=== PATIENT | female | born 1990 | race Caucasian/White ===

== ENCOUNTER 2018-11-10 20:57 | Emergency (ER) | payer BC, OTHER ==
[2018-11-10] MEDS ORDERED: ACETAMINOPHEN TAB 500 MG TAB PO STA (21:47)
--- NOTE | 2018-11-10 22:11 | ED ---
General Adult HPI - General Chief complaint: Psychiatric Symptoms Stated complaint: Petition Time Seen by Provider: 11/10/18 21:15 Source: patient, police, RN notes reviewed, old records reviewed Mode of arrival: ambulatory Limitations: no limitations - History of Present Illness Initial comments: 27-year-old female presenting with depression and suicidal ideation. Patient has history of depression, anxiety, and has had previous psychiatric admissions. She states over the past week she's had increasing thoughts of hurting herself. She did cut her bilateral wrists one week ago. This was superficial in nature. Patient denies any ingestion or attempt at overdose today. Denies illicit drugs or alcohol. States she plans to overdose. - Related Data Home Medications Medication Instructions Recorded Confirmed Folic Acid 2 mg PO BID 08/31/14 11/10/18 lamoTRIgine [LaMICtal] 200 mg PO BID 05/10/15 11/10/18 ARIPiprazole IM SYRINGE [Abilify 400 mg IM Q28D 11/10/18 11/10/18 Maintena Syringe] Albuterol Inhaler [Ventolin Hfa 1 - 2 puff INHALATION RT-Q6H PRN 11/10/18 Inhaler] Clonidine Er 0.1mg(Kapvay) 0.3 mg PO HS 11/10/18 11/10/18 Ferrous Sulfate [Feosol] 325 mg PO BID 11/10/18 11/10/18 Glimepiride [Amaryl] 1 mg PO DAILY 11/10/18 11/10/18 LORazepam [Ativan] 1 mg PO BID PRN 11/10/18 11/10/18 Lisinopril [Zestril] 10 mg PO DAILY 11/10/18 11/10/18 [place] Carbonate 1,200 mg PO HS 11/10/18 11/10/18 [place] Carbonate 300 mg PO HS 11/10/18 11/10/18 Propranolol HCl [Propranolol HCl 120 mg PO DAILY 11/10/18 11/10/18 ER] Vitamin D3(Unknown Dose) 1 tab PO DAILY 11/10/18 11/10/18 Vitron-C 1 tab PO BID 11/10/18 11/10/18 lamoTRIgine [LaMICtal] 75 mg PO BID 11/10/18 11/10/18 metFORMIN HCL [Glucophage] 1,000 mg PO BID 11/10/18 11/10/18 Previous Rx's Medication Instructions Recorded Montelukast [Singulair] 10 mg PO DAILY 30 Days tab 09/07/14 Allergies Allergy/AdvReac Type Severity Reaction Status Date / Time haloperidol [From Haldol] Allergy Unknown Verified 11/10/18 21:30 metronidazole [From Flagyl] Allergy Unknown Verified 11/10/18 21:30 Review of Systems ROS Statement: Those systems with pertinent positive or pertinent negative responses have been documented in the HPI. ROS Other: All systems not noted in ROS Statement are negative. Past Medical History Past Medical History: Asthma, Hypertension, Seizure Disorder History of Any Multi-Drug Resistant Organisms: None Reported Past Surgical History: Cholecystectomy Past Anesthesia/Blood Transfusion Reactions: No Reported Reaction Past Psychological History: Anxiety, Bipolar, Depression, Panic Disorder Smoking Status: Current every day smoker Past Alcohol Use History: Occasional Past Drug Use History: None Reported - Past Family History Mother Family Medical History: Asthma, Diabetes Mellitus Additional Family Medical History / Comment(s): Mom is alive at age 56 with history of diabetes Father Family Medical History: Hypertension Additional Family Medical History / Comment(s): Father is alive at age 56 with history of hypertension. Patient does not have any brothers. She does not have a sisters. She does not have any children. General Exam Limitations: no limitations General appearance: alert, in no apparent distress Head exam: Present: atraumatic, normocephalic Eye exam: Present: normal appearance, PERRL ENT exam: Present: normal exam Neck exam: Present: normal inspection. Absent: tenderness, meningismus Respiratory exam: Present: normal lung sounds bilaterally. Absent: respiratory distress, wheezes Cardiovascular Exam: Present: regular rate, normal rhythm GI/Abdominal exam: Present: soft. Absent: distended, tenderness Extremities exam: Present: other (Multiple linear superficial lacerations to bilateral palmar side of the wrist. No repairable laceration. These are very superficial and not bleeding.) Neurological exam: Present: alert, oriented X3, CN II-XII intact. Absent: motor sensory deficit Psychiatric exam: Present: depressed, flat affect, suicidal ideation Skin exam: Present: warm, dry. Absent: cyanosis, diaphoretic Course Vital Signs 11/10/18 11/11/18 21:03 02:18 Temperature 98.5 F Pulse Rate 75 Respiratory 16 17 Rate Blood Pressure 127/85 O2 Sat by Pulse 100 Oximetry - Reevaluation(s) Reevaluation #1: 11/10/18 23:27 Patient evaluated by EPS, no will require psychiatric inpatient evaluation and treatment. Will likely be transferred. I completed a clinical certification for this patient's condition. Medical Decision Making - Medical Decision Making Patient evaluated by EPS, she will be transferred for further psychiatric evaluation and treatment. She will be transferred to [facility] - Lab Data Result diagrams: 11/11/18 00:05 11/11/18 00:05 Lab Results 11/11/18 11/11/18 11/11/18 Range/Units 00:05 00:05 00:05 WBC 12.9 H (3.8-10.6) k/uL RBC 4.51 (3.80-5.40) m/uL Hgb 12.9 (11.4-16.0) gm/dL Hct 40.1 (34.0-46.0) % MCV 88.8 (80.0-100.0) fL MCH 28.7 (25.0-35.0) pg MCHC 32.3 (31.0-37.0) g/dL RDW 14.2 (11.5-15.5) % Plt Count 378 (150-450) k/uL Neutrophils % 71 % Lymphocytes % 20 % Monocytes % 4 % Eosinophils % 3 % Basophils % 0 % Neutrophils # 9.1 H (1.3-7.7) k/uL Lymphocytes # 2.6 (1.0-4.8) k/uL Monocytes # 0.5 (0-1.0) k/uL Eosinophils # 0.3 (0-0.7) k/uL Basophils # 0.0 (0-0.2) k/uL Sodium 140 (137-145) mmol/L Potassium 4.3 (3.5-5.1) mmol/L Chloride 107 (98-107) mmol/L Carbon Dioxide 22 (22-30) mmol/L Anion Gap 11 mmol/L BUN 17 (7-17) mg/dL Creatinine 0.78 (0.52-1.04) mg/dL Est GFR (CKD-EPI)AfAm >90 (>60 ml/min/1.73 sqM) Est GFR (CKD-EPI)NonAf >90 (>60 ml/min/1.73 sqM) Glucose 100 H (74-99) mg/dL Calcium 10.1 (8.4-10.2) mg/dL Total Bilirubin 0.4 (0.2-1.3) mg/dL AST 25 (14-36) U/L ALT 56 H (9-52) U/L Alkaline Phosphatase 110 (38-126) U/L Total Protein 7.4 (6.3-8.2) g/dL Albumin 4.4 (3.5-5.0) g/dL Urine HCG, Qual (Not Detectd) Urine Opiates Screen Not Detected (NotDetected) Ur Oxycodone Screen Not Detected (NotDetected) Urine Methadone Screen Not Detected (NotDetected) Ur Propoxyphene Screen Not Detected (NotDetected) Ur Barbiturates Screen Not Detected (NotDetected) U Tricyclic Antidepress Not Detected (NotDetected) Ur Phencyclidine Scrn Not Detected (NotDetected) Ur Amphetamines Screen Not Detected (NotDetected) U Methamphetamines Scrn Not Detected (NotDetected) U Benzodiazepines Scrn Detected H (NotDetected) Urine Cocaine Screen Not Detected (NotDetected) U Marijuana (THC) Screen Not Detected (NotDetected) 11/11/18 Range/Units 00:05 WBC (3.8-10.6) k/uL RBC (3.80-5.40) m/uL Hgb (11.4-16.0) gm/dL Hct (34.0-46.0) % MCV (80.0-100.0) fL MCH (25.0-35.0) pg MCHC (31.0-37.0) g/dL RDW (11.5-15.5) % Plt Count (150-450) k/uL Neutrophils % % Lymphocytes % % Monocytes % % Eosinophils % % Basophils % % Neutrophils # (1.3-7.7) k/uL Lymphocytes # (1.0-4.8) k/uL Monocytes # (0-1.0) k/uL Eosinophils # (0-0.7) k/uL Basophils # (0-0.2) k/uL Sodium (137-145) mmol/L Potassium (3.5-5.1) mmol/L Chloride (98-107) mmol/L Carbon Dioxide (22-30) mmol/L Anion Gap mmol/L BUN (7-17) mg/dL Creatinine (0.52-1.04) mg/dL Est GFR (CKD-EPI)AfAm (>60 ml/min/1.73 sqM) Est GFR (CKD-EPI)NonAf (>60 ml/min/1.73 sqM) Glucose (74-99) mg/dL Calcium (8.4-10.2) mg/dL Total Bilirubin (0.2-1.3) mg/dL AST (14-36) U/L ALT (9-52) U/L Alkaline Phosphatase (38-126) U/L Total Protein (6.3-8.2) g/dL Albumin (3.5-5.0) g/dL Urine HCG, Qual Not Detected (Not Detectd) Urine Opiates Screen (NotDetected) Ur Oxycodone Screen (NotDetected) Urine Methadone Screen (NotDetected) Ur Propoxyphene Screen (NotDetected) Ur Barbiturates Screen (NotDetected) U Tricyclic Antidepress (NotDetected) Ur Phencyclidine Scrn (NotDetected) Ur Amphetamines Screen (NotDetected) U Methamphetamines Scrn (NotDetected) U Benzodiazepines Scrn (NotDetected) Urine Cocaine Screen (NotDetected) U Marijuana (THC) Screen (NotDetected) Disposition Clinical Impression: Depression, Suicidal ideation Disposition: OTHER INSTITUTION NOT DEFINED Condition: Stable Is patient prescribed a controlled substance at d/c from ED?: No Referrals: None,Stated [Primary Care Provider] - 1-2 days Time of Disposition: 03:26 - Out of Hospital Transfer - Req. Specs Out of Hospital Transfer - Requested Specifics: Psychiatric Non-ICU (Danita
[2018-11-11 00:27] LABS: Basophils % (A) 0 %; Eosinophils # (A) 0.3 k/uL (0-0.7); Eosinophils % (A) 3 %; HCT 40.1 % (34.0-46.0); HGB 12.9 gm/dL (11.4-16.0); Lymphocytes # (A) 2.6 k/uL (1.0-4.8); Lymphocytes % (A) 20 %; MCH 28.7 pg (25.0-35.0); MCHC 32.3 g/dL (31.0-37.0); MCV 88.8 fL (80.0-100.0); Mean Platelet Volume 6.3; Monocytes # (A) 0.5 k/uL (0-1.0); Monocytes % (A) 4 %; Neutrophils # (A) 9.1 k/uL (1.3-7.7); Neutrophils % (A) 71 %; Platelet Count 378 k/uL (150-450); RBC 4.51 m/uL (3.80-5.40); RDW 14.2 % (11.5-15.5); WBC 12.9 k/uL (3.8-10.6)
[2018-11-11 00:39] LABS: ALT 56 U/L (9-52); AST 25 U/L (14-36); Albumin 4.4 g/dL (3.5-5.0); Alkaline Phosphatase 110 U/L (38-126); Anion Gap 11 mmol/L; Blood Urea Nitrogen 17 mg/dL (7-17); Calcium 10.1 mg/dL (8.4-10.2); Carbon Dioxide 22 mmol/L (22-30); Chloride 107 mmol/L (98-107); Glucose 100 mg/dL (74-99); Potassium 4.3 mmol/L (3.5-5.1); Sodium 140 mmol/L (137-145); Total Bilirubin 0.4 mg/dL (0.2-1.3); Total Protein 7.4 g/dL (6.3-8.2)
[2018-11-11 00:53] LABS: Amphetamine Screen,Urine Not Detected (NotDetected); Barbiturate Screen,Urine Not Detected (NotDetected); Benzodiazepines Screen,Urine Detected (NotDetected); Cocaine Screen,Urine Not Detected (NotDetected); Methadone Screen, Urine Not Detected (NotDetected); Opiate Screen,Urine Not Detected (NotDetected); Oxycodone Screen, Urine Not Detected (NotDetected); Phencyclidine Screen,Urine Not Detected (NotDetected); Tricyclic Antidepressant,Urine Not Detected (NotDetected); Urn Cannabinoid Scrn Not Detected (NotDetected)
[2018-11-11 05:32] VITALS: BP 124/78; PULSE 72; RESP 18; TEMP 97.5
== END 2018-11-11 03:20 | disposition other institution (70) ==
LOC: EC 20:57
DX: F32.9 Major depressive disorder, single episode, unspecified (principal); R45.851 Suicidal ideations; S61.512A Laceration without foreign body of left wrist, initial encounter; S61.511A Laceration without foreign body of right wrist, initial encounter; J45.909 Unspecified asthma, uncomplicated; I10 Essential (primary) hypertension; G40.909 Epilepsy, unspecified, not intractable, without status epilepticus; F41.9 Anxiety disorder, unspecified; F17.200 Nicotine dependence, unspecified, uncomplicated; Z79.84 Long term (current) use of oral hypoglycemic drugs; Z79.899 Other long term (current) drug therapy; Z88.8 Allergy status to other drugs, medicaments and biological substances; Z88.1 Allergy status to other antibiotic agents; X83.8XXA Intentional self-harm by other specified means, initial encounter
CPT/HCPCS: 36415; 80053; 80306; 81025; 82075; 85025; 99285

== ENCOUNTER 2019-02-10 16:52 | Emergency (ER) | payer BC ==
--- NOTE | 2019-02-10 18:34 | ED ---
Psych HPI - General Source: patient, EMS Mode of arrival: EMS <Dania Person - Last Filed: 02/11/19 02:06> <Batool Riley - Last Filed: 02/11/19 06:38> - General Chief Complaint: Psychiatric Symptoms Stated Complaint: EPS eval Time Seen by Provider: 02/10/19 17:20 - History of Present Illness Initial Comments: 28-year-old female patient presents to the emergency department today for evaluation after drinking a half a bottle of ZZZquil. Patient states that her counselor from [facility] wanted her to come in for an evaluation. Patient states that she has been increasingly depressed recently however she took the medication and attempt to sleep and not to kill herself. She states that she did get her injection of Abilify yesterday but doesn't feel that his kicked in yet. Patient states that she has attempted suicide once in the past as a teenager. States that she has been admitted for mental health services and was discharged from [facility] in October. Patient states currently she feels tired but denies any other symptoms. She denies any current physical symptoms or concerns. Patient denies any recent rash, fever, chills, shortness breath, chest pain, abdominal pain, nausea, vomiting, diarrhea, constipation, back pain, numbness, tingling, dizziness, weakness, hematuria, dysuria, urinary urgency, urinary frequency, headache, visual changes, or any other complaints. (Dania Person) - Related Data Home Medications Medication Instructions Recorded Confirmed Folic Acid 2 mg PO BID 08/31/14 02/10/19 lamoTRIgine [LaMICtal] 200 mg PO BID 05/10/15 02/10/19 ARIPiprazole IM SYRINGE [Abilify 400 mg IM Q28D 11/10/18 02/10/19 Maintena Syringe] Albuterol Inhaler [Ventolin Hfa 1 - 2 puff INHALATION RT-Q6H PRN 11/10/18 02/10/19 Inhaler] Glimepiride [Amaryl] 1 mg PO DAILY 11/10/18 02/10/19 Lisinopril [Zestril] 10 mg PO DAILY 11/10/18 02/10/19 Propranolol HCl [Propranolol HCl 120 mg PO DAILY 11/10/18 02/10/19 ER] Vitamin D3(Unknown Dose) 1 tab PO DAILY 11/10/18 02/10/19 lamoTRIgine [LaMICtal] 75 mg PO BID 11/10/18 02/10/19 metFORMIN HCL [Glucophage] 1,000 mg PO BID 11/10/18 02/10/19 ARIPiprazole [Abilify] 5 mg PO DAILY@1200 02/10/19 02/10/19 Allopurinol [Zyloprim] 100 mg PO DAILY 02/10/19 02/10/19 Doxepin HCl 75 mg PO HS 02/10/19 02/10/19 Montelukast [Singulair] 10 mg PO HS 02/10/19 02/10/19 Sertraline [Zoloft] 100 mg PO DAILY 02/10/19 02/10/19 Allergies Allergy/AdvReac Type Severity Reaction Status Date / Time haloperidol [From Haldol] Allergy Unknown Verified 02/10/19 18:25 metronidazole [From Flagyl] Allergy Unknown Verified 02/10/19 18:25 Review of Systems ROS Other: All systems not noted in ROS Statement are negative. <Dania Person - Last Filed: 02/11/19 02:06> ROS Other: All systems not noted in ROS Statement are negative. <Batool Riley - Last Filed: 02/11/19 06:38> ROS Statement: Those systems with pertinent positive or pertinent negative responses have been documented in the HPI. Past Medical History Past Medical History: Asthma, Diabetes Mellitus, Hypertension, Seizure Disorder History of Any Multi-Drug Resistant Organisms: None Reported Past Surgical History: Cholecystectomy Past Anesthesia/Blood Transfusion Reactions: No Reported Reaction Past Psychological History: Anxiety, Bipolar, Depression, Panic Disorder Smoking Status: Current every day smoker Past Alcohol Use History: Occasional Past Drug Use History: None Reported - Past Family History Mother Family Medical History: Asthma, Diabetes Mellitus Additional Family Medical History / Comment(s): Mom is alive at age 56 with history of diabetes Father Family Medical History: Hypertension Additional Family Medical History / Comment(s): Father is alive at age 56 with history of hypertension. Patient does not have any brothers. She does not have a sisters. She does not have any children. <Dania Person - Last Filed: 02/11/19 02:06> General Exam Limitations: no limitations General appearance: alert, in no apparent distress, other (Physical well- developed, well-nourished adult female patient in no acute distress. Vital signs upon presentation are temperature 98.5F, pulse 79, respirations 18, blood pressure 122/68, pulse ox 100% on room air.) Eye exam: Present: normal appearance, PERRL, EOMI. Absent: scleral icterus, conjunctival injection, periorbital swelling ENT exam: Present: normal exam, normal oropharynx, mucous membranes moist Respiratory exam: Present: normal lung sounds bilaterally. Absent: respiratory distress, wheezes, rales, rhonchi, stridor Cardiovascular Exam: Present: regular rate, normal rhythm, normal heart sounds. Absent: systolic murmur, diastolic murmur, rubs, gallop, clicks GI/Abdominal exam: Present: soft, normal bowel sounds. Absent: distended, tenderness, guarding, rebound, rigid Neurological exam: Present: alert, oriented X3, CN II-XII intact Psychiatric exam: Present: normal affect, normal mood Skin exam: Present: warm, dry, intact, normal color. Absent: rash <Dania Person - Last Filed: 02/11/19 02:06> Course Vital Signs 02/10/19 02/11/19 17:06 01:56 Temperature 98.5 F 98.2 F Pulse Rate 79 69 Respiratory 18 16 Rate Blood Pressure 122/68 136/66 O2 Sat by Pulse 100 95 Oximetry Medical Decision Making <Dania Person - Last Filed: 02/11/19 02:06> <Batool Riley P - Last Filed: 02/11/19 06:38> - Medical Decision Making 28-year-old female patient presented to the emergency department today for psychiatric evaluation since by her counselor after she drank half a bottle of ZZZquil. Patient did report she did not do this in attempt to kill herself. She denies any suicidal or homicidal ideation. She was seen and evaluated by emergency psychiatric services. She will be discharged home with a safety plan. She is instructed to call [facility] crisis [facility] tomorrow by 1 PM, she has been provided with this phone number. Return parameters were discussed in detail. She verbalizes understanding and agrees with this plan. (Dania Person) I was available for consultation in the emergency department. The history and physical exam were done by the Midlevel Provider. Medical decision making was done by the Midlevel Provider. The Midlevel Provider did not contact me for this patient's care. I was not directly involved in this patient's care. (Batool Riley) - Lab Data Lab Results 02/10/19 02/10/19 Range/Units 17:11 17:11 Urine HCG, Qual Not Detected (Not Detectd) Urine Opiates Screen Not Detected (NotDetected) Ur Oxycodone Screen Not Detected (NotDetected) Urine Methadone Screen Not Detected (NotDetected) Ur Propoxyphene Screen Not Detected (NotDetected) Ur Barbiturates Screen Not Detected (NotDetected) U Tricyclic Antidepress Detected H (NotDetected) Ur Phencyclidine Scrn Not Detected (NotDetected) Ur Amphetamines Screen Not Detected (NotDetected) U Methamphetamines Scrn Not Detected (NotDetected) U Benzodiazepines Scrn Not Detected (NotDetected) Urine Cocaine Screen Not Detected (NotDetected) U Marijuana (THC) Screen Not Detected (NotDetected) Disposition Is patient prescribed a controlled substance at d/c from ED?: No Time of Disposition: 01:39 <Dania Person - Last Filed: 02/11/19 02:06> <Batool Riley - Last Filed: 02/11/19 06:38> Clinical Impression: Overdose Disposition: HOME SELF-CARE Condition: Good Instructions (If sedation given, give patient instructions): Adult Overdose (ED) Additional Instructions: Follow-up with your counselor outpatient for further evaluation. Medications only as directed. Return to the emergency department immediately for any new, worsening, or concerning symptoms. Referrals: Pauly Stinson MD [Primary Care Provider] - 1-2 days
[2019-02-10 18:49] LABS: Amphetamine Screen,Urine Not Detected (NotDetected); Barbiturate Screen,Urine Not Detected (NotDetected); Benzodiazepines Screen,Urine Not Detected (NotDetected); Cocaine Screen,Urine Not Detected (NotDetected); Methadone Screen, Urine Not Detected (NotDetected); Opiate Screen,Urine Not Detected (NotDetected); Oxycodone Screen, Urine Not Detected (NotDetected); Phencyclidine Screen,Urine Not Detected (NotDetected); Tricyclic Antidepressant,Urine Detected (NotDetected); Urn Cannabinoid Scrn Not Detected (NotDetected)
[2019-02-10] MEDS ORDERED: ACETAMINOPHEN TAB 500 MG TAB PO STA (20:38)
[2019-02-11 02:06] VITALS: BP 136/66; PULSE 69; RESP 16; TEMP 98.2
== END 2019-02-11 02:05 | disposition home or self-care (01) ==
LOC: EC 16:52
DX: T45.0X1A Poisoning by antiallergic and antiemetic drugs, accidental (unintentional), initial encounter (principal); F31.9 Bipolar disorder, unspecified; J45.909 Unspecified asthma, uncomplicated; I10 Essential (primary) hypertension; E11.9 Type 2 diabetes mellitus without complications; G40.909 Epilepsy, unspecified, not intractable, without status epilepticus; F41.0 Panic disorder [episodic paroxysmal anxiety]; F17.200 Nicotine dependence, unspecified, uncomplicated; Z88.1 Allergy status to other antibiotic agents; Z88.8 Allergy status to other drugs, medicaments and biological substances; Z79.84 Long term (current) use of oral hypoglycemic drugs; Z79.899 Other long term (current) drug therapy; Z91.5 Personal history of self-harm
CPT/HCPCS: 80306; 81025; 99284

== ENCOUNTER 2019-05-21 12:55 | Observation (INO) | payer BC ==
[2019-05-21] MEDS ORDERED: SODIUM CHLORIDE 0.9% 1,000 ML IV STA (13:33)
[2019-05-21] MEDS ORDERED: ASPIRIN 81 MG PO STA (13:33)
--- NOTE | 2019-05-21 14:01 | ED ---
General Adult HPI <Cezar Baldwin - Last Filed: 05/21/19 16:39> - General Source: patient, RN notes reviewed, old records reviewed Mode of arrival: ambulatory Limitations: no limitations <Marla Walkerily - Last Filed: 05/21/19 16:55> - General Chief complaint: Chest Pain Stated complaint: abn EKG, SOB Time Seen by Provider: 05/21/19 13:13 - History of Present Illness Initial comments: Patient is a 20-year-old female with a history of diabetes, hypertension family history of heart disease. She presents emergency department today complaining of intermittent chest pain for the past week. Patient states that she went to an urgent care today and and was told she had an abnormal EKG and was sent here for further evaluation. Patient states that she's had some associated shortness of breath with this. She reports that she is a smoker. Denies any significant coughing (Olive Walker) - Related Data Home Medications Medication Instructions Recorded Confirmed Folic Acid 2 mg PO BID 08/31/14 05/21/19 lamoTRIgine [LaMICtal] 200 mg PO BID 05/10/15 05/21/19 ARIPiprazole IM SYRINGE [Abilify 400 mg IM Q28D 11/10/18 05/21/19 Maintena Syringe] Propranolol HCl [Propranolol HCl 120 mg PO DAILY 11/10/18 05/21/19 ER] lamoTRIgine [LaMICtal] 75 mg PO BID 11/10/18 05/21/19 metFORMIN HCL [Glucophage] 500 mg PO BID 11/10/18 05/21/19 Allopurinol [Zyloprim] 100 mg PO DAILY 02/10/19 05/21/19 Doxepin HCl 75 mg PO HS 02/10/19 05/21/19 Montelukast [Singulair] 10 mg PO HS 02/10/19 05/21/19 Furosemide [Lasix] 40 mg PO DAILY 05/21/19 05/21/19 Glimepiride [Amaryl] 2 mg PO DAILY 05/21/19 05/21/19 [place] Carbonate 600 mg PO BID 05/21/19 05/21/19 Potassium Chloride ER [K-Dur 10] 10 meq PO Q48H 05/21/19 05/21/19 levETIRAcetam [Keppra] 500 mg PO Q12HR 05/21/19 05/21/19 Allergies Allergy/AdvReac Type Severity Reaction Status Date / Time haloperidol [From Haldol] Allergy Unknown Verified 05/21/19 13:17 metronidazole [From Flagyl] Allergy Unknown Verified 05/21/19 13:17 Review of Systems ROS Other: All systems not noted in ROS Statement are negative. <Cezar Baldwin - Last Filed: 05/21/19 16:39> ROS Other: All systems not noted in ROS Statement are negative. <Olive Walker - Last Filed: 05/21/19 16:55> ROS Statement: Those systems with pertinent positive or pertinent negative responses have been documented in the HPI. Past Medical History Past Medical History: Asthma, Diabetes Mellitus, Hypertension, Seizure Disorder History of Any Multi-Drug Resistant Organisms: None Reported Past Surgical History: Cholecystectomy Past Anesthesia/Blood Transfusion Reactions: No Reported Reaction Past Psychological History: Anxiety, Bipolar, Depression, Panic Disorder Smoking Status: Current every day smoker Past Alcohol Use History: Occasional Past Drug Use History: None Reported - Past Family History Mother Family Medical History: Asthma, Diabetes Mellitus Additional Family Medical History / Comment(s): Mom is alive at age 56 with history of diabetes Father Family Medical History: Hypertension Additional Family Medical History / Comment(s): Father is alive at age 56 with history of hypertension. Patient does not have any brothers. She does not have a sisters. She does not have any children. <Olvie Walker - Last Filed: 05/21/19 16:55> General Exam Limitations: no limitations General appearance: alert, in no apparent distress Head exam: Present: atraumatic, normocephalic, normal inspection Eye exam: Present: normal appearance, PERRL, EOMI. Absent: scleral icterus, conjunctival injection, periorbital swelling ENT exam: Present: normal exam, mucous membranes moist Neck exam: Present: normal inspection. Absent: tenderness, meningismus, lymphadenopathy Respiratory exam: Present: normal lung sounds bilaterally. Absent: respiratory distress, wheezes, rales, rhonchi, stridor Cardiovascular Exam: Present: regular rate, normal rhythm, normal heart sounds. Absent: systolic murmur, diastolic murmur, rubs, gallop, clicks GI/Abdominal exam: Present: soft, normal bowel sounds. Absent: distended, tenderness, guarding, rebound, rigid Extremities exam: Present: normal inspection, full ROM, normal capillary refill. Absent: tenderness, pedal edema, joint swelling, calf tenderness Back exam: Present: normal inspection Neurological exam: Present: alert, oriented X3, CN II-XII intact Psychiatric exam: Present: normal affect, normal mood Skin exam: Present: warm, dry, intact, normal color. Absent: rash <Olive Walker - Last Filed: 05/21/19 16:55> - General Exam Comments Initial Comments: Obese 28-year-old female. No distress. 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 Ventricular rate of 81 bpm.. It was 174 ms. Frustration 96 most seconds. QT QTc is 3/447 seconds. <Olive Walker - Last Filed: 05/21/19 16:55> Medical Decision Making - Lab Data Result diagrams: 05/21/19 14:05 05/21/19 14:05 <Cezar Baldwin - Last Filed: 05/21/19 16:39> - Lab Data Result diagrams: 05/21/19 14:05 05/21/19 14:05 - Radiology Data Radiology results: report reviewed <Olive Walker - Last Filed: 05/21/19 16:55> - Medical Decision Making Case was discussed with practitioner Olive. Chart reviewed. Case was also discussed with Dr. Ghosh, who will admit for hospital call. (Cezar Baldwin) Patient is a 20-year-old female with multiple risk factors for heart disease including diabetes hypertension, a smoker. She has a positive family history of heart disease. She presents with unstable anginal-like chest pain, worse with shortening of breath with walking. She states that she was sent here from an medics wrist for an abnormal EKG. This time patient's EKG shows no ST elevation. There is questionable inferior infarct. No previous EKGs to compare from. Patient's troponin is negative. Patient's case discussed with Dr. Baldwin. Given multiple risk factors, obesity we will that the Patient for cardiac rule out. (Olive Walker) - Lab Data Lab Results 05/21/19 05/21/19 05/21/19 Range/Units 14:05 14:05 14:05 WBC 8.7 (3.8-10.6) k/uL RBC 4.82 (3.80-5.40) m/uL Hgb 13.3 (11.4-16.0) gm/dL Hct 40.5 (34.0-46.0) % MCV 84.2 (80.0-100.0) fL MCH 27.5 (25.0-35.0) pg MCHC 32.7 (31.0-37.0) g/dL RDW 15.4 (11.5-15.5) % Plt Count 399 (150-450) k/uL Neutrophils % 71 % Lymphocytes % 22 % Monocytes % 3 % Eosinophils % 1 % Basophils % 1 % Neutrophils # 6.2 (1.3-7.7) k/uL Lymphocytes # 1.9 (1.0-4.8) k/uL Monocytes # 0.3 (0-1.0) k/uL Eosinophils # 0.1 (0-0.7) k/uL Basophils # 0.1 (0-0.2) k/uL PT (9.0-12.0) sec INR (<1.2) APTT (22.0-30.0) sec Sodium 142 (137-145) mmol/L Potassium 3.9 (3.5-5.1) mmol/L Chloride 104 (98-107) mmol/L Carbon Dioxide 27 (22-30) mmol/L Anion Gap 11 mmol/L BUN 13 (7-17) mg/dL Creatinine 0.96 (0.52-1.04) mg/dL Est GFR (CKD-EPI)AfAm >90 (>60 ml/min/1.73 sqM) Est GFR (CKD-EPI)NonAf 81 (>60 ml/min/1.73 sqM) Glucose 106 H (74-99) mg/dL Calcium 10.1 (8.4-10.2) mg/dL Magnesium 1.9 (1.6-2.3) mg/dL Total Bilirubin 0.4 (0.2-1.3) mg/dL AST 34 (14-36) U/L ALT 46 (9-52) U/L Alkaline Phosphatase 110 (38-126) U/L Troponin I (0.000-0.034) ng/mL NT-Pro-B Natriuret Pep 24 pg/mL Total Protein 7.8 (6.3-8.2) g/dL Albumin 4.7 (3.5-5.0) g/dL Amylase 65 (30-110) U/L Lipase 103 (23-300) U/L 05/21/19 05/21/19 Range/Units 14:05 14:05 WBC (3.8-10.6) k/uL RBC (3.80-5.40) m/uL Hgb (11.4-16.0) gm/dL Hct (34.0-46.0) % MCV (80.0-100.0) fL MCH (25.0-35.0) pg MCHC (31.0-37.0) g/dL RDW (11.5-15.5) % Plt Count (150-450) k/uL Neutrophils % % Lymphocytes % % Monocytes % % Eosinophils % % Basophils % % Neutrophils # (1.3-7.7) k/uL Lymphocytes # (1.0-4.8) k/uL Monocytes # (0-1.0) k/uL Eosinophils # (0-0.7) k/uL Basophils # (0-0.2) k/uL PT 10.0 (9.0-12.0) sec INR 0.9 (<1.2) APTT 24.2 (22.0-30.0) sec Sodium (137-145) mmol/L Potassium (3.5-5.1) mmol/L Chloride (98-107) mmol/L Carbon Dioxide (22-30) mmol/L Anion Gap mmol/L BUN (7-17) mg/dL Creatinine (0.52-1.04) mg/dL Est GFR (CKD-EPI)AfAm (>60 ml/min/1.73 sqM) Est GFR (CKD-EPI)NonAf (>60 ml/min/1.73 sqM) Glucose (74-99) mg/dL Calcium (8.4-10.2) mg/dL Magnesium (1.6-2.3) mg/dL Total Bilirubin (0.2-1.3) mg/dL AST (14-36) U/L ALT (9-52) U/L Alkaline Phosphatase (38-126) U/L Troponin I <0.012 (0.000-0.034) ng/mL NT-Pro-B Natriuret Pep pg/mL Total Protein (6.3-8.2) g/dL Albumin (3.5-5.0) g/dL Amylase (30-110) U/L Lipase (23-300) U/L - Radiology Data Normal chest x-ray. (Olive Walker) Disposition <Cezar Baldwin - Last Filed: 05/21/19 16:39> Is patient prescribed a controlled substance at d/c from ED?: No Time of Disposition: 16:03 <Olive Walker - Last Filed: 05/21/19 16:55> Clinical Impression: Chest pain Disposition: HOME SELF-CARE Condition: Good Referrals: Pauly Stinson MD [Primary Care Provider] - 1-2 days
--- NOTE | 2019-05-21 14:04 | XR ---
EXAMINATION TYPE: XR chest 2V DATE OF EXAM: 05/21/2019 COMPARISON: 12/17/2006 HISTORY: Chest pain TECHNIQUE: Frontal and lateral views of the chest are obtained. FINDINGS: There is no focal air space opacity, pleural effusion, or pneumothorax seen. Slight right hemidiaphragm eventration is present. The cardiac silhouette size is upper limits of normal. The o sseous structures are intact. IMPRESSION: No acute cardiopulmonary process.
[2019-05-21 14:25] LABS: Basophils # (A) 0.1 k/uL (0-0.2); Basophils % (A) 1 %; Eosinophils # (A) 0.1 k/uL (0-0.7); Eosinophils % (A) 1 %; HCT 40.5 % (34.0-46.0); HGB 13.3 gm/dL (11.4-16.0); Lymphocytes # (A) 1.9 k/uL (1.0-4.8); Lymphocytes % (A) 22 %; MCH 27.5 pg (25.0-35.0); MCHC 32.7 g/dL (31.0-37.0); MCV 84.2 fL (80.0-100.0); Mean Platelet Volume 6.7; Monocytes # (A) 0.3 k/uL (0-1.0); Monocytes % (A) 3 %; Neutrophils # (A) 6.2 k/uL (1.3-7.7); Neutrophils % (A) 71 %; Platelet Count 399 k/uL (150-450); RBC 4.82 m/uL (3.80-5.40); RDW 15.4 % (11.5-15.5); WBC 8.7 k/uL (3.8-10.6)
[2019-05-21 14:34] LABS: ALT 46 U/L (9-52); AST 34 U/L (14-36); African American GFR (CKD) >90 (>60 ml/min/1.73 sqM); Albumin 4.7 g/dL (3.5-5.0); Alkaline Phosphatase 110 U/L (38-126); Amylase 65 U/L (30-110); Anion Gap 11 mmol/L; Blood Urea Nitrogen 13 mg/dL (7-17); Calcium 10.1 mg/dL (8.4-10.2); Carbon Dioxide 27 mmol/L (22-30); Chloride 104 mmol/L (98-107); Glucose 106 mg/dL (74-99); Lipase 103 U/L (23-300); Magnesium 1.9 mg/dL (1.6-2.3); Potassium 3.9 mmol/L (3.5-5.1); Sodium 142 mmol/L (137-145); Total Bilirubin 0.4 mg/dL (0.2-1.3); Total Protein 7.8 g/dL (6.3-8.2)
[2019-05-21 15:04] LABS: INR 0.9 (<1.2); Partial Thromboplastin Time 24.2 sec (22.0-30.0)
[2019-05-21] MEDS ORDERED: NITROGLYCERIN SL TABS 0.4 MG TAB SUBLINGUAL PRN (16:55)
[2019-05-21] MEDS ORDERED: NALOXONE 0.4 MG/ML 1 ML VIAL IV PRN (18:10)
[2019-05-21 18:14] VITALS: BMI 52.0
--- NOTE | 2019-05-21 18:17 | P.HPIM ---
History of Present Illness H&P Date: 05/21/19 Chief Complaint: chest pain Patient is a 28-year-old female past medical history of hypertension, diabetes, seizure disorder, asthma, and bipolar disorder who presented to the ER with 4 day complaints of chest pain. She called her PCPs office on the day of admission who directed her to urgent care. Urgent care felt there was an abnormality in her EKG and subsequently sent her to the ER. In the ER she underwent an extensive evaluation. On arrival her blood pressure was 151/84. Chest x-ray showed no acute process. EKG is reviewed by myself revealed normal sinus rhythm at 81, normal intervals, normal axis, and no significant ST-T wave changes. Initial laboratory analysis was unremarkable. Her initial troponin was negative. She received an aspirin and IV fluids. She was admitted as observation for further monitoring. Patient seen and examined the ER with present. Patient reports that she's been having chest pain for 3-4 days. It is intermittent and she describes it as a left-sided heaviness without radiation. It is associated with shortness of breath, lightheadedness, and nausea. She also reports that her chest feels as though her heart is pounding or racing. She denies any numbness or tingling down her arm or up into her jaw, she denies any associated diaphoresis. She states that for the last several days she has been waking up shaking from the middle the night. She reports that her blood sugars have been normal during his episodes. She reports that she's been having intermittent headaches for the last 3 days. She also reports an increase in her acid reflux. She has felt more exhausted and fatigued than normal. She has been working out in the yard more than normal. She denies any other increases in activities. She has not missed any doses of her medications. She does note that on waking this morning her blood pressure was exceedingly elevated at 171/104. She also reports that 3 weeks ago they increased her glyburide as her A1c had increased from 5.7-6.2. At that point in time her sugars have been in the 300s, they are now between 120 and 170. She smokes approximately a third a pack per day, her maternal grandfather has a history of myocardial infarction. Review of Systems Pertinent positives and negatives as discussed in HPI, a complete review of systems was performed and all other systems are negative. Past Medical History Past Medical History: Asthma, Diabetes Mellitus, Hypertension, Seizure Disorder History of Any Multi-Drug Resistant Organisms: None Reported Past Surgical History: Cholecystectomy Past Anesthesia/Blood Transfusion Reactions: No Reported Reaction Past Psychological History: Anxiety, Bipolar, Depression, Panic Disorder Smoking Status: Current every day smoker Past Alcohol Use History: Occasional Past Drug Use History: None Reported Additional History: Lives with her , works at [employer], no assistive devices - Past Family History Mother Family Medical History: Asthma, Diabetes Mellitus Additional Family Medical History / Comment(s): Mom is alive at age 56 with history of diabetes Father Family Medical History: Hypertension Additional Family Medical History / Comment(s): Father is alive at age 56 with history of hypertension. Patient does not have any brothers. She does not have a sisters. She does not have any children. Medications and Allergies Home Medications Medication Instructions Recorded Confirmed Type Folic Acid 2 mg PO BID 08/31/14 05/21/19 History lamoTRIgine [LaMICtal] 200 mg PO BID 05/10/15 05/21/19 History ARIPiprazole IM SYRINGE [Abilify 400 mg IM Q28D 11/10/18 05/21/19 History Maintena Syringe] Propranolol HCl [Propranolol HCl 120 mg PO DAILY 11/10/18 05/21/19 History ER] lamoTRIgine [LaMICtal] 75 mg PO BID 11/10/18 05/21/19 History metFORMIN HCL [Glucophage] 500 mg PO BID 11/10/18 05/21/19 History Allopurinol [Zyloprim] 100 mg PO DAILY 02/10/19 05/21/19 History Doxepin HCl 75 mg PO HS 02/10/19 05/21/19 History Montelukast [Singulair] 10 mg PO HS 02/10/19 05/21/19 History Furosemide [Lasix] 40 mg PO DAILY 05/21/19 05/21/19 History Glimepiride [Amaryl] 2 mg PO DAILY 05/21/19 05/21/19 History [place] Carbonate 600 mg PO BID 05/21/19 05/21/19 History Potassium Chloride ER [K-Dur 10] 10 meq PO Q48H 05/21/19 05/21/19 History levETIRAcetam [Keppra] 500 mg PO Q12HR 05/21/19 05/21/19 History Allergies Allergy/AdvReac Type Severity Reaction Status Date / Time haloperidol [From Haldol] Allergy Unknown Verified 05/21/19 13:17 metronidazole [From Flagyl] Allergy Unknown Verified 05/21/19 13:17 Physical Exam Osteopathic Statement: *. No significant issues noted on an osteopathic structural exam other than those noted in the History and Physical/Consult. Vitals: Vital Signs Temp Pulse Pulse Pulse Resp BP BP 05/21/19 17:33 97.5 F L 73 18 126/75 05/21/19 17:00 83 18 135/85 05/21/19 16:43 82 16 130/45 05/21/19 14:00 74 20 137/84 05/21/19 13:20 81 20 164/95 05/21/19 13:17 81 20 05/21/19 12:57 98.4 F 87 22 151/84 Pulse Ox 05/21/19 17:33 97 05/21/19 17:00 99 05/21/19 16:43 98 05/21/19 14:00 98 05/21/19 13:20 97 05/21/19 13:17 05/21/19 12:57 100 Intake and Output 05/21/19 05/21/19 05/21/19 06:59 14:59 22:59 Other: Weight 146.057 kg General: non toxic, no distress, appears at stated age, obese Derm: no unusual rashes/lesions no unusual ecchymoses, warm, dry Head: atraumatic, normocephalic, symmetric Eyes: EOMI, no lid lag, anicteric sclera, pupils equal round reactive to light ENT: Nose and ears atraumatic, no thrush, no pharyngeal erythema Neck: No thyromegaly, no cervical lymphadenopathy, trachea midline, supple Mouth: no lip lesion, mucus membranes moist Cardiovascular: S1S2 reg, no murmur, positive posterior tibial pulse bilateral, no edema, capillary refill less than 2 seconds Lungs: CTA bilateral, no rhonchi, no rales , no accessory muscle use Abdominal: soft, nontender to palpation, no guarding, no appreciable organo megaly, normal bowel sounds Ext: no gross muscle atrophy, muscle strength 5 out of 5 in all 4 extremities grossly, no contractures, Neuro: CN II-XI grossly intact, light touch intact all 4 extremities, finger to nose within normal limits, Psych: Alert, oriented, appropriate affect Results CBC & Chem 7: 05/21/19 14:05 05/21/19 14:05 Labs: Abnormal Lab Results - Last 24 Hours (Table) 05/21/19 Range/Units 14:05 Glucose 106 H (74-99) mg/dL Chest x-ray: report reviewed Thrombosis Risk Factor Assmnt - DVT/VTE Prophylaxis DVT/VTE Prophylaxis: Low risk, early ambulation encouraged Assessment and Plan Assessment: Chest pains, some typical symptoms of angina some atypical -Trend troponins -Aspirin -Telemetry -Cardiac consultation -Recently had cholesterol profile done at her PCP and patient reports this was normal other than triglycerides being slightly elevated. -Nitro as needed Diabetes mellitus type 2. -Hold metformin and glimepiride -Sliding scale -Check sugar at 2 AM Hypertension, accelerated on arrival -Resume home propranolol, Lasix, and monitor blood pressures closely Seizure disorder -Continue with Keppra and Lamictal Bipolar disorder -Continue with Abilify, receives IM once every 28 days Morbid obesity with BMI 52 -Structured outpatient regimen Rigors -May be related to low blood sugars -Also check urinalysis as may have eighth typical symptoms secondary to her diabetes -Check thyroid - sleep study as outpatient The patient is placed in observation with an anticipated less than 2 per night stay for evaluation of chest pain. Surrogate decision-maker: - [place] CODE STATUS:Full DVT prophylaxis: SCDs Discussed with: Patient, nursing, ed physician, Anticipated discharge date: in AM Anticipated discharge place: home A total of 65 minutes was spent on the care of this complex patient more than 50% of the time was spent in counseling and care coordination.
[2019-05-21 19:59] LABS: Appearance,Urine Clear (Clear); Bilirubin,Urine Negative (Negative); Blood,Urine Negative (Negative); Color,Urine Yellow; Glucose,Urine (UA) Negative (Negative); Ketones,Urine Negative (Negative); Leukocyte Esterase,Urine Negative (Negative); Nitrite,Urine Negative (Negative); Protein,Urine Negative (Negative); Specific Gravity,Urine 1.015 (1.001-1.035); Urobilinogen,Urine <2.0 mg/dL (<2.0)
[2019-05-21 20:01] LABS: Lithium 0.5 mmol/L
[2019-05-21 20:16] LABS: Glucose,Whole Blood 137 mg/dL (75-99)
[2019-05-21] MEDS ORDERED: ONDANSETRON 4 MG/2 ML VIAL IVP PRN (20:26)
[2019-05-21] MEDS: lamoTRIgine 25 MG TAB PO SCH (20:37)
[2019-05-21] MEDS: levETIRAcetam 500 MG TAB PO SCH (20:37)
[2019-05-21] MEDS: LITHIUM CARBONATE 300 MG CAP PO SCH (20:37)
[2019-05-21] MEDS: FOLIC ACID 1 MG TAB PO SCH (20:37)
[2019-05-21] MEDS: ACETAMINOPHEN TAB 325 MG TAB PO PRN (20:38)
[2019-05-21] MEDS: lamoTRIgine 100 MG TAB PO SCH (20:38)
[2019-05-21] MEDS ORDERED: MONTELUKAST 10 MG TAB PO SCH (21:00)
[2019-05-21] MEDS ORDERED: DOXEPIN 25 MG CAP PO SCH (21:00)
[2019-05-22 02:23] LABS: Cholesterol 134 mg/dL (<200); HDL Cholesterol 24 mg/dL (40-60); LDL Cholesterol,Calculated 38 mg/dL (0-99); Triglycerides 361 mg/dL (<150)
[2019-05-22 06:40] LABS: Glucose,Whole Blood 156 mg/dL (75-99)
[2019-05-22 07:21] VITALS: BP 123/83; PULSE 71; RESP 18; TEMP 98.1
[2019-05-22] MEDS ORDERED: INSULIN ASPART (NovoLOG) 100 UNIT/ML VIAL SQ SCH (07:30)
[2019-05-22] MEDS: LITHIUM CARBONATE 300 MG CAP PO SCH (08:21)
[2019-05-22] MEDS: lamoTRIgine 25 MG TAB PO SCH (08:22)
[2019-05-22] MEDS: lamoTRIgine 100 MG TAB PO SCH (08:23)
[2019-05-22] MEDS: levETIRAcetam 500 MG TAB PO SCH (08:23)
[2019-05-22] MEDS: FOLIC ACID 1 MG TAB PO SCH (08:23)
[2019-05-22] MEDS: ACETAMINOPHEN TAB 325 MG TAB PO PRN (08:37)
[2019-05-22] MEDS ORDERED: ASPIRIN 325 MG TAB PO SCH (09:00)
[2019-05-22] MEDS ORDERED: POTASSIUM CHLORIDE ER 10 MEQ TAB.ER.PRT PO SCH (09:00)
[2019-05-22] MEDS ORDERED: PROPRANOLOL LA 60 MG CAP.SA.24H PO SCH (09:00)
[2019-05-22] MEDS ORDERED: FUROSEMIDE 40 MG TAB PO SCH (09:00)
--- NOTE | 2019-05-22 09:21 | CONS ---
CONSULTATION Magda Wiseman is a 28-year-old lady with a history of type 2 diabetes, seizure disorder, bipolar disorder, mental health issues who went to an Urgent Care complaining of pain in the chest on and off. The quality of the pain is very atypical. EKG revealed very nonspecific changes. The patient is asymptomatic this morning, is doing well. She does have a lot of other of comorbid conditions in the form of diabetes, hypertension, seizure disorder, bipolar disorder, and she also smokes every day. Her troponins are normal. EKG is unremarkable. PAST MEDICAL HISTORY: Bronchial asthma, type 2 diabetes, hypertension, obesity, hyperlipidemia, seizure disorder. She is status post cholecystectomy. She smokes at least 1 pack or more daily. She has underlying bipolar disorder and depression. MEDICATIONS: At home include folic acid, Lamictal, she takes propranolol 120 mg daily, probably for some migraine headaches, metformin 5 mg b.i.d., Singulair 10 mg daily, lithium the Lasix, doxepin, and Keppra. ALLERGIES: SHE IS ALLERGIC TO HALDOL AND FLAGYL. PHYSICAL EXAMINATION: Blood pressure is 120/70, pulse rate 70 per minute, regular. HEENT unremarkable. Fundus was not examined by me. Neck is supple. No JVD. I do not hear a carotid bruit. There is no thyromegaly. Heart exam reveals S1, S2 heard normally. No rub, murmur or gallop. Lungs are clear. Abdomen is soft, nontender. Lower extremities reveal normal pulses. No edema. Central nervous system is normal. EKG revealed sinus mechanism, nondiagnostic inferior Q-waves and nonspecific ST abnormality in leads V1 to V3. LABORATORY DATA: Revealed unremarkable troponins. IMPRESSION: 1. Atypical chest pain. 2. Type 2 diabetes mellitus. 3. History of seizure disorder. 4. Obesity. 5. History of bipolar disorder. RECOMMENDATIONS: I am recommending that she can be discharged today. She should have an outpatient stress echo when she is feeling better and has less stress in her life. No other intervention necessary from a cardiac standpoint at this time. Thank you very much for the consult. MMODL / IJN: [id number] /
--- NOTE | 2019-05-22 10:44 | P.DS ---
Providers Date of admission: 05/21/19 16:39 Expected date of discharge: 05/22/19 Attending physician: Linda Le DO Consults: 05/21/19 16:55 Consult Physician Urgent Consulting Provider: Hasmukh Sood Consult Reason/Comments: Chest pain Do you want consulting provider notified?: Yes Primary care physician: [facility] Course: Discharge Diagnosis: Atypical chest pain Suspect costochondritis Diabetes mellitus Morbid obesity with BMI 52 Hypertension Seizure disorder Bipolar disorder Hospital Course: Patient is a 28-year-old female past medical history of hypertension, diabetes, seizure disorder, asthma, and bipolar disorder who presented to the ER with 4 day complaints of chest pain. She called her PCPs office on the day of admission who directed her to urgent care. Urgent care felt there was an abnormality in her EKG and subsequently sent her to the ER. In the ER she underwent an extensive evaluation. On arrival her blood pressure was 151/84. Chest x-ray showed no acute process. EKG is reviewed by myself revealed normal sinus rhythm at 81, normal intervals, normal axis, and no significant ST-T wave changes. Initial laboratory analysis was unremarkable. Her initial troponin was negative. She received an aspirin and IV fluids. She was admitted as observation for further monitoring. Troponin remained negative. Cholesterol profile showed slightly elevated triglycerides at 361. Blood sugars were stable. TSH was normal. [place] level normal. She was seen by cardiology on the morning of 05/22. They recommended outpatient stress test. She was determined stable for discharge. She continued to have some shaking during the middle the night when sleeping. Have referred her to her PCP for further monitoring. Also recommended possibility of outpatient sleep study secondary to her obesity and large neck circumference. Patient seen and examined at bedside. Chest pain is improving, no nausea, no vomiting, no shortness of breath. Vital signs reviewed and stable. General: non toxic, no distress, appears at stated age, obese Derm: warm, dry Head: atraumatic, normocephalic, symmetric Eyes: EOMI, no lid lag, anicteric sclera Mouth: no lip lesion, mucus membranes moist Cardiovascular: S1S2 reg, no murmur, positive posterior tibial pulse bilateral, Lungs: CTA bilateral, no rhonchi, no rales , no accessory muscle use Abdominal: soft, nontender to palpation, no guarding, no appreciable organomegaly Ext: no gross muscle atrophy, no edema, no contractures Neuro: CN II-XI grossly intact, no focal neuro deficits Psych: Alert, oriented, appropriate affect A total of 24 minutes of time were spent preparing this complex discharge s aminta . Pertinent Studies: Chest x-ray-no acute process Patient Condition at Discharge: Good Plan - Discharge Summary New Discharge Prescriptions: Continue Folic Acid 2 mg PO BID lamoTRIgine [LaMICtal] 200 mg PO BID metFORMIN HCL [Glucophage] 500 mg PO BID lamoTRIgine [LaMICtal] 75 mg PO BID ARIPiprazole IM SYRINGE [Abilify Maintena Syringe] 400 mg IM Q28D Propranolol HCl [Propranolol HCl ER] 120 mg PO DAILY Allopurinol [Zyloprim] 100 mg PO DAILY Montelukast [Singulair] 10 mg PO HS Doxepin HCl 75 mg PO HS Glimepiride [Amaryl] 2 mg PO DAILY levETIRAcetam [Keppra] 500 mg PO Q12HR Potassium Chloride ER [K-Dur 10] 10 meq PO Q48H Furosemide [Lasix] 40 mg PO DAILY [place] Carbonate 600 mg PO BID Discharge Medication List Folic Acid 2 mg PO BID 08/31/14 [History] lamoTRIgine [LaMICtal] 200 mg PO BID 05/10/15 [History] ARIPiprazole IM SYRINGE [Abilify Maintena Syringe] 400 mg IM Q28D 11/10/18 [History] Propranolol HCl [Propranolol HCl ER] 120 mg PO DAILY 11/10/18 [History] lamoTRIgine [LaMICtal] 75 mg PO BID 11/10/18 [History] metFORMIN HCL [Glucophage] 500 mg PO BID 11/10/18 [History] Allopurinol [Zyloprim] 100 mg PO DAILY 02/10/19 [History] Doxepin HCl 75 mg PO HS 02/10/19 [History] Montelukast [Singulair] 10 mg PO HS 02/10/19 [History] Furosemide [Lasix] 40 mg PO DAILY 05/21/19 [History] Glimepiride [Amaryl] 2 mg PO DAILY 05/21/19 [History] [place] Carbonate 600 mg PO BID 05/21/19 [History] Potassium Chloride ER [K-Dur 10] 10 meq PO Q48H 05/21/19 [History] levETIRAcetam [Keppra] 500 mg PO Q12HR 05/21/19 [History] Follow up Appointment(s)/Referral(s): Pauly Stinson MD [Primary Care Provider] - 1-2 days Melissa Hodges MD [STAFF PHYSICIAN] - As Needed Activity/Diet/Wound Care/Special Instructions: Diet: carb consistent Activity: as tolerated Discharge Disposition: HOME SELF-CARE
== END 2019-05-22 11:10 | disposition home or self-care (01) ==
LOC: EC 12:55 → 1SOBS 16:39
PROVIDERS: ADMIT Internal Medicine; ATTEND Internal Medicine
DX: R07.89 Other chest pain (principal); R94.31 Abnormal electrocardiogram [ECG] [EKG]; J45.909 Unspecified asthma, uncomplicated; E11.9 Type 2 diabetes mellitus without complications; I10 Essential (primary) hypertension; E78.1 Pure hyperglyceridemia; G40.909 Epilepsy, unspecified, not intractable, without status epilepticus; F31.9 Bipolar disorder, unspecified; F41.0 Panic disorder [episodic paroxysmal anxiety]; E66.01 Morbid (severe) obesity due to excess calories; Z68.43 Body mass index [BMI] 50.0-59.9, adult; F41.9 Anxiety disorder, unspecified; K21.9 Gastro-esophageal reflux disease without esophagitis; R51 Headache; R53.83 Other fatigue; R42 Dizziness and giddiness; R11.0 Nausea; R68.89 Other general symptoms and signs; F17.210 Nicotine dependence, cigarettes, uncomplicated; Z79.84 Long term (current) use of oral hypoglycemic drugs; Z79.899 Other long term (current) drug therapy; Z88.3 Allergy status to other anti-infective agents; Z88.8 Allergy status to other drugs, medicaments and biological substances; Z90.49 Acquired absence of other specified parts of digestive tract; Z82.49 Family history of ischemic heart disease and other diseases of the circulatory system; Z83.3 Family history of diabetes mellitus; Z82.5 Family history of asthma and other chronic lower respiratory diseases
CPT/HCPCS: 96374; 96361; 99285; 36415; 93005; 83880; 80061; 80053; 84443; 82150; 83690; 80178; 83735; 84484 ×2; 85025; 85610; 85730; 81003; 71046; G0378 ×2; J2405

== ENCOUNTER 2019-06-09 13:50 | Emergency (ER) | payer BC ==
[2019-06-09 14:00] VITALS: BP 124/83; PULSE 88; RESP 16; TEMP 98.5
[2019-06-09 15:19] LABS: Glucose,Whole Blood 229 mg/dL (75-99)
--- NOTE | 2019-06-09 16:23 | ED ---
Recheck HPI - General Chief Complaint: Recheck/Abnormal Lab/Rx Stated Complaint: Hyperglycemia Time Seen by Provider: 06/09/19 14:21 Source: patient, RN notes reviewed Mode of arrival: ambulatory Limitations: no limitations - History of Present Illness Initial Comments: This a 28-year-old female presents emergency Department chief complaint of medication reaction. Patient states she was started on latuda and states that she's had hyperglycemia associated with this. Patient states she was seen in emergency department last night and did follow-up with PCP today and was told this was the causing symptoms. Patient was advised follow-up with [facility] regarding her medication changes and states that they have not received a phone call back and they finally did in which they told him it was not what to do. Patient states she's had no other changes and only has since the hypoglycemic episodes started was starting latuda. Patient did have a complete workup in emergency department. - Related Data Home Medications Medication Instructions Recorded Confirmed Folic Acid 2 mg PO BID 08/31/14 06/09/19 lamoTRIgine [LaMICtal] 200 mg PO BID 05/10/15 06/09/19 Propranolol HCl [Propranolol HCl 120 mg PO DAILY 11/10/18 06/09/19 ER] metFORMIN HCL [Glucophage] 500 mg PO BID 11/10/18 06/09/19 Allopurinol [Zyloprim] 100 mg PO DAILY 02/10/19 06/09/19 Montelukast [Singulair] 10 mg PO HS 02/10/19 06/09/19 Furosemide [Lasix] 40 mg PO DAILY 05/21/19 06/09/19 Glimepiride [Amaryl] 2 mg PO DAILY 05/21/19 06/09/19 [place] Carbonate 600 mg PO BID 05/21/19 06/09/19 Potassium Chloride ER [K-Dur 10] 10 meq PO Q48H 05/21/19 06/09/19 levETIRAcetam [Keppra] 500 mg PO BID 05/21/19 06/09/19 Dhea(Unknown Dose) 1 tab PO DAILY 06/09/19 06/09/19 Lurasidone [Latuda] 40 mg PO HS 06/09/19 06/09/19 Allergies Allergy/AdvReac Type Severity Reaction Status Date / Time haloperidol [From Haldol] Allergy Unknown Verified 06/09/19 15:12 metronidazole [From Flagyl] Allergy Unknown Verified 06/09/19 15:12 Review of Systems ROS Statement: Those systems with pertinent positive or pertinent negative responses have been documented in the HPI. ROS Other: All systems not noted in ROS Statement are negative. Past Medical History Past Medical History: Asthma, Diabetes Mellitus, Hypertension, Seizure Disorder Additional Past Medical History / Comment(s): last seizure in 2016 History of Any Multi-Drug Resistant Organisms: None Reported Past Surgical History: Cholecystectomy Past Anesthesia/Blood Transfusion Reactions: No Reported Reaction Past Psychological History: Anxiety, Bipolar, Depression, Panic Disorder Smoking Status: Current every day smoker Past Alcohol Use History: Occasional Past Drug Use History: None Reported - Past Family History Mother Family Medical History: Asthma, Diabetes Mellitus Additional Family Medical History / Comment(s): Mom is alive at age 56 with history of diabetes Father Family Medical History: Hypertension Additional Family Medical History / Comment(s): Father is alive at age 56 with history of hypertension. Patient does not have any brothers. She does not have a sisters. She does not have any children. General Exam Limitations: no limitations General appearance: alert, in no apparent distress Head exam: Present: atraumatic, normocephalic, normal inspection Eye exam: Present: normal appearance, PERRL, EOMI. Absent: scleral icterus, conjunctival injection, periorbital swelling ENT exam: Present: normal exam, normal oropharynx, mucous membranes moist Neck exam: Present: normal inspection, full ROM. Absent: tenderness, meningismus, lymphadenopathy Respiratory exam: Present: normal lung sounds bilaterally. Absent: respiratory distress, wheezes, rales, rhonchi, stridor Cardiovascular Exam: Present: regular rate, normal rhythm, normal heart sounds. Absent: systolic murmur, diastolic murmur, rubs, gallop, clicks GI/Abdominal exam: Present: soft, normal bowel sounds. Absent: distended, tenderness, guarding, rebound, rigid Neurological exam: Present: alert, oriented X3, CN II-XII intact Psychiatric exam: Present: normal affect, normal mood Skin exam: Present: warm, dry, intact, normal color. Absent: rash Course Vital Signs 06/09/19 13:56 Temperature 98.5 F Pulse Rate 88 Respiratory 16 Rate Blood Pressure 124/83 O2 Sat by Pulse 100 Oximetry Medical Decision Making - Medical Decision Making Patient was offered did talk to EPS to talk to [facility] patient does not want to wait she would rather leave AGAINST MEDICAL ADVICE. - Lab Data Lab Results 06/09/19 Range/Units 15:17 POC Glucose (mg/dL) 229 H (75-99) mg/dL POC Glu [employer] ID [place] Disposition Clinical Impression: Bipolar disorder, Medication reaction, Hyperglycemia Disposition: Left Against Medical Advice Referrals: Pauly Stinson MD [Primary Care Provider] - 1-2 days
== END 2019-06-09 17:05 | disposition left against medical advice (07) ==
LOC: EC 13:50
DX: E11.65 Type 2 diabetes mellitus with hyperglycemia (principal); T43.595A Adverse effect of other antipsychotics and neuroleptics, initial encounter; F31.9 Bipolar disorder, unspecified; I10 Essential (primary) hypertension; J45.909 Unspecified asthma, uncomplicated; G40.909 Epilepsy, unspecified, not intractable, without status epilepticus; F41.9 Anxiety disorder, unspecified; F17.200 Nicotine dependence, unspecified, uncomplicated; Z90.49 Acquired absence of other specified parts of digestive tract; Z79.84 Long term (current) use of oral hypoglycemic drugs; Z79.899 Other long term (current) drug therapy; Z88.1 Allergy status to other antibiotic agents; Z88.8 Allergy status to other drugs, medicaments and biological substances
CPT/HCPCS: 36415; 99283

== ENCOUNTER 2019-07-09 22:10 | Emergency (ER) | payer BC ==
[2019-07-09 22:23] VITALS: BP 154/101; PULSE 86; RESP 20; TEMP 99.4
--- NOTE | 2019-07-09 23:00 | ED ---
General Adult HPI - General Chief complaint: Psychiatric Symptoms Stated complaint: Mental health Time Seen by Provider: 07/09/19 22:25 Source: patient, family, RN notes reviewed, old records reviewed Mode of arrival: ambulatory Limitations: no limitations - History of Present Illness Initial comments: 28-year-old female patient with past medical history of bipolar disorder, borderline personality disorder presents ED chief complaint of racing thoughts for approximately 2 weeks. Patient also reports some mild waxing and waning thoughts of wishing she is not alive. Denies any suicidal plan or homicidal plan. Patient denies any actions to hurt herself or hurt any other people. Patient reports she did take off her medications as ordered. Denies any other complaints. Systemic: Pt denies fatigue, fever/chills, rash. Pt denies weakness, night sweats, weight loss. Neuro: Pt denies headache, visual disturbances, syncope or pre-syncope. HEENT: Pt denies ocular discharge or irritation, otalgia, rhinorrhea, pharyngitis or notable lymphadenopathy. Cardiopulmonary: Pt denies chest pain, SOB, heart palpitations, dyspnea on exertion. Abdominal/GI: Pt denies abdominal pain, n/v/d. : Pt denies dysuria, burning w/ urination, frequency/urgency. Denies new onset urinary or bowel incontinence. MSK: Pt denies myalgia, loss of strength or function in extremities. Neuro: Pt denies new onset weakness, paresthesias. - Related Data Home Medications Medication Instructions Recorded Confirmed Folic Acid 2 mg PO BID 08/31/14 07/09/19 lamoTRIgine [LaMICtal] 200 mg PO BID 05/10/15 07/09/19 Propranolol HCl [Propranolol HCl 120 mg PO DAILY 11/10/18 07/09/19 ER] Allopurinol [Zyloprim] 100 mg PO DAILY 02/10/19 07/09/19 Montelukast [Singulair] 10 mg PO HS 02/10/19 07/09/19 Furosemide [Lasix] 40 mg PO DAILY 05/21/19 07/09/19 Glimepiride [Amaryl] 2 mg PO DAILY 05/21/19 07/09/19 Potassium Chloride ER [K-Dur 10] 10 meq PO Q48H 05/21/19 07/09/19 levETIRAcetam [Keppra] 500 mg PO BID 05/21/19 07/09/19 Dhea(Unknown Dose) 1 tab PO DAILY 06/09/19 07/09/19 ARIPiprazole [Abilify] 30 mg PO DAILY 07/09/19 07/09/19 Cariprazine HCl [Vraylar] 1.5 mg PO DAILY 07/09/19 07/09/19 Cholecalciferol [Vitamin D3 (25 1,000 unit PO DAILY 07/09/19 07/09/19 Mcg = 1000 Iu)] Insulin Glargine,Hum.rec.anlog 10 unit SQ QAM 07/09/19 07/09/19 [Lantus Solostar] [place] Carbonate 1,200 mg PO HS 07/09/19 07/09/19 diphenhydrAMINE [Benadryl] 50 mg PO HS 07/09/19 07/09/19 metFORMIN HCL 850 mg PO BID 07/09/19 07/09/19 Allergies Allergy/AdvReac Type Severity Reaction Status Date / Time haloperidol [From Haldol] Allergy Unknown Verified 07/09/19 22:34 metronidazole [From Flagyl] Allergy Unknown Verified 07/09/19 22:34 lurasidone [From Latuda] AdvReac high blood Verified 07/09/19 22:34 sugar Review of Systems ROS Statement: Those systems with pertinent positive or pertinent negative responses have been documented in the HPI. ROS Other: All systems not noted in ROS Statement are negative. Past Medical History Past Medical History: Asthma, Diabetes Mellitus, Hypertension, Seizure Disorder Additional Past Medical History / Comment(s): last seizure last week. History of Any Multi-Drug Resistant Organisms: None Reported Past Surgical History: Cholecystectomy Past Anesthesia/Blood Transfusion Reactions: No Reported Reaction Past Psychological History: Anxiety, Bipolar, Depression, Panic Disorder Smoking Status: Current every day smoker Past Alcohol Use History: Occasional Past Drug Use History: None Reported - Past Family History Mother Family Medical History: Asthma, Diabetes Mellitus Additional Family Medical History / Comment(s): Mom is alive at age 56 with history of diabetes Father Family Medical History: Hypertension Additional Family Medical History / Comment(s): Father is alive at age 56 with history of hypertension. Patient does not have any brothers. She does not have a sisters. She does not have any children. General Exam - General Exam Comments Initial Comments: Constitutional: NAD, AOX3, Pt has pleasant affect. HEENT: NC/AT, trachea midline, neck supple, no lymphadenopathy. Posterior pharynx non erythematous, without exudates. External ears appear normal, without discharge. Mucous membranes moist. Eyes PERRLA, EOM intact. There is no scleral icterus. No pallor noted. Cardiopulmonary: RRR, no murmurs, rubs or gallops, no JVD noted. Lungs CTAB in anterior and posterior hartman. No peripheral edema. Abdominal exam: Abdomen soft and non-distended. Abdomen non-tender to palpation in all 4 quadrants. Bowel sounds active in LLQ. No hepatosplenomegaly. No ecchymosis Neuro: CN II-XII grossly intact. No nuchal rigidity. No raccon eyes, no nielsen sign, no hemotympanum. No cervical spinal tenderness. MSK: No posterior calf tenderness bilaterally, homans sign negative bilaterally. Posterior tibialis and radial pulse +2 bilaterally. Sensation intact in upper and lower extremities. Full active ROM in upper and lower extremities, 5/5 Limitations: no limitations Course Vital Signs 07/09/19 22:18 Temperature 99.4 F Pulse Rate 86 Respiratory 20 Rate Blood Pressure 154/101 O2 Sat by Pulse 98 Oximetry Medical Decision Making - Medical Decision Making 20-year-old female patient presents ED chief complaint racing thoughts. Patient has history of bipolar disorder. Patient vital signs stable, afebrile. Physica l exam test for acute pathology. Patient signed herself out AMA prior to psychiatric evaluation. Patient denies any suicidal or homicidal ideations. Case discussed with Dr. Riley. - Lab Data Lab Results 07/09/19 Range/Units 22:52 Urine Opiates Screen Not Detected (NotDetected) Ur Oxycodone Screen Not Detected (NotDetected) Urine Methadone Screen Not Detected (NotDetected) Ur Propoxyphene Screen Not Detected (NotDetected) Ur Barbiturates Screen Not Detected (NotDetected) U Tricyclic Antidepress Not Detected (NotDetected) Ur Phencyclidine Scrn Not Detected (NotDetected) Ur Amphetamines Screen Not Detected (NotDetected) U Methamphetamines Scrn Not Detected (NotDetected) U Benzodiazepines Scrn Not Detected (NotDetected) Urine Cocaine Screen Not Detected (NotDetected) U Marijuana (THC) Screen Not Detected (NotDetected) Disposition Clinical Impression: Psychiatric disturbance Disposition: Left Against Medical Advice Condition: Undetermined Is patient prescribed a controlled substance at d/c from ED?: No Referrals: Pauly Stinson MD [Primary Care Provider] - 1-2 days
[2019-07-09 23:19] LABS: Amphetamine Screen,Urine Not Detected (NotDetected); Barbiturate Screen,Urine Not Detected (NotDetected); Benzodiazepines Screen,Urine Not Detected (NotDetected); Cocaine Screen,Urine Not Detected (NotDetected); Methadone Screen, Urine Not Detected (NotDetected); Opiate Screen,Urine Not Detected (NotDetected); Oxycodone Screen, Urine Not Detected (NotDetected); Phencyclidine Screen,Urine Not Detected (NotDetected); Tricyclic Antidepressant,Urine Not Detected (NotDetected); Urn Cannabinoid Scrn Not Detected (NotDetected)
== END 2019-07-10 01:04 | disposition left against medical advice (07) ==
LOC: EC 22:10
DX: F31.9 Bipolar disorder, unspecified (principal); J45.909 Unspecified asthma, uncomplicated; E11.9 Type 2 diabetes mellitus without complications; I10 Essential (primary) hypertension; F41.0 Panic disorder [episodic paroxysmal anxiety]; G40.909 Epilepsy, unspecified, not intractable, without status epilepticus; F17.200 Nicotine dependence, unspecified, uncomplicated; Z88.1 Allergy status to other antibiotic agents; Z88.8 Allergy status to other drugs, medicaments and biological substances; Z79.4 Long term (current) use of insulin; Z79.899 Other long term (current) drug therapy
CPT/HCPCS: 80306; 82075; 99284

== ENCOUNTER 2019-08-23 20:22 | Emergency (ER) | payer BC ==
--- NOTE | 2019-08-23 22:21 | ED ---
Psych HPI - General Source: patient, RN notes reviewed Mode of arrival: ambulatory Limitations: no limitations <Malik Garcia - Last Filed: 08/23/19 23:12> <Batool Riley - Last Filed: 08/26/19 02:46> - General Chief Complaint: Psychiatric Symptoms Stated Complaint: Mental Health Time Seen by Provider: 08/23/19 20:43 - History of Present Illness Initial Comments: This a 28-year-old female presents emergency Department with chief complaint of depression, anger issues, suicide ideation. Patient states that yesterday she became very angry and violent for no reason states that she destroyed her room. Patient states that she's having thoughts of cutting her wrists or overdose on pills. Patient did not attempt to harm herself she is taking her current medications for psychiatric disorders. Patient denies any alcohol or drug abuse no physical complaints at this time. (Malik Garcia) - Related Data Home Medications Medication Instructions Recorded Confirmed Folic Acid 2 mg PO BID 08/31/14 08/23/19 lamoTRIgine [LaMICtal] 200 mg PO BID 05/10/15 08/23/19 Propranolol HCl [Propranolol HCl 120 mg PO DAILY 11/10/18 08/23/19 ER] Allopurinol [Zyloprim] 100 mg PO DAILY 02/10/19 08/23/19 Montelukast [Singulair] 10 mg PO HS 02/10/19 08/23/19 Furosemide [Lasix] 40 mg PO DAILY 05/21/19 08/23/19 Potassium Chloride ER [K-Dur 10] 10 meq PO Q48H 05/21/19 08/23/19 levETIRAcetam [Keppra] 500 mg PO BID 05/21/19 08/23/19 Cholecalciferol [Vitamin D3 (25 1,000 unit PO DAILY 07/09/19 08/23/19 Mcg = 1000 Iu)] Insulin Glargine,Hum.rec.anlog 20 unit SQ QAM 07/09/19 08/23/19 [Lantus Solostar] [place] Carbonate 1,200 mg PO HS 07/09/19 08/23/19 ARIPiprazole [Abilify] 20 mg PO DAILY 08/23/19 08/23/19 Cariprazine HCl [Vraylar] 4.5 mg PO DAILY 08/23/19 08/23/19 Doxycycline Hyclate [Vibramycin] 100 mg PO BID 08/23/19 08/23/19 Glimepiride [Amaryl] 1 mg PO DAILY 08/23/19 08/23/19 Lisinopril [Prinivil] 5 mg PO DAILY 08/23/19 08/23/19 cloNIDine HCL [Catapres] 0.1 mg PO HS 08/23/19 08/23/19 metFORMIN HCL 500 mg PO BID 08/23/19 08/23/19 Allergies Allergy/AdvReac Type Severity Reaction Status Date / Time haloperidol [From Haldol] Allergy Unknown Verified 08/23/19 21:25 metronidazole [From Flagyl] Allergy Unknown Verified 08/23/19 21:25 lurasidone [From Latuda] AdvReac high blood Verified 08/23/19 21:25 sugar Review of Systems ROS Other: All systems not noted in ROS Statement are negative. <Malik Garcia - Last Filed: 08/23/19 23:12> ROS Other: All systems not noted in ROS Statement are negative. <Batool Riley - Last Filed: 08/26/19 02:46> ROS Statement: Those systems with pertinent positive or pertinent negative responses have been documented in the HPI. Past Medical History Past Medical History: Asthma, Diabetes Mellitus, Hypertension, Seizure Disorder Additional Past Medical History / Comment(s): last seizure last week. History of Any Multi-Drug Resistant Organisms: None Reported Past Surgical History: Cholecystectomy Past Anesthesia/Blood Transfusion Reactions: No Reported Reaction Past Psychological History: Anxiety, Bipolar, Depression Smoking Status: Current every day smoker Past Alcohol Use History: Occasional Past Drug Use History: Marijuana - Past Family History Mother Family Medical History: Asthma, Diabetes Mellitus Additional Family Medical History / Comment(s): Mom is alive at age 56 with history of diabetes Father Family Medical History: Hypertension Additional Family Medical History / Comment(s): Father is alive at age 56 with history of hypertension. Patient does not have any brothers. She does not have a sisters. She does not have any children. <Malik Garcia - Last Filed: 08/23/19 23:12> General Exam Limitations: no limitations General appearance: alert, in no apparent distress Head exam: Present: atraumatic, normocephalic, normal inspection Neck exam: Present: normal inspection, full ROM. Absent: tenderness, meningismus, lymphadenopathy Respiratory exam: Present: normal lung sounds bilaterally. Absent: respiratory distress, wheezes, rales, rhonchi, stridor Cardiovascular Exam: Present: regular rate, normal rhythm, normal heart sounds. Absent: systolic murmur, diastolic murmur, rubs, gallop, clicks Neurological exam: Present: alert, oriented X3, CN II-XII intact Psychiatric exam: Present: depressed Skin exam: Present: warm, dry, intact, normal color. Absent: rash <Malik Garcia - Last Filed: 08/23/19 23:12> Course Vital Signs 08/23/19 08/24/19 08/24/19 20:39 01:31 02:12 Temperature 98.4 F Pulse Rate 94 82 72 Respiratory 18 18 Rate Blood Pressure 131/77 117/56 O2 Sat by Pulse 98 96 Oximetry 08/24/19 08/24/19 08/24/19 02:22 04:47 06:33 Temperature 98.3 F Pulse Rate 76 83 79 Respiratory 19 17 Rate Blood Pressure 135/94 145/94 O2 Sat by Pulse 96 97 Oximetry 08/24/19 08/24/19 08/24/19 07:00 07:10 10:14 Temperature Pulse Rate 72 72 70 Respiratory 16 Rate Blood Pressure 132/74 O2 Sat by Pulse Oximetry Medical Decision Making <Malik Garcia - Last Filed: 08/23/19 23:12> - Lab Data Result diagrams: 08/24/19 00:13 08/24/19 00:13 <Batool Riley - Last Filed: 08/26/19 02:46> - Medical Decision Making 20-year-old female presents for psychiatric evaluation. Patient was evaluated by EPS case discussed with psychiatrist recommends patient be admitted. Patient be transferred as there is no available beds. (Malik Garcia) I precise on and evaluated this patient. Discussed with the patient the need for inpatient psychiatric care. Patient is agreeable. I completed the [facility] certification for this patient (Batool Riley) - Lab Data Lab Results 08/23/19 08/23/19 08/23/19 Range/Units 22:35 22:35 22:35 WBC (3.8-10.6) k/uL RBC (3.80-5.40) m/uL Hgb (11.4-16.0) gm/dL Hct (34.0-46.0) % MCV (80.0-100.0) fL MCH (25.0-35.0) pg MCHC (31.0-37.0) g/dL RDW (11.5-15.5) % Plt Count (150-450) k/uL Neutrophils % % Lymphocytes % % Monocytes % % Eosinophils % % Basophils % % Neutrophils # (1.3-7.7) k/uL Lymphocytes # (1.0-4.8) k/uL Monocytes # (0-1.0) k/uL Eosinophils # (0-0.7) k/uL Basophils # (0-0.2) k/uL Anisocytosis Sodium (137-145) mmol/L Potassium (3.5-5.1) mmol/L Chloride (98-107) mmol/L Carbon Dioxide (22-30) mmol/L Anion Gap mmol/L BUN (7-17) mg/dL Creatinine (0.52-1.04) mg/dL Est GFR (CKD-EPI)AfAm (>60 ml/min/1.73 sqM) Est GFR (CKD-EPI)NonAf (>60 ml/min/1.73 sqM) Glucose (74-99) mg/dL POC Glucose (mg/dL) (75-99) mg/dL POC Glu Refrigerator Crater ID Calcium (8.4-10.2) mg/dL Total Bilirubin (0.2-1.3) mg/dL AST (14-36) U/L ALT (9-52) U/L Alkaline Phosphatase (38-126) U/L Total Protein (6.3-8.2) g/dL Albumin (3.5-5.0) g/dL Urine Color Yellow Urine Appearance Clear (Clear) Urine pH 6.0 (5.0-8.0) Ur Specific [place] 1.021 (1.001-1.035) Urine Protein Negative (Negative) Urine Glucose (UA) Negative (Negative) Urine Ketones Negative (Negative) Urine Blood Negative (Negative) Urine Nitrite Negative (Negative) Urine Bilirubin Negative (Negative) Urine Urobilinogen <2.0 (<2.0) mg/dL Ur Leukocyte Esterase Negative (Negative) Urine HCG, Qual Not Detected (Not Detectd) Urine Opiates Screen Not Detected (NotDetected) Ur Oxycodone Screen Not Detected (NotDetected) Urine Methadone Screen Not Detected (NotDetected) Ur Propoxyphene Screen Not Detected (NotDetected) Ur Barbiturates Screen Not Detected (NotDetected) U Tricyclic Antidepress Not Detected (NotDetected) Ur Phencyclidine Scrn Not Detected (NotDetected) Ur Amphetamines Screen Not Detected (NotDetected) U Methamphetamines Scrn Not Detected (NotDetected) U Benzodiazepines Scrn Not Detected (NotDetected) [place] mmol/L Urine Cocaine Screen Not Detected (NotDetected) U Marijuana (THC) Screen Not Detected (NotDetected) 08/23/19 08/24/19 08/24/19 Range/Units 23:56 00:13 00:13 WBC 13.0 H (3.8-10.6) k/uL RBC 4.63 (3.80-5.40) m/uL Hgb 13.6 (11.4-16.0) gm/dL Hct 39.7 (34.0-46.0) % MCV 85.8 (80.0-100.0) fL MCH 29.3 (25.0-35.0) pg MCHC 34.2 (31.0-37.0) g/dL RDW 17.5 H (11.5-15.5) % Plt Count 421 (150-450) k/uL Neutrophils % 64 % Lymphocytes % 25 % Monocytes % 4 % Eosinophils % 4 % Basophils % 1 % Neutrophils # 8.3 H (1.3-7.7) k/uL Lymphocytes # 3.3 (1.0-4.8) k/uL Monocytes # 0.5 (0-1.0) k/uL Eosinophils # 0.6 (0-0.7) k/uL Basophils # 0.1 (0-0.2) k/uL Anisocytosis Slight Sodium 139 (137-145) mmol/L Potassium 4.6 (3.5-5.1) mmol/L Chloride 103 (98-107) mmol/L Carbon Dioxide 25 (22-30) mmol/L Anion Gap 11 mmol/L BUN 16 (7-17) mg/dL Creatinine 0.85 (0.52-1.04) mg/dL Est GFR (CKD-EPI)AfAm >90 (>60 ml/min/1.73 sqM) Est GFR (CKD-EPI)NonAf >90 (>60 ml/min/1.73 sqM) Glucose 141 H (74-99) mg/dL POC Glucose (mg/dL) 129 H (75-99) mg/dL POC Glu Refrigerator Crater ID Batool Hyde Calcium 10.4 H (8.4-10.2) mg/dL Total Bilirubin 0.3 (0.2-1.3) mg/dL AST 35 (14-36) U/L ALT 60 H (9-52) U/L Alkaline Phosphatase 146 H (38-126) U/L Total Protein 7.9 (6.3-8.2) g/dL Albumin 4.6 (3.5-5.0) g/dL Urine Color Urine Appearance (Clear) Urine pH (5.0-8.0) Ur Specific [place] (1.001-1.035) Urine Protein (Negative) Urine Glucose (UA) (Negative) Urine Ketones (Negative) Urine Blood (Negative) Urine Nitrite (Negative) Urine Bilirubin (Negative) Urine Urobilinogen (<2.0) mg/dL Ur Leukocyte Esterase (Negative) Urine HCG, Qual (Not Detectd) Urine Opiates Screen (NotDetected) Ur Oxycodone Screen (NotDetected) Urine Methadone Screen (NotDetected) Ur Propoxyphene Screen (NotDetected) Ur Barbiturates Screen (NotDetected) U Tricyclic Antidepress (NotDetected) Ur Phencyclidine Scrn (NotDetected) Ur Amphetamines Screen (NotDetected) U Methamphetamines Scrn (NotDetected) U Benzodiazepines Scrn (NotDetected) [place] 0.5 mmol/L Urine Cocaine Screen (NotDetected) U Marijuana (THC) Screen (NotDetected) 08/24/19 Range/Units 08:11 WBC (3.8-10.6) k/uL RBC (3.80-5.40) m/uL Hgb (11.4-16.0) gm/dL Hct (34.0-46.0) % MCV (80.0-100.0) fL MCH (25.0-35.0) pg MCHC (31.0-37.0) g/dL RDW (11.5-15.5) % Plt Count (150-450) k/uL Neutrophils % % Lymphocytes % % Monocytes % % Eosinophils % % Basophils % % Neutrophils # (1.3-7.7) k/uL Lymphocytes # (1.0-4.8) k/uL Monocytes # (0-1.0) k/uL Eosinophils # (0-0.7) k/uL Basophils # (0-0.2) k/uL Anisocytosis Sodium (137-145) mmol/L Potassium (3.5-5.1) mmol/L Chloride (98-107) mmol/L Carbon Dioxide (22-30) mmol/L Anion Gap mmol/L BUN (7-17) mg/dL Creatinine (0.52-1.04) mg/dL Est GFR (CKD-EPI)AfAm (>60 ml/min/1.73 sqM) Est GFR (CKD-EPI)NonAf (>60 ml/min/1.73 sqM) Glucose (74-99) mg/dL POC Glucose (mg/dL) 181 H (75-99) mg/dL POC Glu Refrigerator Crater ID Arabella Hester A Calcium (8.4-10.2) mg/dL Total Bilirubin (0.2-1.3) mg/dL AST (14-36) U/L ALT (9-52) U/L Alkaline Phosphatase (38-126) U/L Total Protein (6.3-8.2) g/dL Albumin (3.5-5.0) g/dL Urine Color Urine Appearance (Clear) Urine pH (5.0-8.0) Ur Specific [place] (1.001-1.035) Urine Protein (Negative) Urine Glucose (UA) (Negative) Urine Ketones (Negative) Urine Blood (Negative) Urine Nitrite (Negative) Urine Bilirubin (Negative) Urine Urobilinogen (<2.0) mg/dL Ur Leukocyte Esterase (Negative) Urine HCG, Qual (Not Detectd) Urine Opiates Screen (NotDetected) Ur Oxycodone Screen (NotDetected) Urine Methadone Screen (NotDetected) Ur Propoxyphene Screen (NotDetected) Ur Barbiturates Screen (NotDetected) U Tricyclic Antidepress (NotDetected) Ur Phencyclidine Scrn (NotDetected) Ur Amphetamines Screen (NotDetected) U Methamphetamines Scrn (NotDetected) U Benzodiazepines Scrn (NotDetected) [place] mmol/L Urine Cocaine Screen (NotDetected) U Marijuana (THC) Screen (NotDetected) Disposition <Malik Garcia M - Last Filed: 08/23/19 23:12> <Batool Riley P - Last Filed: 08/26/19 02:46> Clinical Impression: Depression, Bipolar disorder, Suicidal ideation Disposition: TRANSFER TO PSYCH HOSP/UNIT Condition: Stable Referrals: Pauly Stinson MD [Primary Care Provider] - 1-2 days
[2019-08-23 22:57] LABS: Amphetamine Screen,Urine Not Detected (NotDetected); Barbiturate Screen,Urine Not Detected (NotDetected); Benzodiazepines Screen,Urine Not Detected (NotDetected); Cocaine Screen,Urine Not Detected (NotDetected); Methadone Screen, Urine Not Detected (NotDetected); Opiate Screen,Urine Not Detected (NotDetected); Oxycodone Screen, Urine Not Detected (NotDetected); Phencyclidine Screen,Urine Not Detected (NotDetected); Tricyclic Antidepressant,Urine Not Detected (NotDetected); Urn Cannabinoid Scrn Not Detected (NotDetected)
[2019-08-23 23:57] LABS: Glucose,Whole Blood 129 mg/dL (75-99)
[2019-08-24 00:27] LABS: Appearance,Urine Clear (Clear); Bilirubin,Urine Negative (Negative); Blood,Urine Negative (Negative); Color,Urine Yellow; Glucose,Urine (UA) Negative (Negative); Ketones,Urine Negative (Negative); Leukocyte Esterase,Urine Negative (Negative); Nitrite,Urine Negative (Negative); Protein,Urine Negative (Negative); Specific Gravity,Urine 1.021 (1.001-1.035); Urobilinogen,Urine <2.0 mg/dL (<2.0)
[2019-08-24 00:29] LABS: Anisocytosis Slight; Basophils # (A) 0.1 k/uL (0-0.2); Basophils % (A) 1 %; Eosinophils # (A) 0.6 k/uL (0-0.7); Eosinophils % (A) 4 %; HCT 39.7 % (34.0-46.0); HGB 13.6 gm/dL (11.4-16.0); Lymphocytes # (A) 3.3 k/uL (1.0-4.8); Lymphocytes % (A) 25 %; MCH 29.3 pg (25.0-35.0); MCHC 34.2 g/dL (31.0-37.0); MCV 85.8 fL (80.0-100.0); Mean Platelet Volume 6.6; Monocytes # (A) 0.5 k/uL (0-1.0); Monocytes % (A) 4 %; Neutrophils # (A) 8.3 k/uL (1.3-7.7); Neutrophils % (A) 64 %; Platelet Count 421 k/uL (150-450); RBC 4.63 m/uL (3.80-5.40); RDW 17.5 % (11.5-15.5)
[2019-08-24 00:37] LABS: ALT 60 U/L (9-52); AST 35 U/L (14-36); African American GFR (CKD) >90 (>60 ml/min/1.73 sqM); Albumin 4.6 g/dL (3.5-5.0); Alkaline Phosphatase 146 U/L (38-126); Anion Gap 11 mmol/L; Blood Urea Nitrogen 16 mg/dL (7-17); Calcium 10.4 mg/dL (8.4-10.2); Carbon Dioxide 25 mmol/L (22-30); Chloride 103 mmol/L (98-107); Glucose 141 mg/dL (74-99); Lithium 0.5 mmol/L; Potassium 4.6 mmol/L (3.5-5.1); Sodium 139 mmol/L (137-145); Total Bilirubin 0.3 mg/dL (0.2-1.3); Total Protein 7.9 g/dL (6.3-8.2)
[2019-08-24] MEDS: metFORMIN 500 MG TAB PO SCH ×2 (01:29→10:24)
[2019-08-24] MEDS: levETIRAcetam 500 MG TAB PO SCH ×2 (01:30→10:25)
[2019-08-24] MEDS: lamoTRIgine 100 MG TAB PO SCH ×2 (01:31→10:25)
[2019-08-24] MEDS ORDERED: IPRATROPIUM-ALBUTEROL 3 ML NEB INHALATION STA ×2 (01:57→06:23)
[2019-08-24] MEDS ORDERED: ACETAMINOPHEN TAB 325 MG TAB PO STA (04:25)
[2019-08-24 06:35] VITALS: TEMP 98.3
[2019-08-24] MEDS ORDERED: INSULIN ASPART (NovoLOG) 100 UNIT/ML VIAL SQ SCH (07:30)
[2019-08-24 08:13] LABS: Glucose,Whole Blood 181 mg/dL (75-99)
[2019-08-24] MEDS ORDERED: LISINOPRIL 5 MG TAB PO SCH (09:00)
[2019-08-24] MEDS ORDERED: CARIPRAZINE HCL 4.5 MG PO SCH (09:00)
[2019-08-24] MEDS ORDERED: ALLOPURINOL 100 MG TAB PO SCH (09:00)
[2019-08-24] MEDS ORDERED: FUROSEMIDE 40 MG TAB PO SCH (09:00)
[2019-08-24] MEDS ORDERED: GLIMEPIRIDE 1 MG TAB PO SCH (09:00)
[2019-08-24] MEDS ORDERED: PROPRANOLOL LA 60 MG CAP.SA.24H PO SCH (09:00)
[2019-08-24 10:14] VITALS: BP 132/74; PULSE 70; RESP 16
[2019-08-24] MEDS ORDERED: cloNIDine HCL 0.1 MG TAB PO SCH (21:00)
== END 2019-08-24 11:16 ==
LOC: EC 20:22
DX: F31.9 Bipolar disorder, unspecified (principal); R45.851 Suicidal ideations; J45.909 Unspecified asthma, uncomplicated; G40.909 Epilepsy, unspecified, not intractable, without status epilepticus; I10 Essential (primary) hypertension; E11.9 Type 2 diabetes mellitus without complications; F41.9 Anxiety disorder, unspecified; F17.200 Nicotine dependence, unspecified, uncomplicated; Z79.4 Long term (current) use of insulin; Z79.899 Other long term (current) drug therapy; Z88.1 Allergy status to other antibiotic agents; Z88.8 Allergy status to other drugs, medicaments and biological substances
CPT/HCPCS: 36415; 80053; 80178; 80306; 81003; 81025; 82075; 85025; 94640; 99285

== ENCOUNTER 2020-04-21 17:10 | Emergency (ER) | payer BC, OTHER ==
[2020-04-21 17:46] LABS: Appearance,Urine Clear (Clear); Bacteria,Urine Rare /hpf; Bilirubin,Urine Negative (Negative); Blood,Urine Moderate (Negative); Color,Urine Yellow; Glucose,Urine (UA) Negative (Negative); Ketones,Urine Negative (Negative); Leukocyte Esterase,Urine Negative (Negative); Mucus,Urine Rare /hpf; Nitrite,Urine Negative (Negative); Protein,Urine Negative (Negative); RBC,Urine 15 /hpf (0-5); Specific Gravity,Urine 1.013 (1.001-1.035); Squamous Epithelial Cell,Urine 2 /hpf (0-4); Urobilinogen,Urine <2.0 mg/dL (<2.0); WBC,Urine 1 /hpf (0-5)
[2020-04-21 18:07] LABS: Amphetamine Screen,Urine Not Detected (NotDetected); Barbiturate Screen,Urine Not Detected (NotDetected); Benzodiazepines Screen,Urine Not Detected (NotDetected); Cocaine Screen,Urine Not Detected (NotDetected); Methadone Screen, Urine Not Detected (NotDetected); Opiate Screen,Urine Not Detected (NotDetected); Oxycodone Screen, Urine Not Detected (NotDetected); Phencyclidine Screen,Urine Not Detected (NotDetected); Tricyclic Antidepressant,Urine Not Detected (NotDetected); Urn Cannabinoid Scrn Not Detected (NotDetected)
--- NOTE | 2020-04-21 18:12 | ED ---
Psych HPI - General Source: patient, police Mode of arrival: ambulatory <Montse Montero L - Last Filed: 04/21/20 18:12> <Jose Maldonado - Last Filed: 04/21/20 22:58> - General Chief Complaint: Psychiatric Symptoms Stated Complaint: Mental health Time Seen by Provider: 04/21/20 17:19 - Related Data Home Medications Medication Instructions Recorded Confirmed Folic Acid 2 mg PO BID 08/31/14 04/21/20 lamoTRIgine [LaMICtal] 200 mg PO BID 05/10/15 04/21/20 Montelukast [Singulair] 10 mg PO HS 02/10/19 04/21/20 levETIRAcetam [Keppra] 500 mg PO BID 05/21/19 04/21/20 Cholecalciferol [Vitamin D3 (25 1,000 unit PO DAILY 07/09/19 04/21/20 Mcg = 1000 Iu)] ARIPiprazole [Abilify Maintena] 400 mg IM Q28D 04/21/20 04/21/20 Cariprazine HCl [Vraylar] 3 mg PO DAILY 04/21/20 04/21/20 Escitalopram [Lexapro] 10 mg PO DAILY 04/21/20 04/21/20 Insulin NPH Human Isophane 18 units SQ HS 04/21/20 04/21/20 [NovoLIN N] NIFEdipine [Procardia XL] 30 mg PO DAILY 04/21/20 04/21/20 hydrOXYzine HCL [Atarax] 10 mg PO TID PRN 04/21/20 04/21/20 metFORMIN HCL [Glucophage] 500 mg PO BID 04/21/20 04/21/20 Allergies Allergy/AdvReac Type Severity Reaction Status Date / Time haloperidol [From Haldol] Allergy Unknown Verified 04/21/20 21:26 metronidazole [From Flagyl] Allergy Unknown Verified 04/21/20 21:26 lurasidone [From Latuda] AdvReac high blood Verified 04/21/20 21:26 sugar Review of Systems ROS Other: All systems not noted in ROS Statement are negative. <Montse Montero - Last Filed: 04/21/20 18:12> ROS Other: All systems not noted in ROS Statement are negative. <Jose Maldonado - Last Filed: 04/21/20 22:58> ROS Statement: Those systems with pertinent positive or pertinent negative responses have been documented in the HPI. Past Medical History Past Medical History: Asthma, Diabetes Mellitus, Hypertension, Seizure Disorder Additional Past Medical History / Comment(s): last seizure last week. History of Any Multi-Drug Resistant Organisms: None Reported Past Surgical History: Cholecystectomy Past Anesthesia/Blood Transfusion Reactions: No Reported Reaction Past Psychological History: Anxiety, Bipolar, Depression Smoking Status: Current every day smoker Past Alcohol Use History: Occasional Past Drug Use History: Marijuana - Past Family History Mother Family Medical History: Asthma, Diabetes Mellitus Additional Family Medical History / Comment(s): Mom is alive at age 56 with history of diabetes Father Family Medical History: Hypertension Additional Family Medical History / Comment(s): Father is alive at age 56 with history of hypertension. Patient does not have any brothers. She does not have a sisters. She does not have any children. <Montse Montero - Last Filed: 04/21/20 18:12> General Exam Limitations: no limitations <Montse Montero - Last Filed: 04/21/20 18:12> Course Vital Signs 04/21/20 04/21/20 17:16 17:18 Temperature 99.3 F Pulse Rate 97 Respiratory 20 20 Rate Blood Pressure 141/92 O2 Sat by Pulse 98 Oximetry Medical Decision Making <Jose Maldonado - Last Filed: 04/21/20 22:58> - Medical Decision Making Patient is sent out to me by previous shift physician night assistant Ethel Jean. Briefly, patient is a 29-year-old female with personality disorder. Plan at sign out was to follow-up with EPS evaluation. EPS evaluation patient recommended discharge with outpatient plan. Patient will be discharged. (Jose Maldonado) - Lab Data Lab Results 04/21/20 04/21/20 Range/Units 17:33 17:33 Urine Color Yellow Urine Appearance Clear (Clear) Urine pH 5.0 (5.0-8.0) Ur Specific [place] 1.013 (1.001-1.035) Urine Protein Negative (Negative) Urine Glucose (UA) Negative (Negative) Urine Ketones Negative (Negative) Urine Blood Moderate H (Negative) Urine Nitrite Negative (Negative) Urine Bilirubin Negative (Negative) Urine Urobilinogen <2.0 (<2.0) mg/dL Ur Leukocyte Esterase Negative (Negative) Urine RBC 15 H (0-5) /hpf Urine WBC 1 (0-5) /hpf Ur Squamous Epith Cells 2 (0-4) /hpf Urine Bacteria Rare H (None) /hpf Urine Mucus Rare H (None) /hpf Urine HCG, Qual Not Detected (Not Detectd) Urine Opiates Screen Not Detected (NotDetected) Ur Oxycodone Screen Not Detected (NotDetected) Urine Methadone Screen Not Detected (NotDetected) Ur Propoxyphene Screen Not Detected (NotDetected) Ur Barbiturates Screen Not Detected (NotDetected) U Tricyclic Antidepress Not Detected (NotDetected) Ur Phencyclidine Scrn Not Detected (NotDetected) Ur Amphetamines Screen Not Detected (NotDetected) U Methamphetamines Scrn Not Detected (NotDetected) U Benzodiazepines Scrn Not Detected (NotDetected) Urine Cocaine Screen Not Detected (NotDetected) U Marijuana (THC) Screen Not Detected (NotDetected) Disposition <Montse Montero L - Last Filed: 04/21/20 18:12> Is patient prescribed a controlled substance at d/c from ED?: No Time of Disposition: 22:58 <Jose Maldonado - Last Filed: 04/21/20 22:58> Clinical Impression: Suicidal ideation Disposition: HOME SELF-CARE Condition: Good Instructions (If sedation given, give patient instructions): Help Prevent Suicide (ED) Referrals: Pauly Stinson MD [Primary Care Provider] - 1-2 days
[2020-04-21] MEDS ORDERED: ZIPRASIDONE 20 MG CAP PO STA (20:47)
[2020-04-21 23:34] VITALS: BP 140/83; PULSE 83; RESP 18; TEMP 98.9
== END 2020-04-21 23:34 | disposition home or self-care (01) ==
LOC: EC 17:10
DX: R45.851 Suicidal ideations (principal); F31.9 Bipolar disorder, unspecified; F41.9 Anxiety disorder, unspecified; E11.9 Type 2 diabetes mellitus without complications; I10 Essential (primary) hypertension; G40.909 Epilepsy, unspecified, not intractable, without status epilepticus; J45.909 Unspecified asthma, uncomplicated; F17.200 Nicotine dependence, unspecified, uncomplicated; Z79.51 Long term (current) use of inhaled steroids; Z79.899 Other long term (current) drug therapy; Z79.4 Long term (current) use of insulin; Z88.8 Allergy status to other drugs, medicaments and biological substances; Z88.1 Allergy status to other antibiotic agents
CPT/HCPCS: 80306; 81001; 81025; 82075; 99285

== ENCOUNTER 2020-05-31 13:56 | Emergency (ER) | payer BC, OTHER ==
[2020-05-31 15:04] LABS: Amphetamine Screen,Urine Not Detected (NotDetected); Benzodiazepines Screen,Urine Not Detected (NotDetected); Cocaine Screen,Urine Not Detected (NotDetected); Methadone Screen, Urine Not Detected (NotDetected); Opiate Screen,Urine Not Detected (NotDetected); Phencyclidine Screen,Urine Not Detected (NotDetected); Tricyclic Antidepressant,Urine Not Detected (NotDetected); Urn Cannabinoid Scrn Not Detected (NotDetected)
[2020-05-31 15:05] LABS: Barbiturate Screen,Urine Not Detected (NotDetected); Oxycodone Screen, Urine Not Detected (NotDetected)
--- NOTE | 2020-05-31 16:48 | ED ---
General Adult HPI - General Chief complaint: Psychiatric Symptoms Stated complaint: Suicidal Time Seen by Provider: 05/31/20 14:00 Source: patient, RN notes reviewed, old records reviewed Mode of arrival: ambulatory Limitations: no limitations - History of Present Illness Initial comments: This is a 29-year-old female who presents to the emergency department stating that her depression is getting worse. Patient went to see her counselor today and indicated that she's having more suicidal thoughts and in fact developed a plan to take a bunch of Tylenol. Patient states she did not take anything, and she wanted to come in and get help so she wouldn't do that. Counselor was concerned enough that she personally brought the patient and per patient denies any physical complaints today. Patient denies any chest pain difficulty breathing shortest breath. Patient denies headache patient denies numbness weakness - Related Data Home Medications Medication Instructions Recorded Confirmed Folic Acid 2 mg PO BID 08/31/14 05/31/20 lamoTRIgine [LaMICtal] 200 mg PO BID 05/10/15 05/31/20 Montelukast [Singulair] 10 mg PO HS 02/10/19 05/31/20 levETIRAcetam [Keppra] 500 mg PO BID 05/21/19 05/31/20 Cholecalciferol [Vitamin D3 (25 1,000 unit PO DAILY 07/09/19 05/31/20 Mcg = 1000 Iu)] ARIPiprazole [Abilify Maintena] 400 mg IM Q28D 04/21/20 05/31/20 Escitalopram [Lexapro] 10 mg PO DAILY 04/21/20 05/31/20 hydrOXYzine HCL [Atarax] 10 mg PO TID PRN 04/21/20 05/31/20 metFORMIN HCL [Glucophage] 500 mg PO BID 04/21/20 05/31/20 Cariprazine HCl [Vraylar] 4.5 mg PO DAILY 05/31/20 05/31/20 Insulin Aspart Protam & Aspart 14 unit SQ BID 05/31/20 05/31/20 [NovoLOG MIX 70-30 Flexpen] Propranolol HCl [Inderal Xl] 80 mg PO HS 05/31/20 05/31/20 Allergies Allergy/AdvReac Type Severity Reaction Status Date / Time haloperidol [From Haldol] Allergy Unknown Verified 05/31/20 15:19 metronidazole [From Flagyl] Allergy Unknown Verified 05/31/20 15:19 lurasidone [From Latuda] AdvReac high blood Verified 05/31/20 15:19 sugar Review of Systems ROS Statement: Those systems with pertinent positive or pertinent negative responses have been documented in the HPI. ROS Other: All systems not noted in ROS Statement are negative. Past Medical History Past Medical History: Asthma, Diabetes Mellitus, Hypertension, Seizure Disorder Additional Past Medical History / Comment(s): last seizure last week. History of Any Multi-Drug Resistant Organisms: None Reported Past Surgical History: Cholecystectomy Past Anesthesia/Blood Transfusion Reactions: No Reported Reaction Past Psychological History: Anxiety, Bipolar, Depression Smoking Status: Current every day smoker Past Alcohol Use History: Occasional Past Drug Use History: Marijuana - Past Family History Mother Family Medical History: Asthma, Diabetes Mellitus Additional Family Medical History / Comment(s): Mom is alive at age 56 with history of diabetes Father Family Medical History: Hypertension Additional Family Medical History / Comment(s): Father is alive at age 56 with history of hypertension. Patient does not have any brothers. She does not have a sisters. She does not have any children. General Exam - General Exam Comments Initial Comments: GENERAL: Patient is well-developed and well-nourished. Patient is nontoxic and well- hydrated and is in no acute distress. ENT: Neck is soft and supple. No significant lymphadenopathy is noted. Oropharynx is clear. Moist mucous membranes. Neck has full range of motion without eliciting any pain. EYES: The sclera were anicteric and conjunctiva were pink and moist. Extraocular movements were intact and pupils were equal round and reactive to light. Eyelids were unremarkable. PULMONARY: Unlabored respirations. Good breath sounds bilaterally. No audible rales rhonchi or wheezing was noted. CARDIOVASCULAR: There is a regular rate and rhythm without any murmurs gallops or rubs. ABDOMEN: Soft and nontender with normal bowel sounds. SKIN: Skin is clear with no lesions or rashes and otherwise unremarkable. NEUROLOGIC: Patient is alert and oriented x3. Cranial nerves II through XII are grossly intact. Motor and sensory are also intact. Normal speech, volume and content. Symmetrical smile. MUSCULOSKELETAL: Normal extremities with adequate strength and full range of motion. LYMPHATICS: No significant lymphadenopathy is noted PSYCHIATRIC: Patient is suicidal with plan. Patient states she's very depressed. Limitations: no limitations Course Vital Signs 05/31/20 05/31/20 14:01 19:53 Temperature 99.2 F 98.7 F Pulse Rate 80 74 Respiratory 18 15 Rate Blood Pressure 136/92 146/92 O2 Sat by Pulse 98 96 Oximetry Medical Decision Making - Medical Decision Making EPS evaluated the patient and determined that the patient could be discharged home with a safety plan follow up with a therapist. - Lab Data Lab Results 05/31/20 05/31/20 Range/Units 14:47 14:47 Urine HCG, Qual Not Detected (Not Detectd) Urine Opiates Screen Not Detected (NotDetected) Ur Oxycodone Screen Not Detected (NotDetected) Urine Methadone Screen Not Detected (NotDetected) Ur Propoxyphene Screen Not Detected (NotDetected) Ur Barbiturates Screen Not Detected (NotDetected) U Tricyclic Antidepress Not Detected (NotDetected) Ur Phencyclidine Scrn Not Detected (NotDetected) Ur Amphetamines Screen Not Detected (NotDetected) U Methamphetamines Scrn Not Detected (NotDetected) U Benzodiazepines Scrn Not Detected (NotDetected) Urine Cocaine Screen Not Detected (NotDetected) U Marijuana (THC) Screen Not Detected (NotDetected) Disposition Clinical Impression: Depression Disposition: HOME SELF-CARE Is patient prescribed a controlled substance at d/c from ED?: No Referrals: Pauly Stinson MD [Primary Care Provider] - 1-2 days Time of Disposition: 19:33
[2020-05-31 19:54] VITALS: BP 146/92; PULSE 74; RESP 15; TEMP 98.7
== END 2020-05-31 19:53 | disposition home or self-care (01) ==
LOC: EC 13:56
DX: F32.9 Major depressive disorder, single episode, unspecified (principal); J45.909 Unspecified asthma, uncomplicated; E11.9 Type 2 diabetes mellitus without complications; I10 Essential (primary) hypertension; G40.909 Epilepsy, unspecified, not intractable, without status epilepticus; F41.9 Anxiety disorder, unspecified; F17.200 Nicotine dependence, unspecified, uncomplicated; Z79.4 Long term (current) use of insulin; Z79.899 Other long term (current) drug therapy; Z88.1 Allergy status to other antibiotic agents; Z88.8 Allergy status to other drugs, medicaments and biological substances
CPT/HCPCS: 80306; 81025; 82075; 99285

== ENCOUNTER 2020-06-10 17:06 | Emergency (ER) | payer BC, OTHER ==
[2020-06-10 17:13] VITALS: RESP 18
--- NOTE | 2020-06-10 17:27 | ED ---
Recheck HPI - General Chief Complaint: Chest Pain Stated Complaint: high blood pressure/chest pain Time Seen by Provider: 06/10/20 17:15 Source: patient, RN notes reviewed, old records reviewed Mode of arrival: ambulatory Limitations: no limitations - History of Present Illness Initial Comments: This is a 29-year-old female DF for evaluation patient Dese for evaluation blood pressure home. She also admits to Anxiety. Patient states her blood pressure medications are not working as her blood pressure continues to remain elevated patient has no significant medical history was seen by her primary care doctor earlier in the week of pressure remained about the same as it is now was not changed not having medication changes. Patient is still having pain not feeling well generalized body aches and pains MD Complaint: other (Abnormal blood pressure with chest pain) -: days(s) (4) Returns Today for: persistent/worsening pain related to initial visit Symptoms Since Prior Visit: no new symptoms Associated Symptoms: none - Related Data Home Medications Medication Instructions Recorded Confirmed Folic Acid 2 mg PO BID 08/31/14 05/31/20 lamoTRIgine [LaMICtal] 200 mg PO BID 05/10/15 05/31/20 Montelukast [Singulair] 10 mg PO HS 02/10/19 05/31/20 levETIRAcetam [Keppra] 500 mg PO BID 05/21/19 05/31/20 Cholecalciferol [Vitamin D3 (25 1,000 unit PO DAILY 07/09/19 05/31/20 Mcg = 1000 Iu)] ARIPiprazole [Abilify Maintena] 400 mg IM Q28D 04/21/20 05/31/20 Escitalopram [Lexapro] 10 mg PO DAILY 04/21/20 05/31/20 hydrOXYzine HCL [Atarax] 10 mg PO TID PRN 04/21/20 05/31/20 metFORMIN HCL [Glucophage] 500 mg PO BID 04/21/20 05/31/20 Cariprazine HCl [Vraylar] 4.5 mg PO DAILY 05/31/20 05/31/20 Insulin Aspart Protam & Aspart 14 unit SQ BID 05/31/20 05/31/20 [NovoLOG MIX 70-30 Flexpen] Propranolol HCl [Inderal Xl] 80 mg PO HS 05/31/20 05/31/20 Allergies Allergy/AdvReac Type Severity Reaction Status Date / Time haloperidol [From Haldol] Allergy Unknown Verified 06/10/20 17:13 metronidazole [From Flagyl] Allergy Unknown Verified 06/10/20 17:13 lurasidone [From Latuda] AdvReac high blood Verified 06/10/20 17:13 sugar Review of Systems ROS Statement: Those systems with pertinent positive or pertinent negative responses have been documented in the HPI. ROS Other: All systems not noted in ROS Statement are negative. Past Medical History Past Medical History: Asthma, Diabetes Mellitus, Hypertension, Seizure Disorder Additional Past Medical History / Comment(s): last seizure last week. History of Any Multi-Drug Resistant Organisms: None Reported Past Surgical History: Cholecystectomy Past Anesthesia/Blood Transfusion Reactions: No Reported Reaction Past Psychological History: Anxiety, Bipolar, Depression Smoking Status: Current every day smoker Past Alcohol Use History: Occasional Past Drug Use History: Marijuana - Past Family History Mother Family Medical History: Asthma, Diabetes Mellitus Additional Family Medical History / Comment(s): Mom is alive at age 56 with history of diabetes Father Family Medical History: Hypertension Additional Family Medical History / Comment(s): Father is alive at age 56 with history of hypertension. Patient does not have any brothers. She does not have a sisters. She does not have any children. General Exam Limitations: no limitations General appearance: alert, in no apparent distress Head exam: Present: atraumatic, normocephalic, normal inspection Eye exam: Present: normal appearance, PERRL, EOMI. Absent: scleral icterus, conjunctival injection, periorbital swelling ENT exam: Present: normal exam, mucous membranes moist Neck exam: Present: normal inspection. Absent: tenderness, meningismus, lymphadenopathy Respiratory exam: Present: normal lung sounds bilaterally. Absent: respiratory distress, wheezes, rales, rhonchi, stridor Cardiovascular Exam: Present: regular rate, normal rhythm, normal heart sounds. Absent: systolic murmur, diastolic murmur, rubs, gallop, clicks GI/Abdominal exam: Present: soft, normal bowel sounds. Absent: distended, tenderness, guarding, rebound, rigid Extremities exam: Present: normal inspection, full ROM, normal capillary refill. Absent: tenderness, pedal edema, joint swelling, calf tenderness Back exam: Present: normal inspection Neurological exam: Present: alert, oriented X3, CN II-XII intact Psychiatric exam: Present: normal affect, normal mood Skin exam: Present: warm, dry, intact, normal color. Absent: rash Course Vital Signs 06/10/20 06/10/20 06/10/20 17:10 17:30 18:30 Temperature 98.5 F Pulse Rate 80 79 69 Respiratory 18 19 18 Rate Blood Pressure 139/93 143/95 133/74 O2 Sat by Pulse 97 98 98 Oximetry 06/10/20 19:00 Temperature Pulse Rate 69 Respiratory 18 Rate Blood Pressure 114/74 O2 Sat by Pulse 98 Oximetry - Reevaluation(s) Reevaluation #1: 06/10/20 17:38 Medical records reviewed Medical Decision Making - Medical Decision Making 89 female DF for eval should've chest pain diffuse body aches generalized pain, patient is sent [facility] testing, chest x-rays negative troponin negative EKG is negative we'll continue follow-up with primary care regarding blood pressure control - Lab Data Result diagrams: 06/10/20 19:06 06/10/20 19:06 Lab Results 06/10/20 06/10/20 06/10/20 Range/Units 19:06 19:06 19:06 WBC 8.5 (3.8-10.6) k/uL RBC 5.02 (3.80-5.40) m/uL Hgb 14.5 (11.4-16.0) gm/dL Hct 43.4 (34.0-46.0) % MCV 86.5 (80.0-100.0) fL MCH 28.9 (25.0-35.0) pg MCHC 33.4 (31.0-37.0) g/dL RDW 13.7 (11.5-15.5) % Plt Count 314 (150-450) k/uL Neutrophils % 64 % Lymphocytes % 24 % Monocytes % 5 % Eosinophils % 5 % Basophils % 1 % Neutrophils # 5.4 (1.3-7.7) k/uL Lymphocytes # 2.1 (1.0-4.8) k/uL Monocytes # 0.4 (0-1.0) k/uL Eosinophils # 0.4 (0-0.7) k/uL Basophils # 0.1 (0-0.2) k/uL Sodium 138 (137-145) mmol/L Potassium 4.4 (3.5-5.1) mmol/L Chloride 102 (98-107) mmol/L Carbon Dioxide 27 (22-30) mmol/L Anion Gap 9 mmol/L BUN 10 (7-17) mg/dL Creatinine 0.79 (0.52-1.04) mg/dL Est GFR (CKD-EPI)AfAm >90 (>60 ml/min/1.73 sqM) Est GFR (CKD-EPI)NonAf >90 (>60 ml/min/1.73 sqM) Glucose 109 H (74-99) mg/dL Plasma Lactic Acid Jordan 1.3 (0.7-2.0) mmol/L Calcium 10.1 (8.4-10.2) mg/dL Magnesium 2.0 (1.6-2.3) mg/dL Total Bilirubin 0.4 (0.2-1.3) mg/dL AST 25 (14-36) U/L ALT 37 H (4-34) U/L Alkaline Phosphatase 116 (38-126) U/L Lactate Dehydrogenase 390 (313-618) U/L C-Reactive Protein 14.2 H (<10.0) mg/L Total Protein 7.3 (6.3-8.2) g/dL Albumin 4.4 (3.5-5.0) g/dL - EKG Data -: EKG Interpreted by Me (EKG is sinus rhythm 79, SD 164 QRS 92 QTC 442) - Radiology Data Radiology results: report reviewed (chest x-rays negative for acute disease), image reviewed Disposition Clinical Impression: Acute anxiety, Chest pain, Hypertension Disposition: HOME SELF-CARE Condition: Good Instructions (If sedation given, give patient instructions): Chest Pain (ED) Is patient prescribed a controlled substance at d/c from ED?: No Referrals: Pauly Stinson MD [Primary Care Provider] - 1-2 days
--- NOTE | 2020-06-10 18:07 | XR ---
EXAMINATION TYPE: XR chest 2V DATE OF EXAM: 06/10/2020 COMPARISON: 05/21/2019 HISTORY: Chest pain TECHNIQUE: 2 views FINDINGS: Heart and mediastinum are normal. Lungs are clear. Diaphragm is normal. Bony thorax appears normal. There are chest leads. IMPRESSION: Normal chest. No change.
[2020-06-10] MEDS ORDERED: hydrALAZINE HCL 20 MG/ML 1 ML VIAL IVP STA (18:37)
[2020-06-10 19:15] LABS: Basophils # (A) 0.1 k/uL (0-0.2); Basophils % (A) 1 %; Eosinophils # (A) 0.4 k/uL (0-0.7); Eosinophils % (A) 5 %; HCT 43.4 % (34.0-46.0); HGB 14.5 gm/dL (11.4-16.0); Lymphocytes # (A) 2.1 k/uL (1.0-4.8); Lymphocytes % (A) 24 %; MCH 28.9 pg (25.0-35.0); MCHC 33.4 g/dL (31.0-37.0); MCV 86.5 fL (80.0-100.0); Mean Platelet Volume 6.8; Monocytes # (A) 0.4 k/uL (0-1.0); Monocytes % (A) 5 %; Neutrophils # (A) 5.4 k/uL (1.3-7.7); Neutrophils % (A) 64 %; Platelet Count 314 k/uL (150-450); RBC 5.02 m/uL (3.80-5.40); RDW 13.7 % (11.5-15.5); WBC 8.5 k/uL (3.8-10.6)
[2020-06-10 19:28] LABS: ALT 37 U/L (4-34); AST 25 U/L (14-36); African American GFR (CKD) >90 (>60 ml/min/1.73 sqM); Albumin 4.4 g/dL (3.5-5.0); Alkaline Phosphatase 116 U/L (38-126); Anion Gap 9 mmol/L; Blood Urea Nitrogen 10 mg/dL (7-17); C Reactive Protein 14.2 mg/L (<10.0); Calcium 10.1 mg/dL (8.4-10.2); Carbon Dioxide 27 mmol/L (22-30); Chloride 102 mmol/L (98-107); Glucose 109 mg/dL (74-99); LDH 390 U/L (313-618); Non-African American GFR(CKD) >90 (>60 ml/min/1.73 sqM); Potassium 4.4 mmol/L (3.5-5.1); Sodium 138 mmol/L (137-145); Total Bilirubin 0.4 mg/dL (0.2-1.3); Total Protein 7.3 g/dL (6.3-8.2)
[2020-06-10 19:31] LABS: INR 0.9 (<1.2); Partial Thromboplastin Time 23.2 sec (22.0-30.0); Prothrombin Time 9.6 sec (9.0-12.0)
[2020-06-10 20:40] VITALS: BP 129/85; PULSE 70; TEMP 98.2
[2020-06-10 22:58] LABS: Ferritin 34.8 ng/mL (10.0-291.0)
== END 2020-06-10 20:48 | disposition home or self-care (01) ==
LOC: EC 17:06
DX: F41.9 Anxiety disorder, unspecified (principal); I10 Essential (primary) hypertension; F31.9 Bipolar disorder, unspecified; R52 Pain, unspecified; E11.9 Type 2 diabetes mellitus without complications; G40.909 Epilepsy, unspecified, not intractable, without status epilepticus; J45.909 Unspecified asthma, uncomplicated; F17.200 Nicotine dependence, unspecified, uncomplicated; Z79.4 Long term (current) use of insulin; Z79.899 Other long term (current) drug therapy; Z88.1 Allergy status to other antibiotic agents; Z88.8 Allergy status to other drugs, medicaments and biological substances; Z20.828 Contact with and (suspected) exposure to other viral communicable diseases
CPT/HCPCS: 99285; 36415; 93005; 80053; 82728; 83605; 83615; 83735; 84484; 85025; 85610; 85730; 86140; 87040; 84145; 71046; U0003

== ENCOUNTER 2021-02-25 12:11 | Emergency (ER) | payer BC, OTHER ==
[2021-02-25 12:19] VITALS: PULSE 80
[2021-02-25 12:19] LABS: Glucose,Whole Blood 382 mg/dL (75-99)
[2021-02-25] MEDS ORDERED: SODIUM CHLORIDE 0.9% 2,000 ML IV ONE (12:48)
--- NOTE | 2021-02-25 13:09 | XR ---
EXAMINATION TYPE: XR chest 2V DATE OF EXAM: 02/25/2021 COMPARISON: 06/10/2020 HISTORY: Chest pain TECHNIQUE: Frontal and lateral views of the chest are obtained. FINDINGS: The lungs are clear of consolidative, interstitial masslike [place]. There is no pleural effusion, pleural thickening or pneumothorax. The heart, pulmonary vasculature, mediastinum and hilum appear normal. The osseous structures are int act. IMPRESSION: No significant abnormality seen.
[2021-02-25 13:38] LABS: Appearance,Urine Clear (Clear); Bacteria,Urine Rare /hpf; Bilirubin,Urine Negative (Negative); Blood,Urine Moderate (Negative); Color,Urine Yellow; Glucose,Urine (UA) 4+ (Negative); Ketones,Urine Negative (Negative); Leukocyte Esterase,Urine Negative (Negative); Nitrite,Urine Negative (Negative); Protein,Urine Negative (Negative); RBC,Urine 122 /hpf (0-5); Specific Gravity,Urine 1.013 (1.001-1.035); Squamous Epithelial Cell,Urine 3 /hpf (0-4); Urobilinogen,Urine <2.0 mg/dL (<2.0); WBC,Urine 31 /hpf (0-5)
--- NOTE | 2021-02-25 13:53 | ED ---
General Adult HPI - General Chief complaint: Chest Pain Stated complaint: Chest pain, sugar 460 Source: patient Mode of arrival: ambulatory Limitations: no limitations - History of Present Illness Initial comments: 30-year-old female with past history of type 2 diabetes, seizure disorder who presents emergency department with reported elevated glucose. Patient states she was hospitalized at [facility] last week for similar complaint. Reports that she has been taking her insulin as directed and has been even giving herself excess insulin as her sugars have been running high. She denies history of DKA. Reports no changes in her diet. Denies any infectious symptoms to include fevers, chills or cough. Reports that she has had some chest pain which is her normal warning symptom that her sugars are getting high. She denies any abdominal pain. Admits nausea without vomiting. No concern for . Denies any changes in her bowel or bladder habits. No other alleviating, precipitating or modifying factors - Related Data Home Medications Medication Instructions Recorded Confirmed Folic Acid 1 mg PO BID 08/31/14 02/25/21 lamoTRIgine [LaMICtal] 200 mg PO BID 05/10/15 02/25/21 Montelukast [Singulair] 10 mg PO HS 02/10/19 02/25/21 levETIRAcetam [Keppra] 500 mg PO BID 05/21/19 02/25/21 Escitalopram [Lexapro] 10 mg PO HS 04/21/20 02/25/21 metFORMIN HCL [Glucophage] 500 mg PO BID 04/21/20 02/25/21 Benztropine Mesylate [Cogentin] 0.5 mg PO HS 02/25/21 02/25/21 Insulin Glargine,Hum.rec.anlog 24 unit SQ 02/25/21 02/25/21 [Lantus Solostar] [place] Carbonate 300 mg PO BID 02/25/21 02/25/21 [place] Carbonate 600 mg PO BID 02/25/21 02/25/21 Propranolol HCl [Inderal Xl] 120 mg PO DAILY 02/25/21 02/25/21 Previous Rx's Medication Instructions Recorded Cephalexin [Keflex] 500 mg PO Q12HR 1 Days #14 cap 02/25/21 Allergies Allergy/AdvReac Type Severity Reaction Status Date / Time haloperidol [From Haldol] Allergy Unknown Verified 02/25/21 14:33 metronidazole [From Flagyl] Allergy Unknown Verified 02/25/21 14:33 lurasidone [From Latuda] AdvReac high blood Verified 02/25/21 14:33 sugar Review of Systems ROS Statement: Those systems with pertinent positive or pertinent negative responses have been documented in the HPI. ROS Other: All systems not noted in ROS Statement are negative. Past Medical History Past Medical History: Asthma, Diabetes Mellitus, Hypertension, Seizure Disorder Additional Past Medical History / Comment(s): last seizure last week. History of Any Multi-Drug Resistant Organisms: None Reported Past Surgical History: Cholecystectomy Past Anesthesia/Blood Transfusion Reactions: No Reported Reaction Past Psychological History: Anxiety, Bipolar, Depression Past Alcohol Use History: Occasional Past Drug Use History: Marijuana - Past Family History Mother Family Medical History: Asthma, Diabetes Mellitus Additional Family Medical History / Comment(s): Mom is alive at age 56 with history of diabetes Father Family Medical History: Hypertension Additional Family Medical History / Comment(s): Father is alive at age 56 with history of hypertension. Patient does not have any brothers. She does not have a sisters. She does not have any children. General Exam Limitations: no limitations General appearance: alert, in no apparent distress, obese Head exam: Present: atraumatic, normocephalic, normal inspection Eye exam: Present: normal appearance, PERRL, EOMI. Absent: scleral icterus, conjunctival injection, periorbital swelling ENT exam: Present: normal exam, mucous membranes moist Neck exam: Present: normal inspection. Absent: tenderness, meningismus, lymphadenopathy Respiratory exam: Present: normal lung sounds bilaterally. Absent: respiratory distress, wheezes, rales, rhonchi, stridor Cardiovascular Exam: Present: regular rate, normal rhythm, normal heart sounds. Absent: systolic murmur, diastolic murmur, rubs, gallop, clicks GI/Abdominal exam: Present: soft, normal bowel sounds. Absent: distended, tenderness, guarding, rebound, rigid Extremities exam: Present: normal inspection, full ROM, normal capillary refill. Absent: tenderness, pedal edema, joint swelling, calf tenderness Back exam: Present: normal inspection Neurological exam: Present: alert, oriented X3, CN II-XII intact Psychiatric exam: Present: normal affect, normal mood Skin exam: Present: warm, intact, normal color, diaphoretic. Absent: rash Course Vital Signs 02/25/21 02/25/21 12:14 17:12 Temperature 98.3 F 98.0 F Pulse Rate 80 80 Respiratory 18 17 Rate Blood Pressure 161/95 142/82 O2 Sat by Pulse 99 98 Oximetry - Reevaluation(s) Reevaluation #1: 02/25/21 14:46 labs lost - need to be redrawn EKG Findings - EKG Comments: EKG Findings:: EKG demonstrates normal sinus rhythm a ventricular rate of 81. IA interval 162. QRS 94. QTC of 422. Inverted T-wave and ST depression in V1 through V4. Morphology of the EKG appears similar to old Medical Decision Making - Medical Decision Making On arrival patient is placed in room 17. Thorough history and physical exam is performed. IV is established and the patient is given a 2 L bolus of normal saline. Labs were conducted. No signs of DKA. Anion gap is 6 with a CO2 of 24. Lactic acid is 3.7. Glucose is originally found to be 382 in triage. Urinalysis is positive for 31 white blood cells and rare bacteria. Acetone negative. Chest x-ray demonstrates no significant abnormality. Results are discussed with the patient. Blood sugar has improved to 265 and lactic acid is 1.8. Results are discussed with the patient. At this time she will be discharged home with antibiotics for her abnormal UA. We did instruct her that she needs to follow-up with his primary care physician in regards to her uncontr olled sugars. Recommended that she may need to see an collar padder blindstitch if her sugars continue remaining uncontrolled. Return to the emergency room for any new or worsening symptoms. Patient agreed to this and she was discharged home in stable condition - Lab Data Result diagrams: 02/25/21 12:37 02/25/21 12:37 Lab Results 02/25/21 02/25/21 02/25/21 Range/Units 12:17 12:37 12:37 WBC 9.6 (3.8-10.6) k/uL RBC 4.43 (3.80-5.40) m/uL Hgb 13.7 (11.4-16.0) gm/dL Hct 39.1 (34.0-46.0) % MCV 88.4 (80.0-100.0) fL MCH 31.0 (25.0-35.0) pg MCHC 35.0 (31.0-37.0) g/dL RDW 13.3 (11.5-15.5) % Plt Count 312 (150-450) k/uL MPV 6.7 Neutrophils % 72 % Lymphocytes % 20 % Monocytes % 3 % Eosinophils % 3 % Basophils % 0 % Neutrophils # 6.9 (1.3-7.7) k/uL Lymphocytes # 2.0 (1.0-4.8) k/uL Monocytes # 0.3 (0-1.0) k/uL Eosinophils # 0.3 (0-0.7) k/uL Basophils # 0.0 (0-0.2) k/uL PT 9.7 (9.0-12.0) sec INR 0.9 (<1.2) APTT 21.2 L (22.0-30.0) sec Sodium (137-145) mmol/L Potassium (3.5-5.1) mmol/L Chloride (98-107) mmol/L Carbon Dioxide (22-30) mmol/L Anion Gap mmol/L BUN (7-17) mg/dL Creatinine (0.52-1.04) mg/dL Est GFR (CKD-EPI)AfAm (>60 ml/min/1.73 sqM) Est GFR (CKD-EPI)NonAf (>60 ml/min/1.73 sqM) Glucose (74-99) mg/dL POC Glucose (mg/dL) 382 H (75-99) mg/dL POC Glu Test And Turn Up Technician ID Carolina, Nelly Lactic Ac Sepsis Rflx Plasma Lactic Acid Jordan (0.7-2.0) mmol/L Calcium (8.4-10.2) mg/dL Magnesium (1.6-2.3) mg/dL Total Bilirubin (0.2-1.3) mg/dL AST (14-36) U/L ALT (4-34) U/L Alkaline Phosphatase (38-126) U/L Troponin I (0.000-0.034) ng/mL Total Protein (6.3-8.2) g/dL Albumin (3.5-5.0) g/dL Lipase (23-300) U/L Urine Color Urine Appearance (Clear) Urine pH (5.0-8.0) Ur Specific Rougon (1.001-1.035) Urine Protein (Negative) Urine Glucose (UA) (Negative) Urine Ketones (Negative) Urine Blood (Negative) Urine Nitrite (Negative) Urine Bilirubin (Negative) Urine Urobilinogen (<2.0) mg/dL Ur Leukocyte Esterase (Negative) Urine RBC (0-5) /hpf Urine WBC (0-5) /hpf Ur Squamous Epith Cells (0-4) /hpf Urine Bacteria (None) /hpf Urine HCG, Qual (Not Detectd) Acetone, Qual (Negative) 02/25/21 02/25/21 02/25/21 Range/Units 12:37 12:37 12:55 WBC (3.8-10.6) k/uL RBC (3.80-5.40) m/uL Hgb (11.4-16.0) gm/dL Hct (34.0-46.0) % MCV (80.0-100.0) fL MCH (25.0-35.0) pg MCHC (31.0-37.0) g/dL RDW (11.5-15.5) % Plt Count (150-450) k/uL MPV Neutrophils % % Lymphocytes % % Monocytes % % Eosinophils % % Basophils % % Neutrophils # (1.3-7.7) k/uL Lymphocytes # (1.0-4.8) k/uL Monocytes # (0-1.0) k/uL Eosinophils # (0-0.7) k/uL Basophils # (0-0.2) k/uL PT (9.0-12.0) sec INR (<1.2) APTT (22.0-30.0) sec Sodium 134 L (137-145) mmol/L Potassium 3.9 (3.5-5.1) mmol/L Chloride 104 (98-107) mmol/L Carbon Dioxide 24 (22-30) mmol/L Anion Gap 6 mmol/L BUN 9 (7-17) mg/dL Creatinine 0.55 (0.52-1.04) mg/dL Est GFR (CKD-EPI)AfAm >90 (>60 ml/min/1.73 sqM) Est GFR (CKD-EPI)NonAf >90 (>60 ml/min/1.73 sqM) Glucose 253 H (74-99) mg/dL POC Glucose (mg/dL) (75-99) mg/dL POC Glu Test And Turn Up Technician ID Lactic Ac Sepsis Rflx Plasma Lactic Acid Jordan 3.7 H* (0.7-2.0) mmol/L Calcium 9.0 (8.4-10.2) mg/dL Magnesium 1.7 (1.6-2.3) mg/dL Total Bilirubin 0.3 (0.2-1.3) mg/dL AST 55 H (14-36) U/L ALT 85 H (4-34) U/L Alkaline Phosphatase 152 H (38-126) U/L Troponin I <0.012 (0.000-0.034) ng/mL Total Protein 6.3 (6.3-8.2) g/dL Albumin 3.6 (3.5-5.0) g/dL Lipase (23-300) U/L Urine Color Urine Appearance (Clear) Urine pH (5.0-8.0) Ur Specific Roug[place] (1.001-1.035) Urine Protein (Negative) Urine Glucose (UA) (Negative) Urine Ketones (Negative) Urine Blood (Negative) Urine Nitrite (Negative) Urine Bilirubin (Negative) Urine Urobilinogen (<2.0) mg/dL Ur Leukocyte Esterase (Negative) Urine RBC (0-5) /hpf Urine WBC (0-5) /hpf Ur Squamous Epith Cells (0-4) /hpf Urine Bacteria (None) /hpf Urine HCG, Qual (Not Detectd) Acetone, Qual (Negative) 02/25/21 02/25/21 02/25/21 Range/Units 12:55 12:55 12:55 WBC (3.8-10.6) k/uL RBC (3.80-5.40) m/uL Hgb (11.4-16.0) gm/dL Hct (34.0-46.0) % MCV (80.0-100.0) fL MCH (25.0-35.0) pg MCHC (31.0-37.0) g/dL RDW (11.5-15.5) % Plt Count (150-450) k/uL MPV Neutrophils % % Lymphocytes % % Monocytes % % Eosinophils % % Basophils % % Neutrophils # (1.3-7.7) k/uL Lymphocytes # (1.0-4.8) k/uL Monocytes # (0-1.0) k/uL Eosinophils # (0-0.7) k/uL Basophils # (0-0.2) k/uL PT (9.0-12.0) sec INR (<1.2) APTT (22.0-30.0) sec Sodium (137-145) mmol/L Potassium (3.5-5.1) mmol/L Chloride (98-107) mmol/L Carbon Dioxide (22-30) mmol/L Anion Gap mmol/L BUN (7-17) mg/dL Creatinine (0.52-1.04) mg/dL Est GFR (CKD-EPI)AfAm (>60 ml/min/1.73 sqM) Est GFR (CKD-EPI)NonAf (>60 ml/min/1.73 sqM) Glucose (74-99) mg/dL POC Glucose (mg/dL) (75-99) mg/dL POC Glu Test And Turn Up Technician ID Lactic Ac Sepsis Rflx Plasma Lactic Acid Jordan (0.7-2.0) mmol/L Calcium (8.4-10.2) mg/dL Magnesium 1.7 (1.6-2.3) mg/dL Total Bilirubin (0.2-1.3) mg/dL AST (14-36) U/L ALT (4-34) U/L Alkaline Phosphatase (38-126) U/L Troponin I (0.000-0.034) ng/mL Total Protein (6.3-8.2) g/dL Albumin (3.5-5.0) g/dL Lipase 132 (23-300) U/L Urine Color Yellow Urine Appearance Clear (Clear) Urine pH 7.0 (5.0-8.0) Ur Specific Rougon 1.013 (1.001-1.035) Urine Protein Negative (Negative) Urine Glucose (UA) 4+ H (Negative) Urine Ketones Negative (Negative) Urine Blood Moderate H (Negative) Urine Nitrite Negative (Negative) Urine Bilirubin Negative (Negative) Urine Urobilinogen <2.0 (<2.0) mg/dL Ur Leukocyte Esterase Negative (Negative) Urine RBC 122 H (0-5) /hpf Urine WBC 31 H (0-5) /hpf Ur Squamous Epith Cells 3 (0-4) /hpf Urine Bacteria Rare H (None) /hpf Urine HCG, Qual Not Detected (Not Detectd) Acetone, Qual Negative (Negative) 02/25/21 02/25/21 02/25/21 Range/Units 13:20 14:39 15:10 WBC (3.8-10.6) k/uL RBC (3.80-5.40) m/uL Hgb (11.4-16.0) gm/dL Hct (34.0-46.0) % MCV (80.0-100.0) fL MCH (25.0-35.0) pg MCHC (31.0-37.0) g/dL RDW (11.5-15.5) % Plt Count (150-450) k/uL MPV Neutrophils % % Lymphocytes % % Monocytes % % Eosinophils % % Basophils % % Neutrophils # (1.3-7.7) k/uL Lymphocytes # (1.0-4.8) k/uL Monocytes # (0-1.0) k/uL Eosinophils # (0-0.7) k/uL Basophils # (0-0.2) k/uL PT (9.0-12.0) sec INR (<1.2) APTT (22.0-30.0) sec Sodium (137-145) mmol/L Potassium (3.5-5.1) mmol/L Chloride (98-107) mmol/L Carbon Dioxide (22-30) mmol/L Anion Gap mmol/L BUN (7-17) mg/dL Creatinine (0.52-1.04) mg/dL Est GFR (CKD-EPI)AfAm (>60 ml/min/1.73 sqM) Est GFR (CKD-EPI)NonAf (>60 ml/min/1.73 sqM) Glucose (74-99) mg/dL POC Glucose (mg/dL) 265 H (75-99) mg/dL POC Glu Test And Turn Up Technician ID Raza Perrin Lactic Ac Sepsis Rflx Y Plasma Lactic Acid Jordan 1.8 (0.7-2.0) mmol/L Calcium (8.4-10.2) mg/dL Magnesium (1.6-2.3) mg/dL Total Bilirubin (0.2-1.3) mg/dL AST (14-36) U/L ALT (4-34) U/L Alkaline Phosphatase (38-126) U/L Troponin I (0.000-0.034) ng/mL Total Protein (6.3-8.2) g/dL Albumin (3.5-5.0) g/dL Lipase (23-300) U/L Urine Color Urine Appearance (Clear) Urine pH (5.0-8.0) Ur Specific R[place] (1.001-1.035) Urine Protein (Negative) Urine Glucose (UA) (Negative) Urine Ketones (Negative) Urine Blood (Negative) Urine Nitrite (Negative) Urine Bilirubin (Negative) Urine Urobilinogen (<2.0) mg/dL Ur Leukocyte Esterase (Negative) Urine RBC (0-5) /hpf Urine WBC (0-5) /hpf Ur Squamous Epith Cells (0-4) /hpf Urine Bacteria (None) /hpf Urine HCG, Qual (Not Detectd) Acetone, Qual (Negative) Disposition Clinical Impression: Hyperglycemia, UTI (urinary tract infection), Lactic acidosis, Chest pain Disposition: HOME SELF-CARE Condition: Stable Instructions (If sedation given, give patient instructions): Diabetic Hypergly cemia (ED) Additional Instructions: Please take the antibiotic as directed. Follow-up with the primary care doctor in 2 to 4 days. Return to the emergency room for any new or worsening symptoms. You may benefit from seeing an collar padder blindstitch. Prescriptions: Cephalexin [Keflex] 500 mg PO Q12HR 1 Days #14 cap Is patient prescribed a controlled substance at d/c from ED?: No Referrals: Pauly Stinson MD [Primary Care Provider] - 1-2 days Homa Hurst MD [STAFF PHYSICIAN] - 1-2 days Time of Disposition: 16:45
[2021-02-25 14:41] LABS: Glucose,Whole Blood 265 mg/dL (75-99)
[2021-02-25 14:57] LABS: Basophils % (A) 0 %; Eosinophils # (A) 0.3 k/uL (0-0.7); Eosinophils % (A) 3 %; HCT 39.1 % (34.0-46.0); HGB 13.7 gm/dL (11.4-16.0); Lymphocytes % (A) 20 %; MCV 88.4 fL (80.0-100.0); Mean Platelet Volume 6.7; Monocytes # (A) 0.3 k/uL (0-1.0); Monocytes % (A) 3 %; Neutrophils # (A) 6.9 k/uL (1.3-7.7); Neutrophils % (A) 72 %; Platelet Count 312 k/uL (150-450); RBC 4.43 m/uL (3.80-5.40); RDW 13.3 % (11.5-15.5); WBC 9.6 k/uL (3.8-10.6)
[2021-02-25 15:04] LABS: Lipase 132 U/L (23-300); Magnesium 1.7 mg/dL (1.6-2.3)
[2021-02-25 15:05] LABS: ALT 85 U/L (4-34); AST 55 U/L (14-36); African American GFR (CKD) >90 (>60 ml/min/1.73 sqM); Albumin 3.6 g/dL (3.5-5.0); Alkaline Phosphatase 152 U/L (38-126); Anion Gap 6 mmol/L; Blood Urea Nitrogen 9 mg/dL (7-17); Carbon Dioxide 24 mmol/L (22-30); Chloride 104 mmol/L (98-107); Glucose 253 mg/dL (74-99); Magnesium 1.7 mg/dL (1.6-2.3); Non-African American GFR(CKD) >90 (>60 ml/min/1.73 sqM); Potassium 3.9 mmol/L (3.5-5.1); Sodium 134 mmol/L (137-145); Total Bilirubin 0.3 mg/dL (0.2-1.3); Total Protein 6.3 g/dL (6.3-8.2)
[2021-02-25 15:07] LABS: INR 0.9 (<1.2); Prothrombin Time 9.7 sec (9.0-12.0)
[2021-02-25 15:18] LABS: Partial Thromboplastin Time 21.2 sec (22.0-30.0)
[2021-02-25] MEDS ORDERED: cefTRIAXone IN SWFI 1,000 MG/10 ML SYRINGE IVP STA (16:42)
[2021-02-25 17:14] VITALS: BP 142/82; RESP 17; TEMP 98
== END 2021-02-25 17:13 | disposition home or self-care (01) ==
LOC: EC 12:11
DX: N39.0 Urinary tract infection, site not specified (principal); E11.65 Type 2 diabetes mellitus with hyperglycemia; E87.2 Acidosis; R07.9 Chest pain, unspecified; J45.909 Unspecified asthma, uncomplicated; G40.909 Epilepsy, unspecified, not intractable, without status epilepticus; F41.9 Anxiety disorder, unspecified; F32.9 Major depressive disorder, single episode, unspecified; I10 Essential (primary) hypertension; Z79.4 Long term (current) use of insulin; Z79.899 Other long term (current) drug therapy; Z88.8 Allergy status to other drugs, medicaments and biological substances; Z88.1 Allergy status to other antibiotic agents; Z90.49 Acquired absence of other specified parts of digestive tract
CPT/HCPCS: 36415; 93005; 80053; 82009; 83605; 83690; 83735; 84484; 85025; 85610; 85730; 81001; 81025; 71046; 99285; 96374; 96361 ×2; J0696

== ENCOUNTER 2021-05-23 05:17 | Emergency (ER) | payer BC ==
[2021-05-23 05:23] VITALS: RESP 18; TEMP 98.7
--- NOTE | 2021-05-23 05:27 | ED ---
Chest Pain HPI - General Chief Complaint: Chest Pain Stated Complaint: Chest pain Time Seen by Provider: 05/23/21 05:20 Source: patient, RN notes reviewed, old records reviewed, Caregiver Mode of arrival: wheelchair Limitations: no limitations - History of Present Illness Initial Comments: This is a 30-year-old female DF for evaluation. Patient admits increased stress and anxiety related. Per family she did have seizure activity tonight. Patient has history of seizures been taking medication as appropriate denies drug or alcohol history. Does admit some chest pain that started prior to the seizure. No fever cough or congestion. No other significant complaints currently. She does admit to again increased stress at home MD Complaint: chest pain, other (Anxiety) -: hour(s) Onset: during rest Pain Location: substernal Pain Radiation: none Severity: mild Severity scale (1-10): 3 Quality: tightness Consistency: constant Improves With: nothing Worsens With: nothing Context: other (Patient did experience seizure tonight with history of epilepsy) Other Symptoms: palpitations Treatments Prior to Arrival: none - Related Data Home Medications Medication Instructions Recorded Confirmed Folic Acid 1 mg PO BID 08/31/14 02/25/21 lamoTRIgine [LaMICtal] 200 mg PO BID 05/10/15 02/25/21 Montelukast [Singulair] 10 mg PO HS 02/10/19 02/25/21 levETIRAcetam [Keppra] 500 mg PO BID 05/21/19 02/25/21 Escitalopram [Lexapro] 10 mg PO HS 04/21/20 02/25/21 metFORMIN HCL [Glucophage] 500 mg PO BID 04/21/20 02/25/21 Benztropine Mesylate [Cogentin] 0.5 mg PO HS 02/25/21 02/25/21 Insulin Glargine,Hum.rec.anlog 24 unit SQ 02/25/21 02/25/21 [Lantus Solostar] [place] Carbonate 300 mg PO BID 02/25/21 02/25/21 [place] Carbonate 600 mg PO BID 02/25/21 02/25/21 Propranolol HCl [Inderal Xl] 120 mg PO DAILY 02/25/21 02/25/21 Previous Rx's Medication Instructions Recorded Cephalexin [Keflex] 500 mg PO Q12HR 1 Days #14 cap 02/25/21 Allergies Allergy/AdvReac Type Severity Reaction Status Date / Time haloperidol [From Haldol] Allergy Unknown Verified 05/23/21 05:23 metronidazole [From Flagyl] Allergy Unknown Verified 05/23/21 05:23 lurasidone [From Latuda] AdvReac high blood Verified 05/23/21 05:23 sugar Review of Systems ROS Statement: Those systems with pertinent positive or pertinent negative responses have been documented in the HPI. ROS Other: All systems not noted in ROS Statement are negative. EKG Findings - EKG Comments: EKG Findings:: EKG shows sinus rhythm 80. 160 QRS 100 QTc 463 Past Medical History Past Medical History: Asthma, Diabetes Mellitus, Hypertension, Seizure Disorder Additional Past Medical History / Comment(s): seizure History of Any Multi-Drug Resistant Organisms: None Reported Past Surgical History: Cholecystectomy Past Anesthesia/Blood Transfusion Reactions: No Reported Reaction Past Psychological History: Anxiety, Bipolar, Depression Smoking Status: Current every day smoker Past Alcohol Use History: Occasional Past Drug Use History: Marijuana - Past Family History Mother Family Medical History: Asthma, Diabetes Mellitus Additional Family Medical History / Comment(s): Mom is alive at age 56 with history of diabetes Father Family Medical History: Hypertension Additional Family Medical History / Comment(s): Father is alive at age 56 with history of hypertension. Patient does not have any brothers. She does not have a sisters. She does not have any children. General Exam General appearance: alert, in no apparent distress, anxious Head exam: Present: atraumatic, normocephalic, normal inspection Eye exam: Present: normal appearance, PERRL, EOMI. Absent: scleral icterus, conjunctival injection, periorbital swelling ENT exam: Present: normal exam, mucous membranes moist Neck exam: Present: normal inspection. Absent: tenderness, meningismus, lymphadenopathy Respiratory exam: Present: normal lung sounds bilaterally. Absent: respiratory distress, wheezes, rales, rhonchi, stridor Cardiovascular Exam: Present: regular rate, normal rhythm, normal heart sounds. Absent: systolic murmur, diastolic murmur, rubs, gallop, clicks GI/Abdominal exam: Present: soft, normal bowel sounds. Absent: distended, tenderness, guarding, rebound, rigid Extremities exam: Present: normal inspection, full ROM, normal capillary refill. Absent: tenderness, pedal edema, joint swelling, calf tenderness Back exam: Present: normal inspection Neurological exam: Present: alert, oriented X3, CN II-XII intact Psychiatric exam: Present: normal affect, normal mood Skin exam: Present: warm, dry, intact, normal color. 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 Patient does admit to significant anxiety. Disposition Clinical Impression: Atypical chest pain, Chest pain, Acute anxiety Disposition: HOME SELF-CARE Condition: Good Instructions (If sedation given, give patient instructions): Chest Pain (ED), Costochondritis (ED) Is patient prescribed a controlled substance at d/c from ED?: No Referrals: Pauly Stinson MD [Primary Care Provider] - 1-2 days
[2021-05-23] MEDS ORDERED: IPRATROPIUM-ALBUTEROL 3 ML NEB INHALATION STA (05:59)
[2021-05-23] MEDS ORDERED: DEXAMETHASONE SOD PHOSPHATE 10 MG/ML 1 ML VIAL IV STA (05:59)
[2021-05-23] MEDS ORDERED: KETOROLAC 15 MG/ML 1 ML VIAL IVP STA (05:59)
--- NOTE | 2021-05-23 05:59 | XR ---
EXAMINATION TYPE: XR chest 2V DATE OF EXAM: 05/23/2021 COMPARISON: 02/25/2021 HISTORY: Chest pain TECHNIQUE: 2 views FINDINGS: Heart and mediastinum are normal. Lungs are clear. Diaphragm is normal. Bony thorax is inta ct. There are chest leads. IMPRESSION: Normal chest. No change.
[2021-05-23 06:15] LABS: Basophils # (A) 0.1 k/uL (0-0.2); Basophils % (A) 1 %; Eosinophils # (A) 0.3 k/uL (0-0.7); Eosinophils % (A) 3 %; HCT 44.4 % (34.0-46.0); HGB 14.6 gm/dL (11.4-16.0); Lymphocytes # (A) 2.4 k/uL (1.0-4.8); Lymphocytes % (A) 23 %; MCH 28.4 pg (25.0-35.0); MCHC 32.8 g/dL (31.0-37.0); MCV 86.7 fL (80.0-100.0); Mean Platelet Volume 7.1; Monocytes # (A) 0.3 k/uL (0-1.0); Monocytes % (A) 3 %; Neutrophils # (A) 7.2 k/uL (1.3-7.7); Neutrophils % (A) 70 %; Platelet Count 354 k/uL (150-450); RBC 5.12 m/uL (3.80-5.40); RDW 13.9 % (11.5-15.5); WBC 10.4 k/uL (3.8-10.6)
[2021-05-23 06:28] LABS: ALT 25 U/L (4-34); AST 23 U/L (14-36); African American GFR (CKD) >90 (>60 ml/min/1.73 sqM); Albumin 4.3 g/dL (3.5-5.0); Alkaline Phosphatase 143 U/L (38-126); Anion Gap 10 mmol/L; Blood Urea Nitrogen 10 mg/dL (7-17); Calcium 10.3 mg/dL (8.4-10.2); Carbon Dioxide 22 mmol/L (22-30); Chloride 106 mmol/L (98-107); Creatine Kinase 42 U/L (30-135); Glucose 269 mg/dL (74-99); Lipase 130 U/L (23-300); Magnesium 1.7 mg/dL (1.6-2.3); Non-African American GFR(CKD) >90 (>60 ml/min/1.73 sqM); Potassium 3.7 mmol/L (3.5-5.1); Sodium 138 mmol/L (137-145); Total Bilirubin 0.4 mg/dL (0.2-1.3); Total Protein 7.2 g/dL (6.3-8.2)
[2021-05-23 06:43] LABS: D-Dimer 0.36 mg/L FEU (<0.60); INR 0.9 (<1.2); Partial Thromboplastin Time 22.1 sec (22.0-30.0); Prothrombin Time 10.1 sec (9.0-12.0)
[2021-05-23 06:48] LABS: Creatine Kinase MB <0.2 ng/mL (0.0-2.4); Troponin I <0.012 ng/mL (0.000-0.034)
[2021-05-23 07:57] VITALS: BP 128/69; PULSE 72
== END 2021-05-23 07:45 | disposition home or self-care (01) ==
LOC: EC 05:17
DX: R07.89 Other chest pain (principal); F41.9 Anxiety disorder, unspecified; E11.9 Type 2 diabetes mellitus without complications; F17.200 Nicotine dependence, unspecified, uncomplicated; G40.909 Epilepsy, unspecified, not intractable, without status epilepticus; I10 Essential (primary) hypertension; J45.909 Unspecified asthma, uncomplicated; Z79.4 Long term (current) use of insulin; Z88.1 Allergy status to other antibiotic agents; Z88.8 Allergy status to other drugs, medicaments and biological substances; Z79.899 Other long term (current) drug therapy
CPT/HCPCS: 36415; 94640; 93005; 85379; 83880; 80053; 82550; 82553; 83690; 83735; 84484; 85025; 85610; 85730; 71046; 99285; 96374; 96375; J1100; J1885; 96361

== ENCOUNTER 2021-08-21 03:41 | Emergency (ER) | payer BC ==
[2021-08-21 03:49] VITALS: TEMP 100
[2021-08-21 04:46] LABS: Basophils # (A) 0.1 k/uL (0-0.2); Basophils % (A) 0 %; Eosinophils # (A) 0.4 k/uL (0-0.7); Eosinophils % (A) 3 %; HCT 40.5 % (34.0-46.0); HGB 13.6 gm/dL (11.4-16.0); Lymphocytes # (A) 2.5 k/uL (1.0-4.8); Lymphocytes % (A) 20 %; MCH 29.3 pg (25.0-35.0); MCHC 33.5 g/dL (31.0-37.0); MCV 87.3 fL (80.0-100.0); Mean Platelet Volume 7.3; Monocytes # (A) 0.5 k/uL (0-1.0); Monocytes % (A) 4 %; Neutrophils # (A) 9.2 k/uL (1.3-7.7); Neutrophils % (A) 71 %; Platelet Count 354 k/uL (150-450); RBC 4.63 m/uL (3.80-5.40); RDW 13.4 % (11.5-15.5); WBC 12.8 k/uL (3.8-10.6)
[2021-08-21 04:55] LABS: INR 0.9 (<1.2); Partial Thromboplastin Time 22.1 sec (22.0-30.0); Prothrombin Time 9.6 sec (9.0-12.0)
--- NOTE | 2021-08-21 04:55 | XR ---
EXAMINATION TYPE: XR chest 2V DATE OF EXAM: 08/21/2021 COMPARISON: 05/23/2021 HISTORY: Chest pain TECHNIQUE: FINDINGS: Heart and mediastinum appear normal. Lungs are clear. Diaphragm is normal. Bony thorax is i ntact. There are chest leads. IMPRESSION: Normal chest. No change.
[2021-08-21 05:00] LABS: ALT 22 U/L (4-34); AST 24 U/L (14-36); African American GFR (CKD) >90 (>60 ml/min/1.73 sqM); Alkaline Phosphatase 185 U/L (38-126); Anion Gap 10 mmol/L; Blood Urea Nitrogen 8 mg/dL (7-17); Calcium 9.7 mg/dL (8.4-10.2); Carbon Dioxide 21 mmol/L (22-30); Chloride 104 mmol/L (98-107); Glucose 201 mg/dL (74-99); Non-African American GFR(CKD) >90 (>60 ml/min/1.73 sqM); Potassium 3.8 mmol/L (3.5-5.1); Sodium 135 mmol/L (137-145); Total Bilirubin 0.3 mg/dL (0.2-1.3); Total Protein 6.9 g/dL (6.3-8.2)
--- NOTE | 2021-08-21 05:00 | ED ---
Chest Pain HPI - General Chief Complaint: Chest Pain Stated Complaint: Chest Pain Time Seen by Provider: 08/21/21 03:51 Source: patient Mode of arrival: ambulatory Limitations: no limitations - History of Present Illness Initial Comments: This patient is a 30-year-old woman who presents to be evaluated for chest pains is been going on for the past few hours. She describes them as being like jolts of lightning. The pains are intermittent coming and going for quickly. She has not noted anything that will bring the pains on. No relieving factors. No associated symptoms. MD Complaint: chest pain -: hour(s) Onset: during rest Pain Location: substernal Pain Radiation: none Severity: moderate Quality: other Consistency: constant Improves With: nothing Worsens With: nothing Treatments Prior to Arrival: none - Related Data Home Medications Medication Instructions Recorded Confirmed Folic Acid 1 mg PO BID 08/31/14 02/25/21 lamoTRIgine [LaMICtal] 200 mg PO BID 05/10/15 02/25/21 Montelukast [Singulair] 10 mg PO HS 02/10/19 02/25/21 levETIRAcetam [Keppra] 500 mg PO BID 05/21/19 02/25/21 Escitalopram [Lexapro] 10 mg PO HS 04/21/20 02/25/21 metFORMIN HCL [Glucophage] 500 mg PO BID 04/21/20 02/25/21 Benztropine Mesylate [Cogentin] 0.5 mg PO HS 02/25/21 02/25/21 Insulin Glargine,Hum.rec.anlog 24 unit SQ 02/25/21 02/25/21 [Lantus Solostar] [place] Carbonate 300 mg PO BID 02/25/21 02/25/21 [place] Carbonate 600 mg PO BID 02/25/21 02/25/21 Propranolol HCl [Inderal Xl] 120 mg PO DAILY 02/25/21 02/25/21 Previous Rx's Medication Instructions Recorded Cephalexin [Keflex] 500 mg PO Q12HR 1 Days #14 cap 02/25/21 Allergies Allergy/AdvReac Type Severity Reaction Status Date / Time haloperidol [From Haldol] Allergy Unknown Verified 08/21/21 03:49 metronidazole [From Flagyl] Allergy Unknown Verified 08/21/21 03:49 lurasidone [From Latuda] AdvReac high blood Verified 08/21/21 03:49 sugar Review of Systems ROS Statement: Those systems with pertinent positive or pertinent negative responses have been documented in the HPI. ROS Other: All systems not noted in ROS Statement are negative. Constitutional: Denies: fever, chills Respiratory: Denies: cough, dyspnea Cardiovascular: Reports: as per HPI, chest pain. Denies: palpitations, dyspnea on exertion, edema, syncope Gastrointestinal: Denies: abdominal pain, nausea, vomiting, diarrhea Genitourinary: Denies: dysuria, hematuria Musculoskeletal: Denies: back pain Skin: Denies: rash Neurological: Denies: headache, weakness EKG Findings - EKG Results: EKG: interpreted by CAMILLE, sinus rhythm (Rate 78 bpm), normal axis - Blocks, [place], Hypertrophy, ST Abn: Chamber hypertrophy or enlargement: only voltage criteria for left ventricular hypertrophy Repolarization changes or abnormalities: nonspecific abnormality, ST segment, and/or T wave Past Medical History Past Medical History: Asthma, Diabetes Mellitus, Hypertension, Seizure Disorder, Sleep Apnea/CPAP/BIPAP Additional Past Medical History / Comment(s): seizure History of Any Multi-Drug Resistant Organisms: None Reported Past Surgical History: Cholecystectomy Past Anesthesia/Blood Transfusion Reactions: No Reported Reaction Past Psychological History: Anxiety, Bipolar, Depression Smoking Status: Current every day smoker Past Alcohol Use History: Occasional Past Drug Use History: Marijuana - Past Family History Mother Family Medical History: Asthma, Diabetes Mellitus Additional Family Medical History / Comment(s): Mom is alive at age 56 with history of diabetes Father Family Medical History: Hypertension Additional Family Medical History / Comment(s): Father is alive at age 56 with history of hypertension. Patient does not have any brothers. She does not have a sisters. She does not have any children. General Exam Limitations: no limitations General appearance: alert, in no apparent distress Head exam: Present: atraumatic, normocephalic Eye exam: Present: normal appearance. Absent: scleral icterus, conjunctival injection Neck exam: Present: normal inspection Respiratory exam: Present: normal lung sounds bilaterally. Absent: respiratory distress, wheezes, rales, rhonchi, stridor, chest wall tenderness Cardiovascular Exam: Present: regular rate, normal rhythm, normal heart sounds. Absent: systolic murmur, diastolic murmur, rubs, gallop GI/Abdominal exam: Present: soft. Absent: distended, tenderness, guarding, rebound, rigid, mass Extremities exam: Present: normal inspection, normal capillary refill. Absent: pedal edema, calf tenderness Back exam: Present: normal inspection. Absent: CVA tenderness (R), CVA tenderness (L) Neurological exam: Present: alert Skin exam: Present: warm, dry, intact, normal color. Absent: rash Course Vital Signs 08/21/21 08/21/21 03:47 04:49 Temperature 100 F H Pulse Rate 79 79 Respiratory 18 20 Rate Blood Pressure 138/96 O2 Sat by Pulse 97 96 Oximetry Disposition Clinical Impression: Atypical chest pain Disposition: HOME SELF-CARE Condition: Good Instructions (If sedation given, give patient instructions): Chest Pain (ED) Is patient prescribed a controlled substance at d/c from ED?: No Referrals: Pauly Stinson MD [Primary Care Provider] - 1-2 days
[2021-08-21 05:27] VITALS: RESP 20
[2021-08-21 06:39] VITALS: BP 122/84; PULSE 78
== END 2021-08-21 06:28 | disposition home or self-care (01) ==
LOC: EC 03:41
DX: R07.89 Other chest pain (principal); F17.200 Nicotine dependence, unspecified, uncomplicated; J45.909 Unspecified asthma, uncomplicated; I10 Essential (primary) hypertension; G40.909 Epilepsy, unspecified, not intractable, without status epilepticus; E11.9 Type 2 diabetes mellitus without complications; Z88.8 Allergy status to other drugs, medicaments and biological substances; Z79.4 Long term (current) use of insulin; Z88.1 Allergy status to other antibiotic agents; Z79.899 Other long term (current) drug therapy
CPT/HCPCS: 36415; 71046; 80053; 83735; 84484; 85025; 85610; 85730; 93005; 99285

== ENCOUNTER 2021-09-02 01:19 | Emergency (ER) | payer BC ==
[2021-09-02 01:30] VITALS: TEMP 98.9
--- NOTE | 2021-09-02 01:51 | ED ---
Chest Pain HPI - General Chief Complaint: Chest Pain Stated Complaint: Chest Pain, Shortness of Breath Time Seen by Provider: 09/02/21 01:34 Source: patient Mode of arrival: wheelchair - History of Present Illness MD Complaint: chest pain Onset/Timin -: days(s) Onset: during rest Pain Location: left chest Pain Radiation: back Severity: moderate Quality: sharp Consistency: constant Improves With: nothing Worsens With: nothing Treatments Prior to Arrival: none - Related Data Home Medications Medication Instructions Recorded Confirmed Folic Acid 1 mg PO BID 08/31/14 02/25/21 lamoTRIgine [LaMICtal] 200 mg PO BID 05/10/15 02/25/21 Montelukast [Singulair] 10 mg PO HS 02/10/19 02/25/21 levETIRAcetam [Keppra] 500 mg PO BID 05/21/19 02/25/21 Escitalopram [Lexapro] 10 mg PO HS 04/21/20 02/25/21 metFORMIN HCL [Glucophage] 500 mg PO BID 04/21/20 02/25/21 Benztropine Mesylate [Cogentin] 0.5 mg PO HS 02/25/21 02/25/21 Insulin Glargine,Hum.rec.anlog 24 unit SQ 02/25/21 02/25/21 [Lantus Solostar] [place] Carbonate 300 mg PO BID 02/25/21 02/25/21 [place] Carbonate 600 mg PO BID 02/25/21 02/25/21 Propranolol HCl [Inderal Xl] 120 mg PO DAILY 02/25/21 02/25/21 Previous Rx's Medication Instructions Recorded Cephalexin [Keflex] 500 mg PO Q12HR 1 Days #14 cap 02/25/21 Allergies Allergy/AdvReac Type Severity Reaction Status Date / Time haloperidol [From Haldol] Allergy Unknown Verified 09/16/21 15:11 metronidazole [From Flagyl] Allergy Unknown Verified 09/16/21 15:11 lurasidone [From Latuda] AdvReac high blood Verified 09/16/21 15:11 sugar Review of Systems ROS Statement: Those systems with pertinent positive or pertinent negative responses have been documented in the HPI. ROS Other: All systems not noted in ROS Statement are negative. Constitutional: Denies: fever, chills Respiratory: Denies: cough, dyspnea Cardiovascular: Reports: chest pain. Denies: palpitations, edema Gastrointestinal: Denies: abdominal pain, nausea, vomiting, diarrhea Genitourinary: Denies: dysuria, frequency, hematuria Musculoskeletal: Denies: back pain Skin: Denies: rash Neurological: Denies: headache, weakness, numbness EKG Findings - EKG Results: EKG: interpreted by ERMD, sinus rhythm, normal axis, normal QRS, normal ST/T - Blocks, [place], Hypertrophy, ST Abn: Repolarization changes or abnormalities: Q-T interval prolongation Past Medical History Past Medical History: Asthma, Diabetes Mellitus, Hypertension, Seizure Disorder, Sleep Apnea/CPAP/BIPAP Additional Past Medical History / Comment(s): seizure History of Any Multi-Drug Resistant Organisms: None Reported Past Surgical History: Cholecystectomy Past Anesthesia/Blood Transfusion Reactions: No Reported Reaction Past Psychological History: Anxiety, Bipolar, Depression Smoking Status: Current every day smoker Past Alcohol Use History: Occasional Past Drug Use History: Marijuana - Past Family History Mother Family Medical History: Asthma, Diabetes Mellitus Additional Family Medical History / Comment(s): Mom is alive at age 56 with history of diabetes Father Family Medical History: Hypertension Additional Family Medical History / Comment(s): Father is alive at age 56 with history of hypertension. Patient does not have any brothers. She does not have a sisters. She does not have any children. General Exam General appearance: alert, in no apparent distress Head exam: Present: atraumatic, normocephalic Eye exam: Present: normal appearance. Absent: scleral icterus, conjunctival injection Neck exam: Present: normal inspection, full ROM Respiratory exam: Present: normal lung sounds bilaterally. Absent: respiratory distress, wheezes, rales, rhonchi, stridor Cardiovascular Exam: Present: regular rate, normal rhythm, normal heart sounds. Absent: systolic murmur, diastolic murmur, rubs, gallop GI/Abdominal exam: Present: soft. Absent: distended, tenderness, guarding, rebound, rigid, mass Extremities exam: Present: normal inspection, normal capillary refill. Absent: pedal edema, calf tenderness Back exam: Present: normal inspection. Absent: CVA tenderness (R), CVA tenderness (L) Neurological exam: Present: alert Skin exam: Present: warm, dry, intact, normal color. Absent: rash Course Vital Signs 10/03/21 10/03/21 01:27 06:25 Temperature 98.9 F Pulse Rate 89 72 Respiratory 20 16 Rate Blood Pressure 123/84 115/72 O2 Sat by Pulse 98 99 Oximetry Disposition Clinical Impression: Chest pain Disposition: HOME SELF-CARE Condition: Good Instructions (If sedation given, give patient instructions): Chest Pain (ED) Is patient prescribed a controlled substance at d/c from ED?: No Referrals: Pauly Stinson MD [Primary Care Provider] - 1-2 days
--- NOTE | 2021-09-02 02:37 | XR ---
EXAMINATION TYPE: XR chest 2V DATE OF EXAM: 09/02/2021 COMPARISON: 08/21/2021 HISTORY: Chest pain TECHNIQUE: FINDINGS: Heart and mediastinum are normal. Lungs are clear. Diaphragm is normal. Bony thorax is inta ct. There are chest leads. IMPRESSION: Normal chest. No change.
[2021-09-02 03:05] LABS: Basophils # (A) 0.1 k/uL (0-0.2); Basophils % (A) 0 %; Eosinophils # (A) 0.4 k/uL (0-0.7); Eosinophils % (A) 4 %; HCT 41.5 % (34.0-46.0); HGB 14.4 gm/dL (11.4-16.0); Lymphocytes % (A) 18 %; MCH 29.9 pg (25.0-35.0); MCHC 34.6 g/dL (31.0-37.0); MCV 86.4 fL (80.0-100.0); Mean Platelet Volume 8.1; Monocytes # (A) 0.5 k/uL (0-1.0); Monocytes % (A) 5 %; Neutrophils # (A) 8.2 k/uL (1.3-7.7); Neutrophils % (A) 72 %; Platelet Count 372 k/uL (150-450); RDW 13.8 % (11.5-15.5); WBC 11.4 k/uL (3.8-10.6)
[2021-09-02 03:12] LABS: ALT 33 U/L (4-34); AST 31 U/L (14-36); African American GFR (CKD) >90 (>60 ml/min/1.73 sqM); Albumin 4.4 g/dL (3.5-5.0); Alkaline Phosphatase 202 U/L (38-126); Amylase 53 U/L (30-110); Anion Gap 13 mmol/L; Blood Urea Nitrogen 10 mg/dL (7-17); Calcium 9.7 mg/dL (8.4-10.2); Carbon Dioxide 18 mmol/L (22-30); Chloride 101 mmol/L (98-107); Glucose 389 mg/dL (74-99); Lipase 124 U/L (23-300); Lithium 0.5 mmol/L; Magnesium 1.9 mg/dL (1.6-2.3); Non-African American GFR(CKD) >90 (>60 ml/min/1.73 sqM); Potassium 4.3 mmol/L (3.5-5.1); Sodium 132 mmol/L (137-145); Total Bilirubin 0.6 mg/dL (0.2-1.3); Total Protein 7.6 g/dL (6.3-8.2)
[2021-09-02] MEDS ORDERED: MORPHINE SULFATE 4 MG/ML SYRINGE IV STA (04:05)
[2021-09-02 04:34] LABS: INR 0.9 (<1.2); Partial Thromboplastin Time 22.9 sec (22.0-30.0); Prothrombin Time 10.1 sec (9.0-12.0)
[2021-09-02] MEDS ORDERED: INSULIN REGULAR 100 UNIT/ML VIAL (IV) SQ STA (04:48)
[2021-09-02] MEDS ORDERED: SODIUM CHLORIDE 0.9% 1,000 ML IV ONE (04:48)
[2021-09-02 06:26] VITALS: BP 115/72; PULSE 72; RESP 16
== END 2021-09-02 06:26 | disposition home or self-care (01) ==
LOC: EC 01:19
DX: R07.89 Other chest pain (principal); J45.909 Unspecified asthma, uncomplicated; E11.9 Type 2 diabetes mellitus without complications; I10 Essential (primary) hypertension; F17.200 Nicotine dependence, unspecified, uncomplicated; Z88.8 Allergy status to other drugs, medicaments and biological substances; Z79.51 Long term (current) use of inhaled steroids; Z79.4 Long term (current) use of insulin; G40.909 Epilepsy, unspecified, not intractable, without status epilepticus; Z79.899 Other long term (current) drug therapy
CPT/HCPCS: 36415; 93005; 85379; 83880; 80053; 82150; 83690; 80178; 83735; 84484; 85025; 85610; 85730; 71046; 99285; 96372; 96374; 96361; J2270

== ENCOUNTER 2021-09-16 14:54 | Emergency (ER) | payer BC ==
[2021-09-16] MEDS ORDERED: SODIUM CHLORIDE 0.9% 1,000 ML IV STA (16:11)
--- NOTE | 2021-09-16 16:14 | ED ---
General Adult HPI - General Chief complaint: Abdominal Pain Stated complaint: Abd Pain Time Seen by Provider: 09/16/21 16:04 Source: patient, RN notes reviewed Mode of arrival: ambulatory Limitations: no limitations - History of Present Illness Initial comments: Patient is a 30-year-old female currently out maybe approximately 3 weeks with an LMP of August 24 presents to the emergency room for a chief complaint of abdominal pain. Patient states since yesterday she has had slight lower abdominal pain on the right side. States she has also felt very nauseous on and off. Patient took a test and it was positive. Patient denies any vaginal bleeding.Patient has no other complaints at this time including shortness of breath, chest pain, headache, or visual changes. - Related Data Home Medications Medication Instructions Recorded Confirmed Folic Acid 1 mg PO BID 08/31/14 02/25/21 lamoTRIgine [LaMICtal] 200 mg PO BID 05/10/15 02/25/21 Montelukast [Singulair] 10 mg PO HS 02/10/19 02/25/21 levETIRAcetam [Keppra] 500 mg PO BID 05/21/19 02/25/21 Escitalopram [Lexapro] 10 mg PO HS 04/21/20 02/25/21 metFORMIN HCL [Glucophage] 500 mg PO BID 04/21/20 02/25/21 Benztropine Mesylate [Cogentin] 0.5 mg PO HS 02/25/21 02/25/21 Insulin Glargine,Hum.rec.anlog 24 unit SQ HS 02/25/21 02/25/21 [Lantus Solostar] [place] Carbonate 300 mg PO BID 02/25/21 02/25/21 [place] Carbonate 600 mg PO BID 02/25/21 02/25/21 Propranolol HCl [Inderal Xl] 120 mg PO DAILY 02/25/21 02/25/21 Previous Rx's Medication Instructions Recorded Cephalexin [Keflex] 500 mg PO Q12HR 1 Days #14 cap 02/25/21 Allergies Allergy/AdvReac Type Severity Reaction Status Date / Time haloperidol [From Haldol] Allergy Unknown Verified 09/16/21 15:11 metronidazole [From Flagyl] Allergy Unknown Verified 09/16/21 15:11 lurasidone [From Latuda] AdvReac high blood Verified 09/16/21 15:11 sugar Review of Systems ROS Statement: Those systems with pertinent positive or pertinent negative responses have been documented in the HPI. ROS Other: All systems not noted in ROS Statement are negative. Past Medical History Past Medical History: Asthma, Diabetes Mellitus, Hypertension, Seizure Disorder, Sleep Apnea/CPAP/BIPAP Additional Past Medical History / Comment(s): seizure History of Any Multi-Drug Resistant Organisms: None Reported Past Surgical History: Cholecystectomy Past Anesthesia/Blood Transfusion Reactions: No Reported Reaction Past Psychological History: Anxiety, Bipolar, Depression Smoking Status: Current every day smoker Past Alcohol Use History: Occasional Past Drug Use History: Marijuana - Past Family History Mother Family Medical History: Asthma, Diabetes Mellitus Additional Family Medical History / Comment(s): Mom is alive at age 56 with history of diabetes Father Family Medical History: Hypertension Additional Family Medical History / Comment(s): Father is alive at age 56 with history of hypertension. Patient does not have any brothers. She does not have a sisters. She does not have any children. General Exam Limitations: no limitations General appearance: alert, in no apparent distress Head exam: Present: atraumatic Eye exam: Present: normal appearance, PERRL, EOMI. Absent: scleral icterus, conjunctival injection ENT exam: Present: normal exam, mucous membranes moist Neck exam: Present: normal inspection, full ROM. Absent: tenderness Respiratory exam: Present: normal lung sounds bilaterally. Absent: respiratory distress, wheezes Cardiovascular Exam: Present: regular rate, normal rhythm, normal heart sounds GI/Abdominal exam: Present: soft, normal bowel sounds. Absent: distended, tenderness Neurological exam: Present: alert Course Vital Signs 09/16/21 15:11 Temperature 98.1 F Pulse Rate 78 Respiratory 18 Rate Blood Pressure 149/104 O2 Sat by Pulse 95 Oximetry Medical Decision Making - Medical Decision Making Vitals are stable. Patient is well-appearing. No tenderness noted to the abdomen. CBC is unremarkable. White blood cell count is normal at 10. CMP does show mild hyperglycemia of 259, treated with IV fluids. Patient does have a history of NIDDM. HCG is negative. Urinalysis does not show any evidence of infection. Ultrasound shows no adnexal mass or free fluid. At this time given normal white blood cell count, afebrile, in no tenderness in the right lower quadrant CT without obtained. She may have pelvic cramping as she is supposed to start her period in the next couple days. However she will monitor for worsening pain and fever and return if these occur. She will otherwise follow up with primary care. - Lab Data Result diagrams: 09/16/21 17:07 09/16/21 17:07 Lab Results 09/16/21 09/16/21 09/16/21 Range/Units 17:07 17:07 17:07 WBC 10.0 (3.8-10.6) k/uL RBC 5.00 (3.80-5.40) m/uL Hgb 14.7 (11.4-16.0) gm/dL Hct 43.5 (34.0-46.0) % MCV 86.9 (80.0-100.0) fL MCH 29.3 (25.0-35.0) pg MCHC 33.8 (31.0-37.0) g/dL RDW 14.0 (11.5-15.5) % Plt Count 396 (150-450) k/uL MPV 7.1 Neutrophils % 74 % Lymphocytes % 18 % Monocytes % 3 % Eosinophils % 3 % Basophils % 1 % Neutrophils # 7.4 (1.3-7.7) k/uL Lymphocytes # 1.8 (1.0-4.8) k/uL Monocytes # 0.3 (0-1.0) k/uL Eosinophils # 0.3 (0-0.7) k/uL Basophils # 0.1 (0-0.2) k/uL Sodium 136 L (137-145) mmol/L Potassium 4.2 (3.5-5.1) mmol/L Chloride 103 (98-107) mmol/L Carbon Dioxide 23 (22-30) mmol/L Anion Gap 10 mmol/L BUN 7 (7-17) mg/dL Creatinine 0.72 (0.52-1.04) mg/dL Est GFR (CKD-EPI)AfAm >90 (>60 ml/min/1.73 sqM) Est GFR (CKD-EPI)NonAf >90 (>60 ml/min/1.73 sqM) Glucose 259 H (74-99) mg/dL Calcium 10.1 (8.4-10.2) mg/dL Total Bilirubin 0.5 (0.2-1.3) mg/dL AST 31 (14-36) U/L ALT 31 (4-34) U/L Alkaline Phosphatase 144 H (38-126) U/L Total Protein 7.5 (6.3-8.2) g/dL Albumin 4.3 (3.5-5.0) g/dL Amylase 55 (30-110) U/L Lipase 73 (23-300) U/L HCG, Quant <2.4 mIU/mL Urine Color Yellow Urine Appearance Cloudy H (Clear) Urine pH 7.5 (5.0-8.0) Ur Specific [place] 1.013 (1.001-1.035) Urine Protein Trace H (Negative) Urine Glucose (UA) Trace H (Negative) Urine Ketones Negative (Negative) Urine Blood Negative (Negative) Urine Nitrite Negative (Negative) Urine Bilirubin Negative (Negative) Urine Urobilinogen <2.0 (<2.0) mg/dL Ur Leukocyte Esterase Negative (Negative) Urine RBC <1 (0-5) /hpf Urine WBC 2 (0-5) /hpf Ur Squamous Epith Cells 1 (0-4) /hpf Urine Bacteria Occasional H (None) /hpf Urine Mucus Rare H (None) /hpf Urine Yeast (Budding) Occasional H (None) /hpf Disposition Clinical Impression: Abdominal cramping, Negative test Disposition: HOME SELF-CARE Condition: Good Instructions (If sedation given, give patient instructions): Acute Abdominal Pain (ED) Additional Instructions: Please take Motrin for pain. Follow-up with your doctor in one to 2 days. Return to the emergency room for any worsening symptoms. Is patient prescribed a controlled substance at d/c from ED?: No Referrals: Pauly Stinosn MD [Primary Care Provider] - 1-2 days Time of Disposition: 19:01
[2021-09-16 17:20] LABS: Basophils # (A) 0.1 k/uL (0-0.2); Basophils % (A) 1 %; Eosinophils # (A) 0.3 k/uL (0-0.7); Eosinophils % (A) 3 %; HCT 43.5 % (34.0-46.0); HGB 14.7 gm/dL (11.4-16.0); Lymphocytes # (A) 1.8 k/uL (1.0-4.8); Lymphocytes % (A) 18 %; MCH 29.3 pg (25.0-35.0); MCHC 33.8 g/dL (31.0-37.0); MCV 86.9 fL (80.0-100.0); Mean Platelet Volume 7.1; Monocytes # (A) 0.3 k/uL (0-1.0); Monocytes % (A) 3 %; Neutrophils # (A) 7.4 k/uL (1.3-7.7); Neutrophils % (A) 74 %; Platelet Count 396 k/uL (150-450)
[2021-09-16 17:27] LABS: Appearance,Urine Cloudy (Clear); Bacteria,Urine Occasional /hpf; Bilirubin,Urine Negative (Negative); Blood,Urine Negative (Negative); Budding Yeast,Urine Occasional /hpf; Color,Urine Yellow; Glucose,Urine (UA) Trace (Negative); Ketones,Urine Negative (Negative); Leukocyte Esterase,Urine Negative (Negative); Mucus,Urine Rare /hpf; Nitrite,Urine Negative (Negative); PH, Urine 7.5 (5.0-8.0); Protein,Urine Trace (Negative); RBC,Urine <1 /hpf (0-5); Specific Gravity,Urine 1.013 (1.001-1.035); Squamous Epithelial Cell,Urine 1 /hpf (0-4); Urobilinogen,Urine <2.0 mg/dL (<2.0); WBC,Urine 2 /hpf (0-5)
[2021-09-16 17:29] LABS: ALT 31 U/L (4-34); AST 31 U/L (14-36); African American GFR (CKD) >90 (>60 ml/min/1.73 sqM); Albumin 4.3 g/dL (3.5-5.0); Alkaline Phosphatase 144 U/L (38-126); Amylase 55 U/L (30-110); Anion Gap 10 mmol/L; Blood Urea Nitrogen 7 mg/dL (7-17); Calcium 10.1 mg/dL (8.4-10.2); Carbon Dioxide 23 mmol/L (22-30); Chloride 103 mmol/L (98-107); Glucose 259 mg/dL (74-99); Lipase 73 U/L (23-300); Non-African American GFR(CKD) >90 (>60 ml/min/1.73 sqM); Potassium 4.2 mmol/L (3.5-5.1); Sodium 136 mmol/L (137-145); Total Bilirubin 0.5 mg/dL (0.2-1.3); Total Protein 7.5 g/dL (6.3-8.2)
[2021-09-16 17:46] LABS: HCG,Quantitative Serum <2.4 mIU/mL
--- NOTE | 2021-09-16 18:17 | US ---
EXAMINATION TYPE: Transabdominal DATE OF EXAM: 09/16/2021 5:48 PM COMPARISON: NONE CLINICAL HISTORY: RLQ pain. EXAM PERFORMED: EXAM MEASUREMENTS: GESTATIONAL AGE / DATING Physician Established: Not yet established Dates by LMP: (3 weeks/2 days) EDC: 05-31-22 Dates by First Scan: No previous this is first scan Dates by Current Scan for: Unable to date by today's study MATERNAL ANATOMY Uterus: 8.3 x 40 x 5.1cm Right Ovary: 2.9 x 2.8 x 2.7cm Left Ovary: 3.4 x 2.0 x 2.1cm Endometrium: 0.8 Post CDS / Adnexa: wnl Presence of free fluid: no GESTATION / SURVEY IUP: No IUP seen at this time Date of LMP: 08-24-21 Beta HcG (if available): Not available at this time No IUP seen at this time. This would be normal for a 3 weeks . IMPRESSION: Uterus is empty. No adnexal mass or free fluid.
[2021-09-16 19:15] VITALS: BP 146/90; PULSE 78; RESP 20; TEMP 98.2
== END 2021-09-16 19:14 | disposition home or self-care (01) ==
LOC: EC 14:54
DX: R10.31 Right lower quadrant pain (principal); J45.909 Unspecified asthma, uncomplicated; I10 Essential (primary) hypertension; E11.9 Type 2 diabetes mellitus without complications; G40.909 Epilepsy, unspecified, not intractable, without status epilepticus; F17.200 Nicotine dependence, unspecified, uncomplicated; Z88.1 Allergy status to other antibiotic agents; Z88.8 Allergy status to other drugs, medicaments and biological substances; Z90.49 Acquired absence of other specified parts of digestive tract; Z79.84 Long term (current) use of oral hypoglycemic drugs; Z79.51 Long term (current) use of inhaled steroids; Z79.899 Other long term (current) drug therapy
CPT/HCPCS: 36415; 76801; 76817; 80053; 81001; 82150; 83690; 84702; 85025; 96360; 99284

== ENCOUNTER 2021-09-28 23:47 | Emergency (ER) | payer BC ==
[2021-09-29 00:12] VITALS: TEMP 98.1
[2021-09-29] MEDS ORDERED: LIDOCAINE 5% PATCH TOPICAL STA (00:35)
[2021-09-29] MEDS ORDERED: ACET/COD 300 MG/30 MG STARTER PACK 6 TAB BTL PO STA (00:35)
[2021-09-29] MEDS ORDERED: CYCLOBENZAPRINE 10MG STARTER 3 TAB BTL PO STA (00:36)
[2021-09-29] MEDS ORDERED: KETOROLAC 15 MG/ML 1 ML VIAL IM STA (00:36)
--- NOTE | 2021-09-29 00:37 | ED ---
Upper Extremity HPI - General Chief Complaint: Extremity Injury, Upper Stated Complaint: Shoulder Pain Time Seen by Provider: 09/29/21 00:18 Source: patient Mode of arrival: ambulatory Limitations: no limitations - History of Present Illness Initial Comments: 30-year-old female patient presents to the emergency department today for evaluation of right shoulder pain. States 2 days ago she was reaching to grab something when she fell a tightening in the right shoulder with some mild pain. States she went to sleep and she woke up in the morning the pain was significantly worse. States the pain is now to present for the last 2 days and it worsens especially when she moves the arm around. She reports tenderness over the top of the shoulder and over the back of the shoulder around her shoulder blade. States she has been taking Tylenol without relief. Alternating hot and cold. Denies history of similar symptoms. Denies shortness of breath. Denies numbness or tingling or pain radiating down the arm. She denies chance of . - Related Data Home Medications Medication Instructions Recorded Confirmed Folic Acid 1 mg PO BID 08/31/14 02/25/21 lamoTRIgine [LaMICtal] 200 mg PO BID 05/10/15 02/25/21 Montelukast [Singulair] 10 mg PO HS 02/10/19 02/25/21 levETIRAcetam [Keppra] 500 mg PO BID 05/21/19 02/25/21 Escitalopram [Lexapro] 10 mg PO HS 04/21/20 02/25/21 metFORMIN HCL [Glucophage] 500 mg PO BID 04/21/20 02/25/21 Benztropine Mesylate [Cogentin] 0.5 mg PO HS 02/25/21 02/25/21 Insulin Glargine,Hum.rec.anlog 24 unit SQ 02/25/21 02/25/21 [Lantus Solostar] [place] Carbonate 300 mg PO BID 02/25/21 02/25/21 [place] Carbonate 600 mg PO BID 02/25/21 02/25/21 Propranolol HCl [Inderal Xl] 120 mg PO DAILY 02/25/21 02/25/21 Previous Rx's Medication Instructions Recorded Cephalexin [Keflex] 500 mg PO Q12HR 1 Days #14 cap 02/25/21 Cyclobenzaprine [Flexeril] 10 mg PO TID #15 tab 09/29/21 Lidocaine 5% Patch [Lidoderm] 1 patch TOPICAL DAILY #30 patch 09/29/21 Allergies Allergy/AdvReac Type Severity Reaction Status Date / Time haloperidol [From Haldol] Allergy Unknown Verified 09/29/21 00:12 metronidazole [From Flagyl] Allergy Unknown Verified 09/29/21 00:12 lurasidone [From Latuda] AdvReac high blood Verified 09/29/21 00:12 sugar Review of Systems ROS Statement: Those systems with pertinent positive or pertinent negative responses have been documented in the HPI. ROS Other: All systems not noted in ROS Statement are negative. Past Medical History Past Medical History: Asthma, Diabetes Mellitus, Hypertension, Seizure Disorder, Sleep Apnea/CPAP/BIPAP Additional Past Medical History / Comment(s): seizure History of Any Multi-Drug Resistant Organisms: None Reported Past Surgical History: Cholecystectomy Past Anesthesia/Blood Transfusion Reactions: No Reported Reaction Past Psychological History: Anxiety, Bipolar, Depression Smoking Status: Current every day smoker Past Alcohol Use History: Occasional Past Drug Use History: Marijuana - Past Family History Mother Family Medical History: Asthma, Diabetes Mellitus Additional Family Medical History / Comment(s): Mom is alive at age 56 with history of diabetes Father Family Medical History: Hypertension Additional Family Medical History / Comment(s): Father is alive at age 56 with history of hypertension. Patient does not have any brothers. She does not have a sisters. She does not have any children. General Exam Limitations: no limitations General appearance: alert, in no apparent distress, other (This is a well- developed, well-nourished adult female patient in no acute distress. Vital signs upon presentation are temperature 98.1F, pulse 73, respirations 20, blood pressure 148/98, pulse ox 98% on room air.) ENT exam: Present: normal exam, normal oropharynx, mucous membranes moist Respiratory exam: Present: normal lung sounds bilaterally. Absent: respiratory distress, wheezes, rales, rhonchi, stridor Cardiovascular Exam: Present: regular rate, normal rhythm, normal heart sounds. Absent: systolic murmur, diastolic murmur, rubs, gallop, clicks Extremities exam: Present: normal inspection, full ROM, tenderness (Right posterior shoulder right subscapular), normal capillary refill, other (Skin to the right arm is pink, warm, dry. Cap refill less than 3 seconds. Radial pulses 2+.). Absent: pedal edema, joint swelling, calf tenderness Neurological exam: Present: alert, oriented X3, CN II-XII intact Psychiatric exam: Present: normal affect, normal mood Skin exam: Present: warm, dry, intact, normal color. Absent: rash Course Vital Signs 09/29/21 09/29/21 00:08 01:00 Temperature 98.1 F Pulse Rate 73 71 Respiratory 20 18 Rate Blood Pressure 148/98 132/99 O2 Sat by Pulse 98 98 Oximetry Medical Decision Making - Medical Decision Making 30-year-old female patient presenting to the emergency department today for evaluation of right shoulder pain especially with movement. Tenderness over the right posterior shoulder and subscapular region. Symptoms are consistent with muscle spasm. She'll be discharged with pain medication, muscle relaxer. Instructed to follow-up with her primary care physician for recheck in 1-2 days. Return parameters were discussed in detail. She verbalizes understanding and agrees with this plan. My attending is Dr. Jameson. Disposition Clinical Impression: Muscle spasm of right shoulder Disposition: HOME SELF-CARE Condition: Good Instructions (If sedation given, give patient instructions): Muscle Spasm (ED) Additional Instructions: Take medications as directed. Take the patch off after 12 hours. Continue Tylenol Motrin at home. Follow-up with her primary care physician for recheck in 1-2 days. Return for any new, worsening, or concerning symptoms. Prescriptions: Cyclobenzaprine [Flexeril] 10 mg PO TID #15 tab Lidocaine 5% Patch [Lidoderm] 1 patch TOPICAL DAILY #30 patch Is patient prescribed a controlled substance at d/c from ED?: No Referrals: Pauly Stinson MD [Primary Care Provider] - 1-2 days Time of Disposition: 00:37
[2021-09-29 01:32] VITALS: BP 132/99; PULSE 71; RESP 18
== END 2021-09-29 01:00 | disposition home or self-care (01) ==
LOC: EC 23:47
DX: M62.838 Other muscle spasm (principal); M25.511 Pain in right shoulder; E11.9 Type 2 diabetes mellitus without complications; F17.200 Nicotine dependence, unspecified, uncomplicated; G40.909 Epilepsy, unspecified, not intractable, without status epilepticus; I10 Essential (primary) hypertension; J45.909 Unspecified asthma, uncomplicated; Z79.4 Long term (current) use of insulin; Z88.1 Allergy status to other antibiotic agents; Z88.8 Allergy status to other drugs, medicaments and biological substances; Z79.899 Other long term (current) drug therapy
CPT/HCPCS: 99283; 96372; J1885

== ENCOUNTER 2021-11-06 03:17 | Emergency (ER) | payer BC ==
[2021-11-06 03:29] VITALS: TEMP 98
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
--- NOTE | 2021-11-06 04:00 | XR ---
EXAMINATION TYPE: XR hand complete RT DATE OF EXAM: 11/06/2021 COMPARISON: NONE HISTORY: Trauma. Pain TECHNIQUE: 3 views FINDINGS: I see no fracture nor dislocation. Joint spaces are normal. There are no pathologic calcifi cations. There is no sign of a foreign body. IMPRESSION: No fracture. No foreign body seen.
[2021-11-06 04:35] VITALS: BP 143/77; PULSE 78; RESP 18
== END 2021-11-06 04:35 | disposition home or self-care (01) ==
LOC: EC 03:17
DX: S60.221A Contusion of right hand, initial encounter (principal); F17.200 Nicotine dependence, unspecified, uncomplicated; J45.909 Unspecified asthma, uncomplicated; E11.9 Type 2 diabetes mellitus without complications; I10 Essential (primary) hypertension; G40.909 Epilepsy, unspecified, not intractable, without status epilepticus; Z79.899 Other long term (current) drug therapy; Z79.4 Long term (current) use of insulin; Z79.84 Long term (current) use of oral hypoglycemic drugs; Z88.8 Allergy status to other drugs, medicaments and biological substances
CPT/HCPCS: 99283

== ENCOUNTER 2021-11-10 18:43 | Emergency (ER) | payer BC ==
[2021-11-10 18:47] VITALS: RESP 20
--- NOTE | 2021-11-10 20:24 | ED ---
General Adult HPI - General Chief complaint: Abdominal Pain Stated complaint: abd pain Time Seen by Provider: 11/10/21 19:46 Source: patient, RN notes reviewed Mode of arrival: ambulatory Limitations: no limitations - History of Present Illness Initial comments: 30-year-old female presents to the emergency Department with complaints of mild lower abdominal discomfort she describes as pressure, and breast tenderness, onset 3-4 days prior to arrival. States this feels similar to when she found out she was the last time. Reports positive test at home. LMP October 24. Reports normal regular menstrual cycle. Patient denies fever, chills, chest pain, cough, shortness of breath, constipation, diarrhea, dysuria, or hematuria. - Related Data Home Medications Medication Instructions Recorded Confirmed Folic Acid 1 mg PO BID 08/31/14 02/25/21 lamoTRIgine [LaMICtal] 200 mg PO BID 05/10/15 02/25/21 Montelukast [Singulair] 10 mg PO HS 02/10/19 02/25/21 levETIRAcetam [Keppra] 500 mg PO BID 05/21/19 02/25/21 Escitalopram [Lexapro] 10 mg PO HS 04/21/20 02/25/21 metFORMIN HCL [Glucophage] 500 mg PO BID 04/21/20 02/25/21 Benztropine Mesylate [Cogentin] 0.5 mg PO HS 02/25/21 02/25/21 Insulin Glargine,Hum.rec.anlog 24 unit SQ HS 02/25/21 02/25/21 [Lantus Solostar] [place] Carbonate 300 mg PO BID 02/25/21 02/25/21 [place] Carbonate 600 mg PO BID 02/25/21 02/25/21 Propranolol HCl [Inderal Xl] 120 mg PO DAILY 02/25/21 02/25/21 Previous Rx's Medication Instructions Recorded Cephalexin [Keflex] 500 mg PO Q12HR 1 Days #14 cap 02/25/21 Cyclobenzaprine [Flexeril] 10 mg PO TID #15 tab 09/29/21 Lidocaine 5% Patch [Lidoderm] 1 patch TOPICAL DAILY #30 patch 09/29/21 Allergies Allergy/AdvReac Type Severity Reaction Status Date / Time haloperidol [From Haldol] Allergy Unknown Verified 11/10/21 18:47 metronidazole [From Flagyl] Allergy Unknown Verified 11/10/21 18:47 lurasidone [From Latuda] AdvReac high blood Verified 11/10/21 18:47 sugar Review of Systems ROS Statement: Those systems with pertinent positive or pertinent negative responses have been documented in the HPI. ROS Other: All systems not noted in ROS Statement are negative. Past Medical History Past Medical History: Asthma, Diabetes Mellitus, Hypertension, Seizure Disorder, Sleep Apnea/CPAP/BIPAP Additional Past Medical History / Comment(s): seizure History of Any Multi-Drug Resistant Organisms: None Reported Past Surgical History: Cholecystectomy Past Anesthesia/Blood Transfusion Reactions: No Reported Reaction Past Psychological History: Anxiety, Bipolar, Depression Smoking Status: Current every day smoker Past Alcohol Use History: Occasional Past Drug Use History: Marijuana - Past Family History Mother Family Medical History: Asthma, Diabetes Mellitus Additional Family Medical History / Comment(s): Mom is alive at age 56 with history of diabetes Father Family Medical History: Hypertension Additional Family Medical History / Comment(s): Father is alive at age 56 with history of hypertension. Patient does not have any brothers. She does not have a sisters. She does not have any children. General Exam Limitations: no limitations General appearance: alert, in no apparent distress ENT exam: Present: normal exam, normal oropharynx, mucous membranes moist Respiratory exam: Present: normal lung sounds bilaterally. Absent: respiratory distress, wheezes, rales, rhonchi, stridor Cardiovascular Exam: Present: regular rate, normal rhythm, normal heart sounds. Absent: systolic murmur, diastolic murmur, rubs, gallop, clicks GI/Abdominal exam: Present: soft, normal bowel sounds, other (Continuous insulin pump/pod noted to the right lower part of the abdomen). Absent: distended, tenderness, guarding, rebound, rigid Back exam: Present: normal inspection. Absent: CVA tenderness (R), CVA tenderness (L), muscle spasm, paraspinal tenderness, vertebral tenderness Neurological exam: Present: alert, oriented X3, CN II-XII intact Psychiatric exam: Present: normal affect, normal mood Skin exam: Present: warm, dry, intact, normal color. Absent: rash Course Vital Signs 11/10/21 11/10/21 18:45 22:11 Temperature 98.7 F 98.2 F Pulse Rate 78 66 Respiratory 20 20 Rate Blood Pressure 153/94 129/79 O2 Sat by Pulse 99 97 Oximetry Medical Decision Making - Medical Decision Making This is a 30-year-old female with a history of insulin-dependent type 2 diabetes who presents to the emergency department for lower abdominal discomfort she describes as pressure, accompanied by bilateral breast tenderness. Patient states these symptoms are very similar to these preceding her period during her normal regular menstrual cycle. However, patient reports she is not due for her period for another 10 days therefore took a test at home and it was positive. LMP 10/24/2021. . Upon exam, patient is well appearing, moving freely, tolerating oral intake without difficulty, and has a soft, nontender abdomen; no vaginal bleeding. Laboratory studies were obtained; glucose is elevated at 186. patient states she did not bolus with her evening meal. Urine and serum hCGs show no detectable level. Findings were discussed with patient. She will be discharged home to her primary care provider and encouraged to establish with an AEROSOL SUPERVISOR. Return parameters were discussed in detail. Patient verbalizes understanding and agrees with this plan. This patient's care was discussed with my attending Dr. Riley. - Lab Data Result diagrams: 11/10/21 20:42 11/10/21 20:42 Lab Results 11/10/21 11/10/21 11/10/21 Range/Units 20:42 20:42 20:42 WBC 11.3 H (3.8-10.6) k/uL RBC 4.96 (3.80-5.40) m/uL Hgb 14.8 (11.4-16.0) gm/dL Hct 44.4 (34.0-46.0) % MCV 89.4 (80.0-100.0) fL MCH 29.8 (25.0-35.0) pg MCHC 33.3 (31.0-37.0) g/dL RDW 13.7 (11.5-15.5) % Plt Count 401 (150-450) k/uL MPV 7.3 Neutrophils % 72 % Lymphocytes % 20 % Monocytes % 3 % Eosinophils % 3 % Basophils % 0 % Neutrophils # 8.1 H (1.3-7.7) k/uL Lymphocytes # 2.2 (1.0-4.8) k/uL Monocytes # 0.4 (0-1.0) k/uL Eosinophils # 0.3 (0-0.7) k/uL Basophils # 0.1 (0-0.2) k/uL Sodium 138 (137-145) mmol/L Potassium 4.2 (3.5-5.1) mmol/L Chloride 102 (98-107) mmol/L Carbon Dioxide 27 (22-30) mmol/L Anion Gap 9 mmol/L BUN 13 (7-17) mg/dL Creatinine 0.83 (0.52-1.04) mg/dL Est GFR (CKD-EPI)AfAm >90 (>60 ml/min/1.73 sqM) Est GFR (CKD-EPI)NonAf >90 (>60 ml/min/1.73 sqM) Glucose 186 H (74-99) mg/dL Calcium 10.0 (8.4-10.2) mg/dL Total Bilirubin 0.3 (0.2-1.3) mg/dL AST 32 (14-36) U/L ALT 33 (4-34) U/L Alkaline Phosphatase 141 H (38-126) U/L Total Protein 7.5 (6.3-8.2) g/dL Albumin 4.3 (3.5-5.0) g/dL HCG, Quant <2.4 mIU/mL Urine Color Yellow Urine Appearance Clear (Clear) Urine pH 6.5 (5.0-8.0) Ur Specific University 1.016 (1.001-1.035) Urine Protein Trace H (Negative) Urine Glucose (UA) Negative (Negative) Urine Ketones Negative (Negative) Urine Blood Negative (Negative) Urine Nitrite Negative (Negative) Urine Bilirubin Negative (Negative) Urine Urobilinogen <2.0 (<2.0) mg/dL Ur Leukocyte Esterase Trace H (Negative) Urine RBC 1 (0-5) /hpf Urine WBC 2 (0-5) /hpf Ur Squamous Epith Cells 3 (0-4) /hpf Urine Bacteria Rare H (None) /hpf Urine HCG, Qual (Not Detectd) 11/10/21 Range/Units 20:42 WBC (3.8-10.6) k/uL RBC (3.80-5.40) m/uL Hgb (11.4-16.0) gm/dL Hct (34.0-46.0) % MCV (80.0-100.0) fL MCH (25.0-35.0) pg MCHC (31.0-37.0) g/dL RDW (11.5-15.5) % Plt Count (150-450) k/uL MPV Neutrophils % % Lymphocytes % % Monocytes % % Eosinophils % % Basophils % % Neutrophils # (1.3-7.7) k/uL Lymphocytes # (1.0-4.8) k/uL Monocytes # (0-1.0) k/uL Eosinophils # (0-0.7) k/uL Basophils # (0-0.2) k/uL Sodium (137-145) mmol/L Potassium (3.5-5.1) mmol/L Chloride (98-107) mmol/L Carbon Dioxide (22-30) mmol/L Anion Gap mmol/L BUN (7-17) mg/dL Creatinine (0.52-1.04) mg/dL Est GFR (CKD-EPI)AfAm (>60 ml/min/1.73 sqM) Est GFR (CKD-EPI)NonAf (>60 ml/min/1.73 sqM) Glucose (74-99) mg/dL Calcium (8.4-10.2) mg/dL Total Bilirubin (0.2-1.3) mg/dL AST (14-36) U/L ALT (4-34) U/L Alkaline Phosphatase (38-126) U/L Total Protein (6.3-8.2) g/dL Albumin (3.5-5.0) g/dL HCG, Quant mIU/mL Urine Color Urine Appearance (Clear) Urine pH (5.0-8.0) Ur Specific University (1.001-1.035) Urine Protein (Negative) Urine Glucose (UA) (Negative) Urine Ketones (Negative) Urine Blood (Negative) Urine Nitrite (Negative) Urine Bilirubin (Negative) Urine Urobilinogen (<2.0) mg/dL Ur Leukocyte Esterase (Negative) Urine RBC (0-5) /hpf Urine WBC (0-5) /hpf Ur Squamous Epith Cells (0-4) /hpf Urine Bacteria (None) /hpf Urine HCG, Qual Not Detected (Not Detectd) Disposition Clinical Impression: Abdominal pain Disposition: HOME SELF-CARE Condition: Stable Instructions (If sedation given, give patient instructions): Abdominal Pain (ED) Additional Instructions: May take Motrin or Tylenol for abdominal discomfort or breast tenderness. Continued to keep careful track of your menstrual cycle. Follow-up with her primary care provider for a recheck. Establish care with an AEROSOL SUPERVISOR for further evaluation and treatment. Return to the emergency department with any new, worsening, or concerning symptoms. Is patient prescribed a controlled substance at d/c from ED?: No Referrals: Nonstaff,Physician [Primary Care Provider] - 1-2 days Time of Disposition: 22:25
[2021-11-10 21:07] LABS: Basophils # (A) 0.1 k/uL (0-0.2); Basophils % (A) 0 %; Eosinophils # (A) 0.3 k/uL (0-0.7); Eosinophils % (A) 3 %; HCT 44.4 % (34.0-46.0); HGB 14.8 gm/dL (11.4-16.0); Lymphocytes # (A) 2.2 k/uL (1.0-4.8); Lymphocytes % (A) 20 %; MCH 29.8 pg (25.0-35.0); MCHC 33.3 g/dL (31.0-37.0); MCV 89.4 fL (80.0-100.0); Mean Platelet Volume 7.3; Monocytes # (A) 0.4 k/uL (0-1.0); Monocytes % (A) 3 %; Neutrophils # (A) 8.1 k/uL (1.3-7.7); Neutrophils % (A) 72 %; Platelet Count 401 k/uL (150-450); RBC 4.96 m/uL (3.80-5.40); RDW 13.7 % (11.5-15.5); WBC 11.3 k/uL (3.8-10.6)
[2021-11-10 21:16] LABS: ALT 33 U/L (4-34); AST 32 U/L (14-36); African American GFR (CKD) >90 (>60 ml/min/1.73 sqM); Albumin 4.3 g/dL (3.5-5.0); Alkaline Phosphatase 141 U/L (38-126); Anion Gap 9 mmol/L; Appearance,Urine Clear (Clear); Bacteria,Urine Rare /hpf; Bilirubin,Urine Negative (Negative); Blood Urea Nitrogen 13 mg/dL (7-17); Blood,Urine Negative (Negative); Carbon Dioxide 27 mmol/L (22-30); Chloride 102 mmol/L (98-107); Color,Urine Yellow; Glucose 186 mg/dL (74-99); Glucose,Urine (UA) Negative (Negative); Ketones,Urine Negative (Negative); Leukocyte Esterase,Urine Trace (Negative); Nitrite,Urine Negative (Negative); Non-African American GFR(CKD) >90 (>60 ml/min/1.73 sqM); PH, Urine 6.5 (5.0-8.0); Potassium 4.2 mmol/L (3.5-5.1); Protein,Urine Trace (Negative); RBC,Urine 1 /hpf (0-5); Sodium 138 mmol/L (137-145); Specific Gravity,Urine 1.016 (1.001-1.035); Squamous Epithelial Cell,Urine 3 /hpf (0-4); Total Bilirubin 0.3 mg/dL (0.2-1.3); Total Protein 7.5 g/dL (6.3-8.2); Urobilinogen,Urine <2.0 mg/dL (<2.0); WBC,Urine 2 /hpf (0-5)
[2021-11-10 21:32] LABS: HCG,Quantitative Serum <2.4 mIU/mL
[2021-11-10 22:14] VITALS: BP 129/79; PULSE 66; TEMP 98.2
== END 2021-11-10 22:32 | disposition home or self-care (01) ==
LOC: EC 18:43
DX: O26.899 Other specified pregnancy related conditions, unspecified trimester (principal); R10.31 Right lower quadrant pain; O99.519 Diseases of the respiratory system complicating pregnancy, unspecified trimester; J45.909 Unspecified asthma, uncomplicated; O13.9 Gestational [pregnancy-induced] hypertension without significant proteinuria, unspecified trimester; O24.919 Unspecified diabetes mellitus in pregnancy, unspecified trimester; E11.9 Type 2 diabetes mellitus without complications; O99.330 Smoking (tobacco) complicating pregnancy, unspecified trimester; F17.200 Nicotine dependence, unspecified, uncomplicated; Z88.8 Allergy status to other drugs, medicaments and biological substances; Z79.899 Other long term (current) drug therapy; Z79.51 Long term (current) use of inhaled steroids; Z79.4 Long term (current) use of insulin; Z79.84 Long term (current) use of oral hypoglycemic drugs; Z3A.00 Weeks of gestation of pregnancy not specified
CPT/HCPCS: 36415; 80053; 81001; 81025; 84702; 85025; 99284

== ENCOUNTER 2022-06-26 01:19 | Emergency (ER) | payer BC ==
[2022-06-26 01:40] VITALS: BP 160/87; PULSE 79; RESP 18; TEMP 99.2
[2022-06-26 03:41] LABS: Basophils % (A) 1 %; Eosinophils # (A) 0.1 k/uL (0-0.7); Eosinophils % (A) 2 %; HCT 39.9 % (34.0-46.0); HGB 13.4 gm/dL (11.4-16.0); Lymphocytes # (A) 2.4 k/uL (1.0-4.8); Lymphocytes % (A) 26 %; MCH 29.6 pg (25.0-35.0); MCHC 33.5 g/dL (31.0-37.0); MCV 88.2 fL (80.0-100.0); Mean Platelet Volume 7.3; Monocytes # (A) 0.4 k/uL (0-1.0); Monocytes % (A) 5 %; Neutrophils # (A) 6.3 k/uL (1.3-7.7); Neutrophils % (A) 66 %; Platelet Count 386 k/uL (150-450); RBC 4.53 m/uL (3.80-5.40); RDW 13.6 % (11.5-15.5); WBC 9.5 k/uL (3.8-10.6)
[2022-06-26] MEDS ORDERED: Rhogam IMMUNE GLOBULIN 1,500 UNIT/1 ML IM ONE (04:52)
[2022-06-26] MEDS ORDERED: ACETAMINOPHEN TAB 325 MG TAB PO STA (05:02)
--- NOTE | 2022-06-26 05:04 | ED ---
Female Urogenital HPI - General Chief complaint: Vaginal Bleeding Stated complaint: 8.5 Weeks Preg, Vaginal Bleeding, Cramping Time Seen by Provider: 06/26/22 01:53 Source: patient Mode of arrival: ambulatory Limitations: no limitations - History of Present Illness Initial comments: This patient is 31-year-old woman with history of previous miscarriage who presents with complaint that she is having some spotting type bleeding and some intermittent bilateral pelvic cramping. Patient states the bleeding is definitely less than a period. She is not currently having pain. No fever or chills. MD Complaint: vaginal bleeding, pelvic pain -: hour(s) Location: LLQ, RLQ Radiation: non-radiating Severity: mild Quality: cramping Consistency: intermittent Worsens with: none Patient : Yes Associated Symptoms: vaginal bleeding - Related Data Home Medications Medication Instructions Recorded Confirmed Folic Acid 1 mg PO BID 08/31/14 02/25/21 lamoTRIgine [LaMICtal] 200 mg PO BID 05/10/15 02/25/21 Montelukast [Singulair] 10 mg PO HS 02/10/19 02/25/21 levETIRAcetam [Keppra] 500 mg PO BID 05/21/19 02/25/21 Escitalopram [Lexapro] 10 mg PO HS 04/21/20 02/25/21 metFORMIN HCL [Glucophage] 500 mg PO BID 04/21/20 02/25/21 Benztropine Mesylate [Cogentin] 0.5 mg PO HS 02/25/21 02/25/21 Insulin Glargine,Hum.rec.anlog 24 unit SQ HS 02/25/21 02/25/21 [Lantus Solostar] [place] Carbonate 300 mg PO BID 02/25/21 02/25/21 [place] Carbonate 600 mg PO BID 02/25/21 02/25/21 Propranolol HCl [Inderal Xl] 120 mg PO DAILY 02/25/21 02/25/21 Previous Rx's Medication Instructions Recorded Cephalexin [Keflex] 500 mg PO Q12HR 1 Days #14 cap 02/25/21 Cyclobenzaprine [Flexeril] 10 mg PO TID #15 tab 09/29/21 Lidocaine 5% Patch [Lidoderm] 1 patch TOPICAL DAILY #30 patch 09/29/21 Allergies Allergy/AdvReac Type Severity Reaction Status Date / Time haloperidol [From Haldol] Allergy Unknown Verified 06/26/22 01:40 metronidazole [From Flagyl] Allergy Unknown Verified 06/26/22 01:40 lurasidone [From Latuda] AdvReac high blood Verified 06/26/22 01:40 sugar Review of Systems ROS Statement: Those systems with pertinent positive or pertinent negative responses have been documented in the HPI. ROS Other: All systems not noted in ROS Statement are negative. Constitutional: Denies: fever, chills Respiratory: Denies: cough, dyspnea Cardiovascular: Denies: chest pain, palpitations Gastrointestinal: Reports: abdominal pain. Denies: nausea, vomiting, diarrhea Genitourinary: Reports: abnormal menses. Denies: urgency, dysuria, frequency, hematuria Musculoskeletal: Denies: back pain Skin: Denies: rash Neurological: Denies: headache, weakness Hematological/Lymphatic: Denies: easy bleeding Past Medical History Past Medical History: Asthma, Diabetes Mellitus, Hypertension, Seizure Disorder, Sleep Apnea/CPAP/BIPAP Additional Past Medical History / Comment(s): seizure History of Any Multi-Drug Resistant Organisms: None Reported Past Surgical History: Cholecystectomy Past Anesthesia/Blood Transfusion Reactions: No Reported Reaction Past Psychological History: Anxiety, Bipolar, Depression Smoking Status: Former smoker Past Alcohol Use History: Occasional Past Drug Use History: Marijuana - Past Family History Mother Family Medical History: Asthma, Diabetes Mellitus Additional Family Medical History / Comment(s): Mom is alive at age 56 with history of diabetes Father Family Medical History: Hypertension Additional Family Medical History / Comment(s): Father is alive at age 56 with history of hypertension. Patient does not have any brothers. She does not have a sisters. She does not have any children. General Exam Limitations: no limitations General appearance: alert, in no apparent distress Head exam: Present: atraumatic, normocephalic Eye exam: Present: normal appearance. Absent: scleral icterus, conjunctival injection Neck exam: Present: normal inspection Respiratory exam: Present: normal lung sounds bilaterally. Absent: respiratory distress, wheezes, rales, rhonchi, stridor Cardiovascular Exam: Present: regular rate, normal rhythm, normal heart sounds. Absent: systolic murmur, diastolic murmur, rubs, gallop GI/Abdominal exam: Present: soft. Absent: distended, tenderness, guarding, rebound, rigid, mass, pulsatile mass External exam: Present: other (Declines gynecologic exam) Extremities exam: Present: normal inspection, normal capillary refill. Absent: pedal edema, calf tenderness Back exam: Present: normal inspection. Absent: CVA tenderness (R), CVA tenderness (L) Neurological exam: Present: alert Skin exam: Present: warm, dry, intact, normal color. Absent: rash Course Vital Signs 06/26/22 01:37 Temperature 99.2 F Pulse Rate 79 Respiratory 18 Rate Blood Pressure 160/87 O2 Sat by Pulse 99 Oximetry Medical Decision Making - Medical Decision Making This patient is a 31-year-old woman presenting with vaginal spotting. Labs are sent and then I went to reevaluate the patient. She at that point had had some heavier bleeding. She states this is identical to her previous miscarriage. I discussed that ultrasound was not in currently and the patient did not want to wait until ultrasound arrived. She states is identical to previous miscarriage and she is fairly certain that this was going on and since there would be no treatment she would rather go home and follow with her hatchery helper. I did discuss the return parameters and appropriate further care and follow-up. - Lab Data Result diagrams: 06/26/22 03:04 Lab Results 06/26/22 06/26/22 06/26/22 Range/Units 03:04 03:04 03:04 WBC 9.5 (3.8-10.6) k/uL RBC 4.53 (3.80-5.40) m/uL Hgb 13.4 (11.4-16.0) gm/dL Hct 39.9 (34.0-46.0) % MCV 88.2 (80.0-100.0) fL MCH 29.6 (25.0-35.0) pg MCHC 33.5 (31.0-37.0) g/dL RDW 13.6 (11.5-15.5) % Plt Count 386 (150-450) k/uL MPV 7.3 Neutrophils % 66 % Lymphocytes % 26 % Monocytes % 5 % Eosinophils % 2 % Basophils % 1 % Neutrophils # 6.3 (1.3-7.7) k/uL Lymphocytes # 2.4 (1.0-4.8) k/uL Monocytes # 0.4 (0-1.0) k/uL Eosinophils # 0.1 (0-0.7) k/uL Basophils # 0.0 (0-0.2) k/uL HCG, Quant 01818.8 mIU/mL Blood Type B Negative Blood Type Recheck No Previous Record Bld Type Recheck Status [facility] ONLY Antibody Screen Spec Expiration Date 06/26/22 Range/Units 03:05 WBC (3.8-10.6) k/uL RBC (3.80-5.40) m/uL Hgb (11.4-16.0) gm/dL Hct (34.0-46.0) % MCV (80.0-100.0) fL MCH (25.0-35.0) pg MCHC (31.0-37.0) g/dL RDW (11.5-15.5) % Plt Count (150-450) k/uL MPV Neutrophils % % Lymphocytes % % Monocytes % % Eosinophils % % Basophils % % Neutrophils # (1.3-7.7) k/uL Lymphocytes # (1.0-4.8) k/uL Monocytes # (0-1.0) k/uL Eosinophils # (0-0.7) k/uL Basophils # (0-0.2) k/uL HCG, Quant mIU/mL Blood Type B Negative Blood Type Recheck B Neg Bld Type Recheck Status No Antibody Screen NEGATIVE Spec Expiration Date 06/29/2022 - 2304 Disposition Clinical Impression: Threatened Disposition: HOME SELF-CARE Condition: Fair Instructions (If sedation given, give patient instructions): Threatened Miscarriage (ED) Is patient prescribed a controlled substance at d/c from ED?: No Referrals: Willie Cummins MD [Primary Care Provider] - 1-2 days Rubi Ramos MD [STAFF PHYSICIAN] - 1-2 days
== END 2022-06-26 07:00 | disposition home or self-care (01) ==
LOC: EC 01:19
DX: O20.0 Threatened abortion (principal); J45.909 Unspecified asthma, uncomplicated; E11.9 Type 2 diabetes mellitus without complications; I10 Essential (primary) hypertension; Z87.891 Personal history of nicotine dependence; Z88.8 Allergy status to other drugs, medicaments and biological substances; Z88.1 Allergy status to other antibiotic agents; Z88.4 Allergy status to anesthetic agent; Z3A.08 8 weeks gestation of pregnancy
CPT/HCPCS: 36415; 86900; 86901; 85025; 86850; 84702; 99284; 96372; J2790

== ENCOUNTER 2022-07-07 13:53 | Emergency (ER) | payer BC ==
[2022-07-07] MEDS ORDERED: ASPIRIN 81 MG PO STA (14:18)
--- NOTE | 2022-07-07 14:24 | ED ---
General Adult HPI - General Chief complaint: Chest Pain Stated complaint: chest pain Time Seen by Provider: 07/07/22 14:10 Source: patient, RN notes reviewed, old records reviewed Mode of arrival: wheelchair Limitations: no limitations - History of Present Illness Initial comments: This is a well-appearing 31-year-old female that presents to the emergency room with complaints of intermittent chest pain. Patient states that the chest pain started last night when she was doing the dishes. Not exertional. She states that the pain lasted couple minutes and she became diaphoretic and short of breath. She states that she's been having pain every hour only lasting a couple of minutes at a time. She describes the pain as pressure radiating into her back at times. She does have a history of chest pain and had an echo a few years ago but has not followed up with a quality control engineer. She has a history of asthma, diabetes, hypertension, and seizure. Surgical history of cholecystectomy. -: days(s) Location: chest Radiation: back Severity scale (1-10): 7 Quality: other (pressure) Consistency: intermittent Improves with: none Worsens with: none Associated Symptoms: shortness of breath Treatments Prior to Arrival: none - Related Data Home Medications Medication Instructions Recorded Confirmed Folic Acid 1 mg PO BID 08/31/14 02/25/21 lamoTRIgine [LaMICtal] 200 mg PO BID 05/10/15 02/25/21 Montelukast [Singulair] 10 mg PO HS 02/10/19 02/25/21 levETIRAcetam [Keppra] 500 mg PO BID 05/21/19 02/25/21 Escitalopram [Lexapro] 10 mg PO HS 04/21/20 02/25/21 metFORMIN HCL [Glucophage] 500 mg PO BID 04/21/20 02/25/21 Benztropine Mesylate [Cogentin] 0.5 mg PO HS 02/25/21 02/25/21 Insulin Glargine,Hum.rec.anlog 24 unit SQ 02/25/21 02/25/21 [Lantus Solostar] [place] Carbonate 300 mg PO BID 02/25/21 02/25/21 [place] Carbonate 600 mg PO BID 02/25/21 02/25/21 Propranolol HCl [Inderal Xl] 120 mg PO DAILY 02/25/21 02/25/21 Previous Rx's Medication Instructions Recorded Cephalexin [Keflex] 500 mg PO Q12HR 1 Days #14 cap 02/25/21 Cyclobenzaprine [Flexeril] 10 mg PO TID #15 tab 09/29/21 Lidocaine 5% Patch [Lidoderm] 1 patch TOPICAL DAILY #30 patch 09/29/21 Allergies Allergy/AdvReac Type Severity Reaction Status Date / Time haloperidol [From Haldol] Allergy Unknown Verified 07/07/22 14:01 metronidazole [From Flagyl] Allergy Unknown Verified 07/07/22 14:01 lurasidone [From Latuda] AdvReac high blood Verified 07/07/22 14:01 sugar Review of Systems ROS Statement: Those systems with pertinent positive or pertinent negative responses have been documented in the HPI. ROS Other: All systems not noted in ROS Statement are negative. Past Medical History Past Medical History: Asthma, Diabetes Mellitus, Hypertension, Seizure Disorder, Sleep Apnea/CPAP/BIPAP Additional Past Medical History / Comment(s): seizure History of Any Multi-Drug Resistant Organisms: None Reported Past Surgical History: Cholecystectomy Past Anesthesia/Blood Transfusion Reactions: No Reported Reaction Past Psychological History: Anxiety, Bipolar, Depression Smoking Status: Current every day smoker Past Alcohol Use History: Occasional Past Drug Use History: Marijuana - Past Family History Mother Family Medical History: Asthma, Diabetes Mellitus Additional Family Medical History / Comment(s): Mom is alive at age 56 with history of diabetes Father Family Medical History: Hypertension Additional Family Medical History / Comment(s): Father is alive at age 56 with history of hypertension. Patient does not have any brothers. She does not have a sisters. She does not have any children. General Exam Limitations: no limitations General appearance: alert, in no apparent distress Head exam: Present: atraumatic Eye exam: Absent: scleral icterus, conjunctival injection ENT exam: Present: normal oropharynx, mucous membranes moist Expanded Mouth exam: Present: tongue normal, tongue elevation. Absent: drooling, trismus, muffled voice Throat exam: negative: tonsillar erythema, tonsillomegaly, tonsillar exudate, R peritonsillar mass, L peritonsillar mass Neck exam: Present: normal inspection Respiratory exam: Present: normal lung sounds bilaterally. Absent: respiratory distress, accessory muscle use Cardiovascular Exam: Present: regular rate, normal rhythm GI/Abdominal exam: Present: soft. Absent: distended, tenderness, guarding, rebound, rigid Extremities exam: Present: normal capillary refill. Absent: tenderness, pedal edema Back exam: Absent: tenderness, CVA tenderness (R), CVA tenderness (L) Neurological exam: Present: alert, oriented X3 Psychiatric exam: Present: normal affect, normal mood Skin exam: Present: warm, dry, normal color. Absent: cyanosis, diaphoretic, pallor Course Vital Signs 07/07/22 07/07/22 07/07/22 13:59 14:40 15:00 Temperature 98.6 F 97.8 F Pulse Rate 75 75 Pulse Rate [ 80 [employer] ] Respiratory 16 20 20 Rate Blood Pressure 117/71 143/83 O2 Sat by Pulse 100 97 Oximetry 07/07/22 16:33 Temperature 98.7 F Pulse Rate 68 Pulse Rate [ [employer] ] Respiratory 18 Rate Blood Pressure 126/79 O2 Sat by Pulse 98 Oximetry EKG Findings - EKG Results: EKG: sinus rhythm (Ventricular rate of 75, PA interval 0.161, QRS 0.102, QTC 0.416) Medical Decision Making - Medical Decision Making Chest x-ray shows normal chest with no change compared to August 2021. EKG shows sinus rhythm with no ST elevation. No significant changes compared to old 09/02/21. Troponin is negative at 0.012. CBC and electrolytes are unremarkable. Patient's blood glucose level is 255. She was given IV fluids. Patient states that she did have an echocardiogram a couple of years ago and has not seen a radiologist since. HEART score low. Patient has been seen in the emergency room for chest pain several times in the past year with no specific diagnosis. She was directed to follow up with her primary care doctor to discuss her symptoms. Return to the emergency room with a new or concerning symptoms. - Lab Data Result diagrams: 07/07/22 14:45 07/07/22 14:45 Lab Results 07/07/22 07/07/22 07/07/22 Range/Units 14:45 14:45 14:45 WBC 7.0 (3.8-10.6) k/uL RBC 4.00 (3.80-5.40) m/uL Hgb 11.5 (11.4-16.0) gm/dL Hct 34.9 (34.0-46.0) % MCV 87.3 (80.0-100.0) fL MCH 28.7 (25.0-35.0) pg MCHC 32.9 (31.0-37.0) g/dL RDW 13.4 (11.5-15.5) % Plt Count 319 (150-450) k/uL MPV 6.8 Neutrophils % 66 % Lymphocytes % 26 % Monocytes % 5 % Eosinophils % 2 % Basophils % 0 % Neutrophils # 4.6 (1.3-7.7) k/uL Lymphocytes # 1.8 (1.0-4.8) k/uL Monocytes # 0.3 (0-1.0) k/uL Eosinophils # 0.2 (0-0.7) k/uL Basophils # 0.0 (0-0.2) k/uL Sodium 137 (137-145) mmol/L Potassium 4.5 (3.5-5.1) mmol/L Chloride 103 (98-107) mmol/L Carbon Dioxide 27 (22-30) mmol/L Anion Gap 7 mmol/L BUN 17 (7-17) mg/dL Creatinine 0.71 (0.52-1.04) mg/dL Est GFR (CKD-EPI)AfAm >90 (>60 ml/min/1.73 sqM) Est GFR (CKD-EPI)NonAf >90 (>60 ml/min/1.73 sqM) Glucose 255 H (74-99) mg/dL Calcium 8.9 (8.4-10.2) mg/dL Magnesium 1.9 (1.6-2.3) mg/dL Total Bilirubin 0.2 (0.2-1.3) mg/dL AST 33 (14-36) U/L ALT 31 (4-34) U/L Alkaline Phosphatase 147 H (38-126) U/L Troponin I <0.012 (0.000-0.034) ng/mL Total Protein 6.9 (6.3-8.2) g/dL Albumin 4.1 (3.5-5.0) g/dL Disposition Clinical Impression: Chest pain Disposition: HOME SELF-CARE Condition: Good Instructions (If sedation given, give patient instructions): Chest Pain (ED) Additional Instructions: Your EKG, x-ray and lab work today did not show any areas of concern. However your blood glucose level was elevated so please work with your doctor in controlling your blood glucose levels. Discuss with your doctor your frequent chest pain complaints. Stop smoking as this increases your risk for cardiovascular disease. Return to the emergency room with a new or concerning symptoms. Is patient prescribed a controlled substance at d/c from ED?: No Referrals: Willie Cummins MD [Primary Care Provider] - 1-2 days Time of Disposition: 16:08
[2022-07-07 15:04] LABS: ALT 31 U/L (4-34); AST 33 U/L (14-36); African American GFR (CKD) >90 (>60 ml/min/1.73 sqM); Albumin 4.1 g/dL (3.5-5.0); Alkaline Phosphatase 147 U/L (38-126); Anion Gap 7 mmol/L; Blood Urea Nitrogen 17 mg/dL (7-17); Calcium 8.9 mg/dL (8.4-10.2); Carbon Dioxide 27 mmol/L (22-30); Chloride 103 mmol/L (98-107); Glucose 255 mg/dL (74-99); Magnesium 1.9 mg/dL (1.6-2.3); Non-African American GFR(CKD) >90 (>60 ml/min/1.73 sqM); Potassium 4.5 mmol/L (3.5-5.1); Sodium 137 mmol/L (137-145); Total Bilirubin 0.2 mg/dL (0.2-1.3); Total Protein 6.9 g/dL (6.3-8.2)
[2022-07-07 15:21] LABS: Basophils % (A) 0 %; Eosinophils # (A) 0.2 k/uL (0-0.7); Eosinophils % (A) 2 %; HCT 34.9 % (34.0-46.0); HGB 11.5 gm/dL (11.4-16.0); Lymphocytes # (A) 1.8 k/uL (1.0-4.8); Lymphocytes % (A) 26 %; MCH 28.7 pg (25.0-35.0); MCHC 32.9 g/dL (31.0-37.0); MCV 87.3 fL (80.0-100.0); Mean Platelet Volume 6.8; Monocytes # (A) 0.3 k/uL (0-1.0); Monocytes % (A) 5 %; Neutrophils # (A) 4.6 k/uL (1.3-7.7); Neutrophils % (A) 66 %; Platelet Count 319 k/uL (150-450); RDW 13.4 % (11.5-15.5)
--- NOTE | 2022-07-07 15:27 | XR ---
EXAMINATION TYPE: XR chest 2V DATE OF EXAM: 07/07/2022 COMPARISON: 09/02/2021 HISTORY: Chest pressure TECHNIQUE: 2 views FINDINGS: Heart and mediastinum are normal. Lungs are clear. Diaphragm is normal. Bony thorax is inta ct. IMPRESSION: Normal chest. No change.
[2022-07-07 16:34] VITALS: BP 126/79; PULSE 68; RESP 18; TEMP 98.7
== END 2022-07-07 16:36 | disposition home or self-care (01) ==
LOC: EC 13:53
DX: R07.9 Chest pain, unspecified (principal); J45.909 Unspecified asthma, uncomplicated; I10 Essential (primary) hypertension; E11.9 Type 2 diabetes mellitus without complications; Z79.84 Long term (current) use of oral hypoglycemic drugs; Z79.4 Long term (current) use of insulin; G40.909 Epilepsy, unspecified, not intractable, without status epilepticus; F41.9 Anxiety disorder, unspecified; F31.9 Bipolar disorder, unspecified; Z88.8 Allergy status to other drugs, medicaments and biological substances; Z88.1 Allergy status to other antibiotic agents; F17.200 Nicotine dependence, unspecified, uncomplicated; Z72.89 Other problems related to lifestyle; F12.90 Cannabis use, unspecified, uncomplicated
CPT/HCPCS: 36415; 71046; 80053; 83735; 84484; 85025; 93005; 99285

== ENCOUNTER 2022-08-04 14:10 | Emergency (ER) | payer BC ==
[2022-08-04 14:14] VITALS: BP 134/78; PULSE 76; RESP 16; TEMP 98.6
[2022-08-04 14:52] LABS: Basophils % (A) 1 %; Eosinophils # (A) 0.3 k/uL (0-0.7); Eosinophils % (A) 4 %; HCT 39.1 % (34.0-46.0); HGB 12.6 gm/dL (11.4-16.0); Hypochromasia Slight; Lymphocytes # (A) 1.8 k/uL (1.0-4.8); Lymphocytes % (A) 21 %; MCH 27.1 pg (25.0-35.0); MCHC 32.1 g/dL (31.0-37.0); MCV 84.5 fL (80.0-100.0); Mean Platelet Volume 7.1; Monocytes # (A) 0.4 k/uL (0-1.0); Monocytes % (A) 4 %; Neutrophils # (A) 5.7 k/uL (1.3-7.7); Neutrophils % (A) 69 %; Platelet Count 353 k/uL (150-450); RBC 4.63 m/uL (3.80-5.40); WBC 8.3 k/uL (3.8-10.6)
[2022-08-04 15:02] LABS: INR 0.9 (<1.2); Partial Thromboplastin Time 23.1 sec (22.0-30.0)
[2022-08-04 15:03] LABS: ALT 25 U/L (4-34); AST 19 U/L (14-36); African American GFR (CKD) >90 (>60 ml/min/1.73 sqM); Albumin 4.3 g/dL (3.5-5.0); Alkaline Phosphatase 151 U/L (38-126); Anion Gap 14 mmol/L; Blood Urea Nitrogen 13 mg/dL (7-17); Calcium 9.7 mg/dL (8.4-10.2); Carbon Dioxide 26 mmol/L (22-30); Chloride 98 mmol/L (98-107); Glucose 306 mg/dL (74-99); Magnesium 1.7 mg/dL (1.6-2.3); Non-African American GFR(CKD) >90 (>60 ml/min/1.73 sqM); Potassium 4.5 mmol/L (3.5-5.1); Sodium 138 mmol/L (137-145); Total Bilirubin 0.2 mg/dL (0.2-1.3); Total Protein 7.2 g/dL (6.3-8.2)
--- NOTE | 2022-08-04 16:49 | XR ---
EXAMINATION TYPE: XR chest 2V DATE OF EXAM: 08/04/2022 COMPARISON: 07/07/2022 HISTORY: Chest pain TECHNIQUE: 2 views FINDINGS: Heart and mediastinum are normal. Lungs are clear of infiltrate. No heart failure. Bony tho rax is intact IMPRESSION: Normal chest. No change.
== END 2022-08-04 19:48 | disposition left against medical advice (07) ==
LOC: EC 14:10
DX: Z53.21 Procedure and treatment not carried out due to patient leaving prior to being seen by health care provider (principal); I20.9 Angina pectoris, unspecified
CPT/HCPCS: 71046; 80053; 83735; 84484; 85025; 85610; 85730; 93005; 99499

== ENCOUNTER 2022-11-29 02:24 | Observation (INO) | payer BC ==
[2022-11-29 02:48] VITALS: RESP 16
[2022-11-29] MEDS ORDERED: NITROGLYCERIN SL TABS 0.4 MG TAB SUBLINGUAL PRN (02:53)
[2022-11-29] MEDS ORDERED: ASPIRIN 81 MG PO STA (02:53)
[2022-11-29 02:55] LABS: Basophils # (A) 0.1 k/uL (0-0.2); Basophils % (A) 1 %; Eosinophils # (A) 0.2 k/uL (0-0.7); Eosinophils % (A) 2 %; HCT 40.2 % (34.0-46.0); HGB 13.4 gm/dL (11.4-16.0); Lymphocytes # (A) 2.8 k/uL (1.0-4.8); Lymphocytes % (A) 28 %; MCH 27.9 pg (25.0-35.0); MCHC 33.4 g/dL (31.0-37.0); MCV 83.6 fL (80.0-100.0); Mean Platelet Volume 7.5; Monocytes # (A) 0.4 k/uL (0-1.0); Monocytes % (A) 4 %; Neutrophils # (A) 6.3 k/uL (1.3-7.7); Neutrophils % (A) 63 %; Platelet Count 341 k/uL (150-450); RBC 4.81 m/uL (3.80-5.40); RDW 14.8 % (11.5-15.5); WBC 9.9 k/uL (3.8-10.6)
--- NOTE | 2022-11-29 03:03 | ED ---
Chest Pain HPI - General Chief Complaint: Chest Pain Stated Complaint: chest pain,left arm pain Time Seen by Provider: 11/29/22 02:35 Source: patient, RN notes reviewed - History of Present Illness Initial Comments: This is a pleasant 31-year-old female who has a history of diabetes mellitus type 2, diagnosed in 2019, hypertension, seizure disorder, and sleep apnea. Patient also has a history of asthma. Patient is a cigarette smoker. Patient presents with left sided chest pain, she is describing a sharp sensation in her left chest with a dull feeling in her left upper arm. Pain also radiates to the left upper back. This started about 1.5 hours ago. Patient also states that she had similar episode yesterday at about 6 PM. That resolved on its own after 30 minutes. In both cases patient was not exerting. Patient was doing nothing out of the ordinary. Patient has no personal history of cardiac disease but has a positive family history and a first-degree relative less than 50 years old. Patient states her father had heart conditions. Patient also has multiple other family members with cardiac disease. No headache, no fever or chills, no changes in vision or hearing, no sore throat or difficulty with speech, no neck pain, SENSATION of shortness of breath, patient states she did have some diaphoresis and mild nausea., no abdominal pain, no vomiting, no changes in urination or bowel movements, no numbness or tingling, no extremity pain, no skin rashes or lesions. Past medical, surgical, social, and family history reviewed. - Related Data Home Medications Medication Instructions Recorded Confirmed Folic Acid 1 mg PO BID 08/31/14 02/25/21 lamoTRIgine [LaMICtal] 200 mg PO BID 05/10/15 02/25/21 Montelukast [Singulair] 10 mg PO HS 02/10/19 02/25/21 levETIRAcetam [Keppra] 500 mg PO BID 05/21/19 02/25/21 Escitalopram [Lexapro] 10 mg PO HS 04/21/20 02/25/21 metFORMIN HCL [Glucophage] 500 mg PO BID 04/21/20 02/25/21 Benztropine Mesylate [Cogentin] 0.5 mg PO HS 02/25/21 02/25/21 Insulin Glargine,Hum.rec.anlog 24 unit SQ 02/25/21 02/25/21 [Lantus Solostar] [place] Carbonate 300 mg PO BID 02/25/21 02/25/21 [place] Carbonate 600 mg PO BID 02/25/21 02/25/21 Propranolol HCl [Inderal Xl] 120 mg PO DAILY 02/25/21 02/25/21 Previous Rx's Medication Instructions Recorded Cephalexin [Keflex] 500 mg PO Q12HR 1 Days #14 cap 02/25/21 Cyclobenzaprine [Flexeril] 10 mg PO TID #15 tab 09/29/21 Lidocaine 5% Patch [Lidoderm] 1 patch TOPICAL DAILY #30 patch 09/29/21 Allergies Allergy/AdvReac Type Severity Reaction Status Date / Time haloperidol [From Haldol] Allergy Unknown Verified 11/29/22 02:33 metronidazole [From Flagyl] Allergy Unknown Verified 11/29/22 02:33 lurasidone [From Latuda] AdvReac high blood Verified 11/29/22 02:33 sugar Review of Systems ROS Statement: Those systems with pertinent positive or pertinent negative responses have been documented in the HPI. ROS Other: All systems not noted in ROS Statement are negative. EKG Findings - EKG Comments: EKG Findings:: EKG completed at 2:44 AM and independently interpreted by me reveals normal sinus rhythm with rate of 79, normal intervals, normal axis, no evidence of significant ST elevation or depression. No significant change from the previous study from 07/07/2022 Past Medical History Past Medical History: Asthma, Diabetes Mellitus, Hypertension, Seizure Disorder, Sleep Apnea/CPAP/BIPAP Additional Past Medical History / Comment(s): seizure History of Any Multi-Drug Resistant Organisms: None Reported Past Surgical History: Cholecystectomy Past Anesthesia/Blood Transfusion Reactions: No Reported Reaction Past Psychological History: Anxiety, Bipolar, Depression Smoking Status: Current every day smoker Past Alcohol Use History: Occasional Past Drug Use History: Marijuana - Past Family History Mother Family Medical History: Asthma, Diabetes Mellitus Additional Family Medical History / Comment(s): Mom is alive at age 56 with history of diabetes Father Family Medical History: Hypertension Additional Family Medical History / Comment(s): Father is alive at age 56 with history of hypertension. Patient does not have any brothers. She does not have a sisters. She does not have any children. General Exam General appearance: alert, in distress (Mild), obese Head exam: Present: atraumatic, normocephalic, normal inspection Eye exam: Present: normal appearance, PERRL, EOMI. Absent: scleral icterus, conjunctival injection, periorbital swelling ENT exam: Present: normal exam, mucous membranes moist Neck exam: Present: normal inspection. Absent: tenderness, meningismus, lymphadenopathy Respiratory exam: Present: normal lung sounds bilaterally. Absent: respiratory distress, wheezes, rales, rhonchi, stridor Cardiovascular Exam: Present: regular rate, normal rhythm, normal heart sounds. Absent: systolic murmur, diastolic murmur, rubs, gallop, clicks GI/Abdominal exam: Present: soft, normal bowel sounds. Absent: distended, tenderness, guarding, rebound, rigid Extremities exam: Present: normal inspection, full ROM, normal capillary refill. Absent: tenderness, pedal edema, joint swelling, calf tenderness Back exam: Present: normal inspection Neurological exam: Present: alert, oriented X3, CN II-XII intact Psychiatric exam: Present: normal affect, normal mood Skin exam: Present: warm, dry, intact, normal color. Absent: rash Course Vital Signs 11/29/22 11/29/22 11/29/22 02:31 02:46 03:05 Temperature 99.1 F 98.8 F Pulse Rate 75 82 Respiratory 18 16 Rate Blood Pressure 179/104 146/87 136/79 O2 Sat by Pulse 98 98 Oximetry 11/29/22 03:17 Temperature Pulse Rate 70 Respiratory 16 Rate Blood Pressure 118/76 O2 Sat by Pulse 99 Oximetry - Reevaluation(s) Reevaluation #1: 11/29/22 03:36 Patient reevaluated and has had complete relief with nitroglycerin. Aspirin has been given. Chest x-ray shows no evidence of widened mediastinum or other acute abnormality. - Consultations Consultation #1: Call placed for the admitting physician from [facility], Dr. Negrete Chest Pain MDM - MDM Was pt. sent in by a medical professional or institution? @ -no Did you speak to anyone other than the patient for history? @ -no Did you review nursing and triage notes? @ -agree Were old charts reviewed? @ -Old records reviewed, old EKG reviewed Differential Diagnosis? @ -Differential Chest Pain: Stable Angina, Unstable Angina, STEMI, NSTEMI Aortic Dissection, Pneumothorax, Musculoskeletal, Esophageal Spasm GERD, Cholecystitis, Pancreatitis, Zoster, this is not meant to be an all-inclusive list. EKG interpreted by me (3pts min.)? @ -[yes] X-rays interpreted by me (1pt min.)? @ -[Yes, one view chest x-ray independently interpreted by me shows no evidence of widened mediastinum. No pneumothorax. No effusion. No cardiomegaly. No osseous lesion. Awaiting radiology interpretation] CT interpreted by me (1pt min.)? @ -[none] U/S interpreted by me (1pt. min.)? @ -[none] What testing was considered but not performed? (CT, X-rays, U/S, labs)? Why? @ [I did consider computed tomography scan of the chest. However the patient had complete relief with nitroglycerin appear to be in no distress. Chest x-ray showed no evidence of widened mediastinum. After consideration this test was deferred.] What meds were considered but not given? Why? @ -[Heparin was considered, however, the patient has current vaginal bleeding and was actually placed on medroxyprogesterone yesterday morning for that. We'll withhold any further antiplatelet therapy or anti-coagulants.] Did you discuss the management of the patient with other professionals? @ -The attending physician, hospitalist from [facility] Did you reconcile home meds? @ -Medication lists reviewed but had not been confirmed yet. Was smoking cessation discussed for >3mins.? @ -[I discussed smoking cessation for greater than 3 minutes. The risk of smoking were discussed with the patient including but not limited to risks of cancer, stroke, coronary artery disease and COPD. Also discussed with patient were multiple methods of quitting smoking. Lastly we discussed the financial cost of smoking.] Was critical care preformed (if so, how long)? @ -[none] Were there social determinants of health that impacted care today? How? (Homelessness, low income, unemployed, alcoholism, drug addiction, transportation, low edu. Level, literacy, decrease access to med. care, long term, rehab)? @ -Patient has obesity with cigarette smoking. This certainly could confound the patient's outcome. Was there de-escalation of care discussed even if they declined? (Discuss DNR or withdrawal of care, Hospice)? @ -[Discuss DNR or withdrawal of care, Hospice?] What co-morbidities impacted this encounter? (DM, HTN, Smoking, COPD, CAD, Cancer, CVA, Hep., AIDS, mental health diagnosis, sleep apnea, morbid obesity)? @ -[DM, HTN, Smoking, sleep apnea, morbid obesity?] Was patient admitted / discharged? @ -Patient was seen for chest pain and had complete relief with nitroglycerin. Aspirin 324 mg was given. Given the patient's heart score 3, multiple risk factors and lack of any documented workup. We are going to admit the patient for observation, serial troponins, and cardiology consultation. Discussed this plan in detail with the patient. Patient agrees with this treatment plan. Undiagnosed new problem with uncertain prognosis? @ -[none] Drug Therapy requiring intensive monitoring for toxicity (Heparin, Nitro, Insulin, Cardizem)? @ -[none] Were any procedures done? @ -[none] Diagnosis/symptom? @ -Chest pain, uncontrolled hypertension, hyperglycemia, current vaginal bleeding/menometrorrhagia Acute, or Chronic, or Acute on Chronic? @ -Acute Uncomplicated (without systemic symptoms) or Complicated (systemic symptoms)? @ -Complicated Side effects of treatment? @ -[none] Exacerbation, Progression, or Severe Exacerbation] @ -[no] Poses a threat to life or bodily function? @ -Yes The case was discussed in detail with ED attending physician. Presentation, findings, treatment plan discussed in detail. Supervising physician Dr. Pal Disposition Clinical Impression: Chest pain, Uncontrolled hypertension, Hyperglycemia due to type 2 diabetes mellitus Narrative: Current menometrorrhagiastarted on medroxyprogesterone yesterday Disposition: ADMITTED IP TO THIS [facility] Condition: Stable Is patient prescribed a controlled substance at d/c from ED?: No Referrals: Willie Cummins MD [Primary Care Provider] - 1-2 days Time of Disposition: 03:53 Decision to Admit Reason: Admit from EC Decision Time: 03:53
[2022-11-29 03:06] LABS: INR 0.9 (<1.2); Partial Thromboplastin Time 23.1 sec (22.0-30.0); Prothrombin Time 9.8 sec (9.0-12.0)
[2022-11-29 03:11] LABS: HCG,Qualitative Serum Not Detected
[2022-11-29 03:12] LABS: ALT 59 U/L (4-34); AST 30 U/L (14-36); African American GFR (CKD) >90 (>60 ml/min/1.73 sqM); Albumin 4.3 g/dL (3.5-5.0); Alkaline Phosphatase 185 U/L (38-126); Anion Gap 9 mmol/L; Blood Urea Nitrogen 17 mg/dL (7-17); Calcium 9.3 mg/dL (8.4-10.2); Carbon Dioxide 27 mmol/L (22-30); Chloride 101 mmol/L (98-107); Glucose 329 mg/dL (74-99); Magnesium 1.8 mg/dL (1.6-2.3); Non-African American GFR(CKD) >90 (>60 ml/min/1.73 sqM); Potassium 4.2 mmol/L (3.5-5.1); Sodium 137 mmol/L (137-145); Total Bilirubin 0.3 mg/dL (0.2-1.3); Total Protein 7.2 g/dL (6.3-8.2)
--- NOTE | 2022-11-29 03:34 | XR ---
EXAMINATION TYPE: XR chest 1V portable DATE OF EXAM: 11/29/2022 COMPARISON: 08/04/2022 HISTORY: Chest pain TECHNIQUE: FINDINGS: Heart is normal. Lungs are clear. Diaphragm is normal. There are chest leads. Thorax is int act IMPRESSION: Multiple chest. No change
[2022-11-29] MEDS ORDERED: ACETAMINOPHEN TAB 325 MG TAB PO PRN (03:39)
[2022-11-29] MEDS ORDERED: NALOXONE 0.4 MG/ML 1 ML VIAL IV PRN (03:39)
[2022-11-29] MEDS ORDERED: ONDANSETRON 4 MG/2 ML VIAL IVP PRN (03:39)
[2022-11-29] MEDS ORDERED: DEXTROSE 50% SYRINGE 50 ML IVP PRN ×2 (03:44)
[2022-11-29] MEDS ORDERED: NITROGLYCERIN OINT 1 INCH/GM PACKET TOPICAL STA (03:45)
[2022-11-29 04:02] LABS: Glucose,Whole Blood 315 mg/dL (70-110)
[2022-11-29] MEDS ORDERED: INSULIN REGULAR 100 UNIT/ML VIAL (IV) SQ STA (04:14)
--- NOTE | 2022-11-29 05:40 | P.HPIM ---
History of Present Illness H&P Date: 11/29/22 Chief Complaint: chest pain 31 year old female with hypertension , DM , seizure patient coming in for evaluation regarding chest pain , left sided , severe sharp pain 7-8/10 in severity , radiates to the back and neck , associated with heavy breathing, she denies doing anything excessive , today was her second episode. yesterday also had another episode while doing nothing out of the ordinary. each episode lasts 20-30 minutes. this time , pain resolved after aspirin and nitro in the ED. she admits to history of DM and hypertension , and smoking. she has family histo ry of premature CAD in her father . she denies any recent travel or history of blood clots. she has never had a cardiac workup in the ED EKG no acute ST changes blood wrok over all unremarkable trops negative patient recently had 20 days of vaginal bleeding , her EVENT MARKETING COORDINATOR prescribed progestrone pills that she only took one this far. Review of Systems Pertinent positives as noted in HPI. All other systems were reviewed and are negative Past Medical History Past Medical History: Asthma, Diabetes Mellitus, Hypertension, Seizure Disorder, Sleep Apnea/CPAP/BIPAP Additional Past Medical History / Comment(s): seizure History of Any Multi-Drug Resistant Organisms: None Reported Past Surgical History: Cholecystectomy Past Anesthesia/Blood Transfusion Reactions: No Reported Reaction Past Psychological History: Anxiety, Bipolar, Depression Smoking Status: Current every day smoker Past Alcohol Use History: Occasional Past Drug Use History: Marijuana - Past Family History Mother Family Medical History: Asthma, Diabetes Mellitus Additional Family Medical History / Comment(s): Mom is alive at age 56 with history of diabetes Father Family Medical History: Hypertension Additional Family Medical History / Comment(s): Father is alive at age 56 with history of hypertension. Patient does not have any brothers. She does not have a sisters. She does not have any children. Medications and Allergies Home Medications Medication Instructions Recorded Confirmed Type Folic Acid 1 mg PO BID 08/31/14 02/25/21 History lamoTRIgine [LaMICtal] 200 mg PO BID 05/10/15 02/25/21 History Montelukast [Singulair] 10 mg PO HS 02/10/19 02/25/21 History levETIRAcetam [Keppra] 500 mg PO BID 05/21/19 02/25/21 History Escitalopram [Lexapro] 10 mg PO HS 04/21/20 02/25/21 History metFORMIN HCL [Glucophage] 500 mg PO BID 04/21/20 02/25/21 History Benztropine Mesylate [Cogentin] 0.5 mg PO HS 02/25/21 02/25/21 History Cephalexin [Keflex] 500 mg PO Q12HR 1 Days #14 cap 02/25/21 Rx Insulin Glargine,Hum.rec.anlog 24 unit SQ 02/25/21 02/25/21 History [Lantus Solostar] [place] Carbonate 300 mg PO BID 02/25/21 02/25/21 History [place] Carbonate 600 mg PO BID 02/25/21 02/25/21 History Propranolol HCl [Inderal Xl] 120 mg PO DAILY 02/25/21 02/25/21 History Cyclobenzaprine [Flexeril] 10 mg PO TID #15 tab 09/29/21 Rx Lidocaine 5% Patch [Lidoderm] 1 patch TOPICAL DAILY #30 patch 09/29/21 Rx Allergies Allergy/AdvReac Type Severity Reaction Status Date / Time haloperidol [From Haldol] Allergy Unknown Verified 11/29/22 02:33 metronidazole [From Flagyl] Allergy Unknown Verified 11/29/22 02:33 lurasidone [From Latuda] AdvReac high blood Verified 11/29/22 02:33 sugar Physical Exam Vitals: Vital Signs Temp Pulse Resp BP Pulse Ox 11/29/22 04:22 73 16 118/74 98 11/29/22 03:17 70 16 118/76 99 11/29/22 03:05 136/79 11/29/22 02:46 98.8 F 82 16 146/87 98 11/29/22 02:31 99.1 F 75 18 179/104 98 Intake and Output 11/28/22 11/28/22 11/29/22 14:59 22:59 06:59 Other: Weight 147.418 kg Constitutional: No acute distress, conversant, pleasant Eyes: Anicteric sclerae, moist conjunctiva, Pupils equal round reactive to light ENMT: NC/AT Oropharynx clear, no erythema, or exudates Neck: Supple, no masses, or JVD No carotid bruits No thyromegaly Lungs: Clear to auscultation Clear to percussion Normal respiratory effort, no accessory muscle use Cardiovascular: Heart regular in rate and rhythm, No murmurs, gallops, or rubs No peripheral edema Abdominal: Soft Nontender, no guarding, rebound or rigidity Abdomen moving with respiration Normoactive bowel sounds No hepatomegaly, No splenomegaly No palpable mass No abdominal wall hernia noted Skin: Normal temperature, tone, texture, turgor No induration No subcutaneous nodules No rash, lesions No ulcers Extremities: No digital cyanosis No clubbing Pedal pulses intact and symmetrical Radial pulses intact and symmetrical No calf tenderness Psychiatric: Alert and oriented to person, place and time Appropriate affect fair judgment Neuro Muscles Strength 5/5 in all 4 extremities Sensation to light touch grossly present throughout Cranial nerves II-XII grossly intact No focal sensory deficits Lymphatics: no palpable cervical or supraclavicular , lymph nodes Results CBC & Chem 7: 11/29/22 02:45 11/29/22 02:45 Labs: Abnormal Lab Results - Last 24 Hours (Table) 11/29/22 11/29/22 Range/Units 02:45 04:01 Glucose 329 H (74-99) mg/dL POC Glucose (mg/dL) 315 H (70-110) mg/dL ALT 59 H (4-34) U/L Alkaline Phosphatase 185 H (38-126) U/L Assessment and Plan Assessment: atypical chest pain rule out ACS EKG no acute changes CXR no acute pathology trops negative X2 monitoring tech monitor vital signs ASA, statin cardiology consult A1c, lipid panel , TSH pain control chronic conditions hypertension resume home meds once verified DM insulin sliding scale seizure disorder, resume home meds once verified verify home medications full code DVT PPX heparin sc tid
[2022-11-29 06:52] LABS: Glucose,Whole Blood 297 mg/dL (70-110)
[2022-11-29] MEDS: HEPARIN SODIUM,PORCINE/PF 5,000 UNIT/0.5 ML SYRINGE SQ SCH ×2 (07:02→15:23)
[2022-11-29] MEDS: INSULIN ASPART (NovoLOG) 100 UNIT/ML VIAL SQ SCH ×2 (07:02→12:31)
[2022-11-29] MEDS ORDERED: DOBUTamine DRIP for NUC MED 500 MG in DEXTROSE/WATER 1 250ML.BAG IV PRN (08:35)
--- NOTE | 2022-11-29 09:45 | P.CRDCN ---
History of Present Illness Consult date: 11/29/22 Requesting physician: Richard Negrete Reason for Consult (text): Chest pain Chief complaint: Chest pain History of present illness: This is a pleasant 31-year-old female patient who follows with a vehicle delivery worker at [facility], patient is unsure of the physician's name. She has a past history of hypertension, obesity, seizure disorder, diabetes mellitus type 2, insulin-dependent, family history of CAD, current every day smoker, and asthma. Also appears to have evidence of possible PCOS and was recently started on a progesterone only control pills for menometror rhagia. Apparently had prior workup with her vehicle delivery worker that was unremarkable. Presented to the emergency department with complaints of left sided chest discomfort that radiated down her left arm. First episode started about 6 PM yesterday but was not persistent and again last night at around 11:00 that was persistent and lasted until about 1:30 in the morning when she got nitroglycerin in the emergency department. EKG and admission showed sinus mechanism with no evidence of ischemia. Troponins have been negative 2. Chest x-ray showed no change compared to 08/04/2022. Vital signs of been stable. Upon examination she is resting comfortably on a stretcher in the emergency department. She denies any current complaints of chest discomfort. She does get some mild dyspnea on exertion and admits that she is not very active. Denies any recent weight gain, edema, orthopnea or PND. She's had no palpitations, dizziness or lightheadedness. She's had no syncope or near syncope. His had no nausea, vomiting, heartburn or bleeding. Past Medical History Past Medical History: Asthma, Diabetes Mellitus, Hypertension, Seizure Disorder, Sleep Apnea/CPAP/BIPAP Additional Past Medical History / Comment(s): seizure History of Any Multi-Drug Resistant Organisms: None Reported Past Surgical History: Cholecystectomy Past Anesthesia/Blood Transfusion Reactions: No Reported Reaction Past Psychological History: Anxiety, Bipolar, Depression Smoking Status: Current every day smoker Past Alcohol Use History: Occasional Past Drug Use History: Marijuana - Past Family History Mother Family Medical History: Asthma, Diabetes Mellitus Additional Family Medical History / Comment(s): Mom is alive at age 56 with history of diabetes Father Family Medical History: Hypertension Additional Family Medical History / Comment(s): Father is alive at age 56 with history of hypertension. Patient does not have any brothers. She does not have a sisters. She does not have any children. Medications and Allergies Home Medications Medication Instructions Recorded Confirmed Type Folic Acid 2 mg PO BID 08/31/14 11/29/22 History lamoTRIgine [LaMICtal] 200 mg PO BID 05/10/15 11/29/22 History Montelukast [Singulair] 10 mg PO HS 02/10/19 11/29/22 History Escitalopram [Lexapro] 15 mg PO HS 04/21/20 11/29/22 History Propranolol HCl [Inderal Xl] 120 mg PO DAILY 02/25/21 11/29/22 History ARIPiprazole [Abilify] 10 mg PO HS 11/29/22 11/29/22 History Butalb/APAP/Caff 50-325-40Mg 1 tab PO Q4H PRN 11/29/22 11/29/22 History [Fioricet 50-325-40] INSULIN ASPART (NovoLOG) [NovoLOG See Protocol SQ AC-TID 11/29/22 11/29/22 History (formulary)] Insulin Degludec [Tresiba 20 units SQ QAM 11/29/22 11/29/22 History Flextouch U-200 Pen] Insulin Degludec [Tresiba 90 units SQ HS 11/29/22 11/29/22 History Flextouch U-200 Pen] Megestrol [Megace] 40 mg PO HS 11/29/22 11/29/22 History levETIRAcetam 750 mg PO BID 11/29/22 11/29/22 History Allergies Allergy/AdvReac Type Severity Reaction Status Date / Time haloperidol [From Haldol] Allergy Unknown Verified 11/29/22 06:56 metronidazole [From Flagyl] Allergy Unknown Verified 11/29/22 06:56 lurasidone [From Latuda] AdvReac high blood Verified 11/29/22 06:56 sugar Physical Exam Vitals: Vital Signs Temp Pulse Resp BP Pulse Ox 11/29/22 06:00 73 16 119/81 98 11/29/22 04:22 73 16 118/74 98 11/29/22 03:17 70 16 118/76 99 11/29/22 03:05 136/79 11/29/22 02:46 98.8 F 82 16 146/87 98 11/29/22 02:31 99.1 F 75 18 179/104 98 Intake and Output 11/28/22 11/29/22 11/29/22 22:59 06:59 14:59 Other: Weight 147.418 kg PHYSICAL EXAMINATION: This is a 31-year-old female in no apparent distress at the time of my examination. HEENT: Head is atraumatic, normocephalic. Pupils are equal, round. Sclerae anicteric. Conjunctivae are clear. Mucous membranes of the mouth are moist. Neck is supple. There is no elevated jugular venous pressure. No carotid bruit is heard. Hirsutism. CHEST EXAMINATION: Lungs reveal diminished air entry bilaterally. No wheezes rales or rhonchi. Respirations even and nonlabored. HEART EXAMINATION: Heart regular, positive S1 and S2. No S3. No S4. Soft systolic murmur. ABDOMEN: Soft, obese, nontender. Bowel sounds are heard. No organomegaly noted. EXTREMITIES: 2+ peripheral pulses with no evidence of peripheral edema and no calf tenderness noted. NEUROLOGIC EXAMINATION: Patient is awake, alert and oriented x3. Results 11/29/22 02:45 11/29/22 02:45 Cardiac Enzymes 11/29/22 11/29/22 11/29/22 Range/Units 02:45 02:45 05:40 AST 30 (14-36) U/L Troponin I <0.012 <0.012 (0.000-0.034) ng/mL Coagulation 11/29/22 Range/Units 02:45 PT 9.8 (9.0-12.0) sec APTT 23.1 (22.0-30.0) sec CBC 11/29/22 Range/Units 02:45 WBC 9.9 (3.8-10.6) k/uL RBC 4.81 (3.80-5.40) m/uL Hgb 13.4 (11.4-16.0) gm/dL Hct 40.2 (34.0-46.0) % Plt Count 341 (150-450) k/uL Comprehensive Metabolic Panel 11/29/22 Range/Units 02:45 Sodium 137 (137-145) mmol/L Potassium 4.2 (3.5-5.1) mmol/L Chloride 101 (98-107) mmol/L Carbon Dioxide 27 (22-30) mmol/L BUN 17 (7-17) mg/dL Creatinine 0.81 (0.52-1.04) mg/dL Glucose 329 H (74-99) mg/dL Calcium 9.3 (8.4-10.2) mg/dL AST 30 (14-36) U/L ALT 59 H (4-34) U/L Alkaline Phosphatase 185 H (38-126) U/L Total Protein 7.2 (6.3-8.2) g/dL Albumin 4.3 (3.5-5.0) g/dL Current Medications Generic Name Dose Route Start Last Admin Trade Name Freq PRN Reason Stop Dose Admin Acetaminophen 650 mg 11/29/22 03:39 Acetaminophen Tab 325 Mg Tab PO Q6HR PRN Mild Pain or Fever > 100.5 Dextrose/Water 25 ml 11/29/22 03:44 Dextrose 50% Syringe 50 Ml IVP PER PROTOCOL PRN Hypoglycemia Protocol Dextrose/Water 50 ml 11/29/22 03:44 Dextrose 50% Syringe 50 Ml IVP PER PROTOCOL PRN Hypoglycemia Protocol Heparin Sodium (Porcine) 5,000 unit 11/29/22 08:00 11/29/22 07:02 Heparin Sodium,Porcine/Pf 5,000 Unit/0.5 Ml Syringe SQ 5,000 unit Q8HR ALEXEY Administration Dobutamine HCl/Dextrose 500 mg 250 mls @ 44.225 mls/hr 11/29/22 08:35 / IV Solution IV 11/29/22 12:35 .Q5H40M PRN Per Protocol Protocol 10 MCG/KG/MIN Insulin Aspart 0 unit 11/29/22 07:30 11/29/22 07:02 Insulin Aspart (Novolog) 100 Unit/Ml Vial SQ 6 unit ACHS ALEXEY Administration Protocol Naloxone HCl 0.2 mg 11/29/22 03:39 Naloxone 0.4 Mg/Ml 1 Ml Vial IV Q2M PRN Opioid Reversal Nitroglycerin 0.4 mg 11/29/22 02:53 11/29/22 03:07 Nitroglycerin Sl Tabs 0.4 Mg Tab SUBLINGUAL 0.4 mg Q5M PRN Administration Chest Pain Ondansetron HCl 4 mg 11/29/22 03:39 Ondansetron 4 Mg/2 Ml Vial IVP Q8HR PRN Nausea And Vomiting Intake and Output 11/28/22 11/29/22 11/29/22 22:59 06:59 14:59 Other: Weight 147.418 kg 11/29/22 02:45 11/29/22 02:45 Assessment and Plan Assessment: #1 symptoms of chest pain with radiation to the left arm, acute coronary syndrome has been ruled out, patient with multiple risk factors for CAD #2 hypertension #3 type 2 diabetes, insulin-dependent #4 obesity #5 nicotine dependence #7 possible PCOS #8 seizure disorder Plan: From cardiology's perspective we'll obtain a dobutamine stress echocardiogram as well as a 2-D echo with Doppler study to assess cardiac structure and function. We will attempt to obtain records from her vehicle delivery worker. We will obtain a fasting lipid and likely add a statin due to patient's risk factors and diabetes. Further recommendations to follow. TERRAZZO MECHANIC HELPER note has been reviewed, I agree with a documented findings and plan of care. Patient was seen and examined.
[2022-11-29] MEDS ORDERED: DOBUTamine DRIP 500 MG/250 ML BAG IV ONE (11:15)
--- NOTE | 2022-11-29 12:12 | CA ---
Transthoracic Echo Report Name: Magda Wiseman Age: 31 Gender: F : 1990 Exam Date: 11/29/2022 10:21 Exam Location: [facility] Ht (in): 65 Wt (lb): 325 Ordering Physician: Edd Prater DO Attending/Referring Phys: [id number], Edgar Thermocouple Tester Yamileth Carey RDCS Procedure CPT: Indications: Chest Pain Cardiac Hx: Technical Quality: Contrast 1: Total Dose (mL): Contrast 2: Total Dose (mL): MEASUREMENTS (Male / Female) Normal Values 2D ECHO LV Diastolic Diameter PLAX 5.6 cm 4.2 - 5.9 / 3.9 - 5.3 cm LV Systolic Diameter PLAX 3.9 cm IVS Diastolic Thickness 1.1 cm 0.6 - 1.0 / 0.6 - 0.9 cm LVPW Diastolic Thickness 0.9 cm 0.6 - 1.0 / 0.6 - 0.9 cm LV Relative Wall Thickness 0.4 RV Internal Dim ED PLAX 3.1 cm LA Systolic Diameter LX 3.5 cm 3.0 - 4.0 / 2.7 - 3.8 cm LA Volume 60.5 cm??? 18 - 58 / 22 - 52 cm??? M-MODE Aortic Root Diameter MM 2.7 cm LA Systolic Diameter MM 4.3 cm LA Ao Ratio MM 1.6 MV E Point Septal Separation 0.8 cm AV Cusp Separation MM 1.9 cm DOPPLER AV Peak Velocity 171.6 cm/s AV Peak Gradient 11.8 mmHg MV Area PHT 2.9 cm??? Mitral E Point Velocity 84.3 cm/s Mitral A Point Velocity 76.0 cm/s Mitral E to A Ratio 1.1 MV Deceleration Time 260.9 ms MV E' Velocity 7.6 cm/s Mitral E to MV E' Ratio 11.0 TR Peak Velocity 206.6 cm/s TR Peak Gradient 17.1 mmHg Right Ventricular Systolic Press 20.7 mmHg FINDINGS Left Ventricle Mildly increased septal wall thickness. Mildly increased left ventricular diastolic diameter. Left ventricular cavity size normal. Left ventricular ejection fraction is estimated at 55 -60 %. Right Ventricle Normal right ventricular size and function. Right ventricular systolic pressure within normal limits. Right Atrium Normal right atrial size. Left Atrium Mildly increased left atrial volume. Mitral Valve Structurally normal mitral valve. Mild mitral regurgitation. Aortic Valve Trileaflet aortic valve. Tricuspid Valve Structurally normal tricuspid valve. Mild tricuspid regurgitation. Pulmonic Valve Pulmonic valve not well visualized. Pericardium Normal pericardium. Aorta Normal size aortic root and proximal ascending aorta. CONCLUSIONS 1. Normal size and systolic function 2. Mild mitral and tricuspid regurgitation Previewed by: Dr. Damien Alvarado MD (Electronically Signed) Final Date: 29 November 2022 12:11
[2022-11-29 12:26] LABS: Glucose,Whole Blood 320 mg/dL (70-110)
--- NOTE | 2022-11-29 12:29 | CA ---
Stress Echo Report Magda Wiseman Age: 31 Gender: F : 1990 Exam Date: 11/29/2022 10:28 Exam Location: [facility] Ht (in): 65 Wt (lb): 325 Ordering Physician: Viola Hernández Referring Physician: [id number] Kramer Deputy Grand Jury: Yamileth Carey RDCS Technologist Procedure CPT: Indication: Chest Pain ICD-9 Codes: Rhythm: Patient History: Dyspnea/SOB, Hyperlipidemia, Hypertension, [id number] Cardiac Medications: Medications in past 24 hours: Contrast: Stress Results Protocol: [employer] Total dose(mL): Exercise Duration (min:sec): Max ST Depression (mm): Angina Score: Baum Score: METS: 1.0 Resting HR: 67 Resting BP: 120 / 71 Peak HR: 94 Peak BP: 239 / 111 Max Predicted HR: 189 50 % Max Predicted HR Target HR: 161 Double Product: [id number] Stress Summary: BP Response: Reason for Termination: Reached target heart rate Cardiac Symptoms: ECG Analysis Resting ECG: Normal sinus rhythm Stress ECG: No abnormal ST/T wave changes with exercise Arrhythmia: None Echo Analysis Resting Echo: Normal resting echocardiogram. Peak Echo Analysis: Normal treadmill stress echocardiogram. MEASUREMENTS (Male/Female) Normal Values CONCLUSIONS 1. Average exercise tolerance 2. Normal electrocardiographic response to exercise 3. Normal stress echocardiogram with no evidence of stress induced ischemia Dr. Damien Alvarado MD (Electronically Signed) Final Date: 29 November 2022 12:28
[2022-11-29] MEDS ORDERED: KETOROLAC 15 MG/ML 1 ML VIAL IVP STA (14:42)
--- NOTE | 2022-11-29 15:11 | P.DS ---
Providers Date of admission: 11/29/22 04:47 Expected date of discharge: 11/29/22 Attending physician: Richard Negrete MD Consults: 11/29/22 03:39 Consult Physician Urgent Consulting Provider: Damien Alvarado Consult Reason/Comments: chest pain, HTN Do you want consulting provider notified?: Yes, Notify in am Primary care physician: Willie Cummins MD Hospital Course: Discharge Diagnosis: Chest pain, acute coronary event ruled out. Insulin-dependent diabetes mellitus type 2, poorly controlled. Hemoglobin A1c 9%. Patient to resume home sliding scale and Tresiba. Patient educated on the importance of obtaining tighter glycemic control of your blood glucose levels. Highly recommended increased low-impact physical activity, recommend daily walking along with a structured outpatient weight management program with close following of a heart healthy and carb consistent diet. Hypertension Obstructive sleep apnea Seizure disorder Anxiety and depression Bipolar disorder Cannabinoid use disorder Hospital Course: Patient is a very pleasant 31-year-old female with a past medical history of hypertension, diabetes, asthma, seizure disorder, obstructive sleep apnea, anxiety, depression, bipolar disorder, nicotine dependence, and cannabinoid use disorder. She presented to the emergency department with a chief complaint of chest pain. Patient reported this pain was to left anterior chest described as a severe sharp sensation that radiated into her back and neck. Patient underwent full evaluation in the emergency department. EKG was completed showing normal sinus rhythm at 79 bpm showing no changes when compared to EKG completed 07/07/22. CBC, coags, and CMP were unremarkable with the exception of hyperglycemia with glucose of 329. Troponin was negative at less than 0.012. Blood hCG was negative. Chest x-ray negative for acute cardiopulmonary process. Patient was provided with aspirin and nitroglycerin in the emergency department in which she reported resulted in full resolution of chest pain. Troponins trended and all negative at less than 0.012 3 draws. Echocardiogram completed revealing normal EF of 55-60% with mild mitral and tricuspid regurgitation. Stress echo completed revealing average exercise tolerance with normal ECG response to exercise and normal stress echocardiogram with no evidence of stress-induced ischemia. Patient cleared from cardiac perspective. Patient is medically stable at this time in stable for discharge home. Patient seen and examined at bedside. Vital signs reviewed and stable. General: Nontoxic, no distress and appears stated age. Derm: Skin warm and dry, normal coloration for ethnicity. Head: Atraumatic, normocephalic and symmetric. Eyes: EOMs intact, no lid lag, and anicteric sclera Mouth: no lip lesions, mucus membranes moist Cardiovascular: regular rate and rhythm with normal S1S2, no murmur, positive posterior tibial pulses bilaterally, and cap refill < 2 seconds. Lungs: Respirations even, regular, and unlabored on room air. Lungs CTA bilaterally, no rhonchi, no rales, no wheezing, and no accessory muscle usage. Abdominal: soft, nontender to palpation, no guarding, no appreciable organomegaly Ext: ROM intact. No gross muscle atrophy, no edema, no contractures Neuro: Speech clear, face symmetrical and CN II-XII grossly intact with no noted focal neuro deficits Psych: Alert and oriented to person, place, time, and situation. Appropriate and pleasant affect. A total of 33 minutes of time were spent preparing this complex discharge summary. Pt was discharged on 11/29/22 at 3:08 PM. Patient Condition at Discharge: Stable Plan - Discharge Summary New Discharge Prescriptions: Continue Folic Acid 2 mg PO BID lamoTRIgine [LaMICtal] 200 mg PO BID Montelukast [Singulair] 10 mg PO HS Escitalopram [Lexapro] 15 mg PO HS Propranolol HCl [Inderal Xl] 120 mg PO DAILY levETIRAcetam 750 mg PO BID Butalb/APAP/Caff 50-325-40Mg [Fioricet 50-325-40] 1 tab PO Q4H PRN PRN Reason: Migraine Headache ARIPiprazole [Abilify] 10 mg PO HS INSULIN ASPART (NovoLOG) [NovoLOG (formulary)] See Protocol SQ AC-TID Megestrol [Megace] 40 mg PO HS Insulin Degludec [Tresiba Flextouch U-200 Pen] 90 units SQ HS Insulin Degludec [Tresiba Flextouch U-200 Pen] 20 units SQ QAM Discharge Medication List Folic Acid 2 mg PO BID 08/31/14 [History] lamoTRIgine [LaMICtal] 200 mg PO BID 05/10/15 [History] Montelukast [Singulair] 10 mg PO HS 02/10/19 [History] Escitalopram [Lexapro] 15 mg PO HS 04/21/20 [History] Propranolol HCl [Inderal Xl] 120 mg PO DAILY 02/25/21 [History] ARIPiprazole [Abilify] 10 mg PO HS 11/29/22 [History] Butalb/APAP/Caff 50-325-40Mg [Fioricet 50-325-40] 1 tab PO Q4H PRN 11/29/22 [History] INSULIN ASPART (NovoLOG) [NovoLOG (formulary)] See Protocol SQ AC-TID 11/29/22 [History] Insulin Degludec [Tresiba Flextouch U-200 Pen] 20 units SQ QAM 11/29/22 [History] Insulin Degludec [Tresiba Flextouch U-200 Pen] 90 units SQ HS 11/29/22 [History] Megestrol [Megace] 40 mg PO HS 11/29/22 [History] levETIRAcetam 750 mg PO BID 11/29/22 [History] Follow up Appointment(s)/Referral(s): Damien Alvarado MD [STAFF PHYSICIAN] - 1 Week Willie Cummins MD [Primary Care Provider] - 1-2 days Patient Instructions/Handouts: Chest Pain (DC), How to Stop Smoking (DC), Basic Carbohydrate Counting (DC), Meal Planning with Diabetes Exchanges (DC), Diabetic Hyperglycemia (DC), Mediterranean Diet (DC), Diabetes and Exercise (ED) Activity/Diet/Wound Care/Special Instructions: Activity: As tolerated. Take breaks as needed. Diet: Heart healthy and carb consistent diet. Avoid salts, or foods with hidden salts such as canned or boxed foods and frozen dinners. Extra salt makes your heart work harder and traps the fluid in your body for longer. Special Instructions: Take all of your medications as directed and remember to keep all of your doctor's appointments and follow-up as needed. Your hemoglobin A1c is very elevated at 9%. It is of utmost importance to obtain tighter glycemic control of your blood glucose levels. Highly recommend increased low-impact physical activity, recommend daily walking along with a structured outpatient weight management program with close following of a heart healthy and carb consistent diet. Wishing you a very happy and healthy new year! Thank you for allowing us to participate in your care, it was truly a pleasure having you for our patient!!! Discharge Disposition: HOME SELF-CARE
[2022-11-29 15:47] VITALS: BP 107/72; PULSE 73; TEMP 98.4
[2022-11-29 18:14] LABS: Chol/HDL Ratio 5.56 Ratio; LDL Cholesterol,Calculated 87.7 mg/dL (0.0-131.0)
== END 2022-11-29 17:10 | disposition home or self-care (01) ==
LOC: EC 02:24 → 6NMEDSUR 04:47
PROVIDERS: ADMIT Internal Medicine; ATTEND Internal Medicine
DX: R07.89 Other chest pain (principal); E11.65 Type 2 diabetes mellitus with hyperglycemia; N92.1 Excessive and frequent menstruation with irregular cycle; I10 Essential (primary) hypertension; G40.909 Epilepsy, unspecified, not intractable, without status epilepticus; G47.33 Obstructive sleep apnea (adult) (pediatric); F17.210 Nicotine dependence, cigarettes, uncomplicated; J45.909 Unspecified asthma, uncomplicated; F31.9 Bipolar disorder, unspecified; F41.9 Anxiety disorder, unspecified; F32.A Depression, unspecified; F12.90 Cannabis use, unspecified, uncomplicated; E66.9 Obesity, unspecified; I08.1 Rheumatic disorders of both mitral and tricuspid valves; Z82.49 Family history of ischemic heart disease and other diseases of the circulatory system; Z79.899 Other long term (current) drug therapy; Z79.84 Long term (current) use of oral hypoglycemic drugs; Z79.4 Long term (current) use of insulin; Z88.8 Allergy status to other drugs, medicaments and biological substances; Z90.49 Acquired absence of other specified parts of digestive tract; Z83.3 Family history of diabetes mellitus; Z82.5 Family history of asthma and other chronic lower respiratory diseases; Z32.02 Encounter for pregnancy test, result negative; Z68.43 Body mass index [BMI] 50.0-59.9, adult
CPT/HCPCS: 96375; 96372; 96374; 99285; 36415; 93005; 93306; 93351; 80053; 80061; 83735; 84484; 85025; 85610; 85730; 84703; 83036; 71045; G0378; J1250; J2405; J1885; J1644

== ENCOUNTER 2023-02-19 04:11 | Emergency (ER) | payer BC ==
[2023-02-19 04:29] VITALS: RESP 16; TEMP 97.8
[2023-02-19] MEDS ORDERED: KETOROLAC 15 MG/ML 1 ML VIAL IVP STA (04:37)
[2023-02-19] MEDS ORDERED: ONDANSETRON 4 MG/2 ML VIAL IVP STA (04:37)
[2023-02-19] MEDS ORDERED: SODIUM CHLORIDE 0.9% 1,000 ML IV ONE (04:37)
--- NOTE | 2023-02-19 04:43 | ED ---
General Adult HPI - General Chief complaint: Abdominal Pain Stated complaint: abd pain R side Time Seen by Provider: 02/19/23 04:18 Source: patient Mode of arrival: ambulatory Limitations: no limitations - History of Present Illness Initial comments: This is a 32-year-old female with a past medical history including hypertension, diabetes and asthma presents emergency department for right lower quadrant abdominal pain. The patient did state that it does radiate to her back and stated that it woke her up out of sleep at midnight tonight. The patient does have a history of ovarian cysts but she feels as if this is much different than her previous ovarian cyst pain. The patient stated that she has never had radiation to the back. The patient denied any dysuria or increased urinary frequency. The patient also reported that she had 2 episodes of nausea throughout the day as well as 2 episodes of vomiting. The patient stated that she never has these episodes of nausea and vomiting and did cause her some concern. The patient reported that the pain is sharp in nature and intermittent in the right lower quadrant. - Related Data Home Medications Medication Instructions Recorded Confirmed Folic Acid 2 mg PO BID 08/31/14 01/28/23 lamoTRIgine [LaMICtal] 200 mg PO BID 05/10/15 01/28/23 Montelukast [Singulair] 10 mg PO HS 02/10/19 01/28/23 Escitalopram [Lexapro] 15 mg PO HS 04/21/20 01/28/23 Propranolol HCl [Inderal Xl] 120 mg PO DAILY 02/25/21 01/28/23 ARIPiprazole [Abilify] 10 mg PO HS 11/29/22 01/28/23 Butalb/APAP/Caff 50-325-40Mg 1 tab PO Q4H PRN 11/29/22 01/28/23 [Fioricet 50-325-40] levETIRAcetam 750 mg PO BID 11/29/22 01/28/23 Empagliflozin [Jardiance] 10 mg PO DIRECTED 01/28/23 01/28/23 Insulin Glargine/Lixisenatide 60 units SQ DIRECTED 01/28/23 01/28/23 [Soliqua 100 Unit-33 Mcg/ml Pen] methocarbamoL [Methocarbamol] 750 mg PO TID PRN 01/28/23 01/28/23 Allergies Allergy/AdvReac Type Severity Reaction Status Date / Time haloperidol [From Haldol] Allergy Unknown Verified 01/28/23 20:27 metronidazole [From Flagyl] Allergy Unknown Verified 01/28/23 20:27 lurasidone [From Latuda] AdvReac high blood Verified 01/28/23 20:27 sugar Review of Systems ROS Statement: Those systems with pertinent positive or pertinent negative responses have been documented in the HPI. ROS Other: All systems not noted in ROS Statement are negative. Past Medical History Past Medical History: Asthma, Diabetes Mellitus, Hypertension, Seizure Disorder, Sleep Apnea/CPAP/BIPAP Additional Past Medical History / Comment(s): seizure, ovarin cyst right side History of Any Multi-Drug Resistant Organisms: None Reported Past Surgical History: Cholecystectomy Past Anesthesia/Blood Transfusion Reactions: No Reported Reaction Past Psychological History: Anxiety, Bipolar, Depression Smoking Status: Current every day smoker Past Alcohol Use History: Occasional Past Drug Use History: Marijuana - Past Family History Mother Family Medical History: Asthma, Diabetes Mellitus Additional Family Medical History / Comment(s): Mom is alive at age 56 with history of diabetes Father Family Medical History: Hypertension Additional Family Medical History / Comment(s): Father is alive at age 56 with history of hypertension. Patient does not have any brothers. She does not have a sisters. She does not have any children. General Exam Limitations: no limitations General appearance: alert, in no apparent distress, obese Head exam: Present: atraumatic, normocephalic, normal inspection Eye exam: Present: normal appearance, PERRL Pupils: Present: normal accommodation ENT exam: Present: normal exam, normal oropharynx, mucous membranes moist Neck exam: Present: normal inspection, full ROM Respiratory exam: Present: normal lung sounds bilaterally Cardiovascular Exam: Present: regular rate, normal rhythm, normal heart sounds GI/Abdominal exam: Present: soft, tenderness (Mild tenderness noted to the right lower quadrant), normal bowel sounds Extremities exam: Present: normal inspection, full ROM Back exam: Present: normal inspection, full ROM Neurological exam: Present: alert, oriented X3, CN II-XII intact Psychiatric exam: Present: normal affect, normal mood Skin exam: Present: warm, dry Course Vital Signs 02/19/23 04:23 Temperature 97.8 F Pulse Rate 70 Respiratory 16 Rate Blood Pressure 147/93 O2 Sat by Pulse 99 Oximetry Medical Decision Making - Medical Decision Making Was pt. sent in by a medical professional or institution ([facility], MANAGEMENT EXPERT, urgent care, hospital, or senior living...) When possible be specific @ -No Did you speak to anyone other than the patient for history (EMS, parent, family, police, friend...)? What history was obtained from this source @ -No Did you review nursing and triage notes (agree or disagree)? Why? @ -I reviewed and agree with nursing and triage notes Were old charts reviewed (outside hosp., previous admission, EMS record, old EKG, old radiological studies, urgent care reports/EKG's, senior living records)? Report findings @ -No old charts were reviewed Differential Diagnosis (chest pain, altered mental status, abdominal pain women, abdominal pain men, vaginal bleeding, weakness, fever, dyspnea, syncope, headache, dizziness, GI bleed, back pain, seizure, CVA, palpatations, mental health)? @ -Appendicitis, UTI, pyelonephritis EKG interpreted by me (3pts min.). @ -None X-rays interpreted by me (1pt min.). @ -None done CT interpreted by me (1pt min.). @ -CT abdomen and pelvis with contrast was obtained and interpreted by myself showing normal appendix. No renal stone or obstruction. There is decreased contrast and the kidneys on delayed images was could relate to some renal failure. U/S interpreted by me (1pt. min.). @ -None done What testing was considered but not performed or refused? (CT, X-rays, U/S, labs)? Why? @ -None What meds were considered but not given or refused? Why? @ -None Did you discuss the management of the patient with other professionals (professionals i.e. [facility], MANAGEMENT EXPERT, lab, RT, psych nurse, psychosocial rehabilitation counselor, molded grid and parts inspector, teacher, chief legal officer, caser)? Give summary @ -No Was smoking cessation discussed for >3mins.? @ -No Was critical care preformed (if so, how long)? @ -No Were there social determinants of health that impacted care today? How? (Homelessness, low income, unemployed, alcoholism, drug addiction, transportation, low edu. Level, literacy, decrease access to med. care, [facility], rehab)? @ -No Was there de-escalation of care discussed even if they declined (Discuss DNR or withdrawal of care, Hospice)? DNR status @ -No What co-morbidities impacted this encounter? (DM, HTN, Smoking, COPD, CAD, Cancer, CVA, ARF, Chemo, Hep., AIDS, mental health diagnosis, sleep apnea, morbid obesity)? @ -Hypertension, diabetes and asthma Was patient admitted / discharged? Hospital course, mention meds given and route, prescriptions, significant lab abnormalities, going to OR and other pertinent info. @ -The patient was seen and evaluated emergency department. Physical exam, the patient was resting in bed without any acute distress. Vital signs admission were stable. Due to the nature the patient's complaints, laboratory workup as well as CT abdomen and pelvis with contrast was obtained. All laboratory workup was within normal limits. CT abdomen and pelvis with contrast was obtained and was negative for any acute findings. The patient was deemed safe for discharge. The patient was advised to follow-up with her primary care physician for further workup and evaluation and to report back to the emergency department if she had worsening pain or distress. The patient was agreeable to this and all her questions were answered. The patient was discharged home in stable condition. Undiagnosed new problem with uncertain prognosis? @ -No Drug Therapy requiring intensive monitoring for toxicity (Heparin, Nitro, Insulin, Cardizem)? @ -No Were any procedures done? @ -No Diagnosis/symptom? @ -Abdominal pain, NOS Acute, or Chronic, or Acute on Chronic? @ -Acute on chronic Uncomplicated (without systemic symptoms) or Complicated (systemic symptoms)? @ -Uncomplicated Side effects of treatment? @ -No Exacerbation, Progression, or Severe Exacerbation? @ -No Poses a threat to life or bodily function? How? (Chest pain, [place], [place], pneumonia, PE, COPD, DKA, ARF, appy, cholecystitis, CVA, Diverticulitis, Homicidal, Suicidal, threat to staff... and all critical care pts) @ -No - Lab Data Result diagrams: 02/19/23 04:55 02/19/23 04:55 Lab Results 02/19/23 02/19/23 02/19/23 Range/Units 04:55 04:55 05:00 WBC 9.5 (3.8-10.6) k/uL RBC 5.39 (3.80-5.40) m/uL Hgb 14.3 (11.4-16.0) gm/dL Hct 44.2 (34.0-46.0) % MCV 82.1 (80.0-100.0) fL MCH 26.5 (25.0-35.0) pg MCHC 32.2 (31.0-37.0) g/dL RDW 14.6 (11.5-15.5) % Plt Count 341 (150-450) k/uL MPV 7.0 Neutrophils % 66 % Lymphocytes % 25 % Monocytes % 4 % Eosinophils % 3 % Basophils % 0 % Neutrophils # 6.3 (1.3-7.7) k/uL Lymphocytes # 2.4 (1.0-4.8) k/uL Monocytes # 0.4 (0-1.0) k/uL Eosinophils # 0.2 (0-0.7) k/uL Basophils # 0.0 (0-0.2) k/uL Sodium 136 L (137-145) mmol/L Potassium 4.1 (3.5-5.1) mmol/L Chloride 105 (98-107) mmol/L Carbon Dioxide 22 (22-30) mmol/L Anion Gap 9 mmol/L BUN 17 (7-17) mg/dL Creatinine 0.80 (0.52-1.04) mg/dL Est GFR (CKD-EPI)AfAm >90 (>60 ml/min/1.73 sqM) Est GFR (CKD-EPI)NonAf >90 (>60 ml/min/1.73 sqM) Glucose 203 H (74-99) mg/dL Calcium 9.4 (8.4-10.2) mg/dL Magnesium 1.9 (1.6-2.3) mg/dL Total Bilirubin 0.3 (0.2-1.3) mg/dL AST 26 (14-36) U/L ALT 35 H (4-34) U/L Alkaline Phosphatase 167 H (38-126) U/L Total Protein 7.5 (6.3-8.2) g/dL Albumin 4.4 (3.5-5.0) g/dL Lipase 148 (23-300) U/L Urine Color Light Yellow Urine Appearance Clear (Clear) Urine pH 5.0 (5.0-8.0) Ur Specific [place] 1.039 H (1.001-1.035) Urine Protein Negative (Negative) Urine Glucose (UA) 4+ H (Negative) Urine Ketones Trace H (Negative) Urine Blood Negative (Negative) Urine Nitrite Negative (Negative) Urine Bilirubin Negative (Negative) Urine Urobilinogen <2.0 (<2.0) mg/dL Ur Leukocyte Esterase Negative (Negative) Urine HCG, Qual (Not Detectd) 02/19/23 Range/Units 05:00 WBC (3.8-10.6) k/uL RBC (3.80-5.40) m/uL Hgb (11.4-16.0) gm/dL Hct (34.0-46.0) % MCV (80.0-100.0) fL MCH (25.0-35.0) pg MCHC (31.0-37.0) g/dL RDW (11.5-15.5) % Plt Count (150-450) k/uL MPV Neutrophils % % Lymphocytes % % Monocytes % % Eosinophils % % Basophils % % Neutrophils # (1.3-7.7) k/uL Lymphocytes # (1.0-4.8) k/uL Monocytes # (0-1.0) k/uL Eosinophils # (0-0.7) k/uL Basophils # (0-0.2) k/uL Sodium (137-145) mmol/L Potassium (3.5-5.1) mmol/L Chloride (98-107) mmol/L Carbon Dioxide (22-30) mmol/L Anion Gap mmol/L BUN (7-17) mg/dL Creatinine (0.52-1.04) mg/dL Est GFR (CKD-EPI)AfAm (>60 ml/min/1.73 sqM) Est GFR (CKD-EPI)NonAf (>60 ml/min/1.73 sqM) Glucose (74-99) mg/dL Calcium (8.4-10.2) mg/dL Magnesium (1.6-2.3) mg/dL Total Bilirubin (0.2-1.3) mg/dL AST (14-36) U/L ALT (4-34) U/L Alkaline Phosphatase (38-126) U/L Total Protein (6.3-8.2) g/dL Albumin (3.5-5.0) g/dL Lipase (23-300) U/L Urine Color Urine Appearance (Clear) Urine pH (5.0-8.0) Ur Specific [place] (1.001-1.035) Urine Protein (Negative) Urine Glucose (UA) (Negative) Urine Ketones (Negative) Urine Blood (Negative) Urine Nitrite (Negative) Urine Bilirubin (Negative) Urine Urobilinogen (<2.0) mg/dL Ur Leukocyte Esterase (Negative) Urine HCG, Qual Not Detected (Not Detectd) Disposition Clinical Impression: Abdominal pain Disposition: HOME SELF-CARE Condition: Stable Instructions (If sedation given, give patient instructions): Abdominal Pain (ED) Is patient prescribed a controlled substance at d/c from ED?: No Referrals: Willie Cummins MD [Primary Care Provider] - 1-2 days Time of Disposition: 06:55
[2023-02-19 05:17] LABS: Basophils % (A) 0 %; Eosinophils # (A) 0.2 k/uL (0-0.7); Eosinophils % (A) 3 %; HCT 44.2 % (34.0-46.0); HGB 14.3 gm/dL (11.4-16.0); Lymphocytes # (A) 2.4 k/uL (1.0-4.8); Lymphocytes % (A) 25 %; MCH 26.5 pg (25.0-35.0); MCHC 32.2 g/dL (31.0-37.0); MCV 82.1 fL (80.0-100.0); Monocytes # (A) 0.4 k/uL (0-1.0); Monocytes % (A) 4 %; Neutrophils # (A) 6.3 k/uL (1.3-7.7); Neutrophils % (A) 66 %; Platelet Count 341 k/uL (150-450); RBC 5.39 m/uL (3.80-5.40); RDW 14.6 % (11.5-15.5); WBC 9.5 k/uL (3.8-10.6)
[2023-02-19 05:33] LABS: Appearance,Urine Clear (Clear); Bilirubin,Urine Negative (Negative); Blood,Urine Negative (Negative); Color,Urine Light Yellow; Glucose,Urine (UA) 4+ (Negative); Ketones,Urine Trace (Negative); Leukocyte Esterase,Urine Negative (Negative); Nitrite,Urine Negative (Negative); Protein,Urine Negative (Negative); Specific Gravity,Urine 1.039 (1.001-1.035); Urobilinogen,Urine <2.0 mg/dL (<2.0)
[2023-02-19 05:42] LABS: ALT 35 U/L (4-34); AST 26 U/L (14-36); African American GFR (CKD) >90 (>60 ml/min/1.73 sqM); Albumin 4.4 g/dL (3.5-5.0); Alkaline Phosphatase 167 U/L (38-126); Anion Gap 9 mmol/L; Blood Urea Nitrogen 17 mg/dL (7-17); Calcium 9.4 mg/dL (8.4-10.2); Carbon Dioxide 22 mmol/L (22-30); Chloride 105 mmol/L (98-107); Glucose 203 mg/dL (74-99); Lipase 148 U/L (23-300); Magnesium 1.9 mg/dL (1.6-2.3); Non-African American GFR(CKD) >90 (>60 ml/min/1.73 sqM); Potassium 4.1 mmol/L (3.5-5.1); Sodium 136 mmol/L (137-145); Total Bilirubin 0.3 mg/dL (0.2-1.3); Total Protein 7.5 g/dL (6.3-8.2)
--- NOTE | 2023-02-19 06:56 | CT ---
EXAMINATION TYPE: CT abdomen pelvis w con DATE OF EXAM: 02/19/2023 COMPARISON: None HISTORY: RLQ Pain CT DLP: 2269.8 mGycm Automated exposure control for dose reduction was used. CONTRAST: Performed with IV Contrast, patient injected with 100 ml mL of Isovue 300. Images obtained from the diaphragm to the floor the pelvis with the IV contrast. Lung bases are clear. No pleural effusion. Heart size is normal. No pericardial effusion. There is pr ominent azygos veins. Liver spleen and stomach pancreas appear intact. The bile ducts are not dilated. There are clips from cholecystectomy. There is no adrenal mass kidney shows satisfactory contrast opacification. There is no hydronephrosis . Ureters are not dilated. No retroperitoneal adenopathy. Appendix is posterior and medial and appear s normal. The bladder distends smoothly. Uterus is anteverted. No pelvic mass. No inguinal hernia. There is no mesenteric edema. No ascites or free air. No sign of a bowel obstruction. Delayed images show not much contrast in the renal collecting systems. The lumbar vertebrae have normal alignment. Posterior element are intact. No compression fracture. [place] pelvis is intact. The hip joints are intact. Sacroiliac joints are intact. IMPRESSION: Normal appendix. No renal stone or obstruction. Decreased contrast in the kidneys on delayed images c ould relate to some renal failure. There is a large azygos vein and relatively small inferior vena ca va.
[2023-02-19 07:22] VITALS: BP 140/80; PULSE 75
== END 2023-02-19 07:10 | disposition home or self-care (01) ==
LOC: EC 04:11
DX: R10.31 Right lower quadrant pain (principal); E11.9 Type 2 diabetes mellitus without complications; I10 Essential (primary) hypertension; J45.909 Unspecified asthma, uncomplicated; G47.30 Sleep apnea, unspecified; F31.9 Bipolar disorder, unspecified; F41.9 Anxiety disorder, unspecified; F17.200 Nicotine dependence, unspecified, uncomplicated; F12.90 Cannabis use, unspecified, uncomplicated; Z79.899 Other long term (current) drug therapy; Z88.1 Allergy status to other antibiotic agents; Z88.8 Allergy status to other drugs, medicaments and biological substances; Z79.84 Long term (current) use of oral hypoglycemic drugs; Z79.4 Long term (current) use of insulin; Z90.49 Acquired absence of other specified parts of digestive tract
CPT/HCPCS: 99284 ×2; 96374 ×2; 96375 ×2; 96361 ×2; 36415; 80053; 83690; 83735; 85025; 81003; 81025; 74177; J2405; J1885; Q9967

== ENCOUNTER 2023-02-21 21:36 | Emergency (ER) | payer BC ==
[2023-02-21 21:44] VITALS: BP 144/84; RESP 20; TEMP 99.2
[2023-02-21] MEDS ORDERED: SODIUM CHLORIDE 0.9% 500 ML 500 ML IV STA (22:31)
[2023-02-21] MEDS ORDERED: LORazepam 1 MG TAB PO STA (22:31)
[2023-02-21] MEDS ORDERED: ASPIRIN 81 MG PO STA (22:31)
--- NOTE | 2023-02-21 23:56 | ED ---
General Adult HPI - General Chief complaint: Chest Pain Stated complaint: Chest Pain Time Seen by Provider: 02/21/23 22:09 Source: patient, RN notes reviewed, old records reviewed Mode of arrival: wheelchair Limitations: no limitations - History of Present Illness Initial comments: Patient is a 33-year-old female with past medical history remarkable for chronic palpitations type chest pain, asthma, diabetes, hypertension, seizure disorder who presents to [facility] complaining of somewhat more persistent for chronic fluttering. States she is having "hard heartbeats" over the left side of her chest and feels on the left side of her back as well. She has been having these intermittently for months. Does see a composing room supervisor outpatient for it. States it usually comes and goes, however states this time it seems to be more persistent for the last 2 hours. Does have a a history of anxiety and states this is not feeling it. Does have a family history inserting for early cardiac disease, MIs in 55-year-old's. Patient denies any sharp, throbbing chest pain. States these beats that she is feeling right now, go with no known palliative or provocative factors. Presents for evaluation over concern for the persistence of these. States they do come and go on a daily basis. Does have a follow-up appointment with her composing room supervisor early next week. Patient presents only because of the persistence of the symptoms this evening. Eyes any history of blood clots. Denies any lower extremity edema. Did have a stress test back in October that was normal. - Related Data Home Medications Medication Instructions Recorded Confirmed Folic Acid 2 mg PO BID 08/31/14 01/28/23 lamoTRIgine [LaMICtal] 200 mg PO BID 05/10/15 01/28/23 Montelukast [Singulair] 10 mg PO HS 02/10/19 01/28/23 Escitalopram [Lexapro] 15 mg PO HS 04/21/20 01/28/23 Propranolol HCl [Inderal Xl] 120 mg PO DAILY 02/25/21 01/28/23 ARIPiprazole [Abilify] 10 mg PO HS 11/29/22 01/28/23 Butalb/APAP/Caff 50-325-40Mg 1 tab PO Q4H PRN 11/29/22 01/28/23 [Fioricet 50-325-40] levETIRAcetam 750 mg PO BID 11/29/22 01/28/23 Empagliflozin [Jardiance] 10 mg PO DIRECTED 01/28/23 01/28/23 Insulin Glargine/Lixisenatide 60 units SQ DIRECTED 01/28/23 01/28/23 [Soliqua 100 Unit-33 Mcg/ml Pen] methocarbamoL [Methocarbamol] 750 mg PO TID PRN 01/28/23 01/28/23 Allergies Allergy/AdvReac Type Severity Reaction Status Date / Time haloperidol [From Haldol] Allergy Unknown Verified 02/21/23 21:44 metronidazole [From Flagyl] Allergy Unknown Verified 02/21/23 21:44 lurasidone [From Latuda] AdvReac high blood Verified 02/21/23 21:44 sugar Review of Systems ROS Statement: Those systems with pertinent positive or pertinent negative responses have been documented in the HPI. Review of Systems: CONST: Denies fever EYES: Denies blurry vision ENT: Denies nasal congestion C/V: Endorse's palpitations RESP: Denies shortness of breath GI: Denies abdominal pain : Denies dysuria SKIN: Denies rash. MSK: Denies joint pain. NEURO: Denies headache ROS Other: All systems not noted in ROS Statement are negative. Past Medical History Past Medical History: Asthma, Diabetes Mellitus, Hypertension, Seizure Disorder, Sleep Apnea/CPAP/BIPAP Additional Past Medical History / Comment(s): seizure, ovarin cyst right side History of Any Multi-Drug Resistant Organisms: None Reported Past Surgical History: Cholecystectomy Past Anesthesia/Blood Transfusion Reactions: No Reported Reaction Past Psychological History: Anxiety, Bipolar, Depression Smoking Status: Current every day smoker Past Alcohol Use History: Occasional Past Drug Use History: Marijuana - Past Family History Mother Family Medical History: Asthma, Diabetes Mellitus Additional Family Medical History / Comment(s): Mom is alive at age 56 with history of diabetes Father Family Medical History: Hypertension Additional Family Medical History / Comment(s): Father is alive at age 56 with history of hypertension. Patient does not have any brothers. She does not have a sisters. She does not have any children. General Exam - General Exam Comments Initial Comments: General: Appears in no acute distress. HEAD: Normal with no signs of head trauma. EYES: PERRLA, EOMI, conjunctiva normal, no discharge. ENT: Hearing grossly intact, normal oropharynx. RESPIRATORY: Clear breath sounds bilaterally. No wheezes, rales, or rhonchi. C/V: Regular rate and rhythm. S1 and S2 auscultated, no edema, peripheral pulses 2+ and intact throughout ABD: Abd is soft, nontender, nondistended EXT: Normal range of motion, no obvious deformity SKIN: No rashes or lesions observed on exposed skin. NEURO: Alert and oriented x 4. Cranial nerves II-XII intact. No focal sensory or strength deficits. Limitations: no limitations Course Vital Signs 02/21/23 02/21/23 21:42 22:00 Temperature 99.2 F Pulse Rate 63 Pulse Rate [ 60 Urogynecology Physician ] Respiratory 20 Rate Blood Pressure 144/84 O2 Sat by Pulse 99 Oximetry Medical Decision Making - Medical Decision Making Was pt. sent in by a medical professional or institution (, PA, ASSISTANT SALES MANAGER, urgent care, hospital, or longterm...) When possible be specific @ -No Did you speak to anyone other than the patient for history (EMS, parent, family, police, friend...)? What history was obtained from this source @ -No Did you review nursing and triage notes (agree or disagree)? Why? @ -I reviewed and agree with nursing and triage notes Were old charts reviewed (outside hosp., previous admission, EMS record, old EKG, old radiological studies, urgent care reports/EKG's, longterm records)? Report findings @ -Yes, old charts REVIEWED including EKGs from October 2022 in July 2022 Differential Diagnosis (chest pain, altered mental status, abdominal pain women, abdominal pain men, vaginal bleeding, weakness, fever, dyspnea, syncope, headache, dizziness, GI bleed, back pain, seizure, CVA, palpatations, mental health, musculoskeletal)? @ -Differential Chest Pain: Stable Angina, Unstable Angina, STEMI, NSTEMI Aortic Dissection, Pneumothorax, Musculoskeletal, Esophageal Spasm GERD, Cholecystitis, Pancreatitis, Zoster, this is not meant to be an all-inclusive list. EKG interpreted by me (3pts min.). @ -As above X-rays interpreted by me (1pt min.). @ -chest x-ray reveals no evidence of acute cardiopulmonary process that is obvious. CT interpreted by me (1pt min.). @ -None done U/S interpreted by me (1pt. min.). @ -None done What testing was considered but not performed or refused? (CT, X-rays, U/S, labs)? Why? @ -None What meds were considered but not given or refused? Why? @ -None Did you discuss the management of the patient with other professionals (professionals i.e. , PA, ASSISTANT SALES MANAGER, lab, RT, psych nurse, social media analyst, embalmer/funeral director, teacher, tactical deception plans officer, manager case management)? Give summary @ -No Was smoking cessation discussed for >3mins.? @ -No Was critical care preformed (if so, how long)? @ -No Were there social determinants of health that impacted care today? How? (Homelessness, low income, unemployed, alcoholism, drug addiction, transportation, low edu. Level, literacy, decrease access to med. care, long term, rehab)? @ -No Was there de-escalation of care discussed even if they declined (Discuss DNR or withdrawal of care, Hospice)? DNR status @ -No What co-morbidities impacted this encounter? (DM, HTN, Smoking, COPD, CAD, Cancer, CVA, ARF, Chemo, Hep., AIDS, mental health diagnosis, sleep apnea, morbi d obesity)? @ -Chronic palpitations Was patient admitted / discharged? Hospital course, mention meds given and route, prescriptions, significant lab abnormalities, going to OR and other pertinent info. @ -Based on the patient's presentation and physical exam, does appear that she is presenting with chronic palpitations that are somewhat longer-lasting today. Has some it seems like on a daily basis. Is seeing composing room supervisor outpatient for the same symptoms. They lasted somewhat longer today which is why she presents for evaluation. States she describes it as her heart beating intensely. Denies any rae pain. Denies any shortness of breath, abdominal pain, nausea, vomiting. No other acute complaints at this time. I discussed with her that due to palpitations, we'll obtain cardiopulmonary labs. As it has been days for symptoms, we would expect workup to show something. We'll also screen for a PE. She was in agreement this plan. Vital signs within acceptable limits. EKG showed no signs of acute ischemia. Chest x-ray unremarkable. Labs are remarkable for a mildly elevated d-dimer of 1.09. Troponin is undetectable. I updated the patient. We will obtain a CT angiogram to evaluate for PE. She was in agreement this plan. CTPE was negative. We discussed results. I do believe it is safer to be discharged home at this time. She was in agreement this plan. She is having her chronic heart palpitations. She'll follow-up with her composing room supervisor next week. Strict return precautions were discussed. Heart score is low at 1-2. I instructed the patient to follow up with their PCP in the next 1-3 days. I explained that the patient should return to the emergency department if they experience any worsening symptoms. Strict return precautions were discussed with the patient. The patient expressed understanding of these instructions. I answered all questions that the patient had. The patient was discharged home in good condition with their prescriptions and follow up information. Undiagnosed new problem with uncertain prognosis? @ -No Drug Therapy requiring intensive monitoring for toxicity (Heparin, Nitro, Insulin, Cardizem)? @ -No Were any procedures done? @ -No Diagnosis/symptom? @ -Heart palpitations Acute, or Chronic, or Acute on Chronic? @ -Acute on chronic Uncomplicated (without systemic symptoms) or Complicated (systemic symptoms)? @ -Uncomplicated Side effects of treatment? @ -No Exacerbation, Progression, or Severe Exacerbation? @ -No Poses a threat to life or bodily function? How? (Chest pain, [place], [place], pneumonia, PE, COPD, DKA, ARF, appy, cholecystitis, CVA, Diverticulitis, Homicidal, Suicidal, threat to staff... and all critical care pts) @ -No - Lab Data Result diagrams: 02/21/23 23:46 02/21/23 23:46 Lab Results 02/21/23 02/21/23 02/21/23 Range/Units 23:46 23:46 23:46 WBC 9.1 (3.8-10.6) k/uL RBC 5.48 H (3.80-5.40) m/uL Hgb 14.5 (11.4-16.0) gm/dL Hct 45.4 (34.0-46.0) % MCV 82.9 (80.0-100.0) fL MCH 26.4 (25.0-35.0) pg MCHC 31.8 (31.0-37.0) g/dL RDW 14.5 (11.5-15.5) % Plt Count 332 (150-450) k/uL MPV 7.1 Neutrophils % 65 % Lymphocytes % 26 % Monocytes % 4 % Eosinophils % 3 % Basophils % 1 % Neutrophils # 5.9 (1.3-7.7) k/uL Lymphocytes # 2.4 (1.0-4.8) k/uL Monocytes # 0.3 (0-1.0) k/uL Eosinophils # 0.2 (0-0.7) k/uL Basophils # 0.1 (0-0.2) k/uL PT 9.9 (9.0-12.0) sec INR 0.9 (<1.2) APTT 23.1 (22.0-30.0) sec D-Dimer 1.09 H (<0.60) mg/L FEU Sodium 138 (137-145) mmol/L Potassium 4.4 (3.5-5.1) mmol/L Chloride 106 (98-107) mmol/L Carbon Dioxide 19 L (22-30) mmol/L Anion Gap 13 mmol/L BUN 10 (7-17) mg/dL Creatinine 0.67 (0.52-1.04) mg/dL Est GFR (CKD-EPI)AfAm >90 (>60 ml/min/1.73 sqM) Est GFR (CKD-EPI)NonAf >90 (>60 ml/min/1.73 sqM) Glucose 265 H (74-99) mg/dL Calcium 9.1 (8.4-10.2) mg/dL Magnesium 2.1 (1.6-2.3) mg/dL Total Bilirubin 0.3 (0.2-1.3) mg/dL AST 17 (14-36) U/L ALT 28 (4-34) U/L Alkaline Phosphatase 131 H (38-126) U/L Troponin I (0.000-0.034) ng/mL Total Protein 7.2 (6.3-8.2) g/dL Albumin 4.2 (3.5-5.0) g/dL Lipase 172 (23-300) U/L 02/21/23 Range/Units 23:46 WBC (3.8-10.6) k/uL RBC (3.80-5.40) m/uL Hgb (11.4-16.0) gm/dL Hct (34.0-46.0) % MCV (80.0-100.0) fL MCH (25.0-35.0) pg MCHC (31.0-37.0) g/dL RDW (11.5-15.5) % Plt Count (150-450) k/uL MPV Neutrophils % % Lymphocytes % % Monocytes % % Eosinophils % % Basophils % % Neutrophils # (1.3-7.7) k/uL Lymphocytes # (1.0-4.8) k/uL Monocytes # (0-1.0) k/uL Eosinophils # (0-0.7) k/uL Basophils # (0-0.2) k/uL PT (9.0-12.0) sec INR (<1.2) APTT (22.0-30.0) sec D-Dimer (<0.60) mg/L FEU Sodium (137-145) mmol/L Potassium (3.5-5.1) mmol/L Chloride (98-107) mmol/L Carbon Dioxide (22-30) mmol/L Anion Gap mmol/L BUN (7-17) mg/dL Creatinine (0.52-1.04) mg/dL Est GFR (CKD-EPI)AfAm (>60 ml/min/1.73 sqM) Est GFR (CKD-EPI)NonAf (>60 ml/min/1.73 sqM) Glucose (74-99) mg/dL Calcium (8.4-10.2) mg/dL Magnesium (1.6-2.3) mg/dL Total Bilirubin (0.2-1.3) mg/dL AST (14-36) U/L ALT (4-34) U/L Alkaline Phosphatase (38-126) U/L Troponin I <0.012 (0.000-0.034) ng/mL Total Protein (6.3-8.2) g/dL Albumin (3.5-5.0) g/dL Lipase (23-300) U/L - EKG Data -: EKG Interpreted by Me EKG Comments: 12-lead Electrocardiogram Interpretation Note EKG was reviewed and interpreted by myself. 12-lead ECG performed at 2151 is interpreted by me as revealing normal sinus rhythm at a rate of 57 beats per minute. [place] is normal. AL interval is 165 ms, QRS duration is 106 ms, QTc is 401 ms.. There were no acute ST or T wave abnormalities to suggest myocardial ischemia or injury. Patient does have chronic T wave inversions in lead V2 .R wave progression across the precordium was satisfactory. By my interpretation this EKG is non-diagnostic for acute ischemia. When compared with EKG from October 2022 and July 2022, no significant change. Disposition Clinical Impression: Heart palpitations Disposition: HOME SELF-CARE Condition: Good Instructions (If sedation given, give patient instructions): Heart Palpitations (ED) Is patient prescribed a controlled substance at d/c from ED?: No Referrals: Willie Cummins MD [Primary Care Provider] - 1-2 days Time of Disposition: 01:35
[2023-02-22] LABS: Basophils # (A) 0.1 k/uL (0-0.2); Basophils % (A) 1 %; Eosinophils # (A) 0.2 k/uL (0-0.7); Eosinophils % (A) 3 %; HCT 45.4 % (34.0-46.0); HGB 14.5 gm/dL (11.4-16.0); Lymphocytes # (A) 2.4 k/uL (1.0-4.8); Lymphocytes % (A) 26 %; MCH 26.4 pg (25.0-35.0); MCHC 31.8 g/dL (31.0-37.0); MCV 82.9 fL (80.0-100.0); Mean Platelet Volume 7.1; Monocytes # (A) 0.3 k/uL (0-1.0); Monocytes % (A) 4 %; Neutrophils # (A) 5.9 k/uL (1.3-7.7); Neutrophils % (A) 65 %; Platelet Count 332 k/uL (150-450); RBC 5.48 m/uL (3.80-5.40); RDW 14.5 % (11.5-15.5); WBC 9.1 k/uL (3.8-10.6)
[2023-02-22 00:05] VITALS: PULSE 60
[2023-02-22 00:15] LABS: ALT 28 U/L (4-34); AST 17 U/L (14-36); African American GFR (CKD) >90 (>60 ml/min/1.73 sqM); Albumin 4.2 g/dL (3.5-5.0); Alkaline Phosphatase 131 U/L (38-126); Anion Gap 13 mmol/L; Blood Urea Nitrogen 10 mg/dL (7-17); Calcium 9.1 mg/dL (8.4-10.2); Carbon Dioxide 19 mmol/L (22-30); Chloride 106 mmol/L (98-107); Glucose 265 mg/dL (74-99); Lipase 172 U/L (23-300); Magnesium 2.1 mg/dL (1.6-2.3); Non-African American GFR(CKD) >90 (>60 ml/min/1.73 sqM); Potassium 4.4 mmol/L (3.5-5.1); Sodium 138 mmol/L (137-145); Total Bilirubin 0.3 mg/dL (0.2-1.3); Total Protein 7.2 g/dL (6.3-8.2)
--- NOTE | 2023-02-22 00:26 | XR ---
EXAMINATION TYPE: XR chest 2V DATE OF EXAM: 02/21/2023 COMPARISON: NONE HISTORY: Pain TECHNIQUE: 2 views FINDINGS: Heart and mediastinum are normal. Lungs are clear. Diaphragm is normal. Bony thorax is inta ct. The pulmonary vascularity is normal. IMPRESSION: Normal chest. Normal heart
[2023-02-22 00:27] LABS: INR 0.9 (<1.2); Partial Thromboplastin Time 23.1 sec (22.0-30.0); Prothrombin Time 9.9 sec (9.0-12.0)
--- NOTE | 2023-02-22 01:32 | CT ---
EXAMINATION TYPE: CT chest angio for PE DATE OF EXAM: 02/22/2023 COMPARISON: None HISTORY: elevated d dimer CT DLP: 1026.7 mGycm Automated exposure control for dose reduction was used. CONTRAST: Performed with IV Contrast, patient injected with 80 mL of Isovue 370. Images obtained from the thoracic inlet to the diaphragm with IV contrast. There are Three-D postproc essed images. The lungs are clear of consolidation. No pleural effusion. Heart size is fairly normal. No pericardia l effusion. There is no mediastinal adenopathy. Thoracic aorta is intact. No aneurysm. No evidence of filling def ect in the pulmonary arteries. The thoracic spine is intact. No compression fracture. The sternum is intact. There is large azygos v ein. The inferior vena cava is relatively small. This is likely normal variation. IMPRESSION: Negative exam. No evidence of pulmonary embolism. Normal heart.
== END 2023-02-22 01:53 | disposition home or self-care (01) ==
LOC: EC 21:36
DX: R00.2 Palpitations (principal); E11.9 Type 2 diabetes mellitus without complications; I10 Essential (primary) hypertension; J45.909 Unspecified asthma, uncomplicated; G40.909 Epilepsy, unspecified, not intractable, without status epilepticus; F41.9 Anxiety disorder, unspecified; F31.9 Bipolar disorder, unspecified; F12.90 Cannabis use, unspecified, uncomplicated; F17.200 Nicotine dependence, unspecified, uncomplicated; Z79.4 Long term (current) use of insulin; Z79.899 Other long term (current) drug therapy; Z88.1 Allergy status to other antibiotic agents; Z88.8 Allergy status to other drugs, medicaments and biological substances; Z86.718 Personal history of other venous thrombosis and embolism
CPT/HCPCS: 36415; 93005; 85379; 80053; 83690; 83735; 84484; 85025; 85610; 85730; 71046; 71275; 99285; Q9967

== ENCOUNTER 2023-03-28 18:53 | Emergency (ER) | payer BC ==
[2023-03-28 18:57] VITALS: TEMP 98.5
[2023-03-28] MEDS ORDERED: KETOROLAC 15 MG/ML 1 ML VIAL IVP STA (19:13)
[2023-03-28] MEDS ORDERED: ONDANSETRON 4 MG/2 ML VIAL IVP STA (19:14)
--- NOTE | 2023-03-28 19:15 | ED ---
Chest Pain HPI - General Chief Complaint: Chest Pain Stated Complaint: chest pain Time Seen by Provider: 03/28/23 19:07 Source: patient Mode of arrival: ambulatory Limitations: no limitations - History of Present Illness Initial Comments: Patient is a 32-year-old female who presents to the emergency department for her chest pain. Patient has history of asthma she states she felt short of breath today she went to use her inhaler this evening and began to have chest pain. She describes it as a heaviness and a sharp pain on the left side of her chest with radiation to the back. It is not influenced by breathing or movement. No precipitating, alleviating, other modifying factors. No numbness or tingling. No palpitations. No leg pain or swelling. She reports nausea without vomiting. Denies fever, chills, cold-like symptoms. Patient has history of chronic palpitations she does follow with the diabetes trainer. Patient was evaluated in the emergency department for chest pain in January. States she had a follow-up appointment with her diabetes trainer. She did not have any further testing at this time. She is a smoker, half pack daily. She does have family history of cardiac disease including early age myocardial infarction. No history of DVT or PE. She does not use blood thinners. - Related Data Home Medications Medication Instructions Recorded Confirmed Folic Acid 2 mg PO BID 08/31/14 03/28/23 lamoTRIgine [LaMICtal] 200 mg PO BID 05/10/15 03/28/23 Montelukast [Singulair] 10 mg PO HS 02/10/19 03/28/23 Propranolol HCl [Inderal Xl] 120 mg PO DAILY 02/25/21 03/28/23 ARIPiprazole [Abilify] 10 mg PO HS 11/29/22 03/28/23 Butalb/APAP/Caff 50-325-40Mg 1 tab PO Q4H PRN 11/29/22 03/28/23 [Fioricet 50-325-40] levETIRAcetam 750 mg PO BID 11/29/22 03/28/23 Escitalopram [Lexapro] 20 mg PO HS 03/28/23 03/28/23 Norethindrone Acetate 10 mg PO HS 03/28/23 03/28/23 [Norethindrone AC (Lupaneta)] Semaglutide [Ozempic] 0.25 mg SQ ESPOSITO 03/28/23 03/28/23 Allergies Allergy/AdvReac Type Severity Reaction Status Date / Time haloperidol [From Haldol] Allergy Unknown Verified 03/28/23 20:35 metronidazole [From Flagyl] Allergy Unknown Verified 03/28/23 20:35 lurasidone [From Latuda] AdvReac high blood Verified 03/28/23 20:35 sugar Review of Systems ROS Statement: Those systems with pertinent positive or pertinent negative responses have been documented in the HPI. ROS Other: All systems not noted in ROS Statement are negative. Past Medical History Past Medical History: Asthma, Diabetes Mellitus, Hypertension, Seizure Disorder, Sleep Apnea/CPAP/BIPAP Additional Past Medical History / Comment(s): seizure, ovarin cyst right side History of Any Multi-Drug Resistant Organisms: None Reported Past Surgical History: Cholecystectomy Past Anesthesia/Blood Transfusion Reactions: No Reported Reaction Past Psychological History: Anxiety, Bipolar, Depression Smoking Status: Current every day smoker Past Alcohol Use History: Occasional Past Drug Use History: Marijuana - Past Family History Mother Family Medical History: Asthma, Diabetes Mellitus Additional Family Medical History / Comment(s): Mom is alive at age 56 with history of diabetes Father Family Medical History: Hypertension Additional Family Medical History / Comment(s): Father is alive at age 56 with history of hypertension. Patient does not have any brothers. She does not have a sisters. She does not have any children. General Exam Limitations: no limitations General appearance: alert, in no apparent distress Head exam: Present: atraumatic, normocephalic, normal inspection Eye exam: Present: normal appearance, PERRL, EOMI. Absent: scleral icterus, conjunctival injection, periorbital swelling Neck exam: Present: normal inspection, full ROM Respiratory exam: Present: normal lung sounds bilaterally. Absent: respiratory distress, wheezes, rales, rhonchi, stridor Cardiovascular Exam: Present: regular rate, normal rhythm, normal heart sounds. Absent: systolic murmur, diastolic murmur, rubs, gallop, clicks GI/Abdominal exam: Present: soft, normal bowel sounds. Absent: distended, tenderness, guarding, rebound, rigid Extremities exam: Present: normal inspection, full ROM, normal capillary refill. Absent: tenderness, pedal edema, calf tenderness Neurological exam: Present: alert, oriented X3, CN II-XII intact Psychiatric exam: Present: normal affect, normal mood Skin exam: Present: warm, dry, intact, normal color. Absent: rash Course Vital Signs 03/28/23 03/28/23 03/28/23 18:55 19:00 20:20 Temperature 98.5 F Pulse Rate 69 74 Pulse Rate [ 64 Drop Wire Operator ] Respiratory 16 17 Rate Blood Pressure 169/92 O2 Sat by Pulse 98 98 Oximetry 03/28/23 22:00 Temperature Pulse Rate 62 Pulse Rate [ Drop Wire Operator ] Respiratory 18 Rate Blood Pressure 141/78 O2 Sat by Pulse 97 Oximetry Chest Pain MDM - MDM EKG taken at 19:09, interpreted by me Sinus rhythm, no ST segment or T-wave abnormality Ventricular rate 70, NH interval 161, QRS duration 101, QTC 392 Was pt. sent in by a medical professional or institution (, [facility], MAGAZINE WRITER, urgent care, hospital, or skilled nursing...) When possible be specific @ -No Did you speak to anyone other than the patient for history (EMS, parent, family, police, friend...)? What history was obtained from this source @ -No Did you review nursing and triage notes (agree or disagree)? Why? @ -I reviewed and agree with nursing and triage notes Were old charts reviewed (outside hosp., previous admission, EMS record, old EKG, old radiological studies, urgent care reports/EKG's, skilled nursing records)? Report findings @ -Yes, reviewed CTA obtained in January which was negative for PE. Differential Diagnosis (chest pain, altered mental status, abdominal pain women, abdominal pain men, vaginal bleeding, weakness, fever, dyspnea, syncope, headache, dizziness, GI bleed, back pain, seizure, CVA, palpatations, mental health)? @ -Differential Chest Pain: Stable Angina, Unstable Angina, STEMI, NSTEMI Aortic Dissection, Pneumothorax, Musculoskeletal, Esophageal Spasm GERD, Cholecystitis, Pancreatitis, Zoster, this is not meant to be an all-inclusive list. EKG interpreted by me (3pts min.). @ -As above X-rays interpreted by me (1pt min.). @ -Yes, chest x-ray negative for acute process CT interpreted by me (1pt min.). @ -Yes, CT of the chest with angio shows mild cardiomegaly. No central pulmonary embolus in the pulmonary trunk U/S interpreted by me (1pt. min.). @ -None done What testing was considered but not performed or refused? (CT, X-rays, U/S, labs)? Why? @ -None What meds were considered but not given or refused? Why? @ -None Did you discuss the management of the patient with other professionals (professionals i.e. Dr., PA, MAGAZINE WRITER, lab, RT, psych nurse, social service director, regional business manager, teacher, deputy probation officer, pillowcase folder)? Give summary @ -No Was smoking cessation discussed for >3mins.? @ -No Was critical care preformed (if so, how long)? @ -No Were there social determinants of health that impacted care today? How? (Homelessness, low income, unemployed, alcoholism, drug addiction, transportation, low edu. Level, literacy, decrease access to med. care, snf, rehab)? @ -No Was there de-escalation of care discussed even if they declined (Discuss DNR or withdrawal of care, Hospice)? DNR status @ -No What co-morbidities impacted this encounter? (DM, HTN, Smoking, COPD, CAD, Cancer, CVA, ARF, Chemo, Hep., AIDS, mental health diagnosis, sleep apnea, morbid obesity)? @ -None Was patient admitted / discharged? Hospital course, mention meds given and route, prescriptions, significant lab abnormalities, going to OR and other pertinent info. @ -Patient presenting for atypical chest pain. Hemodynamically stable. No hypoxia. Patient resting comfortably no evidence of respiratory distress. EKG shows no evidence of acute ischemia. Troponin within normal limits. D-dimer minimally elevated at 0.61. CT angiogram of the chest was obtained. The study was limited due to bolus timing but showed no central pulmonary embolus in the pulmonary trunk. There is mild cardiomegaly. Patient slept during most of her emergency stay. Results discussed the patient. Patient stable condition for discharge. She is to follow-up with her diabetes trainer. Undiagnosed new problem with uncertain prognosis? @ -No Drug Therapy requiring intensive monitoring for toxicity (Heparin, Nitro, Insulin, Cardizem)? @ -No] Were any procedures done? @ -[No] Diagnosis/symptom? @ -Atypical chest pain Acute, Chronic, or Acute on Chronic? @ -acute Uncomplicated (without systemic symptoms) or Complicated (systemic symptoms)? @ -uncomplicated Side effects of treatment? @ -[No] Exacerbation, Progression, or Severe Exacerbation? @ -[No] Poses a threat to life or bodily function? How? (Chest pain, [place], [place], pneumonia, PE, COPD, DKA, ARF, appy, cholecystitis, CVA, Diverticulitis, Homicidal, Suicidal, threat to staff... and all critical care pts) @ -[No] Dr. Maldonado is my attending Disposition Clinical Impression: Atypical chest pain Disposition: HOME SELF-CARE Instructions (If sedation given, give patient instructions): Chest Pain (ED) Additional Instructions: Take medication as directed. Please follow-up with diabetes trainer in 1-2 days. Return to the emergency department if you experience new, concerning, or worsening symptoms. Is patient prescribed a controlled substance at d/c from ED?: No Referrals: Willie Cummins MD [Primary Care Provider] - 1-2 days
[2023-03-28] MEDS ORDERED: PANTOPRAZOLE 40 MG/10 ML VIAL IVP STA (19:17)
[2023-03-28] MEDS ORDERED: FAMOTIDINE 20 MG/2 ML VIAL IV STA (19:17)
[2023-03-28] MEDS ORDERED: SODIUM CHLORIDE 0.9% 1,000 ML IV STA (19:18)
[2023-03-28 19:26] LABS: Basophils % (A) 0 %; Eosinophils # (A) 0.2 k/uL (0-0.7); Eosinophils % (A) 2 %; HGB 15.6 gm/dL (11.4-16.0); Lymphocytes # (A) 1.8 k/uL (1.0-4.8); Lymphocytes % (A) 22 %; MCH 26.6 pg (25.0-35.0); MCHC 32.4 g/dL (31.0-37.0); MCV 82.2 fL (80.0-100.0); Mean Platelet Volume 7.3; Monocytes # (A) 0.3 k/uL (0-1.0); Monocytes % (A) 4 %; Neutrophils # (A) 5.4 k/uL (1.3-7.7); Neutrophils % (A) 70 %; Platelet Count 346 k/uL (150-450); RBC 5.84 m/uL (3.80-5.40); RDW 15.2 % (11.5-15.5); WBC 7.8 k/uL (3.8-10.6)
[2023-03-28 19:37] LABS: ALT 31 U/L (4-34); AST 26 U/L (14-36); African American GFR (CKD) >90 (>60 ml/min/1.73 sqM); Albumin 4.4 g/dL (3.5-5.0); Alkaline Phosphatase 144 U/L (38-126); Anion Gap 13 mmol/L; Blood Urea Nitrogen 14 mg/dL (7-17); Calcium 9.4 mg/dL (8.4-10.2); Carbon Dioxide 22 mmol/L (22-30); Chloride 103 mmol/L (98-107); Glucose 321 mg/dL (74-99); Magnesium 1.9 mg/dL (1.6-2.3); Non-African American GFR(CKD) >90 (>60 ml/min/1.73 sqM); Potassium 4.4 mmol/L (3.5-5.1); Sodium 138 mmol/L (137-145); Total Bilirubin 0.4 mg/dL (0.2-1.3); Total Protein 7.6 g/dL (6.3-8.2)
--- NOTE | 2023-03-28 19:50 | XR ---
EXAMINATION TYPE: XR chest 2V DATE OF EXAM: 03/28/2023 7:33 PM COMPARISON: Chest radiographs from 02/21/2023 TECHNIQUE: XR chest 2V Frontal and lateral views of the chest. CLINICAL INDICATION:Female, 32 years old with history of Chest Pain; FINDINGS: Lungs/Pleura: There is no evidence of pleural effusion, focal consolidation, or pneumothorax. Pulmonary vascularity: Unremarkable. Heart/mediastinum: Cardiomediastinal silhouette is unremarkable. Musculoskeletal: No acute osseous pathology. IMPRESSION: No acute cardiopulmonary disease/process.
[2023-03-28 19:59] LABS: HCG,Qualitative Serum Not Detected
[2023-03-28 20:00] LABS: Lipase 236 U/L (23-300)
[2023-03-28] MEDS ORDERED: INSULIN REGULAR 100 UNIT/ML VIAL (IV) IV ONE (20:02)
[2023-03-28 20:09] LABS: INR 0.9 (<1.2); Partial Thromboplastin Time 23.2 sec (22.0-30.0); Prothrombin Time 9.8 sec (9.0-12.0)
[2023-03-28 22:03] VITALS: BP 141/78; PULSE 62; RESP 18
--- NOTE | 2023-03-28 22:30 | CT ---
EXAMINATION TYPE: CT chest angio for PE CT DLP: 809.9 mGycm, Automated exposure control for dose reduction was used. DATE OF EXAM: 03/28/2023 10:02 PM COMPARISON: 02/22/2023 CLINICAL INDICATION:Female, 32 years old with history of SOB elevated dimer; SOB. Elevated D-dimer. TECHNIQUE/CONTRAST: CTA scan of the thorax is performed with IV Contrast, patient injected with 100cc mL of Isovue 370, p ulmonary embolism protocol. MIP images are created and reviewed these are created on a separate work station.. FINDINGS: Pulmonary Artery: There is no evidence for a central filling defect within the pulmonary vasculature to suggest acute pulmonary embolism. Limited evaluation of the segmental and subsegmental branches se condary to bolus timing. The pulmonary artery is of normal size. There is a large azygous vein and he miazygous vein. Lungs/Pleura: No evidence of focal consolidation, pleural effusion or pneumothorax. Airway: Large airways are patent. Heart: The heart is mildly enlarged for size. Vasculature: No evidence of aortic aneurysm. Mediastinum: No gross evidence of adenopathy. Musculoskeletal: No acute osseous abnormalities Soft Tissues: Unremarkable. Lower neck: No significant findings. Upper Abdomen: Gallbladder surgically absent. IMPRESSION: 1. Nearly nondiagnostic exam secondary to bolus timing. No central pulmonary embolus in the pulmonary trunk. Consider repeat exam if clinically necessary. 2. Mildly enlarged heart.
== END 2023-03-28 23:20 | disposition home or self-care (01) ==
LOC: EC 18:53
DX: R07.89 Other chest pain (principal); I51.7 Cardiomegaly; J45.909 Unspecified asthma, uncomplicated; E11.9 Type 2 diabetes mellitus without complications; I10 Essential (primary) hypertension; G47.30 Sleep apnea, unspecified; F41.9 Anxiety disorder, unspecified; F31.9 Bipolar disorder, unspecified; F17.200 Nicotine dependence, unspecified, uncomplicated; F12.90 Cannabis use, unspecified, uncomplicated; Z79.84 Long term (current) use of oral hypoglycemic drugs; Z79.899 Other long term (current) drug therapy; Z88.6 Allergy status to analgesic agent; Z88.8 Allergy status to other drugs, medicaments and biological substances
CPT/HCPCS: 93005; 85379; 80053; 83690; 83735; 84484; 85025; 85610; 85730; 84703; 71046; 71275; 99285; 96374; 96375 ×3; 96361; J2405; J1885; C9113; Q9967; 36415

== ENCOUNTER 2023-04-25 18:36 | Emergency (ER) | payer BC ==
[2023-04-25 19:03] VITALS: TEMP 98.8
[2023-04-25] MEDS ORDERED: ASPIRIN 81 MG PO STA (19:16)
--- NOTE | 2023-04-25 19:25 | ED ---
Chest Pain HPI - General Chief Complaint: Chest Pain Stated Complaint: Increased sugar/chest pain Time Seen by Provider: 04/25/23 19:11 Source: patient Mode of arrival: ambulatory Limitations: no limitations - History of Present Illness Initial Comments: Patient is a 32-year-old female with history of diabetes and hypertension presenting with chief complaint of chest pain. Chest pain starting today when she was walking her dog, she describes it as a squeezing sensation. Patient also noted that her blood sugar was 400 at home today. She states that her sensor may be due to be replaced. She denies any cough, congestion, sore throat, fever, chills, nausea, vomiting, abdominal pain, radiation of pain down the arm or neck. - Related Data Home Medications Medication Instructions Recorded Confirmed Folic Acid 2 mg PO BID 08/31/14 03/28/23 lamoTRIgine [LaMICtal] 200 mg PO BID 05/10/15 03/28/23 Montelukast [Singulair] 10 mg PO HS 02/10/19 03/28/23 Propranolol HCl [Inderal Xl] 120 mg PO DAILY 02/25/21 03/28/23 ARIPiprazole [Abilify] 10 mg PO HS 11/29/22 03/28/23 Butalb/APAP/Caff 50-325-40Mg 1 tab PO Q4H PRN 11/29/22 03/28/23 [Fioricet 50-325-40] levETIRAcetam 750 mg PO BID 11/29/22 03/28/23 Escitalopram [Lexapro] 20 mg PO HS 03/28/23 03/28/23 Norethindrone Acetate 10 mg PO HS 03/28/23 03/28/23 [Norethindrone AC (Lupaneta)] Semaglutide [Ozempic] 0.25 mg SQ ESPOSITO 03/28/23 03/28/23 Allergies Allergy/AdvReac Type Severity Reaction Status Date / Time haloperidol [From Haldol] Allergy Unknown Verified 04/25/23 19:02 metronidazole [From Flagyl] Allergy Unknown Verified 04/25/23 19:02 lurasidone [From Latuda] AdvReac high blood Verified 04/25/23 19:02 sugar Review of Systems ROS Statement: Those systems with pertinent positive or pertinent negative responses have been documented in the HPI. ROS Other: All systems not noted in ROS Statement are negative. EKG Findings - EKG Comments: EKG Findings:: EKG interpreted by me. Sinus rhythm. Ventricular rate 75. CA interval 168. QRS 104. QT 367. QTC 395. Normal axis. No ischemic changes. Past Medical History Past Medical History: Asthma, Diabetes Mellitus, Hypertension, Seizure Disorder, Sleep Apnea/CPAP/BIPAP Additional Past Medical History / Comment(s): seizure, ovarin cyst right side History of Any Multi-Drug Resistant Organisms: None Reported Past Surgical History: Cholecystectomy Past Anesthesia/Blood Transfusion Reactions: No Reported Reaction Past Psychological History: Anxiety, Bipolar, Depression Smoking Status: Current every day smoker Past Alcohol Use History: Occasional Past Drug Use History: Marijuana - Past Family History Mother Family Medical History: Asthma, Diabetes Mellitus Additional Family Medical History / Comment(s): Mom is alive at age 56 with history of diabetes Father Family Medical History: Hypertension Additional Family Medical History / Comment(s): Father is alive at age 56 with history of hypertension. Patient does not have any brothers. She does not have a sisters. She does not have any children. General Exam Limitations: no limitations General appearance: alert, in no apparent distress Head exam: Present: atraumatic, normocephalic, normal inspection Eye exam: Present: normal appearance, EOMI. Absent: scleral icterus, periorbital swelling Neck exam: Present: normal inspection, full ROM Respiratory exam: Present: normal lung sounds bilaterally. Absent: respiratory distress, wheezes, rales, rhonchi, stridor Cardiovascular Exam: Present: regular rate, normal rhythm, normal heart sounds. Absent: systolic murmur, diastolic murmur, rubs, gallop, clicks Extremities exam: Absent: pedal edema Neurological exam: Present: alert, oriented X3, CN II-XII intact Psychiatric exam: Present: normal affect, normal mood Skin exam: Present: warm, dry, intact, normal color. Absent: rash Course Vital Signs 04/25/23 04/25/23 19:00 22:29 Temperature 98.8 F Pulse Rate 74 82 Respiratory 20 16 Rate Blood Pressure 189/84 158/72 O2 Sat by Pulse 99 98 Oximetry Chest Pain MDM - MDM Was pt. sent in by a medical professional or institution (, PA, DRONE SOFTWARE DEVELOPMENT ENGINEER, urgent care, hospital, or longterm...) When possible be specific @ -No Did you speak to anyone other than the patient for history (EMS, parent, family, police, friend...)? What history was obtained from this source @ -No Did you review nursing and triage notes (agree or disagree)? Why? @ -I reviewed and agree with nursing and triage notes Were old charts reviewed (outside hosp., previous admission, EMS record, old EKG, old radiological studies, urgent care reports/EKG's, longterm records)? Report findings @ -No old charts were reviewed Differential Diagnosis (chest pain, altered mental status, abdominal pain women, abdominal pain men, vaginal bleeding, weakness, fever, dyspnea, syncope, headache, dizziness, GI bleed, back pain, seizure, CVA, palpatations, mental health, musculoskeletal)? @ -MDM Differential Chest Pain: Stable Angina, Unstable Angina, STEMI, NSTEMI Aortic Dissection, Pneumothorax, Musculoskeletal, Esophageal Spasm GERD, Cholecystitis, Pancreatitis, Zoster This is not meant to be an all-inclusive list. EKG interpreted by me (3pts min.). @ -As above X-rays interpreted by me (1pt min.). @ -Chest x-ray shows no acute process CT interpreted by me (1pt min.). @ -None done U/S interpreted by me (1pt. min.). @ -None done What testing was considered but not performed or refused? (CT, X-rays, U/S, labs)? Why? @ -None What meds were considered but not given or refused? Why? @ -None Did you discuss the management of the patient with other professionals (professionals i.e. , PA, DRONE SOFTWARE DEVELOPMENT ENGINEER, lab, RT, psych nurse, child protective services social worker, vp legal affairs, teacher, medical officer, pillowcase sewer)? Give summary @ -No Was smoking cessation discussed for >3mins.? @ -No Was critical care preformed (if so, how long)? @ -No Were there social determinants of health that impacted care today? How? (Homelessness, low income, unemployed, alcoholism, drug addiction, transportation, low edu. Level, literacy, decrease access to med. care, group home, rehab)? @ -No Was there de-escalation of care discussed even if they declined (Discuss DNR or withdrawal of care, Hospice)? DNR status @ -No What co-morbidities impacted this encounter? (DM, HTN, Smoking, COPD, CAD, Cancer, CVA, ARF, Chemo, Hep., AIDS, mental health diagnosis, sleep apnea, morbid obesity)? @ -Hypertension, diabetes Was patient admitted / discharged? Hospital course, mention meds given and route, prescriptions, significant lab abnormalities, going to OR and other pertinent info. @ -Discharged. Patient is a 32-year-old female presenting with chief complaint of chest pain that started today. Physical examination is unremarkable. Lab work shows negative troponin. Glucose is 451, normal anion gap and no ketonuria. Normal chest x-ray and EKG. Patient had a normal stress test and echo performed less than a year ago. On reassessment she reports improvement in her symptoms. She is given IV fluids and insulin and her sugar has improved to 265. She is discharged home. Follow-up with PCP. Report back to ER with any new or worsening symptoms. Discussed return parameters and answered all questions. Patient conveyed verbal understanding and agreed to the plan. I discussed this case in detail with my attending Dr. Jameson Undiagnosed new problem with uncertain prognosis? @ -No Drug Therapy requiring intensive monitoring for toxicity (Heparin, Nitro, Insulin, Cardizem)? @ -No Were any procedures done? @ -No Diagnosis/symptom? @ -Chest pain Acute, or Chronic, or Acute on Chronic? @ -Acute Uncomplicated (without systemic symptoms) or Complicated (systemic symptoms)? @ -Uncomplicated Side effects of treatment? @ -No Exacerbation, Progression, or Severe Exacerbation? @ -No Poses a threat to life or bodily function? How? (Chest pain, [place], [place], pneumonia, PE, COPD, DKA, ARF, appy, cholecystitis, CVA, Diverticulitis, Homicidal, Suicidal, threat to staff... and all critical care pts) @ -Low likelihood Disposition Clinical Impression: Chest pain Disposition: HOME SELF-CARE Condition: Good Instructions (If sedation given, give patient instructions): Chest Pain (ED) Additional Instructions: Follow-up with PCP. Report back to ER with any new or worsening symptoms. Is patient prescribed a controlled substance at d/c from ED?: No Referrals: Willie Cummins MD [Primary Care Provider] - 1-2 days
[2023-04-25 20:11] LABS: Basophils # (A) 0.1 k/uL (0-0.2); Basophils % (A) 1 %; Eosinophils # (A) 0.2 k/uL (0-0.7); Eosinophils % (A) 2 %; HCT 48.4 % (34.0-46.0); HGB 15.5 gm/dL (11.4-16.0); Lymphocytes # (A) 1.5 k/uL (1.0-4.8); Lymphocytes % (A) 20 %; MCH 27.7 pg (25.0-35.0); MCHC 32.1 g/dL (31.0-37.0); MCV 86.4 fL (80.0-100.0); Mean Platelet Volume 7.8; Monocytes # (A) 0.3 k/uL (0-1.0); Monocytes % (A) 4 %; Neutrophils # (A) 5.3 k/uL (1.3-7.7); Neutrophils % (A) 71 %; Platelet Count 336 k/uL (150-450); RDW 14.9 % (11.5-15.5); WBC 7.6 k/uL (3.8-10.6)
[2023-04-25 20:19] LABS: ALT 30 U/L (4-34); AST 23 U/L (14-36); African American GFR (CKD) >90 (>60 ml/min/1.73 sqM); Albumin 4.5 g/dL (3.5-5.0); Alkaline Phosphatase 219 U/L (38-126); Anion Gap 14 mmol/L; Blood Urea Nitrogen 13 mg/dL (7-17); Calcium 9.6 mg/dL (8.4-10.2); Carbon Dioxide 20 mmol/L (22-30); Chloride 99 mmol/L (98-107); Glucose 451 mg/dL (74-99); Magnesium 1.8 mg/dL (1.6-2.3); Non-African American GFR(CKD) >90 (>60 ml/min/1.73 sqM); Potassium 4.2 mmol/L (3.5-5.1); Sodium 133 mmol/L (137-145); Total Bilirubin 0.4 mg/dL (0.2-1.3); Total Protein 7.6 g/dL (6.3-8.2)
--- NOTE | 2023-04-25 20:22 | XR ---
EXAMINATION TYPE: XR chest 2V DATE OF EXAM: 04/25/2023 COMPARISON: 03/28/2023 INDICATION: Chest pain TECHNIQUE: Frontal and lateral views of the chest are obtained. FINDINGS: The heart size is normal. The pulmonary vasculature is normal. The lungs are clear. IMPRESSION: 1. No acute pulmonary process.
[2023-04-25] MEDS ORDERED: INSULIN REGULAR 100 UNIT/ML VIAL (IV) IV ONE (20:24)
[2023-04-25] MEDS ORDERED: SODIUM CHLORIDE 0.9% 1,000 ML IV ONE (20:24)
[2023-04-25 20:36] LABS: Appearance,Urine Clear (Clear); Bilirubin,Urine Negative (Negative); Blood,Urine Negative (Negative); Color,Urine Light Yellow; Glucose,Urine (UA) 4+ (Negative); Ketones,Urine Negative (Negative); Leukocyte Esterase,Urine Negative (Negative); Nitrite,Urine Negative (Negative); Protein,Urine Negative (Negative); Specific Gravity,Urine 1.027 (1.001-1.035); Urobilinogen,Urine <2.0 mg/dL (<2.0)
[2023-04-25 20:55] LABS: INR 0.9 (<1.2); Partial Thromboplastin Time 22.6 sec (22.0-30.0); Prothrombin Time 9.7 sec (9.0-12.0)
[2023-04-25 21:30] LABS: Glucose,Whole Blood 332 mg/dL (70-110)
[2023-04-25 22:27] LABS: Glucose,Whole Blood 265 mg/dL (70-110)
[2023-04-25 22:30] VITALS: BP 158/72; PULSE 82; RESP 16
== END 2023-04-25 22:30 | disposition home or self-care (01) ==
LOC: EC 18:36
DX: R07.89 Other chest pain (principal); J45.909 Unspecified asthma, uncomplicated; E11.9 Type 2 diabetes mellitus without complications; I10 Essential (primary) hypertension; G47.30 Sleep apnea, unspecified; F41.9 Anxiety disorder, unspecified; F31.9 Bipolar disorder, unspecified; F17.200 Nicotine dependence, unspecified, uncomplicated; F12.90 Cannabis use, unspecified, uncomplicated; Z79.84 Long term (current) use of oral hypoglycemic drugs; Z79.899 Other long term (current) drug therapy; Z88.1 Allergy status to other antibiotic agents; Z88.8 Allergy status to other drugs, medicaments and biological substances
CPT/HCPCS: 36415; 71046; 80053; 81003; 81025; 83735; 84484; 85025; 85610; 85730; 93005; 96361; 96374; 99285

== ENCOUNTER 2023-11-16 15:56 | Emergency (ER) | payer BC ==
[2023-11-16 16:26] VITALS: TEMP 98.5
--- NOTE | 2023-11-16 17:00 | ED ---
Abdominal Pain HPI - General Chief Complaint: Abdominal Pain Stated Complaint: Lower Abd Pain Time Seen by Provider: 11/16/23 16:10 Source: patient, RN notes reviewed Mode of arrival: ambulatory Limitations: no limitations - History of Present Illness Initial Comments: 32-year-old female comes emergency Department chief complaint of abdominal pain in early . Patient states that she had to mental cycle in October so she did not think she is but she started having urinary frequency and mild abdominal pain she had a positive at home test 2. Patient states she is A2 states that she has been diagnosed with low progesterone. She takes professional suppository daily. 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 Patient denies any upper abdominal pain states she has mild mid to right-sided abdominal discomfort no fevers chills no nausea vomiting diarrhea constipation. - Related Data Home Medications Medication Instructions Recorded Confirmed Folic Acid 2 mg PO BID 08/31/14 03/28/23 lamoTRIgine [LaMICtal] 200 mg PO BID 05/10/15 03/28/23 Montelukast [Singulair] 10 mg PO HS 02/10/19 03/28/23 Propranolol HCl [Inderal Xl] 120 mg PO DAILY 02/25/21 03/28/23 ARIPiprazole [Abilify] 10 mg PO HS 11/29/22 03/28/23 Butalb/APAP/Caff 50-325-40Mg 1 tab PO Q4H PRN 11/29/22 03/28/23 [Fioricet 50-325-40] levETIRAcetam 750 mg PO BID 11/29/22 03/28/23 Escitalopram [Lexapro] 20 mg PO HS 03/28/23 03/28/23 Norethindrone Acetate 10 mg PO HS 03/28/23 03/28/23 [Norethindrone AC (Lupaneta)] Semaglutide [Ozempic] 0.25 mg SQ ESPOSITO 03/28/23 03/28/23 Allergies Allergy/AdvReac Type Severity Reaction Status Date / Time haloperidol [From Haldol] Allergy Unknown Verified 04/25/23 19:02 metronidazole [From Flagyl] Allergy Unknown Verified 04/25/23 19:02 lurasidone [From Latuda] AdvReac high blood Verified 04/25/23 19:02 sugar Review of Systems ROS Statement: Those systems with pertinent positive or pertinent negative responses have been documented in the HPI. ROS Other: All systems not noted in ROS Statement are negative. Past Medical History Past Medical History: Asthma, Diabetes Mellitus, Hypertension, Seizure Disorder, Sleep Apnea/CPAP/BIPAP Additional Past Medical History / Comment(s): seizure, ovarin cyst right side History of Any Multi-Drug Resistant Organisms: None Reported Past Surgical History: Cholecystectomy Past Anesthesia/Blood Transfusion Reactions: No Reported Reaction Past Psychological History: Anxiety, Bipolar, Depression Smoking Status: Former smoker Past Alcohol Use History: Occasional Past Drug Use History: None Reported - Past Family History Mother Family Medical History: Asthma, Diabetes Mellitus Additional Family Medical History / Comment(s): Mom is alive at age 56 with history of diabetes Father Family Medical History: Hypertension Additional Family Medical History / Comment(s): Father is alive at age 56 with history of hypertension. Patient does not have any brothers. She does not have a sisters. She does not have any children. General Exam Limitations: no limitations General appearance: alert, in no apparent distress Head exam: Present: atraumatic, normocephalic, normal inspection Eye exam: Present: normal appearance, PERRL, EOMI. Absent: scleral icterus, conjunctival injection, periorbital swelling Respiratory exam: Present: normal lung sounds bilaterally. Absent: respiratory distress, wheezes, rales, rhonchi, stridor Cardiovascular Exam: Present: regular rate, normal rhythm, normal heart sounds. Absent: systolic murmur, diastolic murmur, rubs, gallop, clicks GI/Abdominal exam: Present: soft, normal bowel sounds. Absent: distended, tenderness, guarding, rebound, rigid Back exam: Absent: CVA tenderness (R), CVA tenderness (L) Course Vital Signs 11/16/23 11/16/23 16:10 16:14 Temperature 98.5 F Pulse Rate 69 68 Respiratory 20 17 Rate Blood Pressure 115/77 122/68 O2 Sat by Pulse 97 97 Oximetry Medical Decision Making - Medical Decision Making Was pt. sent in by a medical professional or institution (, PA, MANAGER SHAREPOINT, urgent care, hospital, or group home...) When possible be specific @ -No Did you speak to anyone other than the patient for history (EMS, parent, family, police, friend...)? What history was obtained from this source @ -No Did you review nursing and triage notes (agree or disagree)? Why? @ -I reviewed and agree with nursing and triage notes Were old charts reviewed (outside hosp., previous admission, EMS record, old EKG, old radiological studies, urgent care reports/EKG's, group home records)? Report findings @ -No old charts were reviewed Differential Diagnosis (chest pain, altered mental status, abdominal pain women, abdominal pain men, vaginal bleeding, weakness, fever, dyspnea, syncope, headache, dizziness, GI bleed, back pain, seizure, CVA, palpatations, mental health, musculoskeletal)? @ -Differential Vaginal Bleeding: Spontaneous , threatened , molar , ectopic , bloody show, incompetent cervix, abruptioplacenta, placenta previa, uterine rupture, dysfunctional uterine bleeding, hemorrhage, uterine fibroids, this is not meant to be an all-inclusive list.ble EKG interpreted by me (3pts min.). @ -None X-rays interpreted by me (1pt min.). @ -None done CT interpreted by me (1pt min.). @ -None done U/S interpreted by me (1pt. min.). @ -Ultrasound shows mild cystic ovarian region, mild fluid no IUP What testing was considered but not performed or refused? (CT, X-rays, U/S, labs)? Why? @ -None What meds were considered but not given or refused? Why? @ -None Did you discuss the management of the patient with other professionals (professionals i.e. , PA, MANAGER SHAREPOINT, lab, RT, psych nurse, high school social studies teacher, mortuary technician, teacher, conservation science officer, director case)? Give summary @ -No Was smoking cessation discussed for >3mins.? @ -No Was critical care preformed (if so, how long)? @ -No Were there social determinants of health that impacted care today? How? (Homelessness, low income, unemployed, alcoholism, drug addiction, tr ansportation, low edu. Level, literacy, decrease access to med. care, assisted, rehab)? @ -No Was there de-escalation of care discussed even if they declined (Discuss DNR or withdrawal of care, Hospice)? DNR status @ -No What co-morbidities impacted this encounter? (DM, HTN, Smoking, COPD, CAD, Cancer, CVA, ARF, Chemo, Hep., AIDS, mental health diagnosis, sleep apnea, morbid obesity)? @ -None Was patient admitted / discharged? Hospital course, mention meds given and route, prescriptions, significant lab abnormalities, going to OR and other pertinent info. @ -Discharge patient may be having a miscarriage versus early . We discussed that she's have repeat laboratory studies in 48 hours. She has no localized abdominal pain currently to suggest ectopic though we did discuss the possibilities of this. Patient will have repeat labs and will follow-up with her TRANSPORTATION MUSEUM HELPER return parameters were discussed. Undiagnosed new problem with uncertain prognosis? @ -No Drug Therapy requiring intensive monitoring for toxicity (Heparin, Nitro, Insulin, Cardizem)? @ -No Were any procedures done? @ -No Diagnosis/symptom? @ -Threatened miscarriage Acute, or Chronic, or Acute on Chronic? @ -Acute Uncomplicated (without systemic symptoms) or Complicated (systemic symptoms)? @ -Uncomplicated Side effects of treatment? @ -No Exacerbation, Progression, or Severe Exacerbation? @ -No Poses a threat to life or bodily function? How? (Chest pain, [place], [place], pneumonia, PE, COPD, DKA, ARF, appy, cholecystitis, CVA, Diverticulitis, Homicidal, Suicida l, threat to staff... and all critical care pts) @ -No - Lab Data Result diagrams: 11/16/23 16:46 11/16/23 16:46 Lab Results 11/16/23 11/16/23 Range/Units 16:46 16:46 WBC 6.8 (3.8-10.6) k/uL RBC 4.92 (3.80-5.40) m/uL Hgb 14.5 (11.4-16.0) gm/dL Hct 43.1 (34.0-46.0) % MCV 87.8 (80.0-100.0) fL MCH 29.5 (25.0-35.0) pg MCHC 33.7 (31.0-37.0) g/dL RDW 13.0 (11.5-15.5) % Plt Count 285 (150-450) k/uL MPV 7.0 Neutrophils % 73 % Lymphocytes % 19 % Monocytes % 5 % Eosinophils % 1 % Basophils % 0 % Neutrophils # 5.0 (1.3-7.7) k/uL Lymphocytes # 1.3 (1.0-4.8) k/uL Monocytes # 0.3 (0-1.0) k/uL Eosinophils # 0.1 (0-0.7) k/uL Basophils # 0.0 (0-0.2) k/uL Sodium 139 (137-145) mmol/L Potassium 4.1 (3.5-5.1) mmol/L Chloride 105 (98-107) mmol/L Carbon Dioxide 18 L (22-30) mmol/L Anion Gap 16 mmol/L BUN 16 (7-17) mg/dL Creatinine 0.63 (0.52-1.04) mg/dL Est GFR (CKD-EPI)AfAm >90 (>60 ml/min/1.73 sqM) Est GFR (CKD-EPI)NonAf >90 (>60 ml/min/1.73 sqM) Glucose 177 H (74-99) mg/dL Calcium 9.4 (8.4-10.2) mg/dL Total Bilirubin 0.5 (0.2-1.3) mg/dL AST 27 (14-36) U/L ALT 29 (4-34) U/L Alkaline Phosphatase 122 (38-126) U/L Total Protein 7.5 (6.3-8.2) g/dL Albumin 4.3 (3.5-5.0) g/dL Lipase 201 (23-300) U/L HCG, Quant 46.0 mIU/mL Disposition Clinical Impression: Threatened miscarriage Disposition: HOME SELF-CARE Condition: Stable Instructions (If sedation given, give patient instructions): Threatened Miscarriage (ED) Additional Instructions: Please return to the Emergency Department if symptoms worsen or any other concerns. Is patient prescribed a controlled substance at d/c from ED?: No Referrals: Sil Betancourt MD [Primary Care Provider] - 1-2 days Time of Disposition: 17:59
[2023-11-16 17:01] LABS: Basophils % (A) 0 %; Eosinophils # (A) 0.1 k/uL (0-0.7); Eosinophils % (A) 1 %; HCT 43.1 % (34.0-46.0); HGB 14.5 gm/dL (11.4-16.0); Lymphocytes # (A) 1.3 k/uL (1.0-4.8); Lymphocytes % (A) 19 %; MCH 29.5 pg (25.0-35.0); MCHC 33.7 g/dL (31.0-37.0); MCV 87.8 fL (80.0-100.0); Monocytes # (A) 0.3 k/uL (0-1.0); Monocytes % (A) 5 %; Neutrophils % (A) 73 %; Platelet Count 285 k/uL (150-450); RBC 4.92 m/uL (3.80-5.40); WBC 6.8 k/uL (3.8-10.6)
[2023-11-16 17:12] VITALS: RESP 17
[2023-11-16 17:26] LABS: ALT 29 U/L (4-34); AST 27 U/L (14-36); African American GFR (CKD) >90 (>60 ml/min/1.73 sqM); Albumin 4.3 g/dL (3.5-5.0); Alkaline Phosphatase 122 U/L (38-126); Anion Gap 16 mmol/L; Blood Urea Nitrogen 16 mg/dL (7-17); Calcium 9.4 mg/dL (8.4-10.2); Carbon Dioxide 18 mmol/L (22-30); Chloride 105 mmol/L (98-107); Glucose 177 mg/dL (74-99); Lipase 201 U/L (23-300); Non-African American GFR(CKD) >90 (>60 ml/min/1.73 sqM); Sodium 139 mmol/L (137-145); Total Bilirubin 0.5 mg/dL (0.2-1.3); Total Protein 7.5 g/dL (6.3-8.2)
[2023-11-16 17:43] LABS: Potassium 4.1 mmol/L (3.5-5.1)
--- NOTE | 2023-11-16 17:50 | US ---
EXAMINATION TYPE: Transabdominal DATE OF EXAM: 11/16/2023 5:36 PM COMPARISON: NONE CLINICAL INDICATION: Female, 32 years old with history of pain, right side; A2, right sided pain, no bleeding, early , patient has been on progesterone EXAM PERFORMED: OBTA/OBTV EXAM MEASUREMENTS: GESTATIONAL AGE / DATING Physician Established: Not yet established Dates by LMP: (3 weeks/2 days) EDC: 07/30/2024 Dates by First Scan: No previous this is first scan Dates by Current Scan for: No IUP seen at this time MATERNAL ANATOMY Uterus: 8.6 x 5.7 x 4.2cm Right Ovary: 3.2 x 3.6 x 2.9cm - seen better transabdominally Left Ovary: 2.9 x 2.0 x 2.3cm, small follicle verus involuting cyst = 1.0 x 0.9 x 0.9cm Post CDS / Adnexa: mild left sided free fluid Presence of free fluid: yes, cul-da-sac and left adnexa, minimal Presence of corpus luteal cyst: possible on the right measuring 2.4 x 1.9 x 1.8cm Presence of subchorionic bleed: no GESTATION / SURVEY IUP: No IUP seen at this time Date of LMP: 10/24/2023 Beta HcG (if available): pending The endometrial stripe is 1.5 cm. IMPRESSION: 1. No significant abnormality seen of the uterus or adnexa 2. Small amount of free fluid within the cul-de-sac. 3. No intrauterine . 4. cannot exclude early ectopic . Correlate with beta hCG
[2023-11-16 18:41] VITALS: BP 112/56; PULSE 73
== END 2023-11-16 18:28 | disposition home or self-care (01) ==
LOC: EC 15:56
DX: O20.0 Threatened abortion (principal); O99.511 Diseases of the respiratory system complicating pregnancy, first trimester; O24.911 Unspecified diabetes mellitus in pregnancy, first trimester; J45.909 Unspecified asthma, uncomplicated; E11.9 Type 2 diabetes mellitus without complications; O16.1 Unspecified maternal hypertension, first trimester; O99.341 Other mental disorders complicating pregnancy, first trimester; F41.9 Anxiety disorder, unspecified; F31.9 Bipolar disorder, unspecified; Z87.891 Personal history of nicotine dependence; Z3A.01 Less than 8 weeks gestation of pregnancy; Z79.899 Other long term (current) drug therapy; Z88.8 Allergy status to other drugs, medicaments and biological substances
CPT/HCPCS: 36415; 76801; 76817; 80053; 83690; 84702; 85025; 86900; 86901; 99284

== ENCOUNTER 2023-11-22 21:01 | Emergency (ER) | payer BC ==
[2023-11-22] MEDS ORDERED: ACETAMINOPHEN TAB 325 MG TAB PO STA (21:30)
[2023-11-22 21:50] VITALS: RESP 18; TEMP 98.1
--- NOTE | 2023-11-22 22:00 | ED ---
Abdominal Pain HPI - General Chief Complaint: Abdominal Pain Stated Complaint: Lower abd pain, Time Seen by Provider: 11/22/23 21:16 Source: patient Mode of arrival: ambulatory Limitations: no limitations - History of Present Illness MD Complaint: abdominal pain -: days(s) Location: RLQ Radiation: none Migration to: no migration Severity: moderate Quality: fullness Consistency: constant Improves With: nothing Worsens With: nothing Associated Symptoms: denies other symptoms - Related Data LMP (females 10-50): 1 month Patient : Yes Number of weeks : 1 Home Medications Medication Instructions Recorded Confirmed Folic Acid 2 mg PO BID 08/31/14 03/28/23 lamoTRIgine [LaMICtal] 200 mg PO BID 05/10/15 03/28/23 Montelukast [Singulair] 10 mg PO HS 02/10/19 03/28/23 Propranolol HCl [Inderal Xl] 120 mg PO DAILY 02/25/21 03/28/23 ARIPiprazole [Abilify] 10 mg PO HS 11/29/22 03/28/23 Butalb/APAP/Caff 50-325-40Mg 1 tab PO Q4H PRN 11/29/22 03/28/23 [Fioricet 50-325-40] levETIRAcetam 750 mg PO BID 11/29/22 03/28/23 Escitalopram [Lexapro] 20 mg PO HS 03/28/23 03/28/23 Norethindrone Acetate 10 mg PO HS 03/28/23 03/28/23 [Norethindrone AC (Lupaneta)] Semaglutide [Ozempic] 0.25 mg SQ ESPOSITO 03/28/23 03/28/23 Previous Rx's Medication Instructions Recorded Ondansetron Odt [Zofran Odt] 4 mg PO Q8HR PRN #10 tab 12/03/23 Allergies Allergy/AdvReac Type Severity Reaction Status Date / Time haloperidol [From Haldol] Allergy Unknown Verified 12/03/23 02:04 metronidazole [From Flagyl] Allergy Unknown Verified 12/03/23 02:04 lurasidone [From Latuda] AdvReac high blood Verified 12/03/23 02:04 sugar Review of Systems ROS Statement: Those systems with pertinent positive or pertinent negative responses have been documented in the HPI. ROS Other: All systems not noted in ROS Statement are negative. Constitutional: Denies: fever, chills, weakness Respiratory: Denies: cough, dyspnea Cardiovascular: Denies: chest pain, palpitations, edema Gastrointestinal: Reports: abdominal pain. Denies: nausea, vomiting, diarrhea, constipation, melena, hematochezia Genitourinary: Denies: dysuria, hematuria Musculoskeletal: Denies: back pain Skin: Denies: rash Neurological: Denies: headache, weakness, numbness Past Medical History Past Medical History: Asthma, Diabetes Mellitus, Hypertension, Seizure Disorder, Sleep Apnea/CPAP/BIPAP Additional Past Medical History / Comment(s): seizure, ovarin cyst right side History of Any Multi-Drug Resistant Organisms: None Reported Past Surgical History: Cholecystectomy Past Anesthesia/Blood Transfusion Reactions: No Reported Reaction Past Psychological History: Anxiety, Bipolar, Depression Smoking Status: Former smoker Past Alcohol Use History: Occasional Past Drug Use History: None Reported - Past Family History Mother Family Medical History: Asthma, Diabetes Mellitus Additional Family Medical History / Comment(s): Mom is alive at age 56 with history of diabetes Father Family Medical History: Hypertension Additional Family Medical History / Comment(s): Father is alive at age 56 with history of hypertension. Patient does not have any brothers. She does not have a sisters. She does not have any children. General Exam Limitations: no limitations General appearance: alert, in no apparent distress Head exam: Present: atraumatic, normocephalic Neck exam: Present: normal inspection Respiratory exam: Present: normal lung sounds bilaterally. Absent: respiratory distress, wheezes, rales, rhonchi, stridor, accessory muscle use Cardiovascular Exam: Present: regular rate, normal rhythm, normal heart sounds. Absent: systolic murmur, diastolic murmur, rubs, gallop GI/Abdominal exam: Present: soft. Absent: distended, tenderness, guarding, rebound, rigid, mass Extremities exam: Present: normal inspection, normal capillary refill. Absent: pedal edema, calf tenderness Back exam: Present: normal inspection. Absent: CVA tenderness (R), CVA tendern ess (L) Neurological exam: Present: alert Skin exam: Present: warm, dry, intact, normal color. Absent: rash Course Vital Signs 11/22/23 11/23/23 21:10 03:04 Temperature 98.1 F 98.1 F Pulse Rate 61 67 Respiratory 18 18 Rate Blood Pressure 127/83 99/50 O2 Sat by Pulse 97 100 Oximetry Medical Decision Making - Medical Decision Making Was pt. sent in by a medical professional or institution (EVERETT Reed, SENIOR CLINICAL RESEARCH SCIENTIST, urgent care, hospital, or jail...) When possible be specific @ -[No] Did you speak to anyone other than the patient for history (EMS, parent, family, police, friend...)? What history was obtained from this source @ -[No] Did you review nursing and triage notes (agree or disagree)? Why? @ -[I reviewed and agree with nursing and triage notes] Were old charts reviewed (outside hosp., previous admission, EMS record, old EKG, old radiological studies, urgent care reports/EKG's, jail records)? Report findings @ -[No old charts were reviewed] Differential Diagnosis (chest pain, altered mental status, abdominal pain women, abdominal pain men, vaginal bleeding, weakness, fever, dyspnea, syncope, headache, dizziness, GI bleed, back pain, seizure, CVA, palpatations, mental health, musculoskeletal)? @ -[Differential Abdominal Pain Women: Appendicitis, Cholecystitis, diverticulosis, ischemic bowel, pancreatitis, hepatitis, UTI, gastroenteritis, AAA, incarcerated hernia, bowel obstruction, constipation, inflammatory bowel, hepatitis, peptic ulcer disease, splenic infarction, perforated viscus, vulvitis, ovarian torsion, PID, kidney stone, placenta abruption, threatened miscarriage this is not meant to be an all- inclusive list EKG interpreted by me (3pts min.). @ -[As above] X-rays interpreted by me (1pt min.). @ -[None done] CT interpreted by me (1pt min.). @ -[None done] U/S interpreted by me (1pt. min.). @ -[None done] What testing was considered but not performed or refused? (CT, X-rays, U/S, labs)? Why? @ -[None] What meds were considered but not given or refused? Why? @ -[None] Did you discuss the management of the patient with other professionals (professionals i.e. EVERETT Reed, SENIOR CLINICAL RESEARCH SCIENTIST, lab, RT, psych nurse, director of social services, pulmonary physical therapist, teacher, amphibious operations officer, catalytic case operator)? Give summary @ -[No] Was smoking cessation discussed for >3mins.? @ -[No] Was critical care preformed (if so, how long)? @ -[No] Were there social determinants of health that impacted care today? How? (Homelessness, low income, unemployed, alcoholism, drug addiction, transportation, low edu. Level, literacy, decrease access to med. care, longterm, rehab)? @ -[No] Was there de-escalation of care discussed even if they declined (Discuss DNR or withdrawal of care, Hospice)? DNR status @ -[No] What co-morbidities impacted this encounter? (DM, HTN, Smoking, COPD, CAD, Cancer, CVA, ARF, Chemo, Hep., AIDS, mental health diagnosis, sleep apnea, morbid obesity)? @ -[None] Was patient admitted / discharged? Hospital course, mention meds given and route, prescriptions, significant lab abnormalities, going to OR and other pertinent info. @ -[Patient is 32-year-old woman with abdominal pain in early . We discussed the importance of having repeat beta hCG and ultrasound. She understands to follow-up with SKIN CARE THERAPIST or return here in 2 days for these tests, sooner if symptoms require. We discussed pelvic rest fluids, appropriate further care and return parameters Undiagnosed new problem with uncertain prognosis? @ -[No] Drug Therapy requiring intensive monitoring for toxicity (Heparin, Nitro, Insulin, Cardizem)? @ -[No] Were any procedures done? @ -[No] Diagnosis/symptom? @ -[Acute abdominal pain in early Acute, or Chronic, or Acute on Chronic? @ -[Acute Uncomplicated (without systemic symptoms) or Complicated (systemic symptoms)? @ -[Uncomplicated Side effects of treatment? @ -[No] Exacerbation, Progression, or Severe Exacerbation? @ -[No] Poses a threat to life or bodily function? How? (Chest pain, [place], [place], pneumonia, PE, COPD, DKA, ARF, appy, cholecystitis, CVA, Diverticulitis, Homicidal, Suicidal, threat to staff... and all critical care pts) @ -[No] - Lab Data Result diagrams: 11/22/23 21:40 11/22/23 21:40 Lab Results 11/22/23 11/22/23 11/22/23 Range/Units 21:40 21:40 21:40 WBC 8.1 (3.8-10.6) k/uL RBC 4.67 (3.80-5.40) m/uL Hgb 13.6 (11.4-16.0) gm/dL Hct 40.8 (34.0-46.0) % MCV 87.3 (80.0-100.0) fL MCH 29.1 (25.0-35.0) pg MCHC 33.4 (31.0-37.0) g/dL RDW 13.1 (11.5-15.5) % Plt Count 366 (150-450) k/uL MPV 6.9 Neutrophils % 64 % Lymphocytes % 27 % Monocytes % 5 % Eosinophils % 2 % Basophils % 0 % Neutrophils # 5.2 (1.3-7.7) k/uL Lymphocytes # 2.2 (1.0-4.8) k/uL Monocytes # 0.4 (0-1.0) k/uL Eosinophils # 0.1 (0-0.7) k/uL Basophils # 0.0 (0-0.2) k/uL Sodium 137 (137-145) mmol/L Potassium 3.9 (3.5-5.1) mmol/L Chloride 105 (98-107) mmol/L Carbon Dioxide 19 L (22-30) mmol/L Anion Gap 13 mmol/L BUN 17 (7-17) mg/dL Creatinine 0.70 (0.52-1.04) mg/dL Est GFR (CKD-EPI)AfAm >90 (>60 ml/min/1.73 sqM) Est GFR (CKD-EPI)NonAf >90 (>60 ml/min/1.73 sqM) Glucose 136 H (74-99) mg/dL Calcium 9.3 (8.4-10.2) mg/dL Total Bilirubin 0.3 (0.2-1.3) mg/dL AST 22 (14-36) U/L ALT 28 (4-34) U/L Alkaline Phosphatase 130 H (38-126) U/L Total Protein 7.2 (6.3-8.2) g/dL Albumin 4.2 (3.5-5.0) g/dL HCG, Quant 546.4 mIU/mL Urine Color Yellow Urine Appearance Cloudy H (Clear) Urine pH 5.5 (5.0-8.0) Ur Specific [place] 1.028 (1.001-1.035) Urine Protein Trace H (Negative) Urine Glucose (UA) Negative (Negative) Urine Ketones Negative (Negative) Urine Blood Negative (Negative) Urine Nitrite Negative (Negative) Urine Bilirubin Negative (Negative) Urine Urobilinogen <2.0 (<2.0) mg/dL Ur Leukocyte Esterase Large H (Negative) Urine RBC 1 (0-5) /hpf Urine WBC 22 H (0-5) /hpf Urine WBC Clumps Rare H (None) /hpf Ur Squamous Epith Cells 17 H (0-4) /hpf Calcium Oxalate Crystal Many H (None) /hpf Urine Bacteria Rare H (None) /hpf Urine Mucus Rare H (None) /hpf Disposition Clinical Impression: Abdominal pain affecting Disposition: HOME SELF-CARE Condition: Good Instructions (If sedation given, give patient instructions): Abdominal Pain in (ED) Additional Instructions: As we discussed, follow-up to have your beta hCG level rechecked in 2 days and possibly repeat ultrasound. Is patient prescribed a controlled substance at d/c from ED?: No Referrals: Sil Betancourt MD [Primary Care Provider] - 1-2 days
[2023-11-22 22:20] LABS: Basophils % (A) 0 %; Eosinophils # (A) 0.1 k/uL (0-0.7); Eosinophils % (A) 2 %; HCT 40.8 % (34.0-46.0); HGB 13.6 gm/dL (11.4-16.0); Lymphocytes # (A) 2.2 k/uL (1.0-4.8); Lymphocytes % (A) 27 %; MCH 29.1 pg (25.0-35.0); MCHC 33.4 g/dL (31.0-37.0); MCV 87.3 fL (80.0-100.0); Mean Platelet Volume 6.9; Monocytes # (A) 0.4 k/uL (0-1.0); Monocytes % (A) 5 %; Neutrophils # (A) 5.2 k/uL (1.3-7.7); Neutrophils % (A) 64 %; Platelet Count 366 k/uL (150-450); RBC 4.67 m/uL (3.80-5.40); RDW 13.1 % (11.5-15.5); WBC 8.1 k/uL (3.8-10.6)
[2023-11-22 22:29] LABS: ALT 28 U/L (4-34); AST 22 U/L (14-36); African American GFR (CKD) >90 (>60 ml/min/1.73 sqM); Albumin 4.2 g/dL (3.5-5.0); Alkaline Phosphatase 130 U/L (38-126); Anion Gap 13 mmol/L; Blood Urea Nitrogen 17 mg/dL (7-17); Calcium 9.3 mg/dL (8.4-10.2); Carbon Dioxide 19 mmol/L (22-30); Chloride 105 mmol/L (98-107); Glucose 136 mg/dL (74-99); Non-African American GFR(CKD) >90 (>60 ml/min/1.73 sqM); Potassium 3.9 mmol/L (3.5-5.1); Sodium 137 mmol/L (137-145); Total Bilirubin 0.3 mg/dL (0.2-1.3); Total Protein 7.2 g/dL (6.3-8.2)
[2023-11-22 22:46] LABS: HCG,Quantitative Serum 546.4 mIU/mL
[2023-11-22 23:50] LABS: Appearance,Urine Cloudy (Clear); Bacteria,Urine Rare /hpf; Bilirubin,Urine Negative (Negative); Blood,Urine Negative (Negative); Calcium Oxalate Crystals,Urine Many /hpf; Color,Urine Yellow; Glucose,Urine (UA) Negative (Negative); Ketones,Urine Negative (Negative); Leukocyte Esterase,Urine Large (Negative); Mucus,Urine Rare /hpf; Nitrite,Urine Negative (Negative); PH, Urine 5.5 (5.0-8.0); Protein,Urine Trace (Negative); RBC,Urine 1 /hpf (0-5); Specific Gravity,Urine 1.028 (1.001-1.035); Squamous Epithelial Cell,Urine 17 /hpf (0-4); Urobilinogen,Urine <2.0 mg/dL (<2.0); WBC,Urine 22 /hpf (0-5)
[2023-11-23 03:24] VITALS: BP 99/50; PULSE 67
--- NOTE | 2023-11-23 04:45 | US ---
EXAM: US , Transabdominal and Transvaginal CLINICAL HISTORY: possible ectopic, RLQ pain TECHNIQUE: Real-time transabdominal and transvaginal obstetrical ultrasound of the maternal pelvis and a first trimester with image documentation. Transvaginal imaging was used for better evaluation of the fetus and adnexa. COMPARISON: Sonogram 06/16/2023. FINDINGS: Gestation: There is a tiny fluid collection within the endometrium which likely represents a very early gestational sac. The diameter is 2. 5 mm which is too early for dating. No pole or yolk sac is identified at this time. Uterus/cervix: Unremarkable. No myometrial mass. Ovaries: 2.4 cm cyst in the right ovary. No adnexal mass. Free fluid: No free fluid. IMPRESSION: Probable very early intrauterine gestational sac. No adnexal mass or free fluid.
== END 2023-11-23 03:06 | disposition home or self-care (01) ==
LOC: EC 21:01
DX: O26.891 Other specified pregnancy related conditions, first trimester (principal); R10.31 Right lower quadrant pain; O24.111 Pre-existing type 2 diabetes mellitus, in pregnancy, first trimester; O10.011 Pre-existing essential hypertension complicating pregnancy, first trimester; O99.511 Diseases of the respiratory system complicating pregnancy, first trimester; J45.909 Unspecified asthma, uncomplicated; O99.351 Diseases of the nervous system complicating pregnancy, first trimester; G40.909 Epilepsy, unspecified, not intractable, without status epilepticus; O99.341 Other mental disorders complicating pregnancy, first trimester; F31.9 Bipolar disorder, unspecified; F41.9 Anxiety disorder, unspecified; Z3A.01 Less than 8 weeks gestation of pregnancy; Z79.85 Long-term (current) use of injectable non-insulin antidiabetic drugs; Z79.899 Other long term (current) drug therapy; Z88.1 Allergy status to other antibiotic agents; Z88.8 Allergy status to other drugs, medicaments and biological substances; Z87.891 Personal history of nicotine dependence; Z90.49 Acquired absence of other specified parts of digestive tract
CPT/HCPCS: 36415; 76801; 76817; 80053; 81001; 84702; 85025; 99284

== ENCOUNTER 2023-12-03 01:59 | Emergency (ER) | payer BC ==
[2023-12-03 02:11] VITALS: BP 120/69; PULSE 69; RESP 20; TEMP 98.2
[2023-12-03 02:35] LABS: Basophils # (A) 0.1 k/uL (0-0.2); Basophils % (A) 1 %; Eosinophils # (A) 0.2 k/uL (0-0.7); Eosinophils % (A) 2 %; HCT 40.4 % (34.0-46.0); HGB 13.6 gm/dL (11.4-16.0); Lymphocytes # (A) 2.2 k/uL (1.0-4.8); Lymphocytes % (A) 21 %; MCH 29.9 pg (25.0-35.0); MCHC 33.7 g/dL (31.0-37.0); MCV 88.6 fL (80.0-100.0); Monocytes # (A) 0.3 k/uL (0-1.0); Monocytes % (A) 3 %; Neutrophils # (A) 7.5 k/uL (1.3-7.7); Neutrophils % (A) 72 %; Platelet Count 277 k/uL (150-450); RBC 4.56 m/uL (3.80-5.40); RDW 13.5 % (11.5-15.5); WBC 10.4 k/uL (3.8-10.6)
[2023-12-03 02:43] LABS: ALT 45 U/L (4-34); AST 28 U/L (14-36); African American GFR (CKD) >90 (>60 ml/min/1.73 sqM); Albumin 4.1 g/dL (3.5-5.0); Alkaline Phosphatase 152 U/L (38-126); Amylase 66 U/L (30-110); Anion Gap 13 mmol/L; Blood Urea Nitrogen 18 mg/dL (7-17); Calcium 9.6 mg/dL (8.4-10.2); Carbon Dioxide 19 mmol/L (22-30); Chloride 103 mmol/L (98-107); Glucose 138 mg/dL (74-99); Lipase 141 U/L (23-300); Non-African American GFR(CKD) >90 (>60 ml/min/1.73 sqM); Potassium 3.9 mmol/L (3.5-5.1); Sodium 135 mmol/L (137-145); Total Bilirubin 0.4 mg/dL (0.2-1.3); Total Protein 7.2 g/dL (6.3-8.2)
--- NOTE | 2023-12-03 02:44 | ED ---
Abdominal Pain HPI - General Chief Complaint: Abdominal Pain Stated Complaint: ABD Pain Source: patient, family Mode of arrival: ambulatory Limitations: no limitations - History of Present Illness Initial Comments: 32-year-old female presenting to the ED with a chief complaint of abdominal pain. Patient notes that she is currently 5-6 weeks . States today at 6 PM while making dinner started experience pain of her upper abdomen which feels like it radiates to her back. Patient does not history of gallstone pancreatitis and states pain she is experiencing today is similar to that pain however does note that she did have a cholecystectomy. Assocated nausea no vomit ing. Denies chest pain or shortness of breath. No vaginal bleeding. - Related Data Home Medications Medication Instructions Recorded Confirmed Folic Acid 2 mg PO BID 08/31/14 03/28/23 lamoTRIgine [LaMICtal] 200 mg PO BID 05/10/15 03/28/23 Montelukast [Singulair] 10 mg PO HS 02/10/19 03/28/23 Propranolol HCl [Inderal Xl] 120 mg PO DAILY 02/25/21 03/28/23 ARIPiprazole [Abilify] 10 mg PO HS 11/29/22 03/28/23 Butalb/APAP/Caff 50-325-40Mg 1 tab PO Q4H PRN 11/29/22 03/28/23 [Fioricet 50-325-40] levETIRAcetam 750 mg PO BID 11/29/22 03/28/23 Escitalopram [Lexapro] 20 mg PO HS 03/28/23 03/28/23 Norethindrone Acetate 10 mg PO HS 03/28/23 03/28/23 [Norethindrone AC (Lupaneta)] Semaglutide [Ozempic] 0.25 mg SQ ESPOSITO 03/28/23 03/28/23 Previous Rx's Medication Instructions Recorded Ondansetron Odt [Zofran Odt] 4 mg PO Q8HR PRN #10 tab 12/03/23 Allergies Allergy/AdvReac Type Severity Reaction Status Date / Time haloperidol [From Haldol] Allergy Unknown Verified 12/03/23 02:04 metronidazole [From Flagyl] Allergy Unknown Verified 12/03/23 02:04 lurasidone [From Latuda] AdvReac high blood Verified 12/03/23 02:04 sugar Review of Systems ROS Statement: Those systems with pertinent positive or pertinent negative responses have been documented in the HPI. ROS Other: All systems not noted in ROS Statement are negative. Past Medical History Past Medical History: Asthma, Diabetes Mellitus, Hypertension, Seizure Disorder, Sleep Apnea/CPAP/BIPAP Additional Past Medical History / Comment(s): seizure, ovarin cyst right side History of Any Multi-Drug Resistant Organisms: None Reported Past Surgical History: Cholecystectomy Past Anesthesia/Blood Transfusion Reactions: No Reported Reaction Past Psychological History: Anxiety, Bipolar, Depression Smoking Status: Former smoker Past Alcohol Use History: Occasional Past Drug Use History: None Reported - Past Family History Mother Family Medical History: Asthma, Diabetes Mellitus Additional Family Medical History / Comment(s): Mom is alive at age 56 with history of diabetes Father Family Medical History: Hypertension Additional Family Medical History / Comment(s): Father is alive at age 56 with history of hypertension. Patient does not have any brothers. She does not have a sisters. She does not have any children. General Exam Limitations: no limitations General appearance: alert, in no apparent distress Cardiovascular Exam: Present: regular rate GI/Abdominal exam: Present: soft (upper abdominal tenderness to palpation. No rebound guarding or rigidity.) Neurological exam: Present: alert, oriented X3 Skin exam: Present: warm, dry Course Vital Signs 12/03/23 02:02 Temperature 98.2 F Pulse Rate 69 Respiratory 20 Rate Blood Pressure 120/69 O2 Sat by Pulse 96 Oximetry Medical Decision Making - Medical Decision Making Was pt. sent in by a medical professional or institution (, PA, OIL WELL DRILLER, urgent care, hospital, or intermediate...) When possible be specific @ -no Did you speak to anyone other than the patient for history (EMS, parent, family, police, friend...)? What history was obtained from this source @ -No Did you review nursing and triage notes (agree or disagree)? Why? @ -I reviewed and agree with nursing and triage notes Were old charts reviewed (outside hosp., previous admission, EMS record, old EKG, old radiological studies, urgent care reports/EKG's, intermediate records)? Report findings @ -No old charts were reviewed Differential Diagnosis (chest pain, altered mental status, abdominal pain women, abdominal pain men, vaginal bleeding, weakness, fever, dyspnea, syncope, headache, dizziness, GI bleed, back pain, seizure, CVA, palpatations, mental health, musculoskeletal)? @ -Differential Abdominal Pain Women: Appendicitis, Cholecystitis, diverticulosis, ischemic bowel, pancreatitis, hepatitis, UTI, gastroenteritis, AAA, incarcerated hernia, bowel obstruction, constipation, inflammatory bowel, hepatitis, peptic ulcer disease, splenic infarction, perforated viscus, vulvitis, ovarian torsion, PID, kidney stone, placenta abruption, this is not meant to be an all-inclusive list EKG interpreted by me (3pts min.). @ -None X-rays interpreted by me (1pt min.). @ -None done CT interpreted by me (1pt min.). @ -None done U/S interpreted by me (1pt. min.). @ -None done What testing was considered but not performed or refused? (CT, X-rays, U/S, labs)? Why? @ -None What meds were considered but not given or refused? Why? @ -None Did you discuss the management of the patient with other professionals (professionals i.e. , PA, OIL WE[employer] D[employer]ER, lab, RT, psych nurse, social economist, bank cashier, teacher, air crew officer, keycase assembler)? Give summary @ -No Was smoking cessation discussed for >3mins.? @ -No Was critical care preformed (if so, how long)? @ -No Were there social determinants of health that impacted care today? How? (Homelessness, low income, unemployed, alcoholism, drug addiction, transportation, low edu. Level, literacy, decrease access to med. care, halfway, rehab)? @ -No Was there de-escalation of care discussed even if they declined (Discuss DNR or withdrawal of care, Hospice)? DNR status @ -No What co-morbidities impacted this encounter? (DM, HTN, Smoking, COPD, CAD, Cancer, CVA, ARF, Chemo, Hep., AIDS, mental health diagnosis, sleep apnea, morbid obesity)? @ -None Was patient admitted / discharged? Hospital course, mention meds given and route, prescriptions, significant lab abnormalities, going to OR and other pertinent info. @ -Discharge 32 year old female with a past medical history significant for cholecystectomy. Laboratory studies reviewed. CBC unremarkable. Chemistry panel largely unremarkable. Urine is significant for 160 red blood cells however and no white blood cells. vital signs stable and afebrile. Patient reports feeling much better after Zofran and would like to go home. Patient discharged home in stable condition. Discussed return precautions patient verbalizes agreement. Undiagnosed new problem with uncertain prognosis? @ -No Drug Therapy requiring intensive monitoring for toxicity (Heparin, Nitro, Insulin, Cardizem)? @ -No Were any procedures done? @ -No Diagnosis/symptom? @ -Abdominal pain Acute, or Chronic, or Acute on Chronic? @ -Acute Uncomplicated (without systemic symptoms) or Complicated (systemic symptoms)? @ -Uncomplicated Side effects of treatment? @ -No Exacerbation, Progression, or Severe Exacerbation? @ -No Poses a threat to life or bodily function? How? (Chest pain, USA, MD, pneumonia, PE, COPD, DKA, ARF, appy, cholecystitis, CVA, Diverticulitis, Homicidal, Suicidal, threat to staff... and all critical care pts) @ -No - Lab Data Result diagrams: 12/03/23 02:22 12/03/23 02:22 Lab Results 12/03/23 12/03/23 12/03/23 Range/Units 02:22 02:22 02:24 WBC 10.4 (3.8-10.6) k/uL RBC 4.56 (3.80-5.40) m/uL Hgb 13.6 (11.4-16.0) gm/dL Hct 40.4 (34.0-46.0) % MCV 88.6 (80.0-100.0) fL MCH 29.9 (25.0-35.0) pg MCHC 33.7 (31.0-37.0) g/dL RDW 13.5 (11.5-15.5) % Plt Count 277 (150-450) k/uL MPV 7.0 Neutrophils % 72 % Lymphocytes % 21 % Monocytes % 3 % Eosinophils % 2 % Basophils % 1 % Neutrophils # 7.5 (1.3-7.7) k/uL Lymphocytes # 2.2 (1.0-4.8) k/uL Monocytes # 0.3 (0-1.0) k/uL Eosinophils # 0.2 (0-0.7) k/uL Basophils # 0.1 (0-0.2) k/uL Sodium 135 L (137-145) mmol/L Potassium 3.9 (3.5-5.1) mmol/L Chloride 103 (98-107) mmol/L Carbon Dioxide 19 L (22-30) mmol/L Anion Gap 13 mmol/L BUN 18 H (7-17) mg/dL Creatinine 0.65 (0.52-1.04) mg/dL Est GFR (CKD-EPI)AfAm >90 (>60 ml/min/1.73 sqM) Est GFR (CKD-EPI)NonAf >90 (>60 ml/min/1.73 sqM) Glucose 138 H (74-99) mg/dL Calcium 9.6 (8.4-10.2) mg/dL Total Bilirubin 0.4 (0.2-1.3) mg/dL AST 28 (14-36) U/L ALT 45 H (4-34) U/L Alkaline Phosphatase 152 H (38-126) U/L Total Protein 7.2 (6.3-8.2) g/dL Albumin 4.1 (3.5-5.0) g/dL Amylase 66 (30-110) U/L Lipase 141 (23-300) U/L Urine Color Light Yellow Urine Appearance Cloudy H (Clear) Urine pH 5.5 (5.0-8.0) Ur Specific [place] 1.021 (1.001-1.035) Urine Protein Negative (Negative) Urine Glucose (UA) Negative (Negative) Urine Ketones Negative (Negative) Urine Blood Negative (Negative) Urine Nitrite Negative (Negative) Urine Bilirubin Negative (Negative) Urine Urobilinogen <2.0 (<2.0) mg/dL Ur Leukocyte Esterase Trace H (Negative) Urine RBC 162 H (0-5) /hpf Urine WBC <1 (0-5) /hpf Ur Squamous Epith Cells 14 H (0-4) /hpf Urine Mucus Rare H (None) /hpf Urine HCG, Qual (Not Detectd) 12/03/23 Range/Units 02:24 WBC (3.8-10.6) k/uL RBC (3.80-5.40) m/uL Hgb (11.4-16.0) gm/dL Hct (34.0-46.0) % MCV (80.0-100.0) fL MCH (25.0-35.0) pg MCHC (31.0-37.0) g/dL RDW (11.5-15.5) % Plt Count (150-450) k/uL MPV Neutrophils % % Lymphocytes % % Monocytes % % Eosinophils % % Basophils % % Neutrophils # (1.3-7.7) k/uL Lymphocytes # (1.0-4.8) k/uL Monocytes # (0-1.0) k/uL Eosinophils # (0-0.7) k/uL Basophils # (0-0.2) k/uL Sodium (137-145) mmol/L Potassium (3.5-5.1) mmol/L Chloride (98-107) mmol/L Carbon Dioxide (22-30) mmol/L Anion Gap mmol/L BUN (7-17) mg/dL Creatinine (0.52-1.04) mg/dL Est GFR (CKD-EPI)AfAm (>60 ml/min/1.73 sqM) Est GFR (CKD-EPI)NonAf (>60 ml/min/1.73 sqM) Glucose (74-99) mg/dL Calcium (8.4-10.2) mg/dL Total Bilirubin (0.2-1.3) mg/dL AST (14-36) U/L ALT (4-34) U/L Alkaline Phosphatase (38-126) U/L Total Protein (6.3-8.2) g/dL Albumin (3.5-5.0) g/dL Amylase (30-110) U/L Lipase (23-300) U/L Urine Color Urine Appearance (Clear) Urine pH (5.0-8.0) Ur Specific [place] (1.001-1.035) Urine Protein (Negative) Urine Glucose (UA) (Negative) Urine Ketones (Negative) Urine Blood (Negative) Urine Nitrite (Negative) Urine Bilirubin (Negative) Urine Urobilinogen (<2.0) mg/dL Ur Leukocyte Esterase (Negative) Urine RBC (0-5) /hpf Urine WBC (0-5) /hpf Ur Squamous Epith Cells (0-4) /hpf Urine Mucus (None) /hpf Urine HCG, Qual Detected (Not Detectd) Disposition Clinical Impression: Abdominal pain Disposition: HOME SELF-CARE Condition: Good Additional Instructions: Please return to the Emergency Department if symptoms worsen or any other conc erns. Please follow up with your PCP/OBGYN. Prescriptions: Ondansetron Odt [Zofran Odt] 4 mg PO Q8HR PRN #10 tab PRN Reason: Nausea Is patient prescribed a controlled substance at d/c from ED?: No Referrals: Sil Betancourt MD [Primary Care Provider] - 1-2 days Time of Disposition: 04:11
[2023-12-03] MEDS ORDERED: ONDANSETRON 4 MG/2 ML VIAL IVP STA (02:45)
[2023-12-03 03:22] LABS: Appearance,Urine Cloudy (Clear); Bilirubin,Urine Negative (Negative); Blood,Urine Negative (Negative); Color,Urine Light Yellow; Glucose,Urine (UA) Negative (Negative); Ketones,Urine Negative (Negative); Leukocyte Esterase,Urine Trace (Negative); Mucus,Urine Rare /hpf; Nitrite,Urine Negative (Negative); PH, Urine 5.5 (5.0-8.0); Protein,Urine Negative (Negative); RBC,Urine 162 /hpf (0-5); Specific Gravity,Urine 1.021 (1.001-1.035); Squamous Epithelial Cell,Urine 14 /hpf (0-4); Urobilinogen,Urine <2.0 mg/dL (<2.0); WBC,Urine <1 /hpf (0-5)
[2023-12-03] MEDS ORDERED: ONDANSETRON 4 MG ODT STARTER PACK 2 TAB BTL PO STA (04:11)
== END 2023-12-03 04:44 | disposition home or self-care (01) ==
LOC: EC 01:59
DX: O99.611 Diseases of the digestive system complicating pregnancy, first trimester (principal); R10.10 Upper abdominal pain, unspecified; O99.511 Diseases of the respiratory system complicating pregnancy, first trimester; J45.909 Unspecified asthma, uncomplicated; O24.911 Unspecified diabetes mellitus in pregnancy, first trimester; O16.1 Unspecified maternal hypertension, first trimester; O99.341 Other mental disorders complicating pregnancy, first trimester; F41.9 Anxiety disorder, unspecified; F31.9 Bipolar disorder, unspecified; O99.351 Diseases of the nervous system complicating pregnancy, first trimester; G47.30 Sleep apnea, unspecified; Z87.891 Personal history of nicotine dependence; Z88.8 Allergy status to other drugs, medicaments and biological substances; Z79.84 Long term (current) use of oral hypoglycemic drugs; Z79.899 Other long term (current) drug therapy
CPT/HCPCS: 36415; 80053; 82150; 83690; 85025; 81001; 81025; 99284; 96374; J2405; S0119

== ENCOUNTER 2024-01-02 19:29 | Emergency (ER) | payer BC ==
--- NOTE | 2024-01-02 19:45 | ED ---
Chest Pain HPI - General Chief Complaint: Chest Pain Stated Complaint: chest pain SOB 10 weeks Time Seen by Provider: 01/02/24 19:44 Source: patient Mode of arrival: ambulatory Limitations: no limitations - History of Present Illness Initial Comments: 33-year-old female currently 10 weeks with twins presenting with chief complaint of chest discomfort. The chest discomfort has been intermittent over the last 2 days and worse with activity. She states that she is mildly short winded as well. No pelvic pain or vaginal bleeding. No unilateral leg swelling. No URI-like symptoms - Related Data Home Medications Medication Instructions Recorded Confirmed Folic Acid 2 mg PO BID 08/31/14 03/28/23 lamoTRIgine [LaMICtal] 200 mg PO BID 05/10/15 03/28/23 Montelukast [Singulair] 10 mg PO HS 02/10/19 03/28/23 Propranolol HCl [Inderal Xl] 120 mg PO DAILY 02/25/21 03/28/23 ARIPiprazole [Abilify] 10 mg PO HS 11/29/22 03/28/23 Butalb/APAP/Caff 50-325-40Mg 1 tab PO Q4H PRN 11/29/22 03/28/23 [Fioricet 50-325-40] levETIRAcetam 750 mg PO BID 11/29/22 03/28/23 Escitalopram [Lexapro] 20 mg PO HS 03/28/23 03/28/23 Norethindrone Acetate 10 mg PO HS 03/28/23 03/28/23 [Norethindrone AC (Lupaneta)] Semaglutide [Ozempic] 0.25 mg SQ ESPOSITO 03/28/23 03/28/23 Previous Rx's Medication Instructions Recorded Ondansetron Odt [Zofran Odt] 4 mg PO Q8HR PRN #10 tab 12/03/23 Allergies Allergy/AdvReac Type Severity Reaction Status Date / Time haloperidol [From Haldol] Allergy Unknown Verified 01/02/24 19:39 metronidazole [From Flagyl] Allergy Unknown Verified 01/02/24 19:39 lurasidone [From Latuda] AdvReac high blood Verified 01/02/24 19:39 sugar Review of Systems ROS Statement: Those systems with pertinent positive or pertinent negative responses have been documented in the HPI. ROS Other: All systems not noted in ROS Statement are negative. Past Medical History Past Medical History: Asthma, Diabetes Mellitus, Hypertension, Seizure Disorder, Sleep Apnea/CPAP/BIPAP Additional Past Medical History / Comment(s): seizure, ovarin cyst right side History of Any Multi-Drug Resistant Organisms: None Reported Past Surgical History: Cholecystectomy Past Anesthesia/Blood Transfusion Reactions: No Reported Reaction Past Psychological History: Anxiety, Bipolar, Depression Smoking Status: Former smoker Past Alcohol Use History: Occasional Past Drug Use History: None Reported - Past Family History Mother Family Medical History: Asthma, Diabetes Mellitus Additional Family Medical History / Comment(s): Mom is alive at age 56 with history of diabetes Father Family Medical History: Hypertension Additional Family Medical History / Comment(s): Father is alive at age 56 with history of hypertension. Patient does not have any brothers. She does not have a sisters. She does not have any children. General Exam - General Exam Comments Initial Comments: Visual Physical Exam Vital signs reviewed General: Well-appearing, nontoxic, no acute distress. Head: Normocephalic, atraumatic Eyes: PERRLA, EOMI ENT: Airway patent Chest: Nonlabored breathing Skin: No visual rash, normal skin tone Neuro: Alert and oriented 3 Musculoskeletal: No gross abnormalities Limitations: no limitations Course Vital Signs 01/02/24 19:36 Temperature 98.4 F Pulse Rate 68 Respiratory 18 Rate Blood Pressure 142/79 O2 Sat by Pulse 98 Oximetry Chest Pain MDM - MDM Patient was initially evaluated in the triage ch per quick note protocol. Workup was initiated. Patient then left AGAINST MEDICAL ADVICE from the waiting room prior to complete evaluation Disposition Clinical Impression: Chest pain Disposition: LEFT AGAINST MEDICAL ADVICE Condition: Undetermined Referrals: Sil Betancourt MD [Primary Care Provider] - 1-2 days
[2024-01-02 20:02] VITALS: BP 142/79; PULSE 68; RESP 18; TEMP 98.4
[2024-01-02 20:14] LABS: Basophils % (A) 0 %; Eosinophils # (A) 0.1 k/uL (0-0.7); Eosinophils % (A) 1 %; HCT 39.4 % (34.0-46.0); HGB 13.3 gm/dL (11.4-16.0); Lymphocytes # (A) 1.4 k/uL (1.0-4.8); Lymphocytes % (A) 15 %; MCH 29.8 pg (25.0-35.0); MCHC 33.7 g/dL (31.0-37.0); MCV 88.2 fL (80.0-100.0); Mean Platelet Volume 7.2; Monocytes # (A) 0.3 k/uL (0-1.0); Monocytes % (A) 3 %; Neutrophils # (A) 7.7 k/uL (1.3-7.7); Neutrophils % (A) 79 %; Platelet Count 266 k/uL (150-450); RBC 4.46 m/uL (3.80-5.40); RDW 13.1 % (11.5-15.5); WBC 9.7 k/uL (3.8-10.6)
[2024-01-02 20:19] LABS: Appearance,Urine Clear (Clear); Bilirubin,Urine Negative (Negative); Blood,Urine Negative (Negative); Color,Urine Colorless; Glucose,Urine (UA) 1+ (Negative); Ketones,Urine Negative (Negative); Leukocyte Esterase,Urine Negative (Negative); Nitrite,Urine Negative (Negative); Protein,Urine Negative (Negative); Specific Gravity,Urine 1.011 (1.001-1.035); Urobilinogen,Urine <2.0 mg/dL (<2.0)
[2024-01-02 20:24] LABS: ALT 31 U/L (4-34); AST 21 U/L (14-36); African American GFR (CKD) >90 (>60 ml/min/1.73 sqM); Alkaline Phosphatase 140 U/L (38-126); Anion Gap 9 mmol/L; Blood Urea Nitrogen 15 mg/dL (7-17); Calcium 9.5 mg/dL (8.4-10.2); Carbon Dioxide 20 mmol/L (22-30); Chloride 106 mmol/L (98-107); Glucose 196 mg/dL (74-99); Magnesium 1.6 mg/dL (1.6-2.3); Non-African American GFR(CKD) >90 (>60 ml/min/1.73 sqM); Potassium 3.9 mmol/L (3.5-5.1); Sodium 135 mmol/L (137-145); Total Bilirubin 0.3 mg/dL (0.2-1.3)
[2024-01-02 20:27] LABS: INR 0.8 (<1.2); Partial Thromboplastin Time 23.1 sec (22.0-30.0); Prothrombin Time 9.4 sec (10.0-12.5)
--- NOTE | 2024-01-02 21:22 | XR ---
EXAMINATION TYPE: XR chest 2V DATE OF EXAM: 01/02/2024 8:31 PM CLINICAL INDICATION:Female, 33 years old with history of Chest Pain; [facility] COMPARISON: 04/25/2023 TECHNIQUE: XR chest 2V. Frontal and lateral views of the chest.. FINDINGS: Lines/Tubes/Devices: No indwelling lines are seen. Heart/mediastinum: Heart size is normal. Mediastinum appears normal. Pulmonary vascularity: Not increased, Lungs/Pleura: There is no evidence of pleural effusion, focal consolidation, or pneumothorax. Musculoskeletal: No acute osseous abnormality demonstrated in the limits of the exam. Other findings: None. IMPRESSION: No acute cardiopulmonary abnormality.
== END 2024-01-02 22:32 | disposition left against medical advice (07) ==
LOC: EC 19:29
DX: O99.411 Diseases of the circulatory system complicating pregnancy, first trimester (principal); R07.89 Other chest pain; O99.511 Diseases of the respiratory system complicating pregnancy, first trimester; J45.909 Unspecified asthma, uncomplicated; O10.911 Unspecified pre-existing hypertension complicating pregnancy, first trimester; O24.911 Unspecified diabetes mellitus in pregnancy, first trimester; E11.9 Type 2 diabetes mellitus without complications; G47.30 Sleep apnea, unspecified; O99.341 Other mental disorders complicating pregnancy, first trimester; F41.9 Anxiety disorder, unspecified; F31.9 Bipolar disorder, unspecified; Z87.891 Personal history of nicotine dependence; Z79.84 Long term (current) use of oral hypoglycemic drugs; Z79.899 Other long term (current) drug therapy; Z88.8 Allergy status to other drugs, medicaments and biological substances; Z53.29 Procedure and treatment not carried out because of patient's decision for other reasons; Z20.822 Contact with and (suspected) exposure to COVID-19
CPT/HCPCS: 36415; 71046; 80053; 81003; 83735; 84484; 85025; 85610; 85730; 87636; 93005; 99284

== ENCOUNTER 2024-02-11 15:37 | Emergency (ER) | payer BC ==
[2024-02-11 16:25] LABS: Glucose,Whole Blood 54 mg/dL (70-110)
--- NOTE | 2024-02-11 16:33 | ED ---
SOB HPI - General Chief Complaint: Shortness of Breath Stated Complaint: chest pain/SOB 16wks preg Time Seen by Provider: 02/11/24 16:15 Source: patient, RN notes reviewed, old records reviewed Mode of arrival: ambulatory Limitations: no limitations - History of Present Illness Initial Comments: This is a 33-year-old female to the ER for evaluation. Patient is long medical history including diabetes blood pressure current twin gestation 16 weeks. This is patient's first , she has been having elevated blood pressure. Patient has been having shortness of breath especially when she just laying there, feels like when she is laying there her shortness of breath increases and feels like she is doing significant activity when she is just laying down. Patient has no prior experience again with . Patient's blood sugars have been out of control both low and high as well as changing appetite MD Complaint: shortness of breath, cough -: hour(s) Severity: moderate Severity scale (1-10): 4 Quality: dull Consistency: constant Improves With: nothing, rest Worsens With: nothing Context: recent URI Associated Symptoms: denies other symptoms Treatments Prior to Arrival: none - Related Data Home Medications Medication Instructions Recorded Confirmed Folic Acid 2 mg PO BID 08/31/14 03/28/23 lamoTRIgine [LaMICtal] 200 mg PO BID 05/10/15 03/28/23 Montelukast [Singulair] 10 mg PO HS 02/10/19 03/28/23 Propranolol HCl [Inderal Xl] 120 mg PO DAILY 02/25/21 03/28/23 ARIPiprazole [Abilify] 10 mg PO HS 11/29/22 03/28/23 Butalb/APAP/Caff 50-325-40Mg 1 tab PO Q4H PRN 11/29/22 03/28/23 [Fioricet 50-325-40] levETIRAcetam 750 mg PO BID 11/29/22 03/28/23 Escitalopram [Lexapro] 20 mg PO HS 03/28/23 03/28/23 Norethindrone Acetate 10 mg PO HS 03/28/23 03/28/23 [Norethindrone AC (L[place]an[place])] Semaglutide [Ozempic] 0.25 mg SQ ESPOSITO 03/28/23 03/28/23 Previous Rx's Medication Instructions Recorded Ondansetron Odt [Zofran Odt] 4 mg PO Q8HR PRN #10 tab 12/03/23 Allergies Allergy/AdvReac Type Severity Reaction Status Date / Time haloperidol [From Haldol] Allergy Unknown Verified 01/02/24 19:39 metronidazole [From Flagyl] Allergy Unknown Verified 01/02/24 19:39 lurasidone [From Latuda] AdvReac high blood Verified 01/02/24 19:39 sugar Review of Systems ROS Statement: Those systems with pertinent positive or pertinent negative responses have been documented in the HPI. ROS Other: All systems not noted in ROS Statement are negative. Past Medical History Past Medical History: Asthma, Diabetes Mellitus, Hypertension, Seizure Disorder, Sleep Apnea/CPAP/BIPAP Additional Past Medical History / Comment(s): seizure, ovarin cyst right side History of Any Multi-Drug Resistant Organisms: None Reported Past Surgical History: Cholecystectomy Past Anesthesia/Blood Transfusion Reactions: No Reported Reaction Past Psychological History: Anxiety, Bipolar, Depression Smoking Status: Former smoker Past Alcohol Use History: Occasional Past Drug Use History: None Reported - Past Family History Mother Family Medical History: Asthma, Diabetes Mellitus Additional Family Medical History / Comment(s): Mom is alive at age 56 with history of diabetes Father Family Medical History: Hypertension Additional Family Medical History / Comment(s): Father is alive at age 56 with history of hypertension. Patient does not have any brothers. She does not have a sisters. She does not have any children. General Exam Limitations: no limitations General appearance: alert, in no apparent distress Head exam: Present: atraumatic, normocephalic, normal inspection Eye exam: Present: normal appearance, PERRL, EOMI. Absent: scleral icterus, conjunctival injection, periorbital swelling ENT exam: Present: normal exam, mucous membranes moist Neck exam: Present: normal inspection. Absent: tenderness, meningismus, lymphadenopathy Respiratory exam: Present: normal lung sounds bilaterally. Absent: respiratory distress, wheezes, rales, rhonchi, stridor Cardiovascular Exam: Present: regular rate, normal rhythm, normal heart sounds. Absent: systolic murmur, diastolic murmur, rubs, gallop, clicks GI/Abdominal exam: Present: soft, normal bowel sounds. Absent: distended, tenderness, guarding, rebound, rigid Extremities exam: Present: normal inspection, full ROM, normal capillary refill. Absent: tenderness, pedal edema, joint swelling, calf tenderness Back exam: Present: normal inspection Neurological exam: Present: alert, oriented X3, CN II-XII intact Psychiatric exam: Present: normal affect, normal mood Skin exam: Present: warm, dry, intact, normal color. Absent: rash Course Vital Signs 02/11/24 02/11/24 02/11/24 16:01 17:08 17:18 Temperature 98.4 F Pulse Rate 85 73 75 Respiratory 16 Rate Blood Pressure 175/105 O2 Sat by Pulse 98 Oximetry 02/11/24 19:38 Temperature 98.1 F Pulse Rate 71 Respiratory 18 Rate Blood Pressure 155/89 O2 Sat by Pulse 98 Oximetry - Reevaluation(s) Reevaluation #1: 02/11/24 17:22 Medical records reviewed Reevaluation #2: 02/11/24 17:22 Patient symptoms unchanged Reevaluation #3: 02/11/24 17:22 Patient informed of results and questions answered Reevaluation #4: Was pt. sent in by a medical professional or institution (, PA, STILL PHOTOGRAPHER, urgent care, hospital, or correction...) When possible be specific @ -no Did you speak to anyone other than the patient for history (EMS, parent, family, police, friend...)? What history was obtained from this source @ -no Did you review nursing and triage notes (agree or disagree)? Why? @ -agree Are old charts reviewed (outside hosp., previous admission, EMS record, old EKG, old radiological studies, urgent care reports/EKG's, correction records)? Report findings @ -yes Differential Diagnosis (chest pain, altered mental status, abdominal pain women, abdominal pain men, vaginal bleeding, weakness, fever, dyspnea, syncope, headache, dizziness, GI bleed, back pain, seizure, CVA, palpatations, mental health, musculoskeletal)? @ -prior EKG interpreted by me (3pts min.). @ -yes X-rays interpreted by me (1pt min.). @ -yes negative for acute disease CT interpreted by me (1pt min.). @ -no U/S interpreted by me (1pt. min.). @ -Yes negative for acute disease What testing was considered but not performed or refused? (CT, X-rays, U/S, labs)? Why? @ -none What meds were considered but not given or refused? Why? @ -none Did you discuss the management of the patient with other professionals (professionals i.e. , PA, STILL PHOTOGRAPHER, lab, RT, psych nurse, social worker masters, correctional food service supervisor, teacher, home school liaison officer, counseling case manager)? Give summary @ -no Was smoking cessation discussed for >3mins.? @ -no Was critical care preformed (if so, how long)? @ -no Were there social determinants of health that impacted care today? How? (Homelessness, low income, unemployed, alcoholism, drug addiction, transportation, low edu. Level, literacy, decrease access to med. care, long term, rehab)? @ -none Was there de-escalation of care discussed even if they declined (Discuss DNR or withdrawal of care, Hospice)? DNR status @ -no What co-morbidities impacted this encounter? (DM, HTN, Smoking, COPD, CAD, Cancer, CVA, ARF, Chemo, Hep., AIDS, mental health diagnosis, sleep apnea, morbid obesity)? @ -none Was patient admitted / discharged? Hospital course, mention meds given and route, prescriptions, significant lab abnormalities, going to OR and other pertinent info. @ - 33 female with no acute cause found for shortness of breath during . Patient is morbidly obese, first , no chest pain no fevers does have underlying asthma mild. Patient is in no acute distress and can be discharged home Discharge Undiagnosed new problem with uncertain prognosis? @ -no Drug Therapy requiring intensive monitoring for toxicity (Heparin, Nitro, Insulin, Cardizem)? @ -no Were any procedures done? @ -no Diagnosis/symptom? @ -Shortness of breath in Acute, or Chronic, or Acute on Chronic? @ -Acute Uncomplicated (without systemic symptoms) or Complicated (systemic symptoms)? @ -Complicated Side effects of treatment? @ -no Exacerbation, Progression, or Severe Exacerbation? @ -exacerbation Poses a threat to life or bodily function? How? (Chest pain, [place], [place], pneumonia, PE, COPD, DKA, ARF, appy, cholecystitis, CVA, Diverticulitis, Homicidal, Suicidal, threat to staff... and all critical care pts) @ -yes with significant shortness of breath during Reevaluation #5: 02/11/24 17:22 Differential Dyspnea: Coronary syndrome, arrhythmia, tamponade, asthma, COPD, pulmonary embolism, pneumonia, pneumothorax, pulmonary effusion, anaphylaxis, diabetic ketoacidosis, flailed chest, pulmonary contusion, diaphragmatic rupture, anemia, neuromuscular, this is not meant to be an all-inclusive list. Medical Decision Making - Medical Decision Making 33 female with no acute cause found for shortness of breath during . Patient is morbidly obese, first , no chest pain no fevers does have underlying asthma mild. Patient is in no acute distress and can be discharged home - Lab Data Result diagrams: 02/11/24 16:20 02/11/24 16:20 Lab Results 02/11/24 02/11/24 02/11/24 Range/Units 16:20 16:20 16:20 WBC 11.1 H (3.8-10.6) k/uL RBC 4.59 (3.80-5.40) m/uL Hgb 13.9 (11.4-16.0) gm/dL Hct 40.1 (34.0-46.0) % MCV 87.5 (80.0-100.0) fL MCH 30.2 (25.0-35.0) pg MCHC 34.6 (31.0-37.0) g/dL RDW 13.8 (11.5-15.5) % Plt Count 326 (150-450) k/uL MPV 7.3 Neutrophils % 81 % Lymphocytes % 13 % Monocytes % 4 % Eosinophils % 1 % Basophils % 0 % Neutrophils # 8.9 H (1.3-7.7) k/uL Lymphocytes # 1.5 (1.0-4.8) k/uL Monocytes # 0.4 (0-1.0) k/uL Eosinophils # 0.1 (0-0.7) k/uL Basophils # 0.0 (0-0.2) k/uL Sodium 136 L (137-145) mmol/L Potassium 4.0 (3.5-5.1) mmol/L Chloride 106 (98-107) mmol/L Carbon Dioxide 20 L (22-30) mmol/L Anion Gap 10 mmol/L BUN 11 (7-17) mg/dL Creatinine 0.52 (0.52-1.04) mg/dL Est GFR (CKD-EPI)AfAm >90 (>60 ml/min/1.73 sqM) Est GFR (CKD-EPI)NonAf >90 (>60 ml/min/1.73 sqM) Glucose 46 L* (74-99) mg/dL POC Glucose (mg/dL) (70-110) mg/dL POC Glu Supervisor Frame Sample And Pattern ID Uric Acid 4.7 (3.7-7.4) mg/dL Calcium 9.9 (8.4-10.2) mg/dL Phosphorus 4.0 (2.5-4.5) mg/dL Magnesium 1.6 (1.6-2.3) mg/dL Total Bilirubin 0.2 (0.2-1.3) mg/dL AST 19 (14-36) U/L ALT 19 (4-34) U/L Alkaline Phosphatase 98 (38-126) U/L Lactate Dehydrogenase 164 (120-246) U/L Total Protein 7.1 (6.3-8.2) g/dL Albumin 4.0 (3.5-5.0) g/dL Total Bile Acids 2 (0-10) umol/L Urine Color Urine Appearance (Clear) Urine pH (5.0-8.0) Ur Specific [place] (1.001-1.035) Urine Protein (Negative) Urine Glucose (UA) (Negative) Urine Ketones (Negative) Urine Blood (Negative) Urine Nitrite (Negative) Urine Bilirubin (Negative) Urine Urobilinogen (<2.0) mg/dL Ur Leukocyte Esterase (Negative) 02/11/24 02/11/24 02/11/24 Range/Units 16:22 17:34 17:53 WBC (3.8-10.6) k/uL RBC (3.80-5.40) m/uL Hgb (11.4-16.0) gm/dL Hct (34.0-46.0) % MCV (80.0-100.0) fL MCH (25.0-35.0) pg MCHC (31.0-37.0) g/dL RDW (11.5-15.5) % Plt Count (150-450) k/uL MPV Neutrophils % % Lymphocytes % % Monocytes % % Eosinophils % % Basophils % % Neutrophils # (1.3-7.7) k/uL Lymphocytes # (1.0-4.8) k/uL Monocytes # (0-1.0) k/uL Eosinophils # (0-0.7) k/uL Basophils # (0-0.2) k/uL Sodium (137-145) mmol/L Potassium (3.5-5.1) mmol/L Chloride (98-107) mmol/L Carbon Dioxide (22-30) mmol/L Anion Gap mmol/L BUN (7-17) mg/dL Creatinine (0.52-1.04) mg/dL Est GFR (CKD-EPI)AfAm (>60 ml/min/1.73 sqM) Est GFR (CKD-EPI)NonAf (>60 ml/min/1.73 sqM) Glucose (74-99) mg/dL POC Glucose (mg/dL) 54 L 83 (70-110) mg/dL POC Glu Supervisor Frame Sample And Pattern ID Nikki Marroquin Vandana Ng Uric Acid (3.7-7.4) mg/dL Calcium (8.4-10.2) mg/dL Phosphorus (2.5-4.5) mg/dL Magnesium (1.6-2.3) mg/dL Total Bilirubin (0.2-1.3) mg/dL AST (14-36) U/L ALT (4-34) U/L Alkaline Phosphatase (38-126) U/L Lactate Dehydrogenase (120-246) U/L Total Protein (6.3-8.2) g/dL Albumin (3.5-5.0) g/dL Total Bile Acids (0-10) umol/L Urine Color Light Yellow Urine Appearance Clear (Clear) Urine pH 7.0 (5.0-8.0) Ur Specific [place] 1.021 (1.001-1.035) Urine Protein Negative (Negative) Urine Glucose (UA) Negative (Negative) Urine Ketones Negative (Negative) Urine Blood Negative (Negative) Urine Nitrite Negative (Negative) Urine Bilirubin Negative (Negative) Urine Urobilinogen <2.0 (<2.0) mg/dL Ur Leukocyte Esterase Negative (Negative) - EKG Data -: EKG Interpreted by Me (EKG is sinus rhythm 86 NC 156 QRS 92 QTc 390) - Radiology Data Radiology results: report reviewed (Chest x-ray is negative for acute disease ultrasound bilateral lower extremities negative for DVT), image reviewed Disposition Clinical Impression: Dyspnea, Shortness of breath during Disposition: HOME SELF-CARE Condition: Good Instructions (If sedation given, give patient instructions): Dyspnea (ED) Is patient prescribed a controlled substance at d/c from ED?: No Referrals: Sil Betancourt MD [Primary Care Provider] - 1-2 days Time of Disposition: 18:30
[2024-02-11] MEDS: SODIUM CHLORIDE 0.9% 500 ML 500 ML IV STA (16:50)
[2024-02-11] MEDS: ALBUTEROL NEBULIZED 2.5 MG/3 ML INHALATION STA (17:08)
[2024-02-11 17:12] LABS: Basophils % (A) 0 %; Eosinophils # (A) 0.1 k/uL (0-0.7); Eosinophils % (A) 1 %; HCT 40.1 % (34.0-46.0); HGB 13.9 gm/dL (11.4-16.0); Lymphocytes # (A) 1.5 k/uL (1.0-4.8); Lymphocytes % (A) 13 %; MCH 30.2 pg (25.0-35.0); MCHC 34.6 g/dL (31.0-37.0); MCV 87.5 fL (80.0-100.0); Mean Platelet Volume 7.3; Monocytes # (A) 0.4 k/uL (0-1.0); Monocytes % (A) 4 %; Neutrophils # (A) 8.9 k/uL (1.3-7.7); Neutrophils % (A) 81 %; Platelet Count 326 k/uL (150-450); RBC 4.59 m/uL (3.80-5.40); RDW 13.8 % (11.5-15.5); WBC 11.1 k/uL (3.8-10.6)
[2024-02-11 17:29] LABS: ALT 19 U/L (4-34); AST 19 U/L (14-36); African American GFR (CKD) >90 (>60 ml/min/1.73 sqM); Alkaline Phosphatase 98 U/L (38-126); Anion Gap 10 mmol/L; Blood Urea Nitrogen 11 mg/dL (7-17); Calcium 9.9 mg/dL (8.4-10.2); Carbon Dioxide 20 mmol/L (22-30); Chloride 106 mmol/L (98-107); LDH 164 U/L (120-246); Magnesium 1.6 mg/dL (1.6-2.3); Non-African American GFR(CKD) >90 (>60 ml/min/1.73 sqM); Sodium 136 mmol/L (137-145); Total Bilirubin 0.2 mg/dL (0.2-1.3); Total Protein 7.1 g/dL (6.3-8.2); Uric Acid 4.7 mg/dL (3.7-7.4)
[2024-02-11 17:31] LABS: Glucose 46 mg/dL (74-99)
[2024-02-11 17:36] LABS: Glucose,Whole Blood 83 mg/dL (70-110)
--- NOTE | 2024-02-11 17:53 | XR ---
EXAMINATION TYPE: XR chest 1V DATE OF EXAM: 02/11/2024 5:27 PM CLINICAL INDICATION:Female, 33 years old with history of sob; [facility] COMPARISON: Chest radiographs from TECHNIQUE: XR chest 1V Frontal view of the chest. FINDINGS: Lungs/Pleura: Low lung volumes are present. There is no evidence of pleural effusion, focal consolida tion, or pneumothorax. Pulmonary vascularity: Unremarkable. Heart/mediastinum: Cardiomediastinal silhouette is unremarkable. Musculoskeletal: No acute osseous pathology. Other findings: None IMPRESSION: Low lung volumes with a generalized hazy appearance which could represent atelectasis.
[2024-02-11 17:58] LABS: Appearance,Urine Clear (Clear); Bilirubin,Urine Negative (Negative); Blood,Urine Negative (Negative); Color,Urine Light Yellow; Glucose,Urine (UA) Negative (Negative); Ketones,Urine Negative (Negative); Leukocyte Esterase,Urine Negative (Negative); Nitrite,Urine Negative (Negative); Protein,Urine Negative (Negative); Specific Gravity,Urine 1.021 (1.001-1.035); Urobilinogen,Urine <2.0 mg/dL (<2.0)
--- NOTE | 2024-02-11 18:36 | US ---
EXAMINATION TYPE: US venous doppler duplex LE BI DATE OF EXAM: 02/11/2024 4:40 PM COMPARISON: NONE CLINICAL INDICATION: Female, 33 years old with history of dvt; Chest pain and SOB today. No leg issue s. No hx of DVT SIDE PERFORMED: Bilateral TECHNIQUE: The lower extremity deep venous system is examined utilizing real time linear array sonog clau with graded compression, doppler sonography and color-flow sonography. VESSELS IMAGED: Common Femoral Vein Deep Femoral Vein Greater Saphenous Vein * Femoral Vein Popliteal Vein Small Saphenous Vein * Proximal Calf Veins (* superficial vessels) Right Leg: No evidence for DVT Left Leg: No evidence for DVT IMPRESSION: Grayscale, color doppler, spectral doppler imaging performed of the deep veins of the lo wer extremities. There is normal flow, compressibility, vascular waveforms.
[2024-02-11 19:58] VITALS: BP 155/89; PULSE 71; RESP 18; TEMP 98.1
== END 2024-02-11 19:39 | disposition home or self-care (01) ==
LOC: EC 15:37
DX: O99.512 Diseases of the respiratory system complicating pregnancy, second trimester (principal); R06.00 Dyspnea, unspecified; Z87.891 Personal history of nicotine dependence; Z3A.16 16 weeks gestation of pregnancy; Z88.8 Allergy status to other drugs, medicaments and biological substances
CPT/HCPCS: 36415; 71045; 80053; 81003; 82239; 83615; 83735; 84100; 84550; 85025; 93005; 93970; 94640; 99285

== ENCOUNTER 2024-11-08 22:54 | Observation (INO) | payer BC, OTHER ==
--- NOTE | 2024-11-08 23:22 | ED ---
General Adult HPI - General Chief complaint: Upper Respiratory Infection Stated complaint: SOB, chest pain Time Seen by Provider: 11/08/24 22:56 Source: patient Mode of arrival: ambulatory Limitations: no limitations - History of Present Illness Initial comments: Dictation was produced using [employer]ot[employer] dictation software. please excuse any grammatical, word or spelling errors. Chief Complaint: 33-year-old female substernal chest pressure and shortness of breath History of Present Illness: Patient is a 33-year-old female she states she is here for substernal chest pressure. States that it is nonradiating not associated with diaphoresis. Does state that she feels nauseated. States that she has been having these random night sweats. Denies any nasal congestion cough runny nose or sore throat. No obvious sick contacts. Patient states that she has extensive family history of coronary artery disease states that her father had been diagnosed with a heart attack in his early 40s. Patient states that her legs seem to be more swollen more than usual. Denies any calf tenderness or of DVTs. The ROS documented in this emergency department record has been reviewed and confirmed by me. Those systems with pertinent positive or negative responses have been documented in the HPI. All other systems are other negative and/or noncontributory. - Related Data Home Medications Medication Instructions Recorded Confirmed Folic Acid 2 mg PO BID 08/31/14 03/28/23 lamoTRIgine [LaMICtal] 200 mg PO BID 05/10/15 03/28/23 Montelukast [Singulair] 10 mg PO HS 02/10/19 03/28/23 Propranolol HCl [Inderal Xl] 120 mg PO DAILY 02/25/21 03/28/23 ARIPiprazole [Abilify] 10 mg PO HS 11/29/22 03/28/23 Butalb/APAP/Caff 50-325-40Mg 1 tab PO Q4H PRN 11/29/22 03/28/23 [Fioricet 50-325-40] levETIRAcetam 750 mg PO BID 11/29/22 03/28/23 Escitalopram [Lexapro] 20 mg PO HS 03/28/23 03/28/23 Norethindrone Acetate 10 mg PO HS 03/28/23 03/28/23 [Norethindrone AC (Lupaneta)] Semaglutide [Ozempic] 0.25 mg SQ ESPOSITO 03/28/23 03/28/23 Previous Rx's Medication Instructions Recorded Ondansetron Odt [Zofran Odt] 4 mg PO Q8HR PRN #10 tab 12/03/23 Allergies Allergy/AdvReac Type Severity Reaction Status Date / Time haloperidol [From Haldol] Allergy Unknown Verified 11/08/24 23:01 metronidazole [From Flagyl] Allergy Unknown Verified 11/08/24 23:01 lurasidone [From Latuda] AdvReac high blood Verified 11/08/24 23:01 sugar Review of Systems ROS Statement: Those systems with pertinent positive or pertinent negative responses have been documented in the HPI. ROS Other: All systems not noted in ROS Statement are negative. Past Medical History Past Medical History: Asthma, Diabetes Mellitus, Hypertension, Seizure Disorder, Sleep Apnea/CPAP/BIPAP Additional Past Medical History / Comment(s): seizure, ovarin cyst right side History of Any Multi-Drug Resistant Organisms: None Reported Past Surgical History: Cholecystectomy Past Anesthesia/Blood Transfusion Reactions: No Reported Reaction Past Psychological History: Anxiety, Bipolar, Depression Smoking Status: Former smoker Past Alcohol Use History: Occasional Past Drug Use History: None Reported - Past Family History Mother Family Medical History: Asthma, Diabetes Mellitus Additional Family Medical History / Comment(s): Mom is alive at age 56 with history of diabetes Father Family Medical History: Hypertension Additional Family Medical History / Comment(s): Father is alive at age 56 with history of hypertension. Patient does not have any brothers. She does not have a sisters. She does not have any children. General Exam - General Exam Comments Initial Comments: PHYSICAL EXAM: General Impression: Alert and oriented x3, not in acute distress HEENT: Normocephalic atraumatic, extra-ocular movements intact, pupils equal and reactive to light bilaterally, mucous membranes moist. Cardiovascular: Heart regular rate and rhythm Chest: Able to complete full sentences, no retractions, no tachypnea Abdomen: abdomen soft, non-tender, non-distended, no organomegaly Musculoskeletal: Pulses present and equal in all extremities, no peripheral edema Motor: no focal deficits noted Neurological: CN II-XII grossly intact, no focal motor or sensory deficits noted Skin: Intact with no visualized rashes Psych: Normal affect and mood Limitations: no limitations Course Vital Signs 11/08/24 11/09/24 22:59 02:21 Temperature 99.8 F H Pulse Rate 88 78 Respiratory 18 20 Rate Blood Pressure 172/90 123/50 O2 Sat by Pulse 98 Oximetry EKG Findings - EKG Comments: EKG Findings:: My EKG interpretation: Ventricular rate 87, sinus rhythm, MI 167, cures 97, QTc 416. No MI prolongation, no QTC prolongation, no ST or T-wave changes noted. Overall, this EKG is unremarkable Medical Decision Making - Medical Decision Making Was pt. sent in by a medical professional or institution (, PA, RETAIL CUSTODIAL ASSOCIATE, urgent care, hospital, or detention...) When possible be specific @ -No Did you speak to anyone other than the patient for history (EMS, parent, family, police, friend...)? What history was obtained from this source @ -No Did you review nursing and triage notes (agree or disagree)? Why? @ -I reviewed and agree with nursing and triage notes Were old charts reviewed (outside hosp., previous admission, EMS record, old EKG, old radiological studies, urgent care reports/EKG's, detention records)? Report findings @ -No old charts were reviewed Differential Diagnosis (chest pain, altered mental status, abdominal pain women, abdominal pain men, vaginal bleeding, musculoskeletal, weakness, fever, dyspnea, syncope, headache, dizziness, GI bleed, back pain, seizure, CVA, palpatations, mental health)? @ -Differential Chest Pain: Stable Angina, Unstable Angina, STEMI, NSTEMI Aortic Dissection, Pneumothorax, Musculoskeletal, Esophageal Spasm GERD, Cholecystitis, Pancreatitis, Zoster, this is not meant to be an all-inclusive list. EKG interpreted by me (3pts min.). @ -See above X-rays interpreted by me (1pt min.). @ -Chest x-ray is nonacute CT interpreted by me (1pt min.). @ -Angiography of the chest shows no acute processes U/S interpreted by me (1pt. min.). @ -None done What testing was considered but not performed or refused? (CT, X-rays, U/S, labs)? Why? @ -None What meds were considered but not given or refused? Why? @ -None Was smoking cessation discussed for >3mins.? @ -No Were there social determinants of health that impacted care today? How? (Homelessness, low income, unemployed, alcoholism, drug addiction, transportation, low edu. Level, literacy, decrease access to med. care, senior living, rehab)? @ -No Was there de-escalation of care discussed even if they declined (Discuss DNR or withdrawal of care, Hospice)? DNR status @ -No What co-morbidities impacted this encounter? (DM, HTN, Smoking, COPD, CAD, Cancer, CVA, ARF, Chemo, Hep., AIDS, mental health diagnosis, sleep apnea, morbid obesity)? @ -Family history of ACS, diabetes Was patient admitted / discharged? Hospital course, mention meds given and route, prescriptions, significant lab abnormalities, going to OR and other pertinent info. @ -33-year-old female presents emergency department atypical chest pain typical features. Vital signs upon arrival are within acceptable limits. EKG unremarkable. Patient has significant risk factors including diabetes and family history. Laboratory evaluation obtained D-dimer is elevated 0.68. Troponin is negative. CT angiography shows no PE. Given patient's family history she will be admitted observation for cardiac ops, cardiac monitoring cardiology consultation. Patient given aspirin. Case discussed with hospitalist for admission Did you discuss the management of the patient with other professionals (professionals i.e. , PA, RETAIL CUSTODIAL ASSOCIATE, lab, RT, psych nurse, social media job titles, sap bpc developer, teacher, chief environmental commitment officer, cyanide case hardener)? Give summary @ -See above Was critical care preformed (if so, how long)? @ -No Undiagnosed new problem with uncertain prognosis? @ -No Drug Therapy requiring intensive monitoring for toxicity (Heparin, Nitro, Insulin, Cardizem)? @ -No Were any procedures done? @ -No Diagnosis/symptom? Acute, or Chronic, or Acute on Chronic? Uncomplicated (without systemic symptoms) or Complicated (systemic symptoms)? @ -Chest pain Side effects of treatment? @ -No Exacerbation, Progression, or Severe Exacerbation? @ -No Poses a threat to life or bodily function? How? (Chest pain, [place], [place], pneumonia, PE, COPD, DKA, ARF, appy, cholecystitis, CVA, Diverticulitis, Homicidal, Suicidal, threat to staff... and all critical care pts) @ -yes - Lab Data Result diagrams: 11/08/24 23:18 11/08/24 23:18 Lab Results 11/08/24 11/08/24 11/08/24 Range/Units 23:18 23:18 23:18 WBC 8.5 (3.8-10.6) k/uL RBC 4.86 (3.80-5.40) m/uL Hgb 13.9 (11.4-16.0) gm/dL Hct 41.2 (34.0-46.0) % MCV 84.7 (80.0-100.0) fL MCH 28.5 (25.0-35.0) pg MCHC 33.7 (31.0-37.0) g/dL RDW 14.2 (11.5-15.5) % Plt Count 333 (150-450) k/uL MPV 7.0 Neutrophils % 67 % Lymphocytes % 23 % Monocytes % 4 % Eosinophils % 3 % Basophils % 1 % Neutrophils # 5.7 (1.3-7.7) k/uL Lymphocytes # 2.0 (1.0-4.8) k/uL Monocytes # 0.4 (0-1.0) k/uL Eosinophils # 0.2 (0-0.7) k/uL Basophils # 0.0 (0-0.2) k/uL PT 10.1 (10.0-12.5) sec INR 0.9 (<1.2) APTT 23.8 (22.0-30.0) sec D-Dimer 0.68 H (<0.60) mg/L FEU Sodium 138 (137-145) mmol/L Potassium 4.1 (3.5-5.1) mmol/L Chloride 108 H (98-107) mmol/L Carbon Dioxide 23 (22-30) mmol/L Anion Gap 7 mmol/L BUN 18 H (7-17) mg/dL Creatinine 0.94 (0.52-1.04) mg/dL Est GFR (CKD-EPI)AfAm >90 (>60 ml/min/1.73 sqM) Est GFR (CKD-EPI)NonAf 80 (>60 ml/min/1.73 sqM) Glucose 122 H (74-99) mg/dL Calcium 9.4 (8.4-10.2) mg/dL Magnesium 1.9 (1.6-2.3) mg/dL Total Bilirubin 0.4 (0.2-1.3) mg/dL AST 28 (14-36) U/L ALT 38 H (4-34) U/L Alkaline Phosphatase 127 H (38-126) U/L Troponin I (0.000-0.034) ng/mL Total Protein 7.1 (6.3-8.2) g/dL Albumin 4.4 (3.5-5.0) g/dL 11/08/24 Range/Units 23:18 WBC (3.8-10.6) k/uL RBC (3.80-5.40) m/uL Hgb (11.4-16.0) gm/dL Hct (34.0-46.0) % MCV (80.0-100.0) fL MCH (25.0-35.0) pg MCHC (31.0-37.0) g/dL RDW (11.5-15.5) % Plt Count (150-450) k/uL MPV Neutrophils % % Lymphocytes % % Monocytes % % Eosinophils % % Basophils % % Neutrophils # (1.3-7.7) k/uL Lymphocytes # (1.0-4.8) k/uL Monocytes # (0-1.0) k/uL Eosinophils # (0-0.7) k/uL Basophils # (0-0.2) k/uL PT (10.0-12.5) sec INR (<1.2) APTT (22.0-30.0) sec D-Dimer (<0.60) mg/L FEU Sodium (137-145) mmol/L Potassium (3.5-5.1) mmol/L Chloride (98-107) mmol/L Carbon Dioxide (22-30) mmol/L Anion Gap mmol/L BUN (7-17) mg/dL Creatinine (0.52-1.04) mg/dL Est GFR (CKD-EPI)AfAm (>60 ml/min/1.73 sqM) Est GFR (CKD-EPI)NonAf (>60 ml/min/1.73 sqM) Glucose (74-99) mg/dL Calcium (8.4-10.2) mg/dL Magnesium (1.6-2.3) mg/dL Total Bilirubin (0.2-1.3) mg/dL AST (14-36) U/L ALT (4-34) U/L Alkaline Phosphatase (38-126) U/L Troponin I <0.012 (0.000-0.034) ng/mL Total Protein (6.3-8.2) g/dL Albumin (3.5-5.0) g/dL Disposition Clinical Impression: Chest pain Disposition: ADMITTED IP TO THIS [facility] Condition: Fair Referrals: None,Stated [Primary Care Provider] - 1-2 days Decision Time: 02:39
[2024-11-09 00:10] LABS: Basophils % (A) 1 %; Eosinophils # (A) 0.2 k/uL (0-0.7); Eosinophils % (A) 3 %; HCT 41.2 % (34.0-46.0); HGB 13.9 gm/dL (11.4-16.0); Lymphocytes % (A) 23 %; MCH 28.5 pg (25.0-35.0); MCHC 33.7 g/dL (31.0-37.0); MCV 84.7 fL (80.0-100.0); Monocytes # (A) 0.4 k/uL (0-1.0); Monocytes % (A) 4 %; Neutrophils # (A) 5.7 k/uL (1.3-7.7); Neutrophils % (A) 67 %; Platelet Count 333 k/uL (150-450); RBC 4.86 m/uL (3.80-5.40); RDW 14.2 % (11.5-15.5); WBC 8.5 k/uL (3.8-10.6)
[2024-11-09 00:20] LABS: ALT 38 U/L (4-34); AST 28 U/L (14-36); African American GFR (CKD) >90 (>60 ml/min/1.73 sqM); Albumin 4.4 g/dL (3.5-5.0); Alkaline Phosphatase 127 U/L (38-126); Anion Gap 7 mmol/L; Blood Urea Nitrogen 18 mg/dL (7-17); Calcium 9.4 mg/dL (8.4-10.2); Carbon Dioxide 23 mmol/L (22-30); Chloride 108 mmol/L (98-107); Glucose 122 mg/dL (74-99); Magnesium 1.9 mg/dL (1.6-2.3); Non-African American GFR(CKD) 80 (>60 ml/min/1.73 sqM); Potassium 4.1 mmol/L (3.5-5.1); Sodium 138 mmol/L (137-145); Total Bilirubin 0.4 mg/dL (0.2-1.3); Total Protein 7.1 g/dL (6.3-8.2)
[2024-11-09 00:42] LABS: INR 0.9 (<1.2); Partial Thromboplastin Time 23.8 sec (22.0-30.0); Prothrombin Time 10.1 sec (10.0-12.5)
--- NOTE | 2024-11-09 01:32 | XR ---
EXAM: XR Chest, 2 Views CLINICAL HISTORY: Chest Pain TECHNIQUE: Frontal and lateral views of the chest. COMPARISON: 01/02/24 FINDINGS: Lungs: Unremarkable. No consolidation. Pleural space: Unremarkable. Mediastinum: Unremarkable. Normal mediastinal contour. Bones/joints: No acute findings. IMPRESSION: No acute findings.
--- NOTE | 2024-11-09 02:22 | CT ---
EXAM: CT Angiography Chest With Intravenous Contrast CLINICAL HISTORY: positive D-dimer TECHNIQUE: Axial computed tomographic angiography images of the chest with intravenous contrast. CTDI is 28.6 mGy and DLP is 836.8 mGy-cm. This CT exam was performed using one or more of the following dose reduction techniques: automated exposure control, adjustment of the mA and/or kV according to patient size, and/or use of iterative reconstruction technique. MIP reconstructed images were created and reviewed. Coronal and sagittal reformatted images were created and reviewed. 658 images COMPARISON: 03-28-23 FINDINGS: Pulmonary arteries: No pulmonary embolism in main and lobar pulmonary arteries. Segmental pulmonary arteries are poorly evaluated due to suboptimal contrast bolus. Aorta: No acute findings. No thoracic aortic aneurysm. Lungs: Unremarkable. No mass. No consolidation. Pleural space: Unremarkable. No significant effusion. No pneumothorax. Heart: Unremarkable. No cardiomegaly. No significant pericardial effusion. No evidence of RV dysfunction. Bones/joints: Unchanged. Soft tissues: Unremarkable. Lymph nodes: Unremarkable. No enlarged lymph nodes. Liver: Suspect fatty liver. IMPRESSION: No pulmonary embolism in main and lobar pulmonary arteries. Unremarkable aorta. Clear lungs.
[2024-11-09] MEDS ORDERED: NITROGLYCERIN SL TABS 0.4 MG TAB SUBLINGUAL PRN (02:36)
[2024-11-09] MEDS: ACETAMINOPHEN TAB 325 MG TAB PO STA (03:13)
[2024-11-09] MEDS: ASPIRIN 81 MG PO STA (03:13)
[2024-11-09] MEDS: ONDANSETRON 4 MG/2 ML VIAL IVP STA (06:57)
--- NOTE | 2024-11-09 07:39 | P.HPIM ---
History of Present Illness This is a pleasant 33 years old female with past medical history of multiple medical problems as below including diabetes mellitus, hypertension, seizure disorder. Presents because she was feeling sweaty occasionally 2 days ago yesterday she started having chest pain and exertional dyspnea when she walks little bit. So she was transferred and came to the emergency room. Currently she is fully awake and oriented, she is sitting up in bed looks comfortable, no tachypnea or dyspnea. She said she has this chest pain about 2 to 3 hours prior to coming to the hospital, it was in the middle of the chest nonradiating felt like pressure. Gets worse with walking. No significant cough. No sore throat symptoms or pharyngitis. No more dyspnea. She has mild headache. She has some nausea but no vomiting abdominal pain or diarrhea. No urinary symptoms like dysuria or urgency. She says her legs little bit more swollen. She quit smoking about 3 months ago, no alcohol or illicit drugs She had the first 4019/May. And currently she denies any vaginal symptoms like discharge or itching. No other perineal symptoms. She is hemodynamically stable. She had low-grade fever in the emergency room 99.8. Labs checked she has unremarkable CBC, basic metabolic panel and liver enzymes and INR Troponin x 2 are negative less than 0.012. D-dimer slightly elevated 0.68 CTA of the chest was negative for acute pulmonary embolism. Of note her presentation does not fit much of pulmonary embolism Chest x-ray is negative for acute process, I reviewed chest x-ray by myself and agree Patient is was admitted for cardiology evaluation. Review of Systems Review of systems CONSTITUTIONAL: No fever, no malaise, no fatigue. HEENT: No recent visual problems or hearing problems. Denied any sore throat. CARDIOVASCULAR: No orthopnea, PND, no palpitations, no syncope. PULMONARY: No shortness of breath, no cough, no hemoptysis. GASTROINTESTINAL: No diarrhea, no nausea, no vomiting, no abdominal pain. Norm oactive bowel sounds. NEUROLOGICAL: No headaches, no weakness, no numbness. HEMATOLOGICAL: Denies any bleeding or petechiae. GENITOURINARY: Denies any burning micturition, frequency, or urgency. MUSCULOSKELETAL/RHEUMATOLOGICAL: Denies any joint pain, swelling, or any muscle pain. ENDOCRINE: Denies any polyuria or polydipsia. Past Medical History Past Medical History: Asthma, Diabetes Mellitus, Hypertension, Seizure Disorder, Sleep Apnea/CPAP/BIPAP Additional Past Medical History / Comment(s): seizure, ovarin cyst right side History of Any Multi-Drug Resistant Organisms: None Reported Past Surgical History: Cholecystectomy Past Anesthesia/Blood Transfusion Reactions: No Reported Reaction Past Psychological History: Anxiety, Bipolar, Depression Smoking Status: Former smoker Past Alcohol Use History: Occasional Past Drug Use History: None Reported - Past Family History Mother Family Medical History: Asthma, Diabetes Mellitus Additional Family Medical History / Comment(s): Mom is alive at age 56 with history of diabetes Father Family Medical History: Hypertension Additional Family Medical History / Comment(s): Father is alive at age 56 with history of hypertension. Patient does not have any brothers. She does not have a sisters. She does not have any children. Medications and Allergies Home Medications Medication Instructions Recorded Confirmed Type Folic Acid 2 mg PO BID 08/31/14 03/28/23 History lamoTRIgine [LaMICtal] 200 mg PO BID 05/10/15 03/28/23 History Montelukast [Singulair] 10 mg PO HS 02/10/19 03/28/23 History Propranolol HCl [Inderal Xl] 120 mg PO DAILY 02/25/21 03/28/23 History ARIPiprazole [Abilify] 10 mg PO HS 11/29/22 03/28/23 History Butalb/APAP/Caff 50-325-40Mg 1 tab PO Q4H PRN 11/29/22 03/28/23 History [Fioricet 50-325-40] levETIRAcetam 750 mg PO BID 11/29/22 03/28/23 History Escitalopram [Lexapro] 20 mg PO HS 03/28/23 03/28/23 History Norethindrone Acetate 10 mg PO HS 03/28/23 03/28/23 History [Norethindrone AC (Lupaneta)] Semaglutide [Ozempic] 0.25 mg SQ ESPOSITO 03/28/23 03/28/23 History Ondansetron Odt [Zofran Odt] 4 mg PO Q8HR PRN #10 tab 12/03/23 Rx Allergies Allergy/AdvReac Type Severity Reaction Status Date / Time haloperidol [From Haldol] Allergy Unknown Verified 11/08/24 23:01 metronidazole [From Flagyl] Allergy Unknown Verified 11/08/24 23:01 lurasidone [From Latuda] AdvReac high blood Verified 11/08/24 23:01 sugar Physical Exam Vitals: Vital Signs Temp Pulse Resp BP Pulse Ox 11/09/24 05:37 66 20 107/57 11/09/24 02:21 78 20 123/50 11/08/24 22:59 99.8 F H 88 18 172/90 98 Intake and Output 11/08/24 11/09/24 11/09/24 22:59 06:59 14:59 Other: Weight 150.139 kg -GENERAL: The patient is alert and oriented x3, not in any acute distress. Well developed, well nourished. Obese HEENT: Pupils are round and equally reacting to light. EOMI. No scleral icterus. No conjunctival pallor. Normocephalic, atraumatic. No pharyngeal erythema. No thyromegaly. CARDIOVASCULAR: S1 and S2 present. No murmurs, rubs, or gallops. PULMONARY: Chest is clear to auscultation, no wheezing , no crackles. ABDOMEN: Soft, nontender, nondistended, normoactive bowel sounds. No palpable organomegaly. MUSCULOSKELETAL: No joint swelling or deformity. -EXTREMITIES: No cyanosis, clubbing, . Very mild bilateral leg swelling NEUROLOGICAL: Gross neurological examination did not reveal any focal deficits. SKIN: No rashes. no petechiae. Results CBC & Chem 7: 11/08/24 23:18 11/08/24 23:18 Labs: Abnormal Lab Results - Last 24 Hours (Table) 11/08/24 11/08/24 Range/Units 23:18 23:18 D-Dimer 0.68 H (<0.60) mg/L FEU Chloride 108 H (98-107) mmol/L BUN 18 H (7-17) mg/dL Glucose 122 H (74-99) mg/dL ALT 38 H (4-34) U/L Alkaline Phosphatase 127 H (38-126) U/L Assessment and Plan Assessment: Chest pain, atypical. It looks related to moderate systemic symptoms. Could be musculoskeletal Low-grade fever, no much symptoms currently. Could be viral infection. Rule o ut DVT in view of leg swelling. Elevated D-dimer with negative CTA of the lung for PE. Rule out deep venous thrombosis Diabetes mellitus on insulin Seizure disorder on Keppra and Lamictal. Not an active issue History of asthma on Singulair. Not an active issue. Patient with no wheezing currently. Patient also does not think she has asthma attack. Plan: Patient currently sitting in bed with no more symptoms. Cardiology team are been consulted to rule out cardiac causes. Echocardiogram was requested Will check viral swab in view of low-grade fever especially she has 2 twins at home Will check ultrasound of the leg and if you have leg swelling, mild and mildly elevated D-dimer. We will treat the patient symptomatically. If all workup as above become neg ative as well as patient cleared by product finisher patient may be considered for discharge today. This plan of care discussed with the patient in details and she verbalized understanding and acceptance. Upon discharge patient was instructed to follow-up with PCP in 1 week. Patient states that she currently does not have PCP but she is in the process of finding 1. She agrees to the advised to call her health insurance provider to find a nearby PCP and follow-up in 1 week if she is discharged. She agrees to above. DVT prophylaxis. Subcutaneous heparin GI prophylaxis Pepcid. Resume home medication. Prognosis is fair
--- NOTE | 2024-11-09 09:17 | US ---
EXAMINATION TYPE: US venous doppler duplex LE BI DATE OF EXAM: 11/09/2024 8:51 AM COMPARISON: US(02/11/2024) CLINICAL INDICATION: Female, 33 years old with history of leg swelling; bilat swelling x 1 week, Pain TECHNIQUE: The lower extremity deep venous system is examined utilizing real time linear array sonog clau with graded compression, color doppler sonography, and spectral doppler. SIDE PERFORMED: Bilateral FINDINGS: VESSELS IMAGED: Common Femoral Vein Deep Femoral Vein Greater Saphenous Vein * Femoral Vein Popliteal Vein Small Saphenous Vein * Proximal Calf Veins (* superficial vessels) limited exam due to pt body habitus and edema Right Leg: Negative for DVT, Color Doppler imaging shows patency of the vessels. Spectral waveforms are within normal limits. Left Leg: Negative for DVT, Color Doppler imaging shows patency of the vessels. Spectral waveforms a re within normal limits. IMPRESSION: No ultrasound evidence for deep venous thrombosis. [facility], , 11/09/2024 9:14 AM
[2024-11-09] MEDS: lamoTRIgine 100 MG TAB PO SCH (09:48)
[2024-11-09] MEDS: FOLIC ACID 1 MG TAB PO SCH (09:48)
[2024-11-09] MEDS: ARIPiprazole 5 MG TAB PO SCH (09:53)
[2024-11-09] MEDS: LABETALOL 200 MG TAB PO SCH (09:53)
[2024-11-09] MEDS: FAMOTIDINE 20 MG/2 ML VIAL IV SCH (09:54)
[2024-11-09] MEDS: HEPARIN SODIUM,PORCINE 5,000 UNIT/ML 1 ML VIAL SQ SCH (09:54)
[2024-11-09] MEDS: levETIRAcetam 500 MG TAB PO SCH (09:54)
[2024-11-09] MEDS: BUTALB/APAP/CAFF 50-325-40MG TAB PO PRN (12:35)
[2024-11-09] MEDS: ACETAMINOPHEN TAB 325 MG TAB PO PRN (14:57)
[2024-11-09 15:03] LABS: Glucose,Whole Blood 293 mg/dL (70-110)
[2024-11-09] MEDS: ESCITALOPRAM 20 MG TAB PO SCH (21:13)
[2024-11-09] MEDS: MONTELUKAST 10 MG TAB PO SCH (21:14)
[2024-11-09 22:43] LABS: Glucose,Whole Blood 222 mg/dL (70-110)
[2024-11-09] MEDS: INSULIN DETEMIR (LEVEMIR) 100 UNIT/ML SYR SQ SCH (22:52)
[2024-11-09] MEDS: ARIPiprazole 10 MG TAB PO SCH (22:52)
--- NOTE | 2024-11-09 23:38 | CONS ---
CONSULTATION HISTORY: Magda Wiseman is a 33-year-old obese lady who came into the hospital with what seems to be an episode of substernal chest pain, nonradiating. She felt nauseated, has also recently had some random night sweats, feverish feeling, runny nose, and flu-like symptoms, but no obvious sick contacts. She is resting comfortably at this time. Her discomfort in the chest has resolved. EKGs and troponins are normal. She has no chest pain at the time of my evaluation. She has history of bronchial asthma, diabetes, hypertension, seizure activity, and she recently had a delivery 6 months ago. She takes labetalol for her hypertension. She is resting comfortably without symptoms at this time. Her pain quality is atypical. I am suggesting that once her flu-like illness has resolved completely, she is stronger and better, we will do a stress test as an outpatient. At this time, no immediate intervention is necessary other than an echocardiogram and also we will obtain a COVID test and influenza testing as well. At the time of my evaluation, she is resting comfortably without symptoms. She had an elevated D-dimer and CT angiogram revealed no evidence of any pulmonary embolism, unremarkable aorta. PAST MEDICAL HISTORY: 1. Hypertension. 2. Recent delivery. 3. Obesity. 4. Type 2 diabetes mellitus, insulin requiring. 5. Underlying depression. 6. Seizure disorder. PHYSICAL EXAMINATION: VITAL SIGNS: Blood pressure is 118/70, pulse rate 70 per minute, regular. HEENT: Unremarkable. Fundus was not examined by me. NECK: Supple. No JVD. I do not hear a carotid bruit. HEART: Reveals S1, S2 heard normally. Somewhat distant heart sounds. No significant murmurs. LUNGS: Revealed decent air entry. ABDOMEN: Soft, nontender. EXTREMITIES: Lower extremities reveal diminished pulses. CENTRAL NERVOUS SYSTEM: Normal. IMAGING STUDIES: EKG revealed sinus mechanism, minor nonspecific ST abnormality. IMPRESSION: 1. Atypical chest pain. 2. Hypertension. 3. Diabetes. 4. Probably a flu-like upper respiratory tract infection type symptoms. RECOMMENDATIONS: Echocardiogram, influenza and COVID testing, and after her current illness has resolved, we will see her as an outpatient and set up for stress testing. Discussed my thoughts in detail with the patient. Thank you very much for the consult. MMODL / IJN: [id number] /
[2024-11-10] MEDS ORDERED: DEXTROSE 50% SYRINGE 50 ML IVP PRN ×2 (00:38)
[2024-11-10 05:56] LABS: Glucose,Whole Blood 201 mg/dL (70-110)
[2024-11-10] MEDS: INSULIN ASPART (NovoLOG) 100 UNIT/ML VIAL SQ SCH (06:26)
[2024-11-10 07:05] VITALS: BP 118/62; PULSE 57; RESP 20; TEMP 98.7
[2024-11-10] MEDS: ASPIRIN 325 MG TAB PO SCH (08:49)
--- NOTE | 2024-11-10 10:06 | CA ---
Transthoracic Echo Report Name: Magda Wiseman Age: 33 Gender: F : 1990 Exam Date: 11/10/2024 08:21 Exam Location: [facility] Ht (in): 66 Wt (lb): 331 Ordering Physician: Sanjeev Restrepo MD Attending/Referring Phys: [id number], Lauro Skiver [employer] Josie Middleton, PHAN Procedure CPT: Indications: Chest Pain Cardiac Hx: Technical Quality: Good Contrast 1: Total Dose (mL): Contrast 2: Total Dose (mL): MEASUREMENTS (Male / Female) Normal Values 2D ECHO LV Diastolic Diameter PLAX 5.2 cm 4.2 - 5.9 / 3.9 - 5.3 cm LV Systolic Diameter PLAX 3.4 cm IVS Diastolic Thickness 1.0 cm 0.6 - 1.0 / 0.6 - 0.9 cm LVPW Diastolic Thickness 1.0 cm 0.6 - 1.0 / 0.6 - 0.9 cm LV Relative Wall Thickness 0.4 RV Internal Dim ED PLAX 3.4 cm LA Systolic Diameter LX 4.2 cm 3.0 - 4.0 / 2.7 - 3.8 cm LV Diastolic Volume MOD 4C 170.4 cm??? LV Systolic Volume MOD 4C 83.2 cm??? LV Ejection Fraction MOD 4C 51.2 % LV Cardiac Index MOD 4C 2199.1 cm???/min???m??? LV Diastolic Length 4C 9.3 cm LV Systolic Length 4C 7.3 cm LV Diastolic Volume MOD 2C 137.6 cm??? LV Systolic Volume MOD 2C 55.6 cm??? LV Ejection Fraction MOD 2C 59.6 % LV Cardiac Index MOD 2C 2067.0 cm???/min???m??? LV Diastolic Length 2C 8.4 cm LV Systolic Length 2C 6.6 cm LA Volume 79.2 cm??? 18 - 58 / 22 - 52 cm??? LA Volume Index 28.9 cm???/m??? 16 - 28 cm???/m??? M-MODE Aortic Root Diameter MM 3.2 cm AV Cusp Separation MM 2.1 cm DOPPLER AV Peak Velocity 167.2 cm/s AV Peak Gradient 11.2 mmHg MV Area PHT 3.3 cm??? Mitral E Point Velocity 109.0 cm/s Mitral A Point Velocity 71.8 cm/s Mitral E to A Ratio 1.5 MV Deceleration Time 232.1 ms TR Peak Velocity 194.5 cm/s TR Peak Gradient 15.1 mmHg Right Ventricular Systolic Press 20.0 mmHg FINDINGS Left Ventricle Left ventricular ejection fraction is estimated at 55-60 %. Left ventricular cavity size normal. Left ventricular wall thickness normal. Normal left ventricular wall motion. Right Ventricle Mild right ventricular dilatation. Right ventricular systolic pressure within normal limits. Right Atrium Mild right atrial dilatation. No right atrial thrombus or mass seen. Left Atrium Mildly increased left atrial diameter. Severely increased left atrial volume. Mildly increased left atrial area. Mitral Valve Structurally normal mitral valve. No mitral stenosis, regurgitation or prolapse. Aortic Valve Trileaflet aortic valve. No aortic valve stenosis or regurgitation. Tricuspid Valve Structurally normal tricuspid valve. No tricuspid stenosis, regurgitation or prolapse. Pulmonic Valve Structurally normal pulmonic valve. No pulmonic regurgitation. Pericardium No pericardial or pleural effusion. Aorta Normal size aortic root and proximal ascending aorta. CONCLUSIONS Normal LV size and systolic function. Enlarged atria. Mild mitral and tricuspid regurgitation. No pericardial effusion. No pulmonary hypertension Previewed by: Dr. Melissa Hodges MD (Electronically Signed) Final Date: 10 November 2024 10:05
[2024-11-10 10:07] LABS: Chol/HDL Ratio 7.19 Ratio; HDL Cholesterol 28.5 mg/dL (40.00-60.00); VLDL Calculation 139.4 mg/dL (5.00-40.00)
[2024-11-10 10:19] LABS: LDL Cholesterol,Direct Reflex 82.6 mg/dL (0.00-129.00)
--- NOTE | 2024-11-10 10:56 | PN ---
PROGRESS NOTE HISTORY OF PRESENT ILLNESS: Ms. Wiseman is doing well today. Her vital signs are stable. PHYSICAL EXAMINATION: GENERAL: Unchanged. She feels better. Has no further chest pain. Troponins remain negative. Echo revealed good systolic function. VITAL SIGNS: Stable. HEART: S1, S2 heard normally. LUNGS: Clear. ABDOMEN: Exam unremarkable. LOWER EXTREMITIES: Exam unremarkable. I am recommending that whenever she can be discharged as per the admitting doctor, it is okay with me on current medical regimen to follow up with PCP and to have a stress test as an outpatient in the next 2 to 3 weeks when she is feeling much better. Her flu-like symptoms have improved a lot. She is COVID negative and negative for flu as well. I will see her as needed. She can be discharged from a cardiac standpoint, but she should have an outpatient stress test in the next 2 to 3 weeks. KEV / VINNIE: [id number] /
[2024-11-10 12:06] LABS: Glucose,Whole Blood 284 mg/dL (70-110)
--- NOTE | 2024-11-10 23:31 | P.DS ---
Providers Date of admission: 11/09/24 02:37 Attending physician: Bernardino Morocho Consults: 11/09/24 02:36 Consult Physician Urgent Consulting Provider: Juan Sr Consult Reason/Comments: chest pain Do you want consulting provider notified?: Yes Primary care physician: Stated None Hospital Course: Diagnoses: Chest pain, atypical. Cardiac causes ruled out. Could be musculoskeletal. Low-grade fever, secondary to upper respiratory infection most likely common cold. Could be viral infection. Elevated D-dimer with negative CTA of the lung for PE. deep venous thrombosis ruled out Recent last May where she had twin Diabetes mellitus on insulin Seizure disorder on Keppra and Lamictal. Not an active issue History of asthma on Singulair. Not an active issue. Patient with no wheezing currently. Patient also does not think she has asthma attack. Hospital course: This is a pleasant 33 years old female with past medical history of multiple medical problems as below including diabetes mellitus, hypertension, seizure disorder. Presents because she was feeling sweaty occasionally 2 days ago yesterday she started having chest pain and exertional dyspnea when she walks little bit. So she was transferred and came to the emergency room. On admission her D-dimer was markedly elevated. CTA of the chest was negative for PE. Also ultrasound of the leg was negative for DVT. Influenza A and type B, RSV, SARS (coronavirus) are undetected Hemoglobin A1c was elevated at 9.2. Also glucose was more than 200. Patient takes Levemir 54 units at home, patient was counseled 3 to 60 units and follow- up with her recreational leader as an outpatient and she agrees and to call appointment for him. Patient confirms to me that he has glucometer and she is going to monitor her sugar at home. On the day of discharge she denies chest pain or any other symptoms, she feels better. Patient eager to go home today Patient was cleared for discharge by psychiatric nurse practitioner. Problems and management plan were discussed with the patient and he verbalized understanding and acceptance Patient was found stable and can be discharged home in guarded prognosis however he needs follow-up as an outpatient. Patient was instructed to follow up with PCP within one week and patient agrees Patient was instructed to follow-up with psychiatric nurse practitioner Dr. Hodges in 2 weeks and she agrees. Stress test as an outpatient is suggested for her by psychiatric nurse practitioner and she agrees as well Patient was instructed to follow-up with Dr. Whitmore her recreational leader as an outpatient in 1 to 2 weeks and she agrees but she states that she has another recreational leader that she intends to follow-up with at within the same timeframe. Physical exam Gen: patient is a AAOx3, no distress. Obese CVS: S1-S2, RRR, no murmur Lungs: B/L CTA, no wheezing Abdomen: soft, no distention, no tenderness, positive bowel sounds Extremity: no leg edema or induration Time spent more than 35 minutes Patient Condition at Discharge: Fair Plan - Discharge Summary New Discharge Prescriptions: New Aspirin 325 mg PO DAILY #30 tab Continue Folic Acid 2 mg PO BID lamoTRIgine [LaMICtal] 200 mg PO BID Montelukast [Singulair] 10 mg PO HS levETIRAcetam 750 mg PO BID ARIPiprazole [Abilify] 10 mg PO HS Ondansetron Odt [Zofran ODT] 4 mg PO Q8HR PRN #10 tab PRN Reason: Nausea Escitalopram [Lexapro] 20 mg PO HS hydrOXYzine HCL [Atarax] 10 mg PO TID PRN PRN Reason: acute anxiety levETIRAcetam [Keppra] 500 mg PO BID ARIPiprazole [Abilify] 5 mg PO DAILY Labetalol [Trandate] 300 mg PO BID Changed Insulin Glargine,Hum.rec.anlog [Lantus Solostar Pen] 60 units SQ HS #10 ml Discharge Medication List Folic Acid 2 mg PO BID 08/31/14 [History] lamoTRIgine [LaMICtal] 200 mg PO BID 05/10/15 [History] Montelukast [Singulair] 10 mg PO HS 02/10/19 [History] ARIPiprazole [Abilify] 10 mg PO HS 11/29/22 [History] levETIRAcetam 750 mg PO BID 11/29/22 [History] Escitalopram [Lexapro] 20 mg PO HS 03/28/23 [History] Ondansetron Odt [Zofran ODT] 4 mg PO Q8HR PRN #10 tab 12/03/23 [Rx] ARIPiprazole [Abilify] 5 mg PO DAILY 11/09/24 [History] Labetalol [Trandate] 300 mg PO BID 11/09/24 [History] hydrOXYzine HCL [Atarax] 10 mg PO TID PRN 11/09/24 [History] levETIRAcetam [Keppra] 500 mg PO BID 11/09/24 [History] Aspirin 325 mg PO DAILY #30 tab 11/10/24 [Rx] Insulin Glargine,Hum.rec.anlog [Lantus Solostar Pen] 60 units SQ HS #10 ml 11/10/24 [Rx] Follow up Appointment(s)/Referral(s): Melissa Hodges MD [STAFF PHYSICIAN] - 2 Weeks ( We recommend a stress test as an outpatient with your heart doctor and 2 to 3 weeks) None,Stated [Primary Care Provider] - 1-2 days Homa Hurst [STAFF PHYSICIAN] - 1 Week (recreational leader for your diabetes mellitus) Patient Instructions/Handouts: Chest Pain (ED), Chest Pain (DC) Activity/Diet/Wound Care/Special Instructions: Heart healthy low carbohydrate 1600 kcal/day Activity is restricted till you see your doctor We recommend a stress test as an outpatient with your heart doctor and 2 to 3 weeks FOLLOW UP DIRECTED, SOONER FOR WORSENING SYMPTOMS, PROBLEMS OR CONCERNS. Discharge Disposition: HOME SELF-CARE
== END 2024-11-10 14:45 | disposition home or self-care (01) ==
LOC: EC 22:54 → 6NMEDSUR 11-09 02:37
PROVIDERS: ADMIT Hospitalist; ATTEND Hospitalist
DX: R07.89 Other chest pain (principal); J06.9 Acute upper respiratory infection, unspecified; E11.65 Type 2 diabetes mellitus with hyperglycemia; R79.89 Other specified abnormal findings of blood chemistry; I10 Essential (primary) hypertension; G40.909 Epilepsy, unspecified, not intractable, without status epilepticus; J45.909 Unspecified asthma, uncomplicated; R07.2 Precordial pain; E66.9 Obesity, unspecified; Z68.43 Body mass index [BMI] 50.0-59.9, adult; Z79.85 Long-term (current) use of injectable non-insulin antidiabetic drugs; Z79.899 Other long term (current) drug therapy; Z88.1 Allergy status to other antibiotic agents; Z88.8 Allergy status to other drugs, medicaments and biological substances; Z11.52 Encounter for screening for COVID-19; Z11.59 Encounter for screening for other viral diseases; Z87.891 Personal history of nicotine dependence; Z82.49 Family history of ischemic heart disease and other diseases of the circulatory system
CPT/HCPCS: 96376 ×2; 96372 ×2; 96374; 96375; 99285; 36415; 93005; 93306; 85379; 80061; 80053; 83735; 84484 ×2; 85025; 85610; 85730; 84703; 83721; 83036; 87636; 71046; 93970; 71275; G0378 ×2; J1644 ×2; J2405; J3490 ×2; Q9967

== ENCOUNTER 2024-12-02 03:07 | Emergency (ER) | payer OTHER ==
[2024-12-02 03:21] LABS: Glucose,Whole Blood 488 mg/dL (70-110)
--- NOTE | 2024-12-02 04:02 | ED ---
General Adult HPI - General Chief complaint: Abdominal Pain Stated complaint: Shortness of Breath, High Blood Sugar Time Seen by Provider: 12/02/24 03:30 Source: patient Mode of arrival: ambulatory - History of Present Illness Initial comments: Patient is a 33-year-old female with a past medical history of type 2 diabetes, hypertension presenting today for hyperglycemia. Patient states that she was recently admitted to [facility] for DKA and discharged 2 days ago. Ye sterday patient noted her blood sugar to be high running around 300, she called her primary care provider at 1230 this morning who directed her to take an extra 10 units of NovoLog. She did this however upon recheck her blood glucose was 401. Patient Dors is mild epigastric discomfort described as a pressure in addition to "feeling". States that feeling short of breath and when it is not abnormal for her due to history of asthma and obesity. Also endorses intermittent chest pressure though states that this has been ongoing for months and is not new from prior. Endorses cough nonproductive of sputum. Denies hemoptysis fevers or chills. Endorses nausea but denies episodes of emesis. Dent s had 4 episodes of watery yellow stool but denies melena or hematochezia. Denies chance of . - Related Data Home Medications Medication Instructions Recorded Confirmed Folic Acid 2 mg PO BID 08/31/14 11/09/24 lamoTRIgine [LaMICtal] 200 mg PO BID 05/10/15 11/09/24 Montelukast [Singulair] 10 mg PO HS 02/10/19 11/09/24 ARIPiprazole [Abilify] 10 mg PO HS 11/29/22 11/09/24 levETIRAcetam 750 mg PO BID 11/29/22 11/09/24 Escitalopram [Lexapro] 20 mg PO HS 03/28/23 11/09/24 ARIPiprazole [Abilify] 5 mg PO DAILY 11/09/24 11/09/24 Labetalol [Trandate] 300 mg PO BID 11/09/24 11/09/24 hydrOXYzine HCL [Atarax] 10 mg PO TID PRN 11/09/24 11/09/24 levETIRAcetam [Keppra] 500 mg PO BID 11/09/24 11/09/24 Previous Rx's Medication Instructions Recorded Ondansetron Odt [Zofran ODT] 4 mg PO Q8HR PRN #10 tab 12/03/23 Aspirin 325 mg PO DAILY #30 tab 11/10/24 Insulin Glargine,Hum.rec.anlog 60 units SQ HS #10 ml 11/10/24 [Lantus Solostar Pen] Allergies Allergy/AdvReac Type Severity Reaction Status Date / Time haloperidol [From Haldol] Allergy Unknown Verified 12/02/24 03:24 metronidazole [From Flagyl] Allergy Unknown Verified 12/02/24 03:24 lurasidone [From Latuda] AdvReac high blood Verified 12/02/24 03:24 sugar Review of Systems ROS Statement: Those systems with pertinent positive or pertinent negative responses have been documented in the HPI. ROS Other: All systems not noted in ROS Statement are negative. Past Medical History Past Medical History: Asthma, Diabetes Mellitus, Hypertension, Seizure Disorder, Sleep Apnea/CPAP/BIPAP Additional Past Medical History / Comment(s): seizure, ovarin cyst right side History of Any Multi-Drug Resistant Organisms: None Reported Past Surgical History: Cholecystectomy Past Anesthesia/Blood Transfusion Reactions: No Reported Reaction Past Psychological History: Anxiety, Bipolar, Depression Smoking Status: Former smoker Past Alcohol Use History: Occasional Past Drug Use History: None Reported - Past Family History Mother Family Medical History: Asthma, Diabetes Mellitus Additional Family Medical History / Comment(s): Mom is alive at age 56 with history of diabetes Father Family Medical History: Hypertension Additional Family Medical History / Comment(s): Father is alive at age 56 with history of hypertension. Patient does not have any brothers. She does not have a sisters. She does not have any children. General Exam - General Exam Comments Initial Comments: PE: CONSTITUTIONAL: [no apparent distress, well appearing] SKIN: [warm, dry, no jaundice, hives or petechiae] EYES:[ pupils are equally round, extraocular movements intact without nystagmus, clear conjunctiva, non-icteric sclera] HENT: [normocephalic, atraumatic, moist mucus membranes, oropharynx clear without exudates] NECK: , [Full range of motion, normal appearance] PULMONARY: [clear to auscultation without wheezes, rhonchi, or rales, normal excursion, no accessory muscle use and no stridor] CARDIOVASCULAR:[ regular rate, rhythm, normal S1 and S2. No appreciated murmurs, rubs or gallops. Strong radial pulses with intact distal perfusion. No lower extremity edema] GASTROINTESTINAL: [soft, active bowel sounds throughout, non-tender, non- distended, no palpable masses, no rebound or guarding. No hepatosplenomegaly] GENITOURINARY: MUSCULOSKELETAL: [Extremities have no gross deformity, no edema, redness, or swelling. No calf swelling ] NEUROLOGIC: [_a/o x 3, GCS 15, normal mentation and speech. Moves all extremities x 4 without motor or sensory deficit] PSYCHIATRIC:[ _normal mood and affect, thought process is clear and linear] Course Vital Signs 12/02/24 12/02/24 12/02/24 03:17 04:49 06:16 Temperature 98.1 F Pulse Rate 85 86 79 Respiratory 18 14 16 Rate Blood Pressure 147/85 124/79 142/75 O2 Sat by Pulse 98 96 98 Oximetry 12/02/24 07:46 Temperature 98 F Pulse Rate 69 Respiratory 16 Rate Blood Pressure 122/57 O2 Sat by Pulse 96 Oximetry EKG Findings - EKG Comments: EKG Findings:: Sinus rhythm, rate 70 bpm, intervals within normal limits, normal axis, no ST elevations or depressions, no STEMI, compared to EKG performed on 08/12/2024, no significant changes from prior Medical Decision Making - Medical Decision Making Was pt. sent in by a medical professional or institution (, PA, DEPARTMENT STORE MANAGER, urgent care, hospital, or assisted...) When possible be specific @ -[No] Did you speak to anyone other than the patient for history (EMS, parent, family, police, friend...)? What history was obtained from this source @ -[No] Did you review nursing and triage notes (agree or disagree)? Why? @ -[I reviewed and agree with nursing and triage notes] Were old charts reviewed (outside hosp., previous admission, EMS record, old EKG, old radiological studies, urgent care reports/EKG's, assisted records)? Report findings @ -[No old charts were reviewed] Differential Diagnosis (chest pain, altered mental status, abdominal pain women, abdominal pain men, vaginal bleeding, weakness, fever, dyspnea, syncope, headache, dizziness, GI bleed, back pain, seizure, CVA, palpatations, mental health, musculoskeletal)? @ -[not applicable] EKG interpreted by me (3pts min.). @ -[As above] X-rays interpreted by me (1pt min.). @ -[None done] CT interpreted by me (1pt min.). @ -[None done] U/S interpreted by me (1pt. min.). @ -[None done] What testing was considered but not performed or refused? (CT, X-rays, U/S, labs)? Why? @ -[None] What meds were considered but not given or refused? Why? @ -[None] Did you discuss the management of the patient with other professionals (professionals i.e. , PA, DEPARTMENT STORE MANAGER, lab, RT, psych nurse, social work faculty member, active directory systems administrator, teacher, landing signal officer, case investigator)? Give summary @ -[No] Was smoking cessation discussed for >3mins.? @ -[No] Was critical care preformed (if so, how long)? @ -[No] Were there social determinants of health that impacted care today? How? (Homelessness, low income, unemployed, alcoholism, drug addiction, transportation, low edu. Level, literacy, decrease access to med. care, prison, rehab)? @ -[No] Was there de-escalation of care discussed even if they declined (Discuss DNR or withdrawal of care, Hospice)? @ -[No] What co-morbidities impacted this encounter? (DM, HTN, Smoking, COPD, CAD, Cancer, CVA, ARF, Chemo, Hep., AIDS, mental health diagnosis, sleep apnea, morbid obesity)? @ -[None] Was patient admitted / discharged? Hospital course, mention meds given and route, prescriptions, significant lab abnormalities, going to OR and other pertinent info. @ -[hospital course] patient is a 33-year-old female history of 2 type 2 diabetes, hypertension, asthma presenting today for hyperglycemia. Also notes "feeling winded" upper abdominal discomfort and chest pressure. Patient well- appearing on initial assessment. Complete history and physical exam performed. Plan for labs to evaluate for DKA, in addition to D-dimer, EKG, troponin coags lipase and amylase. Patient agreeable with plan of care. Labs and imaging reviewed. Grossly within normal limits. Abnormal values not concerning for acute pathology related to presenting complaint. Negative acetone. Anion gap 11, within normal limits. Patient received 10 units IV insulin and 2 L IV fluids. Blood sugar came down to 323. Discussed with patient plan for discharge, she is comfortable with plan of care and will follow-up with her primary care provider regarding today's visit. In my medical judgment there is currently no evidence of an immediate life-threa tening or surgical condition. Discharge is therefore indicated at this time. [Discharge treatment instructions, follow up instructions, and appropriate emergency department return precautions were discussed with the patient and/or medical decision maker. Patient and/or medical decision maker expressed understanding of and agreed with the treatment plan, follow up instructions, and emergency department return precaution. All patient's and/or medical decision maker's questions were answered.] [The patient was advised that a small risk still exists that a serious condition could develop and was therefore instructed to return to the ED for any changes in symptoms, persistent symptoms, inability to obtain proper follow-up or for any further concerns. Patient received verbal and written instructions for this condition.] Undiagnosed new problem with uncertain prognosis? @ -[No] Drug Therapy requiring intensive monitoring for toxicity (Heparin, Nitro, Insulin, Cardizem)? @ -[No] Were any procedures done? @ -[No] Diagnosis/symptom? @Hyperglycemia Acute, or Chronic, or Acute on Chronic? Acute Uncomplicated (without systemic symptoms) or Complicated (systemic symptoms)? @ -[default] Side effects of treatment? @ -[No] Exacerbation, Progression, or Severe Exacerbation? @ -[No] Poses a threat to life or bodily function? How? (Chest pain, [place], NM, pneumonia, PE, COPD, DKA, ARF, appy, cholecystitis, CVA, Diverticulitis, Homicidal, Suicidal, threat to staff... and all critical care pts) @ -[No] - Lab Data Result diagrams: 12/02/24 04:33 12/02/24 04:33 Lab Results 12/02/24 12/02/24 12/02/24 Range/Units 03:19 04:32 04:32 WBC (3.8-10.6) k/uL RBC (3.80-5.40) m/uL Hgb (11.4-16.0) gm/dL Hct (34.0-46.0) % MCV (80.0-100.0) fL MCH (25.0-35.0) pg MCHC (31.0-37.0) g/dL RDW (11.5-15.5) % Plt Count (150-450) k/uL MPV Neutrophils % % Lymphocytes % % Monocytes % % Eosinophils % % Basophils % % Neutrophils # (1.3-7.7) k/uL Lymphocytes # (1.0-4.8) k/uL Monocytes # (0-1.0) k/uL Eosinophils # (0-0.7) k/uL Basophils # (0-0.2) k/uL PT (10.0-12.5) sec INR (<1.2) APTT (22.0-30.0) sec D-Dimer (<0.60) mg/L FEU Sodium (137-145) mmol/L Potassium (3.5-5.1) mmol/L Chloride (98-107) mmol/L Carbon Dioxide (22-30) mmol/L Anion Gap mmol/L BUN (7-17) mg/dL Creatinine (0.52-1.04) mg/dL Est GFR (CKD-EPI)AfAm (>60 ml/min/1.73 sqM) Est GFR (CKD-EPI)NonAf (>60 ml/min/1.73 sqM) Glucose (74-99) mg/dL POC Glucose (mg/dL) 488 H (70-110) mg/dL POC Glu Radio Frequency Design Engineer ID Rupert Muranda Lactic Ac Sepsis Rflx Plasma Lactic Acid Jordan (0.7-2.0) mmol/L Calcium (8.4-10.2) mg/dL Phosphorus (2.5-4.5) mg/dL Magnesium (1.6-2.3) mg/dL Total Bilirubin (0.2-1.3) mg/dL AST (14-36) U/L ALT (4-34) U/L Alkaline Phosphatase (38-126) U/L Troponin I (0.000-0.034) ng/mL NT-Pro-B Natriuret Pep pg/mL Total Protein (6.3-8.2) g/dL Albumin (3.5-5.0) g/dL Amylase (30-110) U/L Lipase (23-300) U/L HCG, Qual Urine Color Colorless Urine Appearance Clear (Clear) Urine pH 5.0 (5.0-8.0) Ur Specific [place] 1.026 (1.001-1.035) Urine Protein Negative (Negative) Urine Glucose (UA) 4+ H (Negative) Urine Ketones Negative (Negative) Urine Blood Negative (Negative) Urine Nitrite Negative (Negative) Urine Bilirubin Negative (Negative) Urine Urobilinogen <2.0 (<2.0) mg/dL Ur Leukocyte Esterase Negative (Negative) Acetone, Qual (Negative) Influenza Type A (PCR) Not Detected (Not Detectd) Influenza Type B (PCR) Not Detected (Not Detectd) RSV (PCR) Not Detected (Not Detectd) SARS-CoV-2 (PCR) Not Detected (Not Detectd) 12/02/24 12/02/24 12/02/24 Range/Units 04:33 04:33 04:33 WBC 8.9 (3.8-10.6) k/uL RBC 4.71 (3.80-5.40) m/uL Hgb 13.3 (11.4-16.0) gm/dL Hct 41.6 (34.0-46.0) % MCV 88.2 (80.0-100.0) fL MCH 28.3 (25.0-35.0) pg MCHC 32.1 (31.0-37.0) g/dL RDW 14.5 (11.5-15.5) % Plt Count 282 (150-450) k/uL MPV 6.9 Neutrophils % 71 % Lymphocytes % 20 % Monocytes % 4 % Eosinophils % 3 % Basophils % 0 % Neutrophils # 6.3 (1.3-7.7) k/uL Lymphocytes # 1.8 (1.0-4.8) k/uL Monocytes # 0.3 (0-1.0) k/uL Eosinophils # 0.2 (0-0.7) k/uL Basophils # 0.0 (0-0.2) k/uL PT 10.0 (10.0-12.5) sec INR 0.9 (<1.2) APTT 22.8 (22.0-30.0) sec D-Dimer 0.60 H (<0.60) mg/L FEU Sodium 130 L (137-145) mmol/L Potassium 4.2 (3.5-5.1) mmol/L Chloride 98 (98-107) mmol/L Carbon Dioxide 21 L (22-30) mmol/L Anion Gap 11 mmol/L BUN 15 (7-17) mg/dL Creatinine 0.67 (0.52-1.04) mg/dL Est GFR (CKD-EPI)AfAm >90 (>60 ml/min/1.73 sqM) Est GFR (CKD-EPI)NonAf >90 (>60 ml/min/1.73 sqM) Glucose 508 H* (74-99) mg/dL POC Glucose (mg/dL) (70-110) mg/dL POC Glu Radio Frequency Design Engineer ID Lactic Ac Sepsis Rflx Plasma Lactic Acid Jordan (0.7-2.0) mmol/L Calcium 9.2 (8.4-10.2) mg/dL Phosphorus 3.7 (2.5-4.5) mg/dL Magnesium 1.7 (1.6-2.3) mg/dL Total Bilirubin 0.2 (0.2-1.3) mg/dL AST 23 (14-36) U/L ALT 33 (4-34) U/L Alkaline Phosphatase 210 H (38-126) U/L Troponin I (0.000-0.034) ng/mL NT-Pro-B Natriuret Pep 23 pg/mL Total Protein 6.7 (6.3-8.2) g/dL Albumin 4.2 (3.5-5.0) g/dL Amylase 60 (30-110) U/L Lipase 147 (23-300) U/L HCG, Qual Not Detected Urine Color Urine Appearance (Clear) Urine pH (5.0-8.0) Ur Specific [place] (1.001-1.035) Urine Protein (Negative) Urine Glucose (UA) (Negative) Urine Ketones (Negative) Urine Blood (Negative) Urine Nitrite (Negative) Urine Bilirubin (Negative) Urine Urobilinogen (<2.0) mg/dL Ur Leukocyte Esterase (Negative) Acetone, Qual Negative (Negative) Influenza Type A (PCR) (Not Detectd) Influenza Type B (PCR) (Not Detectd) RSV (PCR) (Not Detectd) SARS-CoV-2 (PCR) (Not Detectd) 12/02/24 12/02/2425 Range/Units 04:33 04:33 05:32 WBC (3.8-10.6) k/uL RBC (3.80-5.40) m/uL Hgb (11.4-16.0) gm/dL Hct (34.0-46.0) % MCV (80.0-100.0) fL MCH (25.0-35.0) pg MCHC (31.0-37.0) g/dL RDW (11.5-15.5) % Plt Count (150-450) k/uL MPV Neutrophils % % Lymphocytes % % Monocytes % % Eosinophils % % Basophils % % Neutrophils # (1.3-7.7) k/uL Lymphocytes # (1.0-4.8) k/uL Monocytes # (0-1.0) k/uL Eosinophils # (0-0.7) k/uL Basophils # (0-0.2) k/uL PT (10.0-12.5) sec INR (<1.2) APTT (22.0-30.0) sec D-Dimer (<0.60) mg/L FEU Sodium (137-145) mmol/L Potassium (3.5-5.1) mmol/L Chloride (98-107) mmol/L Carbon Dioxide (22-30) mmol/L Anion Gap mmol/L BUN (7-17) mg/dL Creatinine (0.52-1.04) mg/dL Est GFR (CKD-EPI)AfAm (>60 ml/min/1.73 sqM) Est GFR (CKD-EPI)NonAf (>60 ml/min/1.73 sqM) Glucose (74-99) mg/dL POC Glucose (mg/dL) (70-110) mg/dL POC Glu Radio Frequency Design Engineer ID Lactic Ac Sepsis Rflx Y Plasma Lactic Acid Jordan 2.7 H* (0.7-2.0) mmol/L Calcium (8.4-10.2) mg/dL Phosphorus (2.5-4.5) mg/dL Magnesium (1.6-2.3) mg/dL Total Bilirubin (0.2-1.3) mg/dL AST (14-36) U/L ALT (4-34) U/L Alkaline Phosphatase (38-126) U/L Troponin I <0.012 (0.000-0.034) ng/mL NT-Pro-B Natriuret Pep pg/mL Total Protein (6.3-8.2) g/dL Albumin (3.5-5.0) g/dL Amylase (30-110) U/L Lipase (23-300) U/L HCG, Qual Urine Color Urine Appearance (Clear) Urine pH (5.0-8.0) Ur Specific [place] (1.001-1.035) Urine Protein (Negative) Urine Glucose (UA) (Negative) Urine Ketones (Negative) Urine Blood (Negative) Urine Nitrite (Negative) Urine Bilirubin (Negative) Urine Urobilinogen (<2.0) mg/dL Ur Leukocyte Esterase (Negative) Acetone, Qual (Negative) Influenza Type A (PCR) (Not Detectd) Influenza Type B (PCR) (Not Detectd) RSV (PCR) (Not Detectd) SARS-CoV-2 (PCR) (Not Detectd) 12/02/24 12/02/24 12/02/24 Range/Units 06:13 06:51 07:45 WBC (3.8-10.6) k/uL RBC (3.80-5.40) m/uL Hgb (11.4-16.0) gm/dL Hct (34.0-46.0) % MCV (80.0-100.0) fL MCH (25.0-35.0) pg MCHC (31.0-37.0) g/dL RDW (11.5-15.5) % Plt Count (150-450) k/uL MPV Neutrophils % % Lymphocytes % % Monocytes % % Eosinophils % % Basophils % % Neutrophils # (1.3-7.7) k/uL Lymphocytes # (1.0-4.8) k/uL Monocytes # (0-1.0) k/uL Eosinophils # (0-0.7) k/uL Basophils # (0-0.2) k/uL PT (10.0-12.5) sec INR (<1.2) APTT (22.0-30.0) sec D-Dimer (<0.60) mg/L FEU Sodium (137-145) mmol/L Potassium (3.5-5.1) mmol/L Chloride (98-107) mmol/L Carbon Dioxide (22-30) mmol/L Anion Gap mmol/L BUN (7-17) mg/dL Creatinine (0.52-1.04) mg/dL Est GFR (CKD-EPI)AfAm (>60 ml/min/1.73 sqM) Est GFR (CKD-EPI)NonAf (>60 ml/min/1.73 sqM) Glucose (74-99) mg/dL POC Glucose (mg/dL) 401 H 344 H 329 H (70-110) mg/dL POC Glu Radio Frequency Design Engineer ID [facility] Azael Indio Lactic Ac Sepsis Rflx Plasma Lactic Acid Jordan (0.7-2.0) mmol/L Calcium (8.4-10.2) mg/dL Phosphorus (2.5-4.5) mg/dL Magnesium (1.6-2.3) mg/dL Total Bilirubin (0.2-1.3) mg/dL AST (14-36) U/L ALT (4-34) U/L Alkaline Phosphatase (38-126) U/L Troponin I (0.000-0.034) ng/mL NT-Pro-B Natriuret Pep pg/mL Total Protein (6.3-8.2) g/dL Albumin (3.5-5.0) g/dL Amylase (30-110) U/L Lipase (23-300) U/L HCG, Qual Urine Color Urine Appearance (Clear) Urine pH (5.0-8.0) Ur Specific [place] (1.001-1.035) Urine Protein (Negative) Urine Glucose (UA) (Negative) Urine Ketones (Negative) Urine Blood (Negative) Urine Nitrite (Negative) Urine Bilirubin (Negative) Urine Urobilinogen (<2.0) mg/dL Ur Leukocyte Esterase (Negative) Acetone, Qual (Negative) Influenza Type A (PCR) (Not Detectd) Influenza Type B (PCR) (Not Detectd) RSV (PCR) (Not Detectd) SARS-CoV-2 (PCR) (Not Detectd) Disposition Clinical Impression: Hyperglycemia Disposition: HOME SELF-CARE Condition: Good Additional Instructions: Every disease is a spectrum and a small chance still exists that a serious condition could develop, for this reason, please monitor yourself closely for new, changing or worsening symptoms, symptoms that persist beyond 48 hours, fever, coughing up blood or thick sputum, swelling in your legs, inability to tolerate/keep down fluids or your medications, inability to follow up with outpatient providers as instructed and should you experience these symptoms or should you have any further concerns for your wellbeing please return to the ED or call 911 immediately. PLEASE call your primary care physician as soon as possible to arrange / discuss plan for followup appointment. Appointment in the next 1-3 days is strongly encouraged if possible. PLEASE let us know here before you leave if there is anything further we can do to be of any assistance. Take care and feel Better! Is patient prescribed a controlled substance at d/c from ED?: No Referrals: Kathe Wallace MD [Primary Care Provider] - 1-2 days
[2024-12-02] MEDS: SODIUM CHLORIDE 0.9% 2,000 ML IV STA (04:40)
[2024-12-02 04:42] LABS: Appearance,Urine Clear (Clear); Bilirubin,Urine Negative (Negative); Blood,Urine Negative (Negative); Color,Urine Colorless; Glucose,Urine (UA) 4+ (Negative); Ketones,Urine Negative (Negative); Leukocyte Esterase,Urine Negative (Negative); Nitrite,Urine Negative (Negative); Protein,Urine Negative (Negative); Specific Gravity,Urine 1.026 (1.001-1.035); Urobilinogen,Urine <2.0 mg/dL (<2.0)
[2024-12-02 04:43] LABS: Basophils % (A) 0 %; Eosinophils # (A) 0.2 k/uL (0-0.7); Eosinophils % (A) 3 %; HCT 41.6 % (34.0-46.0); HGB 13.3 gm/dL (11.4-16.0); Lymphocytes # (A) 1.8 k/uL (1.0-4.8); Lymphocytes % (A) 20 %; MCH 28.3 pg (25.0-35.0); MCHC 32.1 g/dL (31.0-37.0); MCV 88.2 fL (80.0-100.0); Mean Platelet Volume 6.9; Monocytes # (A) 0.3 k/uL (0-1.0); Monocytes % (A) 4 %; Neutrophils # (A) 6.3 k/uL (1.3-7.7); Neutrophils % (A) 71 %; Platelet Count 282 k/uL (150-450); RBC 4.71 m/uL (3.80-5.40); RDW 14.5 % (11.5-15.5); WBC 8.9 k/uL (3.8-10.6)
[2024-12-02] MEDS: METOCLOPRAMIDE 5 MG/ML 2 ML VIAL IVP STA (04:44)
[2024-12-02] MEDS: diphenhydrAMINE 50 MG/ML 1 ML VIAL IVP STA (04:45)
[2024-12-02 05:01] LABS: INR 0.9 (<1.2); Partial Thromboplastin Time 22.8 sec (22.0-30.0)
[2024-12-02 05:08] LABS: ALT 33 U/L (4-34); AST 23 U/L (14-36); African American GFR (CKD) >90 (>60 ml/min/1.73 sqM); Albumin 4.2 g/dL (3.5-5.0); Alkaline Phosphatase 210 U/L (38-126); Amylase 60 U/L (30-110); Anion Gap 11 mmol/L; Blood Urea Nitrogen 15 mg/dL (7-17); Calcium 9.2 mg/dL (8.4-10.2); Carbon Dioxide 21 mmol/L (22-30); Chloride 98 mmol/L (98-107); Lipase 147 U/L (23-300); Magnesium 1.7 mg/dL (1.6-2.3); Non-African American GFR(CKD) >90 (>60 ml/min/1.73 sqM); Phosphorus 3.7 mg/dL (2.5-4.5); Potassium 4.2 mmol/L (3.5-5.1); Sodium 130 mmol/L (137-145); Total Bilirubin 0.2 mg/dL (0.2-1.3); Total Protein 6.7 g/dL (6.3-8.2)
[2024-12-02 05:09] LABS: HCG,Qualitative Serum Not Detected
[2024-12-02 05:17] LABS: NT-Pro-B-Type Natriuretic Pept 23 pg/mL
[2024-12-02] MEDS: INSULIN REGULAR 100 UNIT/ML VIAL (IV) IV ONE ×2 (05:30→06:46)
[2024-12-02 05:31] LABS: Glucose 508 mg/dL (74-99)
[2024-12-02 06:15] LABS: Glucose,Whole Blood 401 mg/dL (70-110)
[2024-12-02 06:17] VITALS: RESP 16
[2024-12-02 06:52] LABS: Glucose,Whole Blood 344 mg/dL (70-110)
--- NOTE | 2024-12-02 07:38 | CT ---
EXAMINATION TYPE: CT chest angio for PE DATE OF EXAM: 12/02/2024 6:01 AM COMPARISON: 11/09/2024 CLINICAL INDICATION: Female, 33 years old with history of elevated dimer, clear lungs recent hosp, el evated d dimer. Pt to ED for evaluation of weakness, high blood sugar and increased urine output. Pt reports recently admitted in another facility for DKA. Pt denies any cough, congestion, pt reports in creased sob with walking long distances. Pt reports mid-abdominal discomfort, and nausea without emes is. PTs BG in triage is 488; pt took long acting 60units of Lantas at 2200pm last night; pt took an e xtra 10units of novlog at 0030. TECHNIQUE: CT of the chest is performed on a spiral scan at 2 mm thick sections. Study is performed with intravenous contrast timed for evaluation for pulmonary embolism. This will limit additional po rtions of the evaluation. 3-D MIP images reconstructed by the technologist are reviewed on the compu ter in the coronal and sagittal planes. Contrast timing is suboptimal. Smaller pulmonary emboli may n ot be visualized Contrast used:100 mL of Isovue 370 with IV Contrast, (none if empty) Oral contrast used: (none if empty) CT DLP: 2.6 mGycm, Automated exposure control for dose reduction was used. FINDINGS: No persistent filling defects are evident to suggest an acute pulmonary embolism. No mediastinal or hilar adenopathy enlarged by CT criteria is evident. The ascending aorta diameter at the level of the main pulmonary artery is 3.6 cm. The main pulmonary artery diameter at the bifurcation is 3.2 cm. Lung windows are clear. Limited CT sections were through the upper abdomen. Upper abdomen appears unremarkable. IMPRESSION: 1. No prominent pulmonary emboli. Contrast timing is suboptimal and smaller pulmonary emboli may not be visualized. 2. No acute pulmonary process. [facility], , 12/02/2024 7:35 AM
[2024-12-02 07:47] VITALS: TEMP 98
[2024-12-02 07:52] LABS: Glucose,Whole Blood 329 mg/dL (70-110)
[2024-12-02 08:06] VITALS: BP 140/68; PULSE 68
== END 2024-12-02 08:07 | disposition home or self-care (01) ==
LOC: EC 03:07
DX: E11.65 Type 2 diabetes mellitus with hyperglycemia (principal); Z88.1 Allergy status to other antibiotic agents; Z88.8 Allergy status to other drugs, medicaments and biological substances; E66.9 Obesity, unspecified; Z68.43 Body mass index [BMI] 50.0-59.9, adult; Z87.891 Personal history of nicotine dependence
CPT/HCPCS: 36415; 93005; 85379; 83880; 80053; 82150; 82009; 83605; 83690; 83735; 84100; 84484; 85025; 85610; 85730; 81003; 84703; 87636; 71275; 99284; 96374; 96375; 96361 ×3; J1200; J2765; Q9967 ×2

== ENCOUNTER 2025-03-18 16:39 | Emergency (ER) | payer OTHER ==
[2025-03-18 16:47] LABS: Glucose,Whole Blood 505 mg/dL (70-110)
--- NOTE | 2025-03-18 17:08 | ED ---
Recheck HPI - General Chief Complaint: Recheck/Abnormal Lab/Rx Stated Complaint: abn labs Time Seen by Provider: 03/18/25 17:01 Source: patient, EMS, RN notes reviewed Mode of arrival: EMS - History of Present Illness Initial Comments: 34-year-old female with history of type 2 diabetes on insulin presenting for hyperglycemia. States her blood sugar has been high the past 3 days despite taking her long-acting and short acting insulin as normal. She states she was recently diagnosed with bronchitis at [facility] 3 days ago. Endorses dry cough and itchy throat over the past 5 days. States she was not given any steroids because she knows steroids make her blood glucose high. Denies chest pain, shortness of breath, nausea, vomiting. She gave herself 40 units of NovoLog prior to arrival. Other past medical history includes asthma, hypertension, and seizure disorder. - Related Data Home Medications Medication Instructions Recorded Confirmed Folic Acid 2 mg PO BID 08/31/14 11/09/24 lamoTRIgine [LaMICtal] 200 mg PO BID 05/10/15 11/09/24 Montelukast [Singulair] 10 mg PO HS 02/10/19 11/09/24 ARIPiprazole [Abilify] 10 mg PO HS 11/29/22 11/09/24 levETIRAcetam 750 mg PO BID 11/29/22 11/09/24 Escitalopram [Lexapro] 20 mg PO HS 03/28/23 11/09/24 ARIPiprazole [Abilify] 5 mg PO DAILY 11/09/24 11/09/24 Labetalol [Trandate] 300 mg PO BID 11/09/24 11/09/24 hydrOXYzine HCL [Atarax] 10 mg PO TID PRN 11/09/24 11/09/24 levETIRAcetam [Keppra] 500 mg PO BID 11/09/24 11/09/24 Previous Rx's Medication Instructions Recorded Ondansetron Odt [Zofran ODT] 4 mg PO Q8HR PRN #10 tab 12/03/23 Aspirin 325 mg PO DAILY #30 tab 11/10/24 Insulin Glargine,Hum.rec.anlog 60 units SQ HS #10 ml 11/10/24 [Lantus Solostar Pen] Allergies Allergy/AdvReac Type Severity Reaction Status Date / Time haloperidol [From Haldol] Allergy Unknown Verified 03/18/25 16:49 metronidazole [From Flagyl] Allergy Rash/Hives Verified 03/18/25 16:49 lurasidone [From Latuda] AdvReac high blood Verified 03/18/25 16:49 sugar Review of Systems ROS Statement: Those systems with pertinent positive or pertinent negative responses have been documented in the HPI. ROS Other: All systems not noted in ROS Statement are negative. Past Medical History Past Medical History: Asthma, Diabetes Mellitus, Hypertension, Seizure Disorder, Sleep Apnea/CPAP/BIPAP Additional Past Medical History / Comment(s): seizure, ovarin cyst right side History of Any Multi-Drug Resistant Organisms: None Reported Past Surgical History: Section, Cholecystectomy Past Anesthesia/Blood Transfusion Reactions: No Reported Reaction Past Psychological History: Anxiety, Bipolar, Depression Smoking Status: Former smoker Past Alcohol Use History: Occasional Past Drug Use History: None Reported - Past Family History Mother Family Medical History: Asthma, Diabetes Mellitus Additional Family Medical History / Comment(s): Mom is alive at age 56 with history of diabetes Father Family Medical History: Hypertension Additional Family Medical History / Comment(s): Father is alive at age 56 with history of hypertension. Patient does not have any brothers. She does not have a sisters. She does not have any children. General Exam General appearance: alert, in no apparent distress Head exam: Present: atraumatic, normocephalic, normal inspection Eye exam: Present: normal appearance, PERRL, EOMI. Absent: scleral icterus, conjunctival injection, periorbital swelling Respiratory exam: Present: normal lung sounds bilaterally. Absent: respiratory distress, wheezes, rales, rhonchi, stridor Cardiovascular Exam: Present: regular rate, normal rhythm, normal heart sounds. Absent: systolic murmur, diastolic murmur, rubs, gallop, clicks GI/Abdominal exam: Present: soft, normal bowel sounds. Absent: distended, tenderness, guarding, rebound, rigid Neurological exam: Present: alert, oriented X3 Psychiatric exam: Present: normal affect, normal mood Skin exam: Present: warm, dry, intact, normal color. Absent: rash Course Vital Signs 03/18/25 03/18/25 03/18/25 16:41 17:21 18:36 Temperature 100 F H 98.6 F Pulse Rate 84 75 74 Respiratory 19 16 18 Rate Blood Pressure 130/70 127/60 120/67 O2 Sat by Pulse 97 98 97 Oximetry Medical Decision Making - Medical Decision Making Was pt. sent in by a medical professional or institution ([facility]ET[facility] Reed, PURCHASING BUYER, urgent care, hospital, or alf...) When possible be specific @ -No Did you speak to anyone other than the patient for history (EMS, parent, family, police, friend...)? What history was obtained from this source @ -No Did you review nursing and triage notes (agree or disagree)? Why? @ -I reviewed and agree with nursing and triage notes Were old charts reviewed (outside hosp., previous admission, EMS record, old EKG, old radiological studies, urgent care reports/EKG's, alf records)? Report findings @ -No old charts were reviewed Differential Diagnosis (chest pain, altered mental status, abdominal pain women, abdominal pain men, vaginal bleeding, weakness, fever, dyspnea, syncope, headache, dizziness, GI bleed, back pain, seizure, CVA, palpatations, mental health, musculoskeletal)? @ -Hyperglycemia, DKA, HHS, bronchitis, viral URI, pneumonia EKG interpreted by me (3pts min.). @ -As above X-rays interpreted by me (1pt min.). @ -Chest x-ray reveals no acute cardiopulmonary process CT interpreted by me (1pt min.). @ -None done U/S interpreted by me (1pt. min.). @ -None done What testing was considered but not performed or refused? (CT, X-rays, U/S, labs)? Why? @ -None What meds were considered but not given or refused? Why? @ -None Did you discuss the management of the patient with other professionals (professionals i.e. [facility]ERETT Reed, PURCHASING BUYER, lab, RT, psych nurse, social worker palliative care, family lawyer, teacher, precinct commanding officer, continuous pillowcase cutter)? Give summary @ -No Was smoking cessation discussed for >3mins.? @ -No Was critical care preformed (if so, how long)? @ -No Were there social determinants of health that impacted care today? How? (Homelessness, low income, unemployed, alcoholism, drug addiction, tr ansportation, low edu. Level, literacy, decrease access to med. care, penitentiary, rehab)? @ -No Was there de-escalation of care discussed even if they declined (Discuss DNR or withdrawal of care, Hospice)? DNR status @ -No What co-morbidities impacted this encounter? (DM, HTN, Smoking, COPD, CAD, Cancer, CVA, ARF, Chemo, Hep., AIDS, mental health diagnosis, sleep apnea, morbid obesity)? @ -None Was patient admitted / discharged? Hospital course, mention meds given and route, prescriptions, significant lab abnormalities, going to OR and other pertinent info. @ - discharge. 34-year-old female with history of type 2 diabetes presenting for hyperglycemia. Patient endorses cough over the past 5 days. Vital signs significant for temperature of 100 F, normal blood pressure 130/70, normal heart rate 84 bpm, satting 97% on room air. Accu-Chek 505. History and physical exam obtained. Patient requires ultrasound IV. Ordered 2 L IV fluid bolus. Patient does not appear to be in DKA. Lab work remarkable for normal white count 5, normal pCO2 37, negative acetone, anion gap 11, normal potassium 4.7. Patient is negative for COVID-19, influenza, and RSV. Chest x-ray reveals no acute cardiopulmonary process. Urinalysis reveals 4+ glucose, negative for ketones. Upon recheck blood glucose was 384. Patient was given an additional 10 units of insulin and blood glucose reduced to 269. Patient can be safely discharged home with close follow-up with her leather stamper. Appropriate return precautions and supportive care discussed. Case was discussed with my ED attending Dr. Pal Undiagnosed new problem with uncertain prognosis? @ -No Drug Therapy requiring intensive monitoring for toxicity (Heparin, Nitro, Insulin, Cardizem)? @ -No Were any procedures done? @ -No Diagnosis/symptom? @ -Hyperglycemia Acute, or Chronic, or Acute on Chronic? @ -Acute Uncomplicated (without systemic symptoms) or Complicated (systemic symptoms)? @ -Uncomplicated Side effects of treatment? @ -No Exacerbation, Progression, or Severe Exacerbation? @ -No Poses a threat to life or bodily function? How? (Chest pain, USA, ME, pneumonia, PE, COPD, DKA, ARF, appy, cholecystitis, CVA, Diverticulitis, Homicidal, Suicidal, threat to staff... and all critical care pts) @ -No - Lab Data Result diagrams: 03/18/25 17:07 03/18/25 17:07 Lab Results 03/18/25 03/18/25 03/18/25 Range/Units 16:41 17:04 17:04 WBC (4.50-10.00) 10*3/uL RBC (4.10-5.20) 10*6/uL Hgb (12.0-15.0) g/dL Hct (37.2-46.3) % MCV (80.0-97.0) fL MCH (27.0-32.0) pg MCHC (32.0-37.0) g/dL Plt Count (140-440) 10*3/uL MPV (9.5-12.2) fL Immature Gran % (Auto) % Neutrophils % % Lymphocytes % % Monocytes % % Eosinophils % % Basophils % % Immature Gran # (0.00-0.04) 10*3/uL Neutrophils # (1.80-7.70) 10*3/uL Lymphocytes # (0.90-5.00) 10*3/uL Monocytes # (0.20-1.00) 10*3/uL Eosinophils # (0.04-0.35) 10*3/uL Basophils # (0.00-0.10) 10*3/uL VBG pH (7.31-7.41) VBG pCO2 (37-51) mmHg VBG HCO3 (24-28) mmol/L Sodium (137-145) mmol/L Potassium (3.5-5.1) mmol/L Chloride (98-107) mmol/L Carbon Dioxide (22-30) mmol/L Anion Gap mmol/L BUN (7-17) mg/dL Creatinine (0.52-1.04) mg/dL Est GFR (CKD-EPI)AfAm (>60 ml/min/1.73 sqM) Est GFR (CKD-EPI)NonAf (>60 ml/min/1.73 sqM) Glucose (74-99) mg/dL POC Glucose (mg/dL) 505 H* (70-110) mg/dL POC Glu Barrel Cooper ID Heriberto Rhodes Jesusita Lactic Ac Sepsis Rflx Plasma Lactic Acid Jordan (0.7-2.0) mmol/L Calcium (8.4-10.2) mg/dL Phosphorus (2.5-4.5) mg/dL Magnesium (1.6-2.3) mg/dL Total Bilirubin (0.2-1.3) mg/dL AST (14-36) U/L ALT (4-34) U/L Alkaline Phosphatase (38-126) U/L Total Protein (6.3-8.2) g/dL Albumin (3.5-5.0) g/dL Urine Color Colorless Urine Appearance Clear (Clear) Urine pH 6.0 (5.0-8.0) Ur Specific [place] 1.029 (1.001-1.035) Urine Protein Negative (Negative) Urine Glucose (UA) 4+ H (Negative) Urine Ketones Negative (Negative) Urine Blood Negative (Negative) Urine Nitrite Negative (Negative) Urine Bilirubin Negative (Negative) Urine Urobilinogen <2.0 (<2.0) mg/dL Ur Leukocyte Esterase Negative (Negative) Urine HCG, Qual Not Detected (Not Detectd) Acetone, Qual (Negative) Influenza Type A (PCR) (Not Detectd) Influenza Type B (PCR) (Not Detectd) RSV (PCR) (Not Detectd) SARS-CoV-2 (PCR) (Not Detectd) 03/18/25 03/18/25 03/18/25 Range/Units 17:07 17:07 17:07 WBC 5.10 (4.50-10.00) 10*3/uL RBC 4.91 (4.10-5.20) 10*6/uL Hgb 14.4 (12.0-15.0) g/dL Hct 42.4 (37.2-46.3) % MCV 86.4 (80.0-97.0) fL MCH 29.3 (27.0-32.0) pg MCHC 34.0 (32.0-37.0) g/dL Plt Count 273 (140-440) 10*3/uL MPV 9.3 L (9.5-12.2) fL Immature Gran % (Auto) 0.4 % Neutrophils % 67.0 % Lymphocytes % 20.6 % Monocytes % 7.3 % Eosinophils % 4.1 % Basophils % 0.6 % Immature Gran # 0.02 (0.00-0.04) 10*3/uL Neutrophils # 3.42 (1.80-7.70) 10*3/uL Lymphocytes # 1.05 (0.90-5.00) 10*3/uL Monocytes # 0.37 (0.20-1.00) 10*3/uL Eosinophils # 0.21 (0.04-0.35) 10*3/uL Basophils # 0.03 (0.00-0.10) 10*3/uL VBG pH (7.31-7.41) VBG pCO2 (37-51) mmHg VBG HCO3 (24-28) mmol/L Sodium 131 L (137-145) mmol/L Potassium 4.7 (3.5-5.1) mmol/L Chloride 98 (98-107) mmol/L Carbon Dioxide 22 (22-30) mmol/L Anion Gap 11 mmol/L BUN 11 (7-17) mg/dL Creatinine 0.62 (0.52-1.04) mg/dL Est GFR (CKD-EPI)AfAm >90 (>60 ml/min/1.73 sqM) Est GFR (CKD-EPI)NonAf >90 (>60 ml/min/1.73 sqM) Glucose 487 H (74-99) mg/dL POC Glucose (mg/dL) (70-110) mg/dL POC Glu Barrel Cooper ID Lactic Ac Sepsis Rflx Plasma Lactic Acid Jordan 2.2 H* (0.7-2.0) mmol/L Calcium 9.2 (8.4-10.2) mg/dL Phosphorus 2.9 (2.5-4.5) mg/dL Magnesium 2.0 (1.6-2.3) mg/dL Total Bilirubin 0.5 (0.2-1.3) mg/dL AST 38 H (14-36) U/L ALT 60 H (4-34) U/L Alkaline Phosphatase 160 H (38-126) U/L Total Protein 6.9 (6.3-8.2) g/dL Albumin 4.3 (3.5-5.0) g/dL Urine Color Urine Appearance (Clear) Urine pH (5.0-8.0) Ur Specific [place] (1.001-1.035) Urine Protein (Negative) Urine Glucose (UA) (Negative) Urine Ketones (Negative) Urine Blood (Negative) Urine Nitrite (Negative) Urine Bilirubin (Negative) Urine Urobilinogen (<2.0) mg/dL Ur Leukocyte Esterase (Negative) Urine HCG, Qual (Not Detectd) Acetone, Qual Negative (Negative) Influenza Type A (PCR) (Not Detectd) Influenza Type B (PCR) (Not Detectd) RSV (PCR) (Not Detectd) SARS-CoV-2 (PCR) (Not Detectd) 03/18/25 03/18/25 03/18/25 Range/Units 17:07 17:07 17:43 WBC (4.50-10.00) 10*3/uL RBC (4.10-5.20) 10*6/uL Hgb (12.0-15.0) g/dL Hct (37.2-46.3) % MCV (80.0-97.0) fL MCH (27.0-32.0) pg MCHC (32.0-37.0) g/dL Plt Count (140-440) 10*3/uL MPV (9.5-12.2) fL Immature Gran % (Auto) % Neutrophils % % Lymphocytes % % Monocytes % % Eosinophils % % Basophils % % Immature Gran # (0.00-0.04) 10*3/uL Neutrophils # (1.80-7.70) 10*3/uL Lymphocytes # (0.90-5.00) 10*3/uL Monocytes # (0.20-1.00) 10*3/uL Eosinophils # (0.04-0.35) 10*3/uL Basophils # (0.00-0.10) 10*3/uL VBG pH 7.43 H (7.31-7.41) VBG pCO2 37 (37-51) mmHg VBG HCO3 24 (24-28) mmol/L Sodium (137-145) mmol/L Potassium (3.5-5.1) mmol/L Chloride (98-107) mmol/L Carbon Dioxide (22-30) mmol/L Anion Gap mmol/L BUN (7-17) mg/dL Creatinine (0.52-1.04) mg/dL Est GFR (CKD-EPI)AfAm (>60 ml/min/1.73 sqM) Est GFR (CKD-EPI)NonAf (>60 ml/min/1.73 sqM) Glucose (74-99) mg/dL POC Glucose (mg/dL) (70-110) mg/dL POC Glu Barrel Cooper ID Lactic Ac Sepsis Rflx Y Plasma Lactic Acid Jordan (0.7-2.0) mmol/L Calcium (8.4-10.2) mg/dL Phosphorus (2.5-4.5) mg/dL Magnesium (1.6-2.3) mg/dL Total Bilirubin (0.2-1.3) mg/dL AST (14-36) U/L ALT (4-34) U/L Alkaline Phosphatase (38-126) U/L Total Protein (6.3-8.2) g/dL Albumin (3.5-5.0) g/dL Urine Color Urine Appearance (Clear) Urine pH (5.0-8.0) Ur Specific [place] (1.001-1.035) Urine Protein (Negative) Urine Glucose (UA) (Negative) Urine Ketones (Negative) Urine Blood (Negative) Urine Nitrite (Negative) Urine Bilirubin (Negative) Urine Urobilinogen (<2.0) mg/dL Ur Leukocyte Esterase (Negative) Urine HCG, Qual (Not Detectd) Acetone, Qual (Negative) Influenza Type A (PCR) Not Detected (Not Detectd) Influenza Type B (PCR) Not Detected (Not Detectd) RSV (PCR) Not Detected (Not Detectd) SARS-CoV-2 (PCR) Not Detected (Not Detectd) 03/18/25 03/18/25 Range/Units 18:35 19:56 WBC (4.50-10.00) 10*3/uL RBC (4.10-5.20) 10*6/uL Hgb (12.0-15.0) g/dL Hct (37.2-46.3) % MCV (80.0-97.0) fL MCH (27.0-32.0) pg MCHC (32.0-37.0) g/dL Plt Count (140-440) 10*3/uL MPV (9.5-12.2) fL Immature Gran % (Auto) % Neutrophils % % Lymphocytes % % Monocytes % % Eosinophils % % Basophils % % Immature Gran # (0.00-0.04) 10*3/uL Neutrophils # (1.80-7.70) 10*3/uL Lymphocytes # (0.90-5.00) 10*3/uL Monocytes # (0.20-1.00) 10*3/uL Eosinophils # (0.04-0.35) 10*3/uL Basophils # (0.00-0.10) 10*3/uL VBG pH (7.31-7.41) VBG pCO2 (37-51) mmHg VBG HCO3 (24-28) mmol/L Sodium (137-145) mmol/L Potassium (3.5-5.1) mmol/L Chloride (98-107) mmol/L Carbon Dioxide (22-30) mmol/L Anion Gap mmol/L BUN (7-17) mg/dL Creatinine (0.52-1.04) mg/dL Est GFR (CKD-EPI)AfAm (>60 ml/min/1.73 sqM) Est GFR (CKD-EPI)NonAf (>60 ml/min/1.73 sqM) Glucose (74-99) mg/dL POC Glucose (mg/dL) 384 H 269 H (70-110) mg/dL POC Glu Barrel Cooper ID Sj Charlton Anushka Hutchinson Lactic Ac Sepsis Rflx Plasma Lactic Acid Jordan (0.7-2.0) mmol/L Calcium (8.4-10.2) mg/dL Phosphorus (2.5-4.5) mg/dL Magnesium (1.6-2.3) mg/dL Total Bilirubin (0.2-1.3) mg/dL AST (14-36) U/L ALT (4-34) U/L Alkaline Phosphatase (38-126) U/L Total Protein (6.3-8.2) g/dL Albumin (3.5-5.0) g/dL Urine Color Urine Appearance (Clear) Urine pH (5.0-8.0) Ur Specific [place] (1.001-1.035) Urine Protein (Negative) Urine Glucose (UA) (Negative) Urine Ketones (Negative) Urine Blood (Negative) Urine Nitrite (Negative) Urine Bilirubin (Negative) Urine Urobilinogen (<2.0) mg/dL Ur Leukocyte Esterase (Negative) Urine HCG, Qual (Not Detectd) Acetone, Qual (Negative) Influenza Type A (PCR) (Not Detectd) Influenza Type B (PCR) (Not Detectd) RSV (PCR) (Not Detectd) SARS-CoV-2 (PCR) (Not Detectd) - EKG Data -: EKG Interpreted by Me EKG Comments: EKG reveals normal sinus rhythm with no ST changes. Ventricular rate 80 bpm, OR interval 152, QRS duration 101, QT/QTc 372/411 Disposition Clinical Impression: Hyperglycemia Disposition: HOME SELF-CARE Condition: Stable Instructions (If sedation given, give patient instructions): Diabetic Hyperglycemia (ED) Additional Instructions: Please return to the Emergency Department if symptoms worsen or any other concerns. Is patient prescribed a controlled substance at d/c from ED?: No Referrals: Kathe Wallace MD [Primary Care Provider] - 1-2 days Time of Disposition: 20:18
[2025-03-18 17:11] LABS: Appearance,Urine Clear (Clear); Bilirubin,Urine Negative (Negative); Blood,Urine Negative (Negative); Color,Urine Colorless; Glucose,Urine (UA) 4+ (Negative); Ketones,Urine Negative (Negative); Leukocyte Esterase,Urine Negative (Negative); Nitrite,Urine Negative (Negative); Protein,Urine Negative (Negative); Specific Gravity,Urine 1.029 (1.001-1.035); Urobilinogen,Urine <2.0 mg/dL (<2.0)
[2025-03-18] MEDS: ACETAMINOPHEN TAB 500 MG TAB PO STA (17:16)
[2025-03-18 17:18] LABS: Basophils # (A) 0.03 10*3/uL (0.00-0.10); Basophils % (A) 0.6 %; Eosinophils # (A) 0.21 10*3/uL (0.04-0.35); Eosinophils % (A) 4.1 %; HCT 42.4 % (37.2-46.3); HGB 14.4 g/dL (12.0-15.0); Lymphocytes # (A) 1.05 10*3/uL (0.90-5.00); Lymphocytes % (A) 20.6 %; MCH 29.3 pg (27.0-32.0); MCV 86.4 fL (80.0-97.0); Mean Platelet Volume 9.3 fL (9.5-12.2); Monocytes # (A) 0.37 10*3/uL (0.20-1.00); Monocytes % (A) 7.3 %; Neutrophils # (A) 3.42 10*3/uL (1.80-7.70); Platelet Count 273 10*3/uL (140-440); RBC 4.91 10*6/uL (4.10-5.20); VBG PH 7.43 (7.31-7.41)
[2025-03-18] MEDS: SODIUM CHLORIDE 0.9% 2,000 ML IV STA (17:18)
--- NOTE | 2025-03-18 17:36 | XR ---
EXAMINATION TYPE: XR chest 2V DATE OF EXAM: 03/18/2025 5:31 PM COMPARISON: 01/15/2025 CLINICAL INDICATION: Female, 34 years old with history of cough, fever, Chest pain TECHNIQUE: XR chest 2V views of the chest are obtained. FINDINGS: There is no focal air space opacity. No evidence for pneumothorax. No pleural effusion. The cardiac silhouette size is within normal limits. The osseous structures are grossly intact. IMPRESSION: 1. No acute cardiopulmonary process. [facility], , 03/18/2025 5:33 PM
[2025-03-18 17:37] LABS: ALT 60 U/L (4-34); AST 38 U/L (14-36); African American GFR (CKD) >90 (>60 ml/min/1.73 sqM); Albumin 4.3 g/dL (3.5-5.0); Alkaline Phosphatase 160 U/L (38-126); Anion Gap 11 mmol/L; Blood Urea Nitrogen 11 mg/dL (7-17); Calcium 9.2 mg/dL (8.4-10.2); Carbon Dioxide 22 mmol/L (22-30); Chloride 98 mmol/L (98-107); Glucose 487 mg/dL (74-99); Non-African American GFR(CKD) >90 (>60 ml/min/1.73 sqM); Phosphorus 2.9 mg/dL (2.5-4.5); Potassium 4.7 mmol/L (3.5-5.1); Sodium 131 mmol/L (137-145); Total Bilirubin 0.5 mg/dL (0.2-1.3); Total Protein 6.9 g/dL (6.3-8.2)
[2025-03-18 17:55] LABS: Influenza A Not Detected (Not Detectd); Influenza B Not Detected (Not Detectd); RSV Not Detected (Not Detectd)
[2025-03-18 18:36] LABS: Glucose,Whole Blood 384 mg/dL (70-110)
[2025-03-18 18:37] VITALS: RESP 18
[2025-03-18] MEDS: INSULIN REGULAR 100 UNIT/ML VIAL (IV) IV ONE (18:50)
[2025-03-18 19:57] LABS: Glucose,Whole Blood 269 mg/dL (70-110)
[2025-03-18 20:31] VITALS: BP 118/59; PULSE 68; TEMP 98.9
== END 2025-03-18 20:31 | disposition home or self-care (01) ==
LOC: EC 16:39
DX: E11.65 Type 2 diabetes mellitus with hyperglycemia (principal); Z87.891 Personal history of nicotine dependence; Z88.8 Allergy status to other drugs, medicaments and biological substances; Z79.4 Long term (current) use of insulin
CPT/HCPCS: 36415; 71046; 80053; 81003; 81025; 82009; 82803; 83605; 83735; 84100; 85025; 87636; 93005; 96360; 96361; 99285

== ENCOUNTER 2025-03-30 01:14 | Emergency (ER) | payer OTHER ==
[2025-03-30 01:21] VITALS: TEMP 98.7
[2025-03-30 01:22] LABS: Glucose,Whole Blood 518 mg/dL (70-110)
[2025-03-30 01:41] LABS: Glucose,Whole Blood 517 mg/dL (70-110)
[2025-03-30 01:49] LABS: Appearance,Urine Clear (Clear); Bilirubin,Urine Negative (Negative); Blood,Urine Negative (Negative); Color,Urine Colorless; Glucose,Urine (UA) 4+ (Negative); Ketones,Urine Negative (Negative); Leukocyte Esterase,Urine Negative (Negative); Nitrite,Urine Negative (Negative); Protein,Urine Negative (Negative); Specific Gravity,Urine 1.026 (1.001-1.035); Urobilinogen,Urine <2.0 mg/dL (<2.0)
--- NOTE | 2025-03-30 02:01 | ED ---
Recheck HPI - General Chief Complaint: Recheck/Abnormal Lab/Rx Stated Complaint: Blood sugar issues Time Seen by Provider: 03/30/25 01:57 Source: patient, RN notes reviewed Mode of arrival: ambulatory Limitations: no limitations - History of Present Illness Initial Comments: 34-year-old female with history of type 2 diabetes presenting for hyperglycemia. Patient states she has been taking her long-acting and short acting insulin as directed however her glucometer has been reading high all day. Patient does report some mild dizziness, upper back pain, and shakiness. Patient had a follow-up appointment with her electrician elevator maintenance on Friday who is adjusting her medications. - Related Data Home Medications Medication Instructions Recorded Confirmed Folic Acid 2 mg PO BID 08/31/14 03/18/25 lamoTRIgine [LaMICtal] 200 mg PO BID 05/10/15 03/18/25 Montelukast [Singulair] 10 mg PO HS 02/10/19 03/18/25 ARIPiprazole [Abilify] 10 mg PO DAILY 11/29/22 03/18/25 levETIRAcetam 750 mg PO BID 11/29/22 03/18/25 Escitalopram [Lexapro] 20 mg PO HS 03/28/23 03/18/25 Labetalol [Trandate] 300 mg PO BID 11/09/24 03/18/25 levETIRAcetam [Keppra] 500 mg PO BID 11/09/24 03/18/25 Insulin Aspart [Insulin Aspart 30 unit SQ AC-TID 03/18/25 03/18/25 Flexpen] Insulin Aspart [Insulin Aspart See Protocol SQ AC-TID 03/18/25 03/18/25 Flexpen] Insulin Glargine,Hum.rec.anlog 50 units SQ BID 03/18/25 03/18/25 [Lantus Solostar Pen] Ondansetron [Zofran] 4 mg PO DAILY PRN 03/18/25 03/18/25 Rosuvastatin [Crestor] 10 mg PO DAILY 03/18/25 03/18/25 Semaglutide [Ozempic] 2 mg SQ ESPOSITO 03/18/25 03/18/25 Allergies Allergy/AdvReac Type Severity Reaction Status Date / Time haloperidol [From Haldol] Allergy Unknown Verified 03/18/25 20:20 metronidazole [From Flagyl] Allergy Rash/Hives Verified 03/18/25 20:20 lurasidone [From Latuda] AdvReac high blood Verified 03/18/25 20:20 sugar Review of Systems ROS Statement: Those systems with pertinent positive or pertinent negative responses have been documented in the HPI. ROS Other: All systems not noted in ROS Statement are negative. Past Medical History Past Medical History: Asthma, Diabetes Mellitus, Hypertension, Seizure Disorder, Sleep Apnea/CPAP/BIPAP Additional Past Medical History / Comment(s): seizure, ovarin cyst right side History of Any Multi-Drug Resistant Organisms: None Reported Past Surgical History: Section, Cholecystectomy Past Anesthesia/Blood Transfusion Reactions: No Reported Reaction Past Psychological History: Anxiety, Bipolar, Depression Smoking Status: Current every day smoker Past Alcohol Use History: Occasional Past Drug Use History: None Reported - Past Family History Mother Family Medical History: Asthma, Diabetes Mellitus Additional Family Medical History / Comment(s): Mom is alive at age 56 with history of diabetes Father Family Medical History: Hypertension Additional Family Medical History / Comment(s): Father is alive at age 56 with history of hypertension. Patient does not have any brothers. She does not have a sisters. She does not have any children. General Exam Limitations: no limitations General appearance: alert, in no apparent distress Head exam: Present: atraumatic, normocephalic, normal inspection Eye exam: Present: normal appearance, PERRL, EOMI. Absent: scleral icterus, conjunctival injection, periorbital swelling Respiratory exam: Present: normal lung sounds bilaterally. Absent: respiratory distress, wheezes, rales, rhonchi, stridor Cardiovascular Exam: Present: regular rate, normal rhythm, normal heart sounds. Absent: systolic murmur, diastolic murmur, rubs, gallop, clicks GI/Abdominal exam: Present: soft, normal bowel sounds. Absent: distended, tenderness, guarding, rebound, rigid Neurological exam: Present: alert, oriented X3 Psychiatric exam: Present: normal affect, normal mood Skin exam: Present: warm, dry, intact, normal color. Absent: rash Course Vital Signs 03/30/25 03/30/25 01:16 03:37 Temperature 98.7 F Pulse Rate 90 81 Respiratory 18 16 Rate Blood Pressure 155/96 141/68 O2 Sat by Pulse 97 98 Oximetry Medical Decision Making - Medical Decision Making Was pt. sent in by a medical professional or institution ([facility], [employer], urgent care, hospital, or long term...) When possible be specific @ -No Did you speak to anyone other than the patient for history (EMS, parent, family, police, friend...)? What history was obtained from this source @ -No Did you review nursing and triage notes (agree or disagree)? Why? @ -I reviewed and agree with nursing and triage notes Were old charts reviewed (outside hosp., previous admission, EMS record, old EKG, old radiological studies, urgent care reports/EKG's, long term records)? Report findings @ -No old charts were reviewed Differential Diagnosis (chest pain, altered mental status, abdominal pain women, abdominal pain men, vaginal bleeding, weakness, fever, dyspnea, syncope, headache, dizziness, GI bleed, back pain, seizure, CVA, palpatations, mental health, musculoskeletal)? @ -Hyperglycemia, DKA, HHS EKG interpreted by me (3pts min.). @ -As above X-rays interpreted by me (1pt min.). @ -None done CT interpreted by me (1pt min.). @ -None done U/S interpreted by me (1pt. min.). @ -None done What testing was considered but not performed or refused? (CT, X-rays, U/S, labs)? Why? @ -None What meds were considered but not given or refused? Why? @ -None Did you discuss the management of the patient with other professionals (professionals i.e. [facility] Reed, [employer], lab, RT, psych nurse, social work administrator, assurance assistant, teacher, program officer, child support case officer)? Give summary @ -No Was smoking cessation discussed for >3mins.? @ -No Was critical care preformed (if so, how long)? @ -No Were there social determinants of health that impacted care today? How? (Homelessness, low income, unemployed, alcoholism, drug addiction, fagan sportation, low edu. Level, literacy, decrease access to med. care, detention, rehab)? @ -No Was there de-escalation of care discussed even if they declined (Discuss DNR or withdrawal of care, Hospice)? DNR status @ -No What co-morbidities impacted this encounter? (DM, HTN, Smoking, COPD, CAD, Cancer, CVA, ARF, Chemo, Hep., AIDS, mental health diagnosis, sleep apnea, morbid obesity)? @ -None Was patient admitted / discharged? Hospital course, mention meds given and route, prescriptions, significant lab abnormalities, going to OR and other pertinent info. @ -Discharge. 34-year-old female with history of type 2 diabetes presenting for hyperglycemia. Blood glucose 518. Patient is well-appearing, appears nontoxic. Patient was started on 2 L IV fluid bolus. Lab work remarkable for white blood cell count 11.8, normal pH 7.37, anion gap mildly elevated 13, normal potassium 4.6, elevated phosphorus of 5. Acetone negative. Urinalysis reveals 4+ glucose and negative for ketones. Given normal pH of 7.37 and no ketonuria, patient is not in DKA. Patient was provided with dose of subcutaneous insulin. Discussed diagnosis of diabetic hyperglycemia with patient. Blood glucose checked 373. Patient states she is feeling better and would like to be discharged. Appropriate return precautions and close follow-up care with electrician elevator maintenance. Patient is agreeable to plan. Case was discussed with my ED attending Dr. Pal. Undiagnosed new problem with uncertain prognosis? @ -No Drug Therapy requiring intensive monitoring for toxicity (Heparin, Nitro, Insulin, Cardizem)? @ -No Were any procedures done? @ -No Diagnosis/symptom? @ -Diabetic hyperglycemia Acute, or Chronic, or Acute on Chronic? @ -Acute Uncomplicated (without systemic symptoms) or Complicated (systemic symptoms)? @ -Uncomplicated Side effects of treatment? @ -No Exacerbation, Progression, or Severe Exacerbation? @ -No Poses a threat to life or bodily function? How? (Chest pain, [place], [place], pneumonia, PE, COPD, DKA, ARF, appy, cholecystitis, CVA, Diverticulitis, Homicidal, Suicidal, threat to staff... and all critical care pts) @ -Not at this time - Lab Data Result diagrams: 03/30/25 02:40 03/30/25 02:40 Lab Results 03/30/25 03/30/25 03/30/25 Range/Units 01:19 01:34 01:36 WBC (4.50-10.00) 10*3/uL RBC (4.10-5.20) 10*6/uL Hgb (12.0-15.0) g/dL Hct (37.2-46.3) % MCV (80.0-97.0) fL MCH (27.0-32.0) pg MCHC (32.0-37.0) g/dL Plt Count (140-440) 10*3/uL MPV (9.5-12.2) fL Immature Gran % (Auto) % Neutrophils % % Lymphocytes % % Monocytes % % Eosinophils % % Basophils % % Immature Gran # (0.00-0.04) 10*3/uL Neutrophils # (1.80-7.70) 10*3/uL Lymphocytes # (0.90-5.00) 10*3/uL Monocytes # (0.20-1.00) 10*3/uL Eosinophils # (0.04-0.35) 10*3/uL Basophils # (0.00-0.10) 10*3/uL VBG pH (7.31-7.41) VBG pCO2 (37-51) mmHg VBG HCO3 (24-28) mmol/L Sodium (137-145) mmol/L Potassium (3.5-5.1) mmol/L Chloride (98-107) mmol/L Carbon Dioxide (22-30) mmol/L Anion Gap mmol/L BUN (7-17) mg/dL Creatinine (0.52-1.04) mg/dL Est GFR (CKD-EPI)AfAm (>60 ml/min/1.73 sqM) Est GFR (CKD-EPI)NonAf (>60 ml/min/1.73 sqM) Glucose (74-99) mg/dL POC Glucose (mg/dL) 518 H* 517 H* (70-110) mg/dL POC Glu Set Up [employer]amping [employer] ID Delmer Amenda Delmer Amenda Plasma Lactic Acid Jordan (0.7-2.0) mmol/L Calcium (8.4-10.2) mg/dL Phosphorus (2.5-4.5) mg/dL Magnesium (1.6-2.3) mg/dL Total Bilirubin (0.2-1.3) mg/dL AST (14-36) U/L ALT (4-34) U/L Alkaline Phosphatase (38-126) U/L Total Protein (6.3-8.2) g/dL Albumin (3.5-5.0) g/dL Urine Color Colorless Urine Appearance Clear (Clear) Urine pH 5.0 (5.0-8.0) Ur Specific [place] 1.026 (1.001-1.035) Urine Protein Negative (Negative) Urine Glucose (UA) 4+ H (Negative) Urine Ketones Negative (Negative) Urine Blood Negative (Negative) Urine Nitrite Negative (Negative) Urine Bilirubin Negative (Negative) Urine Urobilinogen <2.0 (<2.0) mg/dL Ur Leukocyte Esterase Negative (Negative) Urine HCG, Qual (Not Detectd) Acetone, Qual (Negative) Influenza Type A (PCR) (Not Detectd) Influenza Type B (PCR) (Not Detectd) RSV (PCR) (Not Detectd) SARS-CoV-2 (PCR) (Not Detectd) 03/30/25 03/30/25 03/30/25 Range/Units 01:36 02:15 02:40 WBC 11.80 H (4.50-10.00) 10*3/uL RBC 4.91 (4.10-5.20) 10*6/uL Hgb 14.5 (12.0-15.0) g/dL Hct 42.0 (37.2-46.3) % MCV 85.5 (80.0-97.0) fL MCH 29.5 (27.0-32.0) pg MCHC 34.5 (32.0-37.0) g/dL Plt Count 331 (140-440) 10*3/uL MPV 9.7 (9.5-12.2) fL Immature Gran % (Auto) 0.5 % Neutrophils % 75.7 % Lymphocytes % 15.3 % Monocytes % 6.1 % Eosinophils % 1.7 % Basophils % 0.7 % Immature Gran # 0.06 H (0.00-0.04) 10*3/uL Neutrophils # 8.94 H (1.80-7.70) 10*3/uL Lymphocytes # 1.80 (0.90-5.00) 10*3/uL Monocytes # 0.72 (0.20-1.00) 10*3/uL Eosinophils # 0.20 (0.04-0.35) 10*3/uL Basophils # 0.08 (0.00-0.10) 10*3/uL VBG pH (7.31-7.41) VBG pCO2 (37-51) mmHg VBG HCO3 (24-28) mmol/L Sodium (137-145) mmol/L Potassium (3.5-5.1) mmol/L Chloride (98-107) mmol/L Carbon Dioxide (22-30) mmol/L Anion Gap mmol/L BUN (7-17) mg/dL Creatinine (0.52-1.04) mg/dL Est GFR (CKD-EPI)AfAm (>60 ml/min/1.73 sqM) Est GFR (CKD-EPI)NonAf (>60 ml/min/1.73 sqM) Glucose (74-99) mg/dL POC Glucose (mg/dL) (70-110) mg/dL POC Glu Set Up [employer] ID Plasma Lactic Acid Jordan (0.7-2.0) mmol/L Calcium (8.4-10.2) mg/dL Phosphorus (2.5-4.5) mg/dL Magnesium (1.6-2.3) mg/dL Total Bilirubin (0.2-1.3) mg/dL AST (14-36) U/L ALT (4-34) U/L Alkaline Phosphatase (38-126) U/L Total Protein (6.3-8.2) g/dL Albumin (3.5-5.0) g/dL Urine Color Urine Appearance (Clear) Urine pH (5.0-8.0) Ur Specific [place] (1.001-1.035) Urine Protein (Negative) Urine Glucose (UA) (Negative) Urine Ketones (Negative) Urine Blood (Negative) Urine Nitrite (Negative) Urine Bilirubin (Negative) Urine Urobilinogen (<2.0) mg/dL Ur Leukocyte Esterase (Negative) Urine HCG, Qual Not Detected (Not Detectd) Acetone, Qual (Negative) Influenza Type A (PCR) Not Detected (Not Detectd) Influenza Type B (PCR) Not Detected (Not Detectd) RSV (PCR) Not Detected (Not Detectd) SARS-CoV-2 (PCR) Not Detected (Not Detectd) 03/30/25 03/30/25 03/30/25 Range/Units 02:40 02:40 02:40 WBC (4.50-10.00) 10*3/uL RBC (4.10-5.20) 10*6/uL Hgb (12.0-15.0) g/dL Hct (37.2-46.3) % MCV (80.0-97.0) fL MCH (27.0-32.0) pg MCHC (32.0-37.0) g/dL Plt Count (140-440) 10*3/uL MPV (9.5-12.2) fL Immature Gran % (Auto) % Neutrophils % % Lymphocytes % % Monocytes % % Eosinophils % % Basophils % % Immature Gran # (0.00-0.04) 10*3/uL Neutrophils # (1.80-7.70) 10*3/uL Lymphocytes # (0.90-5.00) 10*3/uL Monocytes # (0.20-1.00) 10*3/uL Eosinophils # (0.04-0.35) 10*3/uL Basophils # (0.00-0.10) 10*3/uL VBG pH 7.37 (7.31-7.41) VBG pCO2 40 (37-51) mmHg VBG HCO3 24 (24-28) mmol/L Sodium 129 L (137-145) mmol/L Potassium 4.6 (3.5-5.1) mmol/L Chloride 95 L (98-107) mmol/L Carbon Dioxide 21 L (22-30) mmol/L Anion Gap 13 mmol/L BUN 18 H (7-17) mg/dL Creatinine 0.67 (0.52-1.04) mg/dL Est GFR (CKD-EPI)AfAm >90 (>60 ml/min/1.73 sqM) Est GFR (CKD-EPI)NonAf >90 (>60 ml/min/1.73 sqM) Glucose 508 H* (74-99) mg/dL POC Glucose (mg/dL) (70-110) mg/dL POC Glu Set Up [employer] ID Plasma Lactic Acid [place] 2.0 (0.7-2.0) mmol/L Calcium 10.2 (8.4-10.2) mg/dL Phosphorus 5.0 H (2.5-4.5) mg/dL Magnesium 1.7 (1.6-2.3) mg/dL Total Bilirubin 0.5 (0.2-1.3) mg/dL AST 29 (14-36) U/L ALT 49 H (4-34) U/L Alkaline Phosphatase 193 H (38-126) U/L Total Protein 6.8 (6.3-8.2) g/dL Albumin 4.4 (3.5-5.0) g/dL Urine Color Urine Appearance (Clear) Urine pH (5.0-8.0) Ur Specific [place] (1.001-1.035) Urine Protein (Negative) Urine Glucose (UA) (Negative) Urine Ketones (Negative) Urine Blood (Negative) Urine Nitrite (Negative) Urine Bilirubin (Negative) Urine Urobilinogen (<2.0) mg/dL Ur Leukocyte Esterase (Negative) Urine HCG, Qual (Not Detectd) Acetone, Qual Negative (Negative) Influenza Type A (PCR) (Not Detectd) Influenza Type B (PCR) (Not Detectd) RSV (PCR) (Not Detectd) SARS-CoV-2 (PCR) (Not Detectd) 03/30/25 Range/Units 04:07 WBC (4.50-10.00) 10*3/uL RBC (4.10-5.20) 10*6/uL Hgb (12.0-15.0) g/dL Hct (37.2-46.3) % MCV (80.0-97.0) fL MCH (27.0-32.0) pg MCHC (32.0-37.0) g/dL Plt Count (140-440) 10*3/uL MPV (9.5-12.2) fL Immature Gran % (Auto) % Neutrophils % % Lymphocytes % % Monocytes % % Eosinophils % % Basophils % % Immature Gran # (0.00-0.04) 10*3/uL Neutrophils # (1.80-7.70) 10*3/uL Lymphocytes # (0.90-5.00) 10*3/uL Monocytes # (0.20-1.00) 10*3/uL Eosinophils # (0.04-0.35) 10*3/uL Basophils # (0.00-0.10) 10*3/uL VBG pH (7.31-7.41) VBG pCO2 (37-51) mmHg VBG HCO3 (24-28) mmol/L Sodium (137-145) mmol/L Potassium (3.5-5.1) mmol/L Chloride (98-107) mmol/L Carbon Dioxide (22-30) mmol/L Anion Gap mmol/L BUN (7-17) mg/dL Creatinine (0.52-1.04) mg/dL Est GFR (CKD-EPI)AfAm (>60 ml/min/1.73 sqM) Est GFR (CKD-EPI)NonAf (>60 ml/min/1.73 sqM) Glucose (74-99) mg/dL POC Glucose (mg/dL) 373 H (70-110) mg/dL POC Glu Set Up [employer]amping [employer] ID Rubens Maddox Plasma Lactic Acid [place] (0.7-2.0) mmol/L Calcium (8.4-10.2) mg/dL Phosphorus (2.5-4.5) mg/dL Magnesium (1.6-2.3) mg/dL Total Bilirubin (0.2-1.3) mg/dL AST (14-36) U/L ALT (4-34) U/L Alkaline Phosphatase (38-126) U/L Total Protein (6.3-8.2) g/dL Albumin (3.5-5.0) g/dL Urine Color Urine Appearance (Clear) Urine pH (5.0-8.0) Ur Specific [place] (1.001-1.035) Urine Protein (Negative) Urine Glucose (UA) (Negative) Urine Ketones (Negative) Urine Blood (Negative) Urine Nitrite (Negative) Urine Bilirubin (Negative) Urine Urobilinogen (<2.0) mg/dL Ur Leukocyte Esterase (Negative) Urine HCG, Qual (Not Detectd) Acetone, Qual (Negative) Influenza Type A (PCR) (Not Detectd) Influenza Type B (PCR) (Not Detectd) RSV (PCR) (Not Detectd) SARS-CoV-2 (PCR) (Not Detectd) - EKG Data -: EKG Interpreted by Me EKG Comments: EKG reveals normal sinus rhythm with no acute ST changes. Ventricular rate 83 bpm, HI interval 171, QRS duration 102, QT/QTc 364/404 Disposition Clinical Impression: Hyperglycemia Disposition: HOME SELF-CARE Condition: Stable Instructions (If sedation given, give patient instructions): Diabetic Hyperglycemia (ED) Additional Instructions: Follow-up with your electrician elevator maintenance. Drink plenty of fluids. Avoid foods high in carbs and sugar. Please return to the Emergency Department if symptoms worsen or any other concerns. Is patient prescribed a controlled substance at d/c from ED?: No Referrals: Kathe Wallace MD [Primary Care Provider] - 1-2 days Time of Disposition: 04:16
[2025-03-30] MEDS: SODIUM CHLORIDE 0.9% 2,000 ML IV STA (02:45)
[2025-03-30 03:01] LABS: Basophils # (A) 0.08 10*3/uL (0.00-0.10); Basophils % (A) 0.7 %; Eosinophils % (A) 1.7 %; HGB 14.5 g/dL (12.0-15.0); Lymphocytes % (A) 15.3 %; MCH 29.5 pg (27.0-32.0); MCHC 34.5 g/dL (32.0-37.0); MCV 85.5 fL (80.0-97.0); Mean Platelet Volume 9.7 fL (9.5-12.2); Monocytes # (A) 0.72 10*3/uL (0.20-1.00); Monocytes % (A) 6.1 %; Neutrophils # (A) 8.94 10*3/uL (1.80-7.70); Neutrophils % (A) 75.7 %; Platelet Count 331 10*3/uL (140-440); RBC 4.91 10*6/uL (4.10-5.20); RDW 13.9 % (11.5-14.5)
[2025-03-30] MEDS: ACETAMINOPHEN TAB 500 MG TAB PO STA (03:06)
[2025-03-30 03:09] LABS: ALT 49 U/L (4-34); AST 29 U/L (14-36); African American GFR (CKD) >90 (>60 ml/min/1.73 sqM); Albumin 4.4 g/dL (3.5-5.0); Alkaline Phosphatase 193 U/L (38-126); Anion Gap 13 mmol/L; Blood Urea Nitrogen 18 mg/dL (7-17); Calcium 10.2 mg/dL (8.4-10.2); Carbon Dioxide 21 mmol/L (22-30); Chloride 95 mmol/L (98-107); Magnesium 1.7 mg/dL (1.6-2.3); Non-African American GFR(CKD) >90 (>60 ml/min/1.73 sqM); Potassium 4.6 mmol/L (3.5-5.1); Sodium 129 mmol/L (137-145); Total Bilirubin 0.5 mg/dL (0.2-1.3); Total Protein 6.8 g/dL (6.3-8.2)
[2025-03-30 03:15] LABS: Glucose 508 mg/dL (74-99)
[2025-03-30 03:16] LABS: VBG PH 7.37 (7.31-7.41)
[2025-03-30] MEDS: INSULIN REGULAR 100 UNIT/ML VIAL (IM/SQ) SQ ONE (03:35)
[2025-03-30 04:06] LABS: Influenza A Not Detected (Not Detectd); Influenza B Not Detected (Not Detectd); RSV Not Detected (Not Detectd)
[2025-03-30 04:08] LABS: Glucose,Whole Blood 373 mg/dL (70-110)
[2025-03-30 04:38] VITALS: BP 138/88; PULSE 74; RESP 18
== END 2025-03-30 04:37 | disposition home or self-care (01) ==
LOC: EC 01:14
DX: E11.65 Type 2 diabetes mellitus with hyperglycemia (principal); F17.200 Nicotine dependence, unspecified, uncomplicated; Z88.8 Allergy status to other drugs, medicaments and biological substances; Z79.4 Long term (current) use of insulin; Z11.52 Encounter for screening for COVID-19
CPT/HCPCS: 36415; 80053; 81003; 81025; 82009; 82803; 83605; 83735; 84100; 85025; 87636; 93005; 96360; 96361; 99285

== ENCOUNTER 2025-05-31 00:24 | Emergency (ER) | payer OTHER ==
--- NOTE | 2025-05-31 00:54 | ED ---
Dizziness HPI - General Source: patient Mode of arrival: ambulatory Limitations: no limitations <Quinton Freeman - Last Filed: 05/31/25 00:53> <Nikki Arnold - Last Filed: 05/31/25 07:10> - General Chief Complaint: Dizziness Stated Complaint: Chest Pain, Dizziness Time Seen by Provider: 05/31/25 00:53 - History of Present Illness Initial Comments: Quick note: 74-year-old female presenting with chief complaint of dizziness. Started at home tonight. Shortly thereafter she developed chest pain. States that she feels sweaty and nauseous as well. (Quinton Freeman) 34-year-old female presents the emergency department reporting dizziness. States she was at home when she started having the sensation that the room was spinning. She felt nauseated and diaphoretic. She then developed chest pain. Patient reports that she still has a little bit of chest discomfort at this time as well as a headache. Patient denies any visual changes. States that her dizziness is worse with movement of her head. Feels as if the room is spinning. Denies any recent upper respiratory infections. No head trauma. No fevers. Admits to nausea with vomiting. No numbness, tingling or weakness in her extremities. No concern for . No other alleviating, precipitating or modifying factors (Nikki Arnold) - Related Data Home Medications Medication Instructions Recorded Confirmed Folic Acid 2 mg PO BID 08/31/14 03/18/25 lamoTRIgine [LaMICtal] 200 mg PO BID 05/10/15 03/18/25 Montelukast [Singulair] 10 mg PO HS 02/10/19 03/18/25 ARIPiprazole [Abilify] 10 mg PO DAILY 11/29/22 03/18/25 levETIRAcetam 750 mg PO BID 11/29/22 03/18/25 Escitalopram [Lexapro] 20 mg PO HS 03/28/23 03/18/25 Labetalol [Trandate] 300 mg PO BID 11/09/24 03/18/25 levETIRAcetam [Keppra] 500 mg PO BID 11/09/24 03/18/25 Insulin Aspart [Insulin Aspart 30 unit SQ AC-TID 03/18/25 03/18/25 Flexpen] Insulin Aspart [Insulin Aspart See Protocol SQ AC-TID 03/18/25 03/18/25 Flexpen] Insulin Glargine,Hum.rec.anlog 50 units SQ BID 03/18/25 03/18/25 [Lantus Solostar Pen] Ondansetron [Zofran] 4 mg PO DAILY PRN 03/18/25 03/18/25 Rosuvastatin [Crestor] 10 mg PO DAILY 03/18/25 03/18/25 Semaglutide [Ozempic] 2 mg SQ ESPOSITO 03/18/25 03/18/25 Previous Rx's Medication Instructions Recorded Meclizine [Antivert] 25 mg PO TID #20 tab 05/31/25 Allergies Allergy/AdvReac Type Severity Reaction Status Date / Time haloperidol [From Haldol] Allergy Unknown Verified 05/31/25 00:44 metronidazole [From Flagyl] Allergy Rash/Hives Verified 05/31/25 00:44 lurasidone [From Latuda] AdvReac high blood Verified 05/31/25 00:44 sugar Review of Systems ROS Other: All systems not noted in ROS Statement are negative. <Quinton Freeman - Last Filed: 05/31/25 00:53> ROS Other: All systems not noted in ROS Statement are negative. <Nikki Arnold - Last Filed: 05/31/25 07:10> ROS Statement: Those systems with pertinent positive or pertinent negative responses have been documented in the HPI. Past Medical History Past Medical History: Asthma, Diabetes Mellitus, Hyperlipidemia, Hypertension, Seizure Disorder, Sleep Apnea/CPAP/BIPAP Additional Past Medical History / Comment(s): seizure, ovarin cyst right side History of Any Multi-Drug Resistant Organisms: None Reported Past Surgical History: Section, Cholecystectomy Past Anesthesia/Blood Transfusion Reactions: No Reported Reaction Past Psychological History: Anxiety, Bipolar, Depression Smoking Status: Current every day smoker Past Alcohol Use History: None Reported Past Drug Use History: None Reported - Past Family History Mother Family Medical History: Asthma, Diabetes Mellitus Additional Family Medical History / Comment(s): Mom is alive at age 56 with history of diabetes Father Family Medical History: Hypertension Additional Family Medical History / Comment(s): Father is alive at age 56 with history of hypertension. Patient does not have any brothers. She does not have a sisters. She does not have any children. <Quinton Freeman - Last Filed: 05/31/25 00:53> General Exam Limitations: no limitations <Quinton Freeman - Last Filed: 05/31/25 00:53> General appearance: alert, in no apparent distress Head exam: Present: atraumatic, normocephalic, normal inspection Eye exam: Present: normal appearance, PERRL, EOMI. Absent: scleral icterus, conjunctival injection, periorbital swelling ENT exam: Present: normal exam, mucous membranes moist Neck exam: Present: normal inspection. Absent: tenderness, meningismus, lymphadenopathy Respiratory exam: Present: normal lung sounds bilaterally. Absent: respiratory distress, wheezes, rales, rhonchi, stridor Cardiovascular Exam: Present: regular rate, normal rhythm, normal heart sounds. Absent: systolic murmur, diastolic murmur, rubs, gallop, clicks GI/Abdominal exam: Present: soft, normal bowel sounds. Absent: distended, tenderness, guarding, rebound, rigid Extremities exam: Present: normal inspection, full ROM, normal capillary refill. Absent: tenderness, pedal edema, joint swelling, calf tenderness Back exam: Present: normal inspection Neurological exam: Present: alert, oriented X3, CN II-XII intact Psychiatric exam: Present: normal affect, normal mood Skin exam: Present: warm, dry, intact, normal color. Absent: rash <Nikki Arnold Carmelo - Last Filed: 05/31/25 07:10> - General Exam Comments Initial Comments: Visual Physical Exam Vital signs reviewed General: Well-appearing, nontoxic, no acute distress. Head: Normocephalic, atraumatic Eyes: PERRLA, EOMI ENT: Airway patent Chest: Nonlabored breathing Skin: No visual rash, normal skin tone Neuro: Alert and oriented 3 Musculoskeletal: No gross abnormalities (Quinton Freeman) Course Vital Signs 05/31/25 05/31/25 05/31/25 00:44 03:00 06:15 Temperature 99.2 F 98.5 F Pulse Rate 86 76 69 Respiratory 18 18 16 Rate Blood Pressure 132/82 134/71 111/47 O2 Sat by Pulse 99 96 95 Oximetry Medical Decision Making <Quinton Freeman - Last Filed: 05/31/25 00:53> - Lab Data Result diagrams: 05/31/25 03:46 05/31/25 03:46 <Nikki Arnold A - Last Filed: 05/31/25 07:10> - Medical Decision Making I performed the quick note portion of this visit, electronically signed Quinton Freeman PA-C (Quinton Freeman) Was pt. sent in by a medical professional or institution ([facility], VIRTUALIZATION CONSULTANT, urgent care, hospital, or senior care...) When possible be specific @ -No Did you speak to anyone other than the patient for history (EMS, parent, family, police, friend...)? What history was obtained from this source @ -No Did you review nursing and triage notes (agree or disagree)? Why? @ -yes, I agree Were old charts reviewed (outside hosp., previous admission, EMS record, old EKG, old radiological studies, urgent care reports/EKG's, senior care records)? Report findings @ -I reviewed the patient's entire medical chart which demonstrates that she has been seen in the emergency department approximately 15 times for chest pain Differential Diagnosis (chest pain, altered mental status, abdominal pain women, abdominal pain men, vaginal bleeding, weakness, fever, dyspnea, syncope, headache, dizziness, GI bleed, back pain, seizure, CVA, palpatations, mental he alth, musculoskeletal)? @ -Differential Dizziness: Benign paroxysmal positional Vertigo, Meniere's disease, otitis media, acoustic neuroma, vertebrobasilar insufficiency, cerebellar stroke, encephalitis, hypovolemic, arrhythmia, coronary artery syndrome, anemia, this is not meant to be an all-inclusive list EKG interpreted by me (3pts min.). @ -Yes and demonstrates sinus rhythm with rate of 96. [place] interval 141. QRS 97. QTc of 402. No acute ST segment elevations or depressions X-rays interpreted by me (1pt min.). @ -Yes which demonstrates no acute process CT interpreted by me (1pt min.). @ -None done U/S interpreted by me (1pt. min.). @ -None done What testing was considered but not performed or refused? (CT, X-rays, U/S, labs)? Why? @ -None What meds were considered but not given or refused? Why? @ -None Did you discuss the management of the patient with other professionals (professionals i.e. , PA, VIRTUALIZATION CONSULTANT, lab, RT, psych nurse, social work associate, executive pastry chef, teacher, air defence officer, case management coordinator)? Give summary @ -No Was smoking cessation discussed for >3mins.? @ -No Was critical care preformed (if so, how long)? @ -No Were there social determinants of health that impacted care today? How? (Homelessness, low income, unemployed, alcoholism, drug addiction, transportation, low edu. Level, literacy, decrease access to med. care, half-way, rehab)? @ -No Was there de-escalation of care discussed even if they declined (Discuss DNR or withdrawal of care, Hospice)? DNR status @ -No What co-morbidities impacted this encounter? (DM, HTN, Smoking, COPD, CAD, Cancer, CVA, ARF, Chemo, Hep., AIDS, mental health diagnosis, sleep apnea, morbid obesity)? @ -None Was patient admitted / discharged? Hospital course, mention meds given and route, prescriptions, significant lab abnormalities, going to OR and other pertinent info. @ -Upon arrival patient seen and evaluated in room 27. Thorough history and physical exam was performed. IV access was established. Patient was given Toradol, Reglan, Benadryl and IV fluids. She was also given meclizine. Patient reevaluated and states she feels improved. She will be given a short prescription for meclizine. She needs to follow-up with her doctor in 2 to 4 days and return for any new or worsening symptoms Undiagnosed new problem with uncertain prognosis? @ -No Drug Therapy requiring intensive monitoring for toxicity (Heparin, Nitro, Insulin, Cardizem)? @ -No Were any procedures done? @ -No Diagnosis/symptom? @ -Acute vertigo, acute chest pain, nausea vomiting Acute, or Chronic, or Acute on Chronic? @ -Acute Uncomplicated (without systemic symptoms) or Complicated (systemic symptoms)? @ -Complicated Side effects of treatment? @ -No Exacerbation, Progression, or Severe Exacerbation? @ -No Poses a threat to life or bodily function? How? (Chest pain, USA, PR, pneumonia, PE, COPD, DKA, ARF, appy, cholecystitis, CVA, Diverticulitis, Homicidal, Suicidal, threat to staff... and all critical care pts) @ -No (Nikki Arnold) - Lab Data Lab Results 05/31/25 05/31/25 05/31/25 Range/Units 00:48 03:46 03:46 WBC 9.12 (4.50-10.00) 10*3/uL RBC 4.74 (4.10-5.20) 10*6/uL Hgb 13.6 (12.0-15.0) g/dL Hct 40.3 (37.2-46.3) % MCV 85.0 (80.0-97.0) fL MCH 28.7 (27.0-32.0) pg MCHC 33.7 (32.0-37.0) g/dL Plt Count 322 (140-440) 10*3/uL MPV 9.3 L (9.5-12.2) fL Immature Gran % (Auto) 0.3 % Neutrophils % 67.7 % Lymphocytes % 23.7 % Monocytes % 5.4 % Eosinophils % 2.2 % Basophils % 0.7 % Immature Gran # 0.03 (0.00-0.04) 10*3/uL Neutrophils # 6.18 (1.80-7.70) 10*3/uL Lymphocytes # 2.16 (0.90-5.00) 10*3/uL Monocytes # 0.49 (0.20-1.00) 10*3/uL Eosinophils # 0.20 (0.04-0.35) 10*3/uL Basophils # 0.06 (0.00-0.10) 10*3/uL PT 10.6 (10.0-12.5) sec INR 0.9 (<1.2) APTT 23.0 (22.0-30.0) sec Sodium (137-145) mmol/L Potassium (3.5-5.1) mmol/L Chloride (98-107) mmol/L Carbon Dioxide (22-30) mmol/L Anion Gap mmol/L BUN (7-17) mg/dL Creatinine (0.52-1.04) mg/dL Est GFR (CKD-EPI)AfAm (>60 ml/min/1.73 sqM) Est GFR (CKD-EPI)NonAf (>60 ml/min/1.73 sqM) Glucose (74-99) mg/dL Calcium (8.4-10.2) mg/dL Magnesium (1.6-2.3) mg/dL Total Bilirubin (0.2-1.3) mg/dL AST (14-36) U/L ALT (4-34) U/L Alkaline Phosphatase (38-126) U/L Troponin I (0.000-0.034) ng/mL Total Protein (6.3-8.2) g/dL Albumin (3.5-5.0) g/dL Influenza Type A (PCR) Not Detected (Not Detectd) Influenza Type B (PCR) Not Detected (Not Detectd) RSV (PCR) Not Detected (Not Detectd) SARS-CoV-2 (PCR) Not Detected (Not Detectd) 05/31/25 05/31/25 Range/Units 03:46 03:46 WBC (4.50-10.00) 10*3/uL RBC (4.10-5.20) 10*6/uL Hgb (12.0-15.0) g/dL Hct (37.2-46.3) % MCV (80.0-97.0) fL MCH (27.0-32.0) pg MCHC (32.0-37.0) g/dL Plt Count (140-440) 10*3/uL MPV (9.5-12.2) fL Immature Gran % (Auto) % Neutrophils % % Lymphocytes % % Monocytes % % Eosinophils % % Basophils % % Immature Gran # (0.00-0.04) 10*3/uL Neutrophils # (1.80-7.70) 10*3/uL Lymphocytes # (0.90-5.00) 10*3/uL Monocytes # (0.20-1.00) 10*3/uL Eosinophils # (0.04-0.35) 10*3/uL Basophils # (0.00-0.10) 10*3/uL PT (10.0-12.5) sec INR (<1.2) APTT (22.0-30.0) sec Sodium 138 (137-145) mmol/L Potassium 3.9 (3.5-5.1) mmol/L Chloride 101 (98-107) mmol/L Carbon Dioxide 24 (22-30) mmol/L Anion Gap 13 mmol/L BUN 18 H (7-17) mg/dL Creatinine 0.66 (0.52-1.04) mg/dL Est GFR (CKD-EPI)AfAm >90 (>60 ml/min/1.73 sqM) Est GFR (CKD-EPI)NonAf >90 (>60 ml/min/1.73 sqM) Glucose 150 H (74-99) mg/dL Calcium 10.1 (8.4-10.2) mg/dL Magnesium 1.8 (1.6-2.3) mg/dL Total Bilirubin 0.3 (0.2-1.3) mg/dL AST 28 (14-36) U/L ALT 33 (4-34) U/L Alkaline Phosphatase 141 H (38-126) U/L Troponin I <0.012 (0.000-0.034) ng/mL Total Protein 6.7 (6.3-8.2) g/dL Albumin 4.1 (3.5-5.0) g/dL Influenza Type A (PCR) (Not Detectd) Influenza Type B (PCR) (Not Detectd) RSV (PCR) (Not Detectd) SARS-CoV-2 (PCR) (Not Detectd) Disposition <Quinton Freeman - Last Filed: 05/31/25 00:53> Is patient prescribed a controlled substance at d/c from ED?: No Time of Disposition: 06:01 <Nikki Arnold - Last Filed: 05/31/25 07:10> Clinical Impression: Chest pain, Vertigo Disposition: HOME SELF-CARE Condition: Stable Instructions (If sedation given, give patient instructions): Dizziness (ED) Additional Instructions: Please take the meclizine as needed for any continued dizziness. Follow-up with your primary care doctor within 2 to 4 days. Return for any new or worsening symptoms Prescriptions: Meclizine [Antivert] 25 mg PO TID #20 tab Referrals: Kathe Wallace MD [Primary Care Provider] - 1-2 days
[2025-05-31 02:04] LABS: RSV Not Detected (Not Detectd)
--- NOTE | 2025-05-31 02:34 | XR ---
EXAM: XR Chest, 2 Views CLINICAL HISTORY: ITS.REASON XR Reason: Chest Pain TECHNIQUE: Frontal and lateral views of the chest. COMPARISON: Chest radiograph on 03/18/2025 FINDINGS: Hardware: None. Lungs/pleura: Normal. No focal consolidation. No pleural effusion or pneumothorax. Heart/mediastinum: Normal. No cardiomegaly. Soft tissues: Unremarkable. Bones: No acute fracture. Upper abdomen: Normal. IMPRESSION: No acute disease identified.
[2025-05-31] MEDS: KETOROLAC 15 MG/ML 1 ML VIAL IVP STA (03:51)
[2025-05-31] MEDS: diphenhydrAMINE 50 MG/ML 1 ML VIAL IVP STA (03:51)
[2025-05-31] MEDS: METOCLOPRAMIDE 5 MG/ML 2 ML VIAL IVP STA (03:53)
[2025-05-31] MEDS: SODIUM CHLORIDE 0.9% 1,000 ML IV ONE (03:54)
[2025-05-31 04:00] LABS: Basophils # (A) 0.06 10*3/uL (0.00-0.10); Basophils % (A) 0.7 %; Eosinophils # (A) 0.20 10*3/uL (0.04-0.35); Eosinophils % (A) 2.2 %; HCT 40.3 % (37.2-46.3); HGB 13.6 g/dL (12.0-15.0); Lymphocytes # (A) 2.16 10*3/uL (0.90-5.00); Lymphocytes % (A) 23.7 %; MCH 28.7 pg (27.0-32.0); MCHC 33.7 g/dL (32.0-37.0); MCV 85.0 fL (80.0-97.0); Monocytes # (A) 0.49 10*3/uL (0.20-1.00); Monocytes % (A) 5.4 %; Neutrophils # (A) 6.18 10*3/uL (1.80-7.70); Neutrophils % (A) 67.7 %; Platelet Count 322 10*3/uL (140-440); RBC 4.74 10*6/uL (4.10-5.20); RDW 13.5 % (11.5-14.5); WBC 9.12 10*3/uL (4.50-10.00)
[2025-05-31 04:07] LABS: ALT 33 U/L (4-34); AST 28 U/L (14-36); African American GFR (CKD) >90 (>60 ml/min/1.73 sqM); Albumin 4.1 g/dL (3.5-5.0); Alkaline Phosphatase 141 U/L (38-126); Anion Gap 13 mmol/L; Blood Urea Nitrogen 18 mg/dL (7-17); Calcium 10.1 mg/dL (8.4-10.2); Carbon Dioxide 24 mmol/L (22-30); Chloride 101 mmol/L (98-107); Glucose 150 mg/dL (74-99); Magnesium 1.8 mg/dL (1.6-2.3); Non-African American GFR(CKD) >90 (>60 ml/min/1.73 sqM); Potassium 3.9 mmol/L (3.5-5.1); Sodium 138 mmol/L (137-145); Total Protein 6.7 g/dL (6.3-8.2)
[2025-05-31 04:36] LABS: INR 0.9 (<1.2); Partial Thromboplastin Time 23.0 sec (22.0-30.0); Prothrombin Time 10.6 sec (10.0-12.5)
[2025-05-31] MEDS: MECLIZINE 12.5 MG TAB PO STA (05:01)
[2025-05-31 06:16] VITALS: BP 111/47; PULSE 69; RESP 16; TEMP 98.5
== END 2025-05-31 06:16 | disposition home or self-care (01) ==
LOC: EC 00:24
DX: R07.9 Chest pain, unspecified (principal); R42 Dizziness and giddiness; F17.200 Nicotine dependence, unspecified, uncomplicated; Z88.8 Allergy status to other drugs, medicaments and biological substances
CPT/HCPCS: 36415; 93005; 80053; 83735; 84484; 85025; 85610; 85730; 87636; 71046; 99284; 96374; 96375 ×2; 96361; J1200; J2765; J1885

== ENCOUNTER 2025-06-10 18:04 | Emergency (ER) | payer OTHER ==
[2025-06-10 18:12] LABS: Glucose,Whole Blood 399 mg/dL (70-110)
[2025-06-10 18:54] LABS: Basophils # (A) 0.05 10*3/uL (0.00-0.10); Basophils % (A) 0.6 %; Eosinophils # (A) 0.19 10*3/uL (0.04-0.35); Eosinophils % (A) 2.5 %; HCT 37.8 % (37.2-46.3); HGB 12.5 g/dL (12.0-15.0); Lymphocytes # (A) 1.36 10*3/uL (0.90-5.00); Lymphocytes % (A) 17.6 %; MCH 28.4 pg (27.0-32.0); MCHC 33.1 g/dL (32.0-37.0); MCV 85.9 fL (80.0-97.0); Monocytes # (A) 0.40 10*3/uL (0.20-1.00); Monocytes % (A) 5.2 %; Neutrophils # (A) 5.71 10*3/uL (1.80-7.70); Neutrophils % (A) 73.8 %; Platelet Count 287 10*3/uL (140-440); RBC 4.40 10*6/uL (4.10-5.20); RDW 13.6 % (11.5-14.5); WBC 7.73 10*3/uL (4.50-10.00)
--- NOTE | 2025-06-10 19:01 | ED ---
General Adult HPI - General Chief complaint: Abdominal Pain Stated complaint: Abd pain, high sugar Time Seen by Provider: 06/10/25 18:22 Source: patient, RN notes reviewed, old records reviewed Mode of arrival: ambulatory Limitations: no limitations - History of Present Illness Initial comments: 34-year-old female presenting for evaluation of elevated blood sugar. Patient is an insulin-dependent diabetic. She also has history of gastroparesis. She does report some epigastric pain and associated nausea. She states this is chronic. She has had a previous history of a cholecystectomy. Patient denies fever. Denies lower abdominal pain. - Related Data Home Medications Medication Instructions Recorded Confirmed Folic Acid 2 mg PO BID 08/31/14 03/18/25 lamoTRIgine [LaMICtal] 200 mg PO BID 05/10/15 03/18/25 Montelukast [Singulair] 10 mg PO HS 02/10/19 03/18/25 ARIPiprazole [Abilify] 10 mg PO DAILY 11/29/22 03/18/25 levETIRAcetam 750 mg PO BID 11/29/22 03/18/25 Escitalopram [Lexapro] 20 mg PO HS 03/28/23 03/18/25 Labetalol [Trandate] 300 mg PO BID 11/09/24 03/18/25 levETIRAcetam [Keppra] 500 mg PO BID 11/09/24 03/18/25 Insulin Aspart [Insulin Aspart 30 unit SQ AC-TID 03/18/25 03/18/25 Flexpen] Insulin Aspart [Insulin Aspart See Protocol SQ AC-TID 03/18/25 03/18/25 Flexpen] Insulin Glargine,Hum.rec.anlog 50 units SQ BID 03/18/25 03/18/25 [Lantus Solostar Pen] Ondansetron [Zofran] 4 mg PO DAILY PRN 03/18/25 03/18/25 Rosuvastatin [Crestor] 10 mg PO DAILY 03/18/25 03/18/25 Semaglutide [Ozempic] 2 mg SQ ESPOSITO 03/18/25 03/18/25 Previous Rx's Medication Instructions Recorded Meclizine [Antivert] 25 mg PO TID #20 tab 05/31/25 Allergies Allergy/AdvReac Type Severity Reaction Status Date / Time haloperidol [From Haldol] Allergy Unknown Verified 06/10/25 18:11 metronidazole [From Flagyl] Allergy Rash/Hives Verified 06/10/25 18:11 lurasidone [From Latuda] AdvReac high blood Verified 06/10/25 18:11 sugar Review of Systems ROS Statement: Those systems with pertinent positive or pertinent negative responses have been documented in the HPI. ROS Other: All systems not noted in ROS Statement are negative. Past Medical History Past Medical History: Asthma, Diabetes Mellitus, Hyperlipidemia, Hypertension, Seizure Disorder, Sleep Apnea/CPAP/BIPAP Additional Past Medical History / Comment(s): seizure, ovarin cyst right side History of Any Multi-Drug Resistant Organisms: None Reported Past Surgical History: Section, Cholecystectomy Past Anesthesia/Blood Transfusion Reactions: No Reported Reaction Past Psychological History: Anxiety, Bipolar, Depression Smoking Status: Current every day smoker Past Alcohol Use History: None Reported Past Drug Use History: None Reported - Past Family History Mother Family Medical History: Asthma, Diabetes Mellitus Additional Family Medical History / Comment(s): Mom is alive at age 56 with history of diabetes Father Family Medical History: Hypertension Additional Family Medical History / Comment(s): Father is alive at age 56 with history of hypertension. Patient does not have any brothers. She does not have a sisters. She does not have any children. General Exam Limitations: no limitations General appearance: alert, in no apparent distress Head exam: Present: atraumatic, normocephalic Eye exam: Present: normal appearance, PERRL ENT exam: Present: normal exam, normal oropharynx Respiratory exam: Present: normal lung sounds bilaterally. Absent: respiratory distress, wheezes Cardiovascular Exam: Present: regular rate, normal rhythm GI/Abdominal exam: Present: soft. Absent: distended, tenderness, guarding, rebound Extremities exam: Present: normal inspection, normal capillary refill Neurological exam: Present: alert, oriented X3 Psychiatric exam: Present: normal affect, normal mood Skin exam: Present: warm, dry, intact Course Vital Signs 06/10/25 18:09 Temperature 97.8 F Pulse Rate 89 Respiratory 20 Rate Blood Pressure 139/90 O2 Sat by Pulse 97 Oximetry Medical Decision Making - Medical Decision Making Was pt. sent in by a medical professional or institution (, PA, SAS ETL DEVELOPER, urgent care, hospital, or care home...) When possible be specific @ -No Did you speak to anyone other than the patient for history (EMS, parent, family, police, friend...)? What history was obtained from this source @ -No Did you review nursing and triage notes (agree or disagree)? Why? @ -I reviewed and agree with nursing and triage notes Were old charts reviewed (outside hosp., previous admission, EMS record, old EKG, old radiological studies, urgent care reports/EKG's, care home records)? Report findings @ -No old charts were reviewed Differential Abdominal Pain Women: Appendicitis, Cholecystitis, diverticulosis, ischemic bowel, pancreatitis, hepatitis, UTI, gastroenteritis, AAA, incarcerated hernia, bowel obstruction, constipation, inflammatory bowel, hepatitis, peptic ulcer disease, splenic infarction, perforated viscus, vulvitis, ovarian torsion, PID, kidney stone, placenta abruption, this is not meant to be an all-inclusive list EKG interpreted by me (3pts min.). @ -As above X-rays interpreted by me (1pt min.). @ -None done CT interpreted by me (1pt min.). @ -None done U/S interpreted by me (1pt. min.). @ -None done What testing was considered but not performed or refused? (CT, X-rays, U/S, labs)? Why? @ -None What meds were considered but not given or refused? Why? @ -None Did you discuss the management of the patient with other professionals (professionals i.e. , PA, [employer] ETL DEVELOPER, lab, RT, psych nurse, social welfare research worker, electrical maintenance mechanic, teacher, mortgage loan officer, child welfare caseworker)? Give summary @ -No Was smoking cessation discussed for >3mins.? @ -No Was critical care preformed (if so, how long)? @ -No Were there social determinants of health that impacted care today? How? (Homelessness, low income, unemployed, alcoholism, drug addiction, transportation, low edu. Level, literacy, decrease access to med. care, fci, rehab)? @ -No Was there de-escalation of care discussed even if they declined (Discuss DNR or withdrawal of care, Hospice)? DNR status @ -No What co-morbidities impacted this encounter? (DM, HTN, Smoking, COPD, CAD, Cancer, CVA, ARF, Chemo, Hep., AIDS, mental health diagnosis, sleep apnea, morbid obesity)? @Diabetes. Was patient admitted / discharged? Hospital course, mention meds given and rout e, prescriptions, significant lab abnormalities, going to OR and other pertinent info. @ -34-year-old female presenting with elevated blood sugar. Patient states she did take some insulin prior to arrival and and admits that her sugars have been difficult to control. She also has history of chronic abdominal pain and gastroparesis. This is unchanged from baseline according to the patient. Pat ient afebrile well-appearing she does appear dehydrated with dry mucous membranes. Given 1 L of fluid awaiting laboratory testing. She has a normal CBC without leukocytosis, stable hemoglobin, she has an elevated blood sugar with a CO2 of 20 and is acetone negative. There is no ketones in the urine. Her lactic is 3.5 which I suspect is from dehydration. Patient given 2 L of normal saline and feels significantly better. Patient will use insulin as prescribed and follow closely with her primary care Undiagnosed new problem with uncertain prognosis? @ -No Drug Therapy requiring intensive monitoring for toxicity (Heparin, Nitro, Insulin, Cardizem)? @ -No Were any procedures done? @ -No Diagnosis/symptom? @ -[Hyperglycemia, dehydration Acute, or Chronic, or Acute on Chronic? @ -Acute on chronic Uncomplicated (without systemic symptoms) or Complicated (systemic symptoms)? @ -[default Side effects of treatment? @ -No Exacerbation, Progression, or Severe Exacerbation? @ -No Poses a threat to life or bodily function? How? (Chest pain, [place], CA, pneumonia, PE, COPD, DKA, ARF, appy, cholecystitis, CVA, Diverticulitis, Homicidal, Suicidal, threat to staff... and all critical care pts) @ -[Low risk at this time - Lab Data Result diagrams: 06/10/25 18:30 06/10/25 18:30 Lab Results 06/10/25 06/10/25 06/10/25 Range/Units 18:10 18:30 18:30 WBC 7.73 (4.50-10.00) 10*3/uL RBC 4.40 (4.10-5.20) 10*6/uL Hgb 12.5 (12.0-15.0) g/dL Hct 37.8 (37.2-46.3) % MCV 85.9 (80.0-97.0) fL MCH 28.4 (27.0-32.0) pg MCHC 33.1 (32.0-37.0) g/dL Plt Count 287 (140-440) 10*3/uL MPV 9.2 L (9.5-12.2) fL Immature Gran % (Auto) 0.3 % Neutrophils % 73.8 % Lymphocytes % 17.6 % Monocytes % 5.2 % Eosinophils % 2.5 % Basophils % 0.6 % Immature Gran # 0.02 (0.00-0.04) 10*3/uL Neutrophils # 5.71 (1.80-7.70) 10*3/uL Lymphocytes # 1.36 (0.90-5.00) 10*3/uL Monocytes # 0.40 (0.20-1.00) 10*3/uL Eosinophils # 0.19 (0.04-0.35) 10*3/uL Basophils # 0.05 (0.00-0.10) 10*3/uL PT 10.2 (10.0-12.5) sec INR 0.9 (<1.2) APTT 22.1 (22.0-30.0) sec Sodium (137-145) mmol/L Potassium (3.5-5.1) mmol/L Chloride (98-107) mmol/L Carbon Dioxide (22-30) mmol/L Anion Gap mmol/L BUN (7-17) mg/dL Creatinine (0.52-1.04) mg/dL Est GFR (CKD-EPI)AfAm (>60 ml/min/1.73 sqM) Est GFR (CKD-EPI)NonAf (>60 ml/min/1.73 sqM) Glucose (74-99) mg/dL POC Glucose (mg/dL) 399 H (70-110) mg/dL POC Glu Architecture Drafter ID [place] Plasma Lactic Acid [place] (0.7-2.0) mmol/L Calcium (8.4-10.2) mg/dL Total Bilirubin (0.2-1.3) mg/dL AST (14-36) U/L ALT (4-34) U/L Alkaline Phosphatase (38-126) U/L Total Protein (6.3-8.2) g/dL Albumin (3.5-5.0) g/dL Amylase (30-110) U/L Lipase (23-300) U/L Urine Color Urine Appearance (Clear) Urine pH (5.0-8.0) Ur Specific [place] (1.001-1.035) Urine Protein (Negative) Urine Glucose (UA) (Negative) Urine Ketones (Negative) Urine Blood (Negative) Urine Nitrite (Negative) Urine Bilirubin (Negative) Urine Urobilinogen (<2.0) mg/dL Ur Leukocyte Esterase (Negative) Urine HCG, Qual (Not Detectd) Acetone, Qual (Negative) 06/10/25 06/10/25 06/10/25 Range/Units 18:30 18:30 18:30 WBC (4.50-10.00) 10*3/uL RBC (4.10-5.20) 10*6/uL Hgb (12.0-15.0) g/dL Hct (37.2-46.3) % MCV (80.0-97.0) fL MCH (27.0-32.0) pg MCHC (32.0-37.0) g/dL Plt Count (140-440) 10*3/uL MPV (9.5-12.2) fL Immature Gran % (Auto) % Neutrophils % % Lymphocytes % % Monocytes % % Eosinophils % % Basophils % % Immature Gran # (0.00-0.04) 10*3/uL Neutrophils # (1.80-7.70) 10*3/uL Lymphocytes # (0.90-5.00) 10*3/uL Monocytes # (0.20-1.00) 10*3/uL Eosinophils # (0.04-0.35) 10*3/uL Basophils # (0.00-0.10) 10*3/uL PT (10.0-12.5) sec INR (<1.2) APTT (22.0-30.0) sec Sodium 135 L (137-145) mmol/L Potassium 4.2 (3.5-5.1) mmol/L Chloride 100 (98-107) mmol/L Carbon Dioxide 20 L (22-30) mmol/L Anion Gap 15 mmol/L BUN 15 (7-17) mg/dL Creatinine 0.65 (0.52-1.04) mg/dL Est GFR (CKD-EPI)AfAm >90 (>60 ml/min/1.73 sqM) Est GFR (CKD-EPI)NonAf >90 (>60 ml/min/1.73 sqM) Glucose 405 H (74-99) mg/dL POC Glucose (mg/dL) (70-110) mg/dL POC Glu Architecture Drafter ID Plasma Lactic Acid [place] (0.7-2.0) mmol/L Calcium 9.6 (8.4-10.2) mg/dL Total Bilirubin 0.3 (0.2-1.3) mg/dL AST 31 (14-36) U/L ALT 30 (4-34) U/L Alkaline Phosphatase 173 H (38-126) U/L Total Protein 6.4 (6.3-8.2) g/dL Albumin 4.0 (3.5-5.0) g/dL Amylase 56 (30-110) U/L Lipase 177 (23-300) U/L Urine Color Colorless Urine Appearance Clear (Clear) Urine pH 6.5 (5.0-8.0) Ur Specific [place] 1.017 (1.001-1.035) Urine Protein Negative (Negative) Urine Glucose (UA) 4+ H (Negative) Urine Ketones Negative (Negative) Urine Blood Negative (Negative) Urine Nitrite Negative (Negative) Urine Bilirubin Negative (Negative) Urine Urobilinogen <2.0 (<2.0) mg/dL Ur Leukocyte Esterase Negative (Negative) Urine HCG, Qual Not Detected (Not Detectd) Acetone, Qual Negative (Negative) 06/10/25 Range/Units 18:30 WBC (4.50-10.00) 10*3/uL RBC (4.10-5.20) 10*6/uL Hgb (12.0-15.0) g/dL Hct (37.2-46.3) % MCV (80.0-97.0) fL MCH (27.0-32.0) pg MCHC (32.0-37.0) g/dL Plt Count (140-440) 10*3/uL MPV (9.5-12.2) fL Immature Gran % (Auto) % Neutrophils % % Lymphocytes % % Monocytes % % Eosinophils % % Basophils % % Immature Gran # (0.00-0.04) 10*3/uL Neutrophils # (1.80-7.70) 10*3/uL Lymphocytes # (0.90-5.00) 10*3/uL Monocytes # (0.20-1.00) 10*3/uL Eosinophils # (0.04-0.35) 10*3/uL Basophils # (0.00-0.10) 10*3/uL PT (10.0-12.5) sec INR (<1.2) APTT (22.0-30.0) sec Sodium (137-145) mmol/L Potassium (3.5-5.1) mmol/L Chloride (98-107) mmol/L Carbon Dioxide (22-30) mmol/L Anion Gap mmol/L BUN (7-17) mg/dL Creatinine (0.52-1.04) mg/dL Est GFR (CKD-EPI)AfAm (>60 ml/min/1.73 sqM) Est GFR (CKD-EPI)NonAf (>60 ml/min/1.73 sqM) Glucose (74-99) mg/dL POC Glucose (mg/dL) (70-110) mg/dL POC Glu Architecture Drafter ID Plasma Lactic Acid [place] 3.5 H* (0.7-2.0) mmol/L Calcium (8.4-10.2) mg/dL Total Bilirubin (0.2-1.3) mg/dL AST (14-36) U/L ALT (4-34) U/L Alkaline Phosphatase (38-126) U/L Total Protein (6.3-8.2) g/dL Albumin (3.5-5.0) g/dL Amylase (30-110) U/L Lipase (23-300) U/L Urine Color Urine Appearance (Clear) Urine pH (5.0-8.0) Ur Specific [place] (1.001-1.035) Urine Protein (Negative) Urine Glucose (UA) (Negative) Urine Ketones (Negative) Urine Blood (Negative) Urine Nitrite (Negative) Urine Bilirubin (Negative) Urine Urobilinogen (<2.0) mg/dL Ur Leukocyte Esterase (Negative) Urine HCG, Qual (Not Detectd) Acetone, Qual (Negative) Disposition Clinical Impression: Dehydration, Hyperglycemia Disposition: HOME SELF-CARE Condition: Fair Instructions (If sedation given, give patient instructions): Dehydration (ED), Diabetic Hyperglycemia (ED) Is patient prescribed a controlled substance at d/c from ED?: No Referrals: None,Stated [Primary Care Provider] - 1-2 days Time of Disposition: 19:47
[2025-06-10] MEDS: SODIUM CHLORIDE 0.9% 1,000 ML IV ONE ×2 (19:02→19:48)
[2025-06-10] MEDS: ONDANSETRON 4 MG/2 ML VIAL IVP STA (19:03)
[2025-06-10] MEDS: MORPHINE SULFATE 2 MG/ML SYRINGE IVP STA (19:03)
[2025-06-10 19:08] LABS: ALT 30 U/L (4-34); AST 31 U/L (14-36); African American GFR (CKD) >90 (>60 ml/min/1.73 sqM); Albumin 4.0 g/dL (3.5-5.0); Alkaline Phosphatase 173 U/L (38-126); Amylase 56 U/L (30-110); Anion Gap 15 mmol/L; Blood Urea Nitrogen 15 mg/dL (7-17); Calcium 9.6 mg/dL (8.4-10.2); Carbon Dioxide 20 mmol/L (22-30); Chloride 100 mmol/L (98-107); Glucose 405 mg/dL (74-99); Lipase 177 U/L (23-300); Non-African American GFR(CKD) >90 (>60 ml/min/1.73 sqM); Potassium 4.2 mmol/L (3.5-5.1); Sodium 135 mmol/L (137-145); Total Protein 6.4 g/dL (6.3-8.2)
[2025-06-10 19:11] LABS: INR 0.9 (<1.2); Partial Thromboplastin Time 22.1 sec (22.0-30.0); Prothrombin Time 10.2 sec (10.0-12.5)
[2025-06-10 19:20] LABS: Bilirubin,Urine Negative (Negative); Blood,Urine Negative (Negative); Color,Urine Colorless; Glucose,Urine (UA) 4+ (Negative); Ketones,Urine Negative (Negative); Leukocyte Esterase,Urine Negative (Negative); Nitrite,Urine Negative (Negative); PH, Urine 6.5 (5.0-8.0); Protein,Urine Negative (Negative); Specific Gravity,Urine 1.017 (1.001-1.035); Urobilinogen,Urine <2.0 mg/dL (<2.0)
[2025-06-10 20:20] VITALS: PULSE 69
[2025-06-10 20:21] LABS: Glucose,Whole Blood 337 mg/dL (70-110)
[2025-06-10 20:37] VITALS: BP 134/67; RESP 15; TEMP 98
== END 2025-06-10 20:35 | disposition home or self-care (01) ==
LOC: EC 18:04
DX: E86.0 Dehydration (principal); E11.65 Type 2 diabetes mellitus with hyperglycemia; F17.200 Nicotine dependence, unspecified, uncomplicated; Z88.1 Allergy status to other antibiotic agents; Z88.8 Allergy status to other drugs, medicaments and biological substances
CPT/HCPCS: 36415; 80053; 82150; 82009; 83605; 83690; 85025; 85610; 85730; 81003; 81025; 99284; 96374; 96375; 96361 ×2; J2405; J2270

== ENCOUNTER 2025-06-14 23:14 | Emergency (ER) | payer OTHER ==
[2025-06-14 23:33] LABS: Glucose,Whole Blood 392 mg/dL (70-110)
--- NOTE | 2025-06-14 23:52 | ED ---
Abdominal Pain HPI - General Chief Complaint: Abdominal Pain Stated Complaint: Ovarian Cyst, High Blood Sugar Time Seen by Provider: 06/14/25 23:38 Source: patient, RN notes reviewed Mode of arrival: ambulatory Limitations: no limitations - History of Present Illness Initial Comments: This is a 34-year-old female who presents to the emergency department for abdominal pain and hyperglycemia. Patient states that she was diagnosed with 8 cm ovarian cyst on the right side a few days ago at [facility]. However, states that since then she has continued to have increasing pain and nausea. She also reports that her sugar is in the 400s and she feels nauseous and foggy. She is a type II diabetic and states that she has been in DKA twice. MD Complaint: abdominal pain - Related Data Home Medications Medication Instructions Recorded Confirmed Folic Acid 2 mg PO BID 08/31/14 03/18/25 lamoTRIgine [LaMICtal] 200 mg PO BID 05/10/15 03/18/25 Montelukast [Singulair] 10 mg PO HS 02/10/19 03/18/25 ARIPiprazole [Abilify] 10 mg PO DAILY 11/29/22 03/18/25 levETIRAcetam 750 mg PO BID 11/29/22 03/18/25 Escitalopram [Lexapro] 20 mg PO HS 03/28/23 03/18/25 Labetalol [Trandate] 300 mg PO BID 11/09/24 03/18/25 levETIRAcetam [Keppra] 500 mg PO BID 11/09/24 03/18/25 Insulin Aspart [Insulin Aspart 30 unit SQ AC-TID 03/18/25 03/18/25 Flexpen] Insulin Aspart [Insulin Aspart See Protocol SQ AC-TID 03/18/25 03/18/25 Flexpen] Insulin Glargine,Hum.rec.anlog 50 units SQ BID 03/18/25 03/18/25 [Lantus Solostar Pen] Ondansetron [Zofran] 4 mg PO DAILY PRN 03/18/25 03/18/25 Rosuvastatin [Crestor] 10 mg PO DAILY 03/18/25 03/18/25 Semaglutide [Ozempic] 2 mg SQ ESPOSITO 03/18/25 03/18/25 Previous Rx's Medication Instructions Recorded Meclizine [Antivert] 25 mg PO TID #20 tab 05/31/25 Ketorolac [Toradol] 10 mg PO Q6HR PRN #15 tab 06/15/25 Ondansetron Odt [Zofran Odt] 4 mg PO Q8HR PRN #15 tab 06/15/25 Allergies Allergy/AdvReac Type Severity Reaction Status Date / Time haloperidol [From Haldol] Allergy Unknown Verified 06/14/25 23:34 metronidazole [From Flagyl] Allergy Rash/Hives Verified 06/14/25 23:34 lurasidone [From Latuda] AdvReac high blood Verified 06/14/25 23:34 sugar Review of Systems ROS Statement: Those systems with pertinent positive or pertinent negative responses have been documented in the HPI. ROS Other: All systems not noted in ROS Statement are negative. Past Medical History Past Medical History: Asthma, Diabetes Mellitus, Hyperlipidemia, Hypertension, Seizure Disorder, Sleep Apnea/CPAP/BIPAP Additional Past Medical History / Comment(s): seizure, ovarin cyst right side History of Any Multi-Drug Resistant Organisms: None Reported Past Surgical History: Section, Cholecystectomy Past Anesthesia/Blood Transfusion Reactions: No Reported Reaction Past Psychological History: Anxiety, Bipolar, Depression Smoking Status: Current every day smoker Past Alcohol Use History: None Reported Past Drug Use History: None Reported - Past Family History Mother Family Medical History: Asthma, Diabetes Mellitus Additional Family Medical History / Comment(s): Mom is alive at age 56 with history of diabetes Father Family Medical History: Hypertension Additional Family Medical History / Comment(s): Father is alive at age 56 with history of hypertension. Patient does not have any brothers. She does not have a sisters. She does not have any children. General Exam Limitations: no limitations General appearance: alert, in no apparent distress Head exam: Present: atraumatic, normocephalic, normal inspection Respiratory exam: Present: normal lung sounds bilaterally. Absent: respiratory distress, wheezes, rales, rhonchi, stridor Cardiovascular Exam: Present: regular rate, normal rhythm GI/Abdominal exam: Present: soft, tenderness (RLQ). Absent: distended Neurological exam: Present: alert, oriented X3, CN II-XII intact Psychiatric exam: Present: normal affect, normal mood Skin exam: Present: warm, dry, intact, normal color. Absent: rash Course Vital Signs 07/15/25 07/16/25 07/16/25 23:29 01:55 04:32 Temperature 98.7 F 98.6 F Pulse Rate 83 76 69 Respiratory 18 17 18 Rate Blood Pressure 127/85 108/47 105/50 O2 Sat by Pulse 99 96 98 Oximetry Medical Decision Making - Medical Decision Making This is a 34 year old female who presents to the emergency department for abdominal pain and hyperglycemia. Was pt. sent in by a medical professional or institution? @ -No Did you speak to anyone other than the patient for history? @ -No Did you review nursing and triage notes? @ -Yes, and I agree, it is accurate with regards to the patient's symptoms. Were old charts reviewed? @ -No Differential Diagnosis? @ -Differential Abdominal Pain Women: Appendicitis, Cholecystitis, diverticulosis, ischemic bowel, pancreatitis, hepatitis, UTI, gastroenteritis, AAA, incarcerated hernia, bowel obstruction, constipation, inflammatory bowel, hepatitis, peptic ulcer disease, splenic infarction, perforated viscus, vulvitis, ovarian torsion, PID, kidney stone, placenta abruption, this is not meant to be an all-inclusive list EKG interpreted by me (3pts min.)? @ -Not obtained X-rays interpreted by me (1pt min.)? @ -Not obtained CT interpreted by me (1pt min.)? @ -Not obtained U/S interpreted by me (1pt. min.)? @ -CT scan of the abdomen and pelvis obtained. My interpretation identifies no ovarian torsion. What testing was considered but not performed? (CT, X-rays, U/S, labs)? Why? @ -None What meds were considered but not given? Why? @ -None Did you discuss the management of the patient with other professionals? @ -No Did you reconcile home meds? @ -No Was smoking cessation discussed for >3mins.? @ -I discussed smoking cessation for greater than 3 minutes. The risk of smoking were discussed with the patient including but not limited to risks of cancer, stroke, coronary artery disease and COPD. Also discussed with patient were multiple methods of quitting smoking. Lastly we discussed the financial cost of smoking. Was critical care preformed (if so, how long)? @ -No Were there social determinants of health that impacted care today? How? (Homelessness, low income, unemployed, alcoholism, drug addiction, transp ortation, low edu. Level, literacy, decrease access to med. care, [facility], rehab)? @ -No Was there de-escalation of care discussed even if they declined? (Discuss DNR or withdrawal of care, Hospice)? @ -No What co-morbidities impacted this encounter? (DM, HTN, Smoking, COPD, CAD, Cancer, CVA, Hep., AIDS, mental health diagnosis, sleep apnea, morbid obesity)? @ -DM, smoking Was patient admitted / discharged? @ -Discharged. Lab work demonstrates hyperglycemia with a glucose of 448. Lactic acid elevated at 3.0. Magnesium slightly low at 1.5. Acetone negative and patient is not in DKA. Urinalysis negative for signs of infection. She was treated with a liter bolus of IV fluids along with 400 mg of magnesium oxide. Pain and nausea controlled with morphine, Toradol, and Zofran. 10 units of IV insulin administered and blood sugar improved to 242. Transvaginal ultrasound demonstrates an enlarged right ovary containing a simple and complex cyst versus cystic mass, increased from prior study here. However, this is likely fairly similar to the one she had a few days ago at [facility]. Findings reviewed with the patient. Given that she is not in DKA and there is no ovarian torsion, advised that she can be discharged home. However, she will need to follow-up with [facility] regarding the cyst, especially if it continues to be painful for her. Toradol and Zofran prescribed for further symptomatic management. Also advised warm compresses. Patient discharged home in stable condition. Case discussed with ED attending Dr. Jameson. Return precautions reviewed in depth, the patient is instructed to return to the emergency department with any new, worsening, or concerning symptoms. Patient verbalized understanding. Undiagnosed new problem with uncertain prognosis? @ -None Drug Therapy requiring intensive monitoring for toxicity (Heparin, Nitro, Insuli n, Cardizem)? @ -None Were any procedures done? @ -None Diagnosis/symptom? @ -Hyperglycemia, abdominal pain, right ovarian cyst Acute, or Chronic, or Acute on Chronic? @ -Acute Uncomplicated (without systemic symptoms) or Complicated (systemic symptoms)? @ -Uncomplicated Side effects of treatment? @ -None Exacerbation, Progression, or Severe Exacerbation] @ -Not applicable Poses a threat to life or bodily function? @ -No - Lab Data Result diagrams: 06/15/25 00:03 06/15/25 00:03 Lab Results 06/14/25 06/15/25 06/15/25 Range/Units 23:32 00:03 00:03 WBC 7.53 (4.50-10.00) 10*3/uL RBC 4.47 (4.10-5.20) 10*6/uL Hgb 12.7 (12.0-15.0) g/dL Hct 38.1 (37.2-46.3) % MCV 85.2 (80.0-97.0) fL MCH 28.4 (27.0-32.0) pg MCHC 33.3 (32.0-37.0) g/dL Plt Count 280 (140-440) 10*3/uL MPV 9.6 (9.5-12.2) fL Immature Gran % (Auto) 0.4 % Neutrophils % 69.6 % Lymphocytes % 20.5 % Monocytes % 6.0 % Eosinophils % 2.7 % Basophils % 0.8 % Immature Gran # 0.03 (0.00-0.04) 10*3/uL Neutrophils # 5.25 (1.80-7.70) 10*3/uL Lymphocytes # 1.54 (0.90-5.00) 10*3/uL Monocytes # 0.45 (0.20-1.00) 10*3/uL Eosinophils # 0.20 (0.04-0.35) 10*3/uL Basophils # 0.06 (0.00-0.10) 10*3/uL Sodium (137-145) mmol/L Potassium (3.5-5.1) mmol/L Chloride (98-107) mmol/L Carbon Dioxide (22-30) mmol/L Anion Gap mmol/L BUN (7-17) mg/dL Creatinine (0.52-1.04) mg/dL Est GFR (CKD-EPI)AfAm (>60 ml/min/1.73 sqM) Est GFR (CKD-EPI)NonAf (>60 ml/min/1.73 sqM) Glucose (74-99) mg/dL POC Glucose (mg/dL) 392 H (70-110) mg/dL POC Glu Manager Pricing ID Carolina Nelly Lactic Ac Sepsis Rflx Plasma Lactic Acid Jordan (0.7-2.0) mmol/L Calcium (8.4-10.2) mg/dL Phosphorus (2.5-4.5) mg/dL Magnesium (1.6-2.3) mg/dL Total Bilirubin (0.2-1.3) mg/dL AST (14-36) U/L ALT (4-34) U/L Alkaline Phosphatase (38-126) U/L Total Protein (6.3-8.2) g/dL Albumin (3.5-5.0) g/dL Urine Color Light Yellow Urine Appearance Clear (Clear) Urine pH 6.0 (5.0-8.0) Ur Specific [place] 1.025 (1.001-1.035) Urine Protein Negative (Negative) Urine Glucose (UA) 4+ H (Negative) Urine Ketones Negative (Negative) Urine Blood Negative (Negative) Urine Nitrite Negative (Negative) Urine Bilirubin Negative (Negative) Urine Urobilinogen <2.0 (<2.0) mg/dL Ur Leukocyte Esterase Negative (Negative) Urine HCG, Qual (Not Detectd) Acetone, Qual (Negative) 06/15/25 06/15/25 06/15/25 Range/Units 00:03 00:03 00:03 WBC (4.50-10.00) 10*3/uL RBC (4.10-5.20) 10*6/uL Hgb (12.0-15.0) g/dL Hct (37.2-46.3) % MCV (80.0-97.0) fL MCH (27.0-32.0) pg MCHC (32.0-37.0) g/dL Plt Count (140-440) 10*3/uL MPV (9.5-12.2) fL Immature Gran % (Auto) % Neutrophils % % Lymphocytes % % Monocytes % % Eosinophils % % Basophils % % Immature Gran # (0.00-0.04) 10*3/uL Neutrophils # (1.80-7.70) 10*3/uL Lymphocytes # (0.90-5.00) 10*3/uL Monocytes # (0.20-1.00) 10*3/uL Eosinophils # (0.04-0.35) 10*3/uL Basophils # (0.00-0.10) 10*3/uL Sodium 133 L (137-145) mmol/L Potassium 4.3 (3.5-5.1) mmol/L Chloride 95 L (98-107) mmol/L Carbon Dioxide 25 (22-30) mmol/L Anion Gap 13 mmol/L BUN 14 (7-17) mg/dL Creatinine 0.73 (0.52-1.04) mg/dL Est GFR (CKD-EPI)AfAm >90 (>60 ml/min/1.73 sqM) Est GFR (CKD-EPI)NonAf >90 (>60 ml/min/1.73 sqM) Glucose 448 H (74-99) mg/dL POC Glucose (mg/dL) (70-110) mg/dL POC Glu Manager Pricing ID Lactic Ac Sepsis Rflx Plasma Lactic Acid Jordan 3.0 H* (0.7-2.0) mmol/L Calcium 9.9 (8.4-10.2) mg/dL Phosphorus 4.5 (2.5-4.5) mg/dL Magnesium 1.5 L (1.6-2.3) mg/dL Total Bilirubin 0.2 (0.2-1.3) mg/dL AST 24 (14-36) U/L ALT 28 (4-34) U/L Alkaline Phosphatase 176 H (38-126) U/L Total Protein 6.5 (6.3-8.2) g/dL Albumin 4.0 (3.5-5.0) g/dL Urine Color Urine Appearance (Clear) Urine pH (5.0-8.0) Ur Specific [place] (1.001-1.035) Urine Protein (Negative) Urine Glucose (UA) (Negative) Urine Ketones (Negative) Urine Blood (Negative) Urine Nitrite (Negative) Urine Bilirubin (Negative) Urine Urobilinogen (<2.0) mg/dL Ur Leukocyte Esterase (Negative) Urine HCG, Qual Not Detected (Not Detectd) Acetone, Qual Negative (Negative) 06/15/25 06/15/25 06/15/25 Range/Units 01:14 03:18 04:01 WBC (4.50-10.00) 10*3/uL RBC (4.10-5.20) 10*6/uL Hgb (12.0-15.0) g/dL Hct (37.2-46.3) % MCV (80.0-97.0) fL MCH (27.0-32.0) pg MCHC (32.0-37.0) g/dL Plt Count (140-440) 10*3/uL MPV (9.5-12.2) fL Immature Gran % (Auto) % Neutrophils % % Lymphocytes % % Monocytes % % Eosinophils % % Basophils % % Immature Gran # (0.00-0.04) 10*3/uL Neutrophils # (1.80-7.70) 10*3/uL Lymphocytes # (0.90-5.00) 10*3/uL Monocytes # (0.20-1.00) 10*3/uL Eosinophils # (0.04-0.35) 10*3/uL Basophils # (0.00-0.10) 10*3/uL Sodium (137-145) mmol/L Potassium (3.5-5.1) mmol/L Chloride (98-107) mmol/L Carbon Dioxide (22-30) mmol/L Anion Gap mmol/L BUN (7-17) mg/dL Creatinine (0.52-1.04) mg/dL Est GFR (CKD-EPI)AfAm (>60 ml/min/1.73 sqM) Est GFR (CKD-EPI)NonAf (>60 ml/min/1.73 sqM) Glucose (74-99) mg/dL POC Glucose (mg/dL) 390 H 242 H (70-110) mg/dL POC Glu Manager Pricing ID Syed Coker Isobayron Roque Lactic Ac Sepsis Rflx Y Plasma Lactic Acid Jordan (0.7-2.0) mmol/L Calcium (8.4-10.2) mg/dL Phosphorus (2.5-4.5) mg/dL Magnesium (1.6-2.3) mg/dL Total Bilirubin (0.2-1.3) mg/dL AST (14-36) U/L ALT (4-34) U/L Alkaline Phosphatase (38-126) U/L Total Protein (6.3-8.2) g/dL Albumin (3.5-5.0) g/dL Urine Color Urine Appearance (Clear) Urine pH (5.0-8.0) Ur Specific [place] (1.001-1.035) Urine Protein (Negative) Urine Glucose (UA) (Negative) Urine Ketones (Negative) Urine Blood (Negative) Urine Nitrite (Negative) Urine Bilirubin (Negative) Urine Urobilinogen (<2.0) mg/dL Ur Leukocyte Esterase (Negative) Urine HCG, Qual (Not Detectd) Acetone, Qual (Negative) 06/15/25 Range/Units 04:17 WBC (4.50-10.00) 10*3/uL RBC (4.10-5.20) 10*6/uL Hgb (12.0-15.0) g/dL Hct (37.2-46.3) % MCV (80.0-97.0) fL MCH (27.0-32.0) pg MCHC (32.0-37.0) g/dL Plt Count (140-440) 10*3/uL MPV (9.5-12.2) fL Immature Gran % (Auto) % Neutrophils % % Lymphocytes % % Monocytes % % Eosinophils % % Basophils % % Immature Gran # (0.00-0.04) 10*3/uL Neutrophils # (1.80-7.70) 10*3/uL Lymphocytes # (0.90-5.00) 10*3/uL Monocytes # (0.20-1.00) 10*3/uL Eosinophils # (0.04-0.35) 10*3/uL Basophils # (0.00-0.10) 10*3/uL Sodium (137-145) mmol/L Potassium (3.5-5.1) mmol/L Chloride (98-107) mmol/L Carbon Dioxide (22-30) mmol/L Anion Gap mmol/L BUN (7-17) mg/dL Creatinine (0.52-1.04) mg/dL Est GFR (CKD-EPI)AfAm (>60 ml/min/1.73 sqM) Est GFR (CKD-EPI)NonAf (>60 ml/min/1.73 sqM) Glucose (74-99) mg/dL POC Glucose (mg/dL) (70-110) mg/dL POC Glu Manager Pricing ID Lactic Ac Sepsis Rflx Plasma Lactic Acid [place] 1.3 (0.7-2.0) mmol/L Calcium (8.4-10.2) mg/dL Phosphorus (2.5-4.5) mg/dL Magnesium (1.6-2.3) mg/dL Total Bilirubin (0.2-1.3) mg/dL AST (14-36) U/L ALT (4-34) U/L Alkaline Phosphatase (38-126) U/L Total Protein (6.3-8.2) g/dL Albumin (3.5-5.0) g/dL Urine Color Urine Appearance (Clear) Urine pH (5.0-8.0) Ur Specific [place] (1.001-1.035) Urine Protein (Negative) Urine Glucose (UA) (Negative) Urine Ketones (Negative) Urine Blood (Negative) Urine Nitrite (Negative) Urine Bilirubin (Negative) Urine Urobilinogen (<2.0) mg/dL Ur Leukocyte Esterase (Negative) Urine HCG, Qual (Not Detectd) Acetone, Qual (Negative) - Radiology Data Radiology results: report reviewed, image reviewed Disposition Clinical Impression: Right ovarian cyst, Hyperglycemia, Abdominal pain, Nicotine dependence Disposition: HOME SELF-CARE Instructions (If sedation given, give patient instructions): Ovarian Cyst (ED), Diabetic Hyperglycemia (ED) Additional Instructions: Return to the emergency department with any new, worsening, or concerning symptoms. Take the Toradol with Tylenol as needed for pain relief. If you choose to take the Toradol, do not take any other anti-inflammatories such as ibuprofen, take one or the other. Take the Zofran up to every 8 hours as needed for nausea and vomiting. Follow up with your primary care provider in 1-2 days. Prescriptions: Ketorolac [Toradol] 10 mg PO Q6HR PRN #15 tab PRN Reason: Pain Ondansetron Odt [Zofran Odt] 4 mg PO Q8HR PRN #15 tab PRN Reason: Nausea And Vomiting Is patient prescribed a controlled substance at d/c from ED?: No Referrals: None,Stated [Primary Care Provider] - 1-2 days Time of Disposition: 04:39
[2025-06-15] MEDS: SODIUM CHLORIDE 0.9% 1,000 ML IV ONE (00:12)
[2025-06-15] MEDS: ONDANSETRON 4 MG/2 ML VIAL IVP STA (00:14)
[2025-06-15] MEDS: KETOROLAC 15 MG/ML 1 ML VIAL IVP STA (00:15)
[2025-06-15] MEDS: MORPHINE SULFATE 4 MG/ML SYRINGE IVP STA (00:16)
[2025-06-15 00:59] LABS: Basophils # (A) 0.06 10*3/uL (0.00-0.10); Basophils % (A) 0.8 %; Bilirubin,Urine Negative (Negative); Blood,Urine Negative (Negative); Color,Urine Light Yellow; Eosinophils # (A) 0.20 10*3/uL (0.04-0.35); Eosinophils % (A) 2.7 %; Glucose,Urine (UA) 4+ (Negative); HCT 38.1 % (37.2-46.3); HGB 12.7 g/dL (12.0-15.0); Ketones,Urine Negative (Negative); Leukocyte Esterase,Urine Negative (Negative); Lymphocytes # (A) 1.54 10*3/uL (0.90-5.00); Lymphocytes % (A) 20.5 %; MCH 28.4 pg (27.0-32.0); MCHC 33.3 g/dL (32.0-37.0); MCV 85.2 fL (80.0-97.0); Monocytes # (A) 0.45 10*3/uL (0.20-1.00); Monocytes % (A) 6.0 %; Neutrophils # (A) 5.25 10*3/uL (1.80-7.70); Neutrophils % (A) 69.6 %; Nitrite,Urine Negative (Negative); PH, Urine 6.0 (5.0-8.0); Platelet Count 280 10*3/uL (140-440); Protein,Urine Negative (Negative); RBC 4.47 10*6/uL (4.10-5.20); RDW 13.3 % (11.5-14.5); Specific Gravity,Urine 1.025 (1.001-1.035); Urobilinogen,Urine <2.0 mg/dL (<2.0); WBC 7.53 10*3/uL (4.50-10.00)
[2025-06-15 01:12] LABS: ALT 28 U/L (4-34); AST 24 U/L (14-36); African American GFR (CKD) >90 (>60 ml/min/1.73 sqM); Albumin 4.0 g/dL (3.5-5.0); Alkaline Phosphatase 176 U/L (38-126); Anion Gap 13 mmol/L; Blood Urea Nitrogen 14 mg/dL (7-17); Calcium 9.9 mg/dL (8.4-10.2); Carbon Dioxide 25 mmol/L (22-30); Chloride 95 mmol/L (98-107); Glucose 448 mg/dL (74-99); Magnesium 1.5 mg/dL (1.6-2.3); Non-African American GFR(CKD) >90 (>60 ml/min/1.73 sqM); Potassium 4.3 mmol/L (3.5-5.1); Sodium 133 mmol/L (137-145); Total Protein 6.5 g/dL (6.3-8.2)
[2025-06-15] MEDS: MAGNESIUM OXIDE 400 MG TAB PO STA (01:51)
[2025-06-15 03:22] LABS: Glucose,Whole Blood 390 mg/dL (70-110)
[2025-06-15] MEDS: INSULIN REGULAR 100 UNIT/ML VIAL (IV) IV ONE (03:22)
[2025-06-15 04:03] LABS: Glucose,Whole Blood 242 mg/dL (70-110)
--- NOTE | 2025-06-15 04:29 | US ---
EXAM: US Pelvis Transvaginal CLINICAL HISTORY: Right sided pelvic pain TECHNIQUE: Real-time transvaginal pelvic ultrasound with image documentation. Transvaginal imaging was used for better evaluation of the endometrium and adnexa. COMPARISON: 01/28/2023. FINDINGS: Uterus/cervix: 8.9 x 4.5 x 4.9 cm. Normal endometrial stripe thickness at 5 mm. No myometrial mass. Right ovary: 8.8 x 9.4 x 5.8 cm. Simple 5.8 x 4.8 x 4.8 cm cyst. Complex 5.4 x 4.9 x 3.7 cm probable hemorrhagic cyst. Normal blood flow. Left ovary: 4.0 x 3.2 x 1.8 cm. No mass. Poorly characterized although grossly normal blood flow. Adnexa: No free fluid or adnexal mass. IMPRESSION: Enlarged right ovary containing a simple and complex cysts versus cystic mass, increased from the prior study. Recommend continued follow- up. Otherwise negative.
[2025-06-15 04:35] VITALS: BP 105/50; PULSE 69; RESP 18; TEMP 98.6
[2025-06-15] MEDS: ACET/COD 300 MG/30 MG STARTER PACK 6 TAB BTL PO STA (04:48)
== END 2025-06-15 04:42 | disposition home or self-care (01) ==
LOC: EC 23:14
DX: N83.201 Unspecified ovarian cyst, right side (principal); F17.200 Nicotine dependence, unspecified, uncomplicated; E11.10 Type 2 diabetes mellitus with ketoacidosis without coma; Z88.8 Allergy status to other drugs, medicaments and biological substances; Z88.1 Allergy status to other antibiotic agents
CPT/HCPCS: 36415; 76830; 80053; 81003; 81025; 82009; 83605; 83735; 84100; 85025; 93975; 96361; 96374; 96375; 99284

== ENCOUNTER 2025-06-20 23:45 | Emergency (ER) | payer OTHER ==
--- NOTE | 2025-06-20 23:50 | ED ---
Abdominal Pain HPI - General Chief Complaint: Abdominal Pain Stated Complaint: Abdominal Pain Time Seen by Provider: 06/20/25 23:48 Source: patient Mode of arrival: ambulatory Limitations: no limitations - History of Present Illness Initial Comments: 34-year-old female with hypertension, hyperlipidemia, seizure disorder, sleep apnea, diabetes (with gastroparesis, insulin-dependent, currently on Mounjaro SQ), history of gallbladder pancreatitis status postcholecystectomy, history of here for abdominal pain. Patient reported that on 06/20 at around 7:45 PM she developed acute abdominal pain that was aching with associated nausea and vomiting that was brownish and watery. She tried to take omeprazole and Tums but her symptoms did not improve. Associated pain with inhalation. She reported that she had started an increase of her Mounjaro dose from 5mg to 7.5mg that started last Tuesday 06/19. Denied fever, chills, diarrhea, chest pain, palpitations, abdominal distention, yellowing of skin. - Related Data Home Medications Medication Instructions Recorded Confirmed Folic Acid 2 mg PO BID 08/31/14 03/18/25 lamoTRIgine [LaMICtal] 200 mg PO BID 05/10/15 03/18/25 Montelukast [Singulair] 10 mg PO HS 02/10/19 03/18/25 ARIPiprazole [Abilify] 10 mg PO DAILY 11/29/22 03/18/25 levETIRAcetam 750 mg PO BID 11/29/22 03/18/25 Escitalopram [Lexapro] 20 mg PO HS 03/28/23 03/18/25 Labetalol [Trandate] 300 mg PO BID 11/09/24 03/18/25 levETIRAcetam [Keppra] 500 mg PO BID 11/09/24 03/18/25 Insulin Aspart [Insulin Aspart 30 unit SQ AC-TID 03/18/25 03/18/25 Flexpen] Insulin Aspart [Insulin Aspart See Protocol SQ AC-TID 03/18/25 03/18/25 Flexpen] Insulin Glargine,Hum.rec.anlog 50 units SQ BID 03/18/25 03/18/25 [Lantus Solostar Pen] Ondansetron [Zofran] 4 mg PO DAILY PRN 03/18/25 03/18/25 Rosuvastatin [Crestor] 10 mg PO DAILY 03/18/25 03/18/25 Semaglutide [Ozempic] 2 mg SQ ESPOSITO 03/18/25 03/18/25 Previous Rx's Medication Instructions Recorded Meclizine [Antivert] 25 mg PO TID #20 tab 05/31/25 Ketorolac [Toradol] 10 mg PO Q6HR PRN #15 tab 06/15/25 Ondansetron Odt [Zofran Odt] 4 mg PO Q8HR PRN #15 tab 06/15/25 Metoclopramide [Reglan] 5 mg PO ACHS #20 tab 06/21/25 Allergies Allergy/AdvReac Type Severity Reaction Status Date / Time haloperidol [From Haldol] Allergy Unknown Verified 06/20/25 23:49 metronidazole [From Flagyl] Allergy Rash/Hives Verified 06/20/25 23:49 lurasidone [From Latuda] AdvReac high blood Verified 06/20/25 23:49 sugar Review of Systems ROS Statement: Those systems with pertinent positive or pertinent negative responses have been documented in the HPI. ROS Other: All systems not noted in ROS Statement are negative. Past Medical History Past Medical History: Asthma, Diabetes Mellitus, Hyperlipidemia, Hypertension, Seizure Disorder, Sleep Apnea/CPAP/BIPAP Additional Past Medical History / Comment(s): seizure, ovarin cyst right side, gastroparesis, pancreatitis History of Any Multi-Drug Resistant Organisms: None Reported Past Surgical History: Section, Cholecystectomy Past Anesthesia/Blood Transfusion Reactions: No Reported Reaction Past Psychological History: Anxiety, Bipolar, Depression Smoking Status: Current every day smoker Past Alcohol Use History: None Reported Past Drug Use History: None Reported - Past Family History Mother Family Medical History: Asthma, Diabetes Mellitus Additional Family Medical History / Comment(s): Mom is alive at age 56 with history of diabetes Father Family Medical History: Hypertension Additional Family Medical History / Comment(s): Father is alive at age 56 with history of hypertension. Patient does not have any brothers. She does not have a sisters. She does not have any children. General Exam - General Exam Comments Initial Comments: Physical examination: Vital signs reviewed General: non toxic, no distress, appears at stated age, room air Head: atraumatic, normocephalic, symmetric Mouth: no lip lesion, mucus membranes moist Cardiovascular: S1S2 reg, no murmur Lungs: CTA bilateral, no rhonchi, no rales, no accessory muscle use Abdominal: soft, nondistended, tenderness to light palpation of epigastric and right upper quadrant areas, Toussaint sign positive, bowel sounds appreciated, no guarding Ext: muscle strength 5 out of 5 in all 4 extremities grossly, no gross muscle atrophy, no contractures, positive dorsalis pedis pulse bilateral, no edema Neuro: no gross focal neuro deficits Psych: Alert and oriented x3, appropriate affect and mood Limitations: no limitations Course Vital Signs 06/20/25 23:47 Temperature 98 F Pulse Rate 92 Respiratory 16 Rate Blood Pressure 160/93 O2 Sat by Pulse 98 Oximetry - Reevaluation(s) Reevaluation #1: 06/21/25 02:38 Patient reported pain has improved down to a 7 out of 10 still having nausea. IV Reglan given. Medical Decision Making - Medical Decision Making Was pt. sent in by a medical professional or institution (, PA, STUDENT COUNSELOR, urgent care, hospital, or longterm...) When possible be specific @ -No Did you speak to anyone other than the patient for history (EMS, parent, family, police, friend...)? What history was obtained from this source @ -No Did you review nursing and triage notes (agree or disagree)? Why? @ -I reviewed and agree with nursing and triage notes Were old charts reviewed (outside hosp., previous admission, EMS record, old EKG, old radiological studies, urgent care reports/EKG's, longterm records)? Report findings @ -Old charts reviewed Differential Diagnosis? @ -Differential Abdominal Pain Women: Appendicitis, Cholecystitis, diverticulosis, ischemic bowel, pancreatitis, hepatitis, UTI, gastroenteritis, AAA, incarcerated hernia, bowel obstruction, constipation, inflammatory bowel, hepatitis, peptic ulcer disease, splenic infarction, perforated viscus, vulvitis, ovarian torsion, PID, kidney stone, placenta abruption, this is not meant to be an all-inclusive list EKG interpreted by me (3pts min.). @ -Not done X-rays interpreted by me (1pt min.). @ -None done CT interpreted by me (1pt min.). @ -No significant findings of distention, bleed, fluid accumulation. Noted stomach distention with no notable sign of perforation. U/S interpreted by me (1pt. min.). @ -None done What testing was considered but not performed or refused? (CT, X-rays, U/S, labs)? Why? @ -None What meds were considered but not given or refused? Why? @ -None Did you discuss the management of the patient with other professionals (professionals i.e. , PA, STUDENT COUNSELOR, lab, RT, psych nurse, rn social work, civil lawyer, t eacher, correction officer penitentiary, piano case maker)? Give summary @ -Dr. Jameson, supervising physician Was smoking cessation discussed for >3mins.? @ -No Was critical care preformed (if so, how long)? @ -No Were there social determinants of health that impacted care today? How? (Homelessness, low income, unemployed, alcoholism, drug addiction, transportation, low edu. Level, literacy, decrease access to med. care, [facility], rehab)? @ -No Was there de-escalation of care discussed even if they declined (Discuss DNR or withdrawal of care, Hospice)? DNR status @ -No What co-morbidities impacted this encounter? (DM, HTN, Smoking, COPD, CAD, Cancer, CVA, ARF, Chemo, Hep., AIDS, mental health diagnosis, sleep apnea, morbid obesity)? @ -None Was patient admitted / discharged? Hospital course, mention meds given and route, prescriptions, significant lab abnormalities, going to OR and other pertinent info. @ -Discharge. 1 L fluid bolus, CT abdomen pelvis without contrast ordered. Pain has improved but nausea has persisted. Given reglan IVP once. Nausea and pain have improved. Discharged on 5 days of Reglan 5 mg p.o. and advised to follow- up with PCP and assembler brazer for further management outpatient. Undiagnosed new problem with uncertain prognosis? @ -No Drug Therapy requiring intensive monitoring for toxicity (Heparin, Nitro, Insulin, Cardizem)? @ -No Were any procedures done? @ -No Diagnosis/symptom? @ -[default] Acute, or Chronic, or Acute on Chronic? @ -Acute Uncomplicated (without systemic symptoms) or Complicated (systemic symptoms)? @ -Default Side effects of treatment? @ -No Exacerbation, Progression, or Severe Exacerbation? @ -No Poses a threat to life or bodily function? How? (Chest pain, [place], [place], pneumonia, PE, COPD, DKA, ARF, appy, cholecystitis, CVA, Diverticulitis, Homicidal, Suicidal, threat to staff... and all critical care pts) @ -No - Lab Data Result diagrams: 06/21/25 00:25 06/21/25 00:25 Lab Results 06/21/25 06/21/25 06/21/25 Range/Units 00:25 00:25 00:25 WBC 9.44 (4.50-10.00) 10*3/uL RBC 4.82 (4.10-5.20) 10*6/uL Hgb 13.3 (12.0-15.0) g/dL Hct 40.5 (37.2-46.3) % MCV 84.0 (80.0-97.0) fL MCH 27.6 (27.0-32.0) pg MCHC 32.8 (32.0-37.0) g/dL Plt Count 307 (140-440) 10*3/uL MPV 9.2 L (9.5-12.2) fL Immature Gran % (Auto) 0.4 % Neutrophils % 72.4 % Lymphocytes % 17.6 % Monocytes % 5.7 % Eosinophils % 2.9 % Basophils % 1.0 % Immature Gran # 0.04 (0.00-0.04) 10*3/uL Neutrophils # 6.84 (1.80-7.70) 10*3/uL Lymphocytes # 1.66 (0.90-5.00) 10*3/uL Monocytes # 0.54 (0.20-1.00) 10*3/uL Eosinophils # 0.27 (0.04-0.35) 10*3/uL Basophils # 0.09 (0.00-0.10) 10*3/uL PT (10.0-12.5) sec INR (<1.2) APTT (22.0-30.0) sec Sodium 135 L (137-145) mmol/L Potassium 4.2 (3.5-5.1) mmol/L Chloride 99 (98-107) mmol/L Carbon Dioxide 23 (22-30) mmol/L Anion Gap 13 mmol/L BUN 18 H (7-17) mg/dL Creatinine 0.63 (0.52-1.04) mg/dL Est GFR (CKD-EPI)AfAm >90 (>60 ml/min/1.73 sqM) Est GFR (CKD-EPI)NonAf >90 (>60 ml/min/1.73 sqM) Glucose 274 H (74-99) mg/dL Plasma Lactic Acid [place] 1.3 (0.7-2.0) mmol/L Calcium 9.9 (8.4-10.2) mg/dL Total Bilirubin 0.4 (0.2-1.3) mg/dL AST 37 H (14-36) U/L ALT 47 H (4-34) U/L Alkaline Phosphatase 130 H (38-126) U/L Total Protein 6.9 (6.3-8.2) g/dL Albumin 4.2 (3.5-5.0) g/dL Amylase 55 (30-110) U/L Lipase 74 (23-300) U/L Urine Color Urine Appearance (Clear) Urine pH (5.0-8.0) Ur Specific [place] (1.001-1.035) Urine Protein (Negative) Urine Glucose (UA) (Negative) Urine Ketones (Negative) Urine Blood (Negative) Urine Nitrite (Negative) Urine Bilirubin (Negative) Urine Urobilinogen (<2.0) mg/dL Ur Leukocyte Esterase (Negative) Urine RBC (0-5) /hpf Urine WBC (0-5) /hpf Ur Squamous Epith Cells (0-4) /hpf Amorphous Sediment (None) /hpf Urine Bacteria (None) /hpf Urine Mucus (None) /hpf Urine HCG, Qual (Not Detectd) 06/21/25 06/21/25 06/21/25 Range/Units 00:30 00:30 00:46 WBC (4.50-10.00) 10*3/uL RBC (4.10-5.20) 10*6/uL Hgb (12.0-15.0) g/dL Hct (37.2-46.3) % MCV (80.0-97.0) fL MCH (27.0-32.0) pg MCHC (32.0-37.0) g/dL Plt Count (140-440) 10*3/uL MPV (9.5-12.2) fL Immature Gran % (Auto) % Neutrophils % % Lymphocytes % % Monocytes % % Eosinophils % % Basophils % % Immature Gran # (0.00-0.04) 10*3/uL Neutrophils # (1.80-7.70) 10*3/uL Lymphocytes # (0.90-5.00) 10*3/uL Monocytes # (0.20-1.00) 10*3/uL Eosinophils # (0.04-0.35) 10*3/uL Basophils # (0.00-0.10) 10*3/uL PT 10.9 (10.0-12.5) sec INR 1.0 (<1.2) APTT 22.6 (22.0-30.0) sec Sodium (137-145) mmol/L Potassium (3.5-5.1) mmol/L Chloride (98-107) mmol/L Carbon Dioxide (22-30) mmol/L Anion Gap mmol/L BUN (7-17) mg/dL Creatinine (0.52-1.04) mg/dL Est GFR (CKD-EPI)AfAm (>60 ml/min/1.73 sqM) Est GFR (CKD-EPI)NonAf (>60 ml/min/1.73 sqM) Glucose (74-99) mg/dL Plasma Lactic Acid [place] (0.7-2.0) mmol/L Calcium (8.4-10.2) mg/dL Total Bilirubin (0.2-1.3) mg/dL AST (14-36) U/L ALT (4-34) U/L Alkaline Phosphatase (38-126) U/L Total Protein (6.3-8.2) g/dL Albumin (3.5-5.0) g/dL Amylase (30-110) U/L Lipase (23-300) U/L Urine Color Yellow Urine Appearance Clear (Clear) Urine pH 7.0 (5.0-8.0) Ur Specific [place] 1.026 (1.001-1.035) Urine Protein Trace H (Negative) Urine Glucose (UA) Trace H (Negative) Urine Ketones Negative (Negative) Urine Blood Negative (Negative) Urine Nitrite Negative (Negative) Urine Bilirubin Negative (Negative) Urine Urobilinogen 4.0 (<2.0) mg/dL Ur Leukocyte Esterase Small H (Negative) Urine RBC 1 (0-5) /hpf Urine WBC 4 (0-5) /hpf Ur Squamous Epith Cells 5 H (0-4) /hpf Amorphous Sediment Rare H (None) /hpf Urine Bacteria Rare H (None) /hpf Urine Mucus Rare H (None) /hpf Urine HCG, Qual Not Detected (Not Detectd) Disposition Clinical Impression: Abdominal pain Disposition: HOME SELF-CARE Condition: Good Instructions (If sedation given, give patient instructions): Abdominal Pain (ED) Additional Instructions: Every disease is a spectrum and a small chance still exists that a serious condition could develop, for this reason, please monitor yourself closely for new, changing or worsening symptoms, symptoms that persist beyond another 72 hours, bloody vomiting, worsening abdominal pain, chest pain, shortness of breath, bloody diarrhea, abdominal distention, fever >4 days, inability to tolerate/keep down fluids or your medications, inability to follow up with outpatient providers as instructed and should you experience these symptoms or should you have any further concerns for your wellbeing please return to the ED or call 911 immediately. PLEASE call your primary care physician as soon as possible to arrange / discuss plan for followup appointment. Appointment in the next 1-3 days is strongly encouraged if possible. PLEASE let us know here before you leave if there is anything further we can do to be of any assistance. Take care and feel Better! Prescriptions: Metoclopramide [Reglan] 5 mg PO ACHS #20 tab Is patient prescribed a controlled substance at d/c from ED?: No Referrals: None,Stated [Primary Care Provider] - 1-2 days Time of Disposition: 03:18
[2025-06-21 00:44] LABS: Basophils # (A) 0.09 10*3/uL (0.00-0.10); Basophils % (A) 1.0 %; Eosinophils # (A) 0.27 10*3/uL (0.04-0.35); Eosinophils % (A) 2.9 %; HCT 40.5 % (37.2-46.3); HGB 13.3 g/dL (12.0-15.0); Lymphocytes # (A) 1.66 10*3/uL (0.90-5.00); Lymphocytes % (A) 17.6 %; MCH 27.6 pg (27.0-32.0); MCHC 32.8 g/dL (32.0-37.0); MCV 84.0 fL (80.0-97.0); Monocytes # (A) 0.54 10*3/uL (0.20-1.00); Monocytes % (A) 5.7 %; Neutrophils # (A) 6.84 10*3/uL (1.80-7.70); Neutrophils % (A) 72.4 %; Platelet Count 307 10*3/uL (140-440); RBC 4.82 10*6/uL (4.10-5.20); RDW 13.3 % (11.5-14.5); WBC 9.44 10*3/uL (4.50-10.00)
[2025-06-21] MEDS: LACTATED RINGERS 1,000 ML IV ONE (00:48)
[2025-06-21] MEDS: ONDANSETRON 4 MG/2 ML VIAL IVP STA (00:48)
[2025-06-21] MEDS: HYDROmorphone 1 MG/ML 1 ML SYRINGE IVP STA (00:49)
[2025-06-21 00:56] LABS: ALT 47 U/L (4-34); AST 37 U/L (14-36); African American GFR (CKD) >90 (>60 ml/min/1.73 sqM); Albumin 4.2 g/dL (3.5-5.0); Alkaline Phosphatase 130 U/L (38-126); Amylase 55 U/L (30-110); Anion Gap 13 mmol/L; Blood Urea Nitrogen 18 mg/dL (7-17); Calcium 9.9 mg/dL (8.4-10.2); Carbon Dioxide 23 mmol/L (22-30); Chloride 99 mmol/L (98-107); Glucose 274 mg/dL (74-99); Lipase 74 U/L (23-300); Non-African American GFR(CKD) >90 (>60 ml/min/1.73 sqM); Potassium 4.2 mmol/L (3.5-5.1); Sodium 135 mmol/L (137-145); Total Protein 6.9 g/dL (6.3-8.2)
[2025-06-21 01:11] LABS: Amorphous Sediment,Urine Rare /hpf; Bacteria,Urine Rare /hpf; Bilirubin,Urine Negative (Negative); Blood,Urine Negative (Negative); Color,Urine Yellow; Glucose,Urine (UA) Trace (Negative); Ketones,Urine Negative (Negative); Leukocyte Esterase,Urine Small (Negative); Mucus,Urine Rare /hpf; Nitrite,Urine Negative (Negative); PH, Urine 7.0 (5.0-8.0); Protein,Urine Trace (Negative); RBC,Urine 1 /hpf (0-5); Specific Gravity,Urine 1.026 (1.001-1.035); Squamous Epithelial Cell,Urine 5 /hpf (0-4); Urobilinogen,Urine 4.0 mg/dL (<2.0); WBC,Urine 4 /hpf (0-5)
[2025-06-21 01:28] LABS: INR 1.0 (<1.2); Partial Thromboplastin Time 22.6 sec (22.0-30.0); Prothrombin Time 10.9 sec (10.0-12.5)
[2025-06-21] MEDS: METOCLOPRAMIDE 5 MG/ML 2 ML VIAL IVP STA (02:31)
[2025-06-21 03:45] VITALS: BP 114/52; PULSE 73; RESP 17; TEMP 97.9
--- NOTE | 2025-06-21 04:05 | CT ---
EXAM: CT Abdomen and Pelvis Without Intravenous Contrast CLINICAL HISTORY: Abdominal Pain TECHNIQUE: Axial computed tomography images of the abdomen and pelvis without intravenous contrast. CTDI is 22.8 mGy and DLP is 1554.8 mGy-cm. This CT exam was performed using one or more of the following dose reduction techniques: automated exposure control, adjustment of the mA and/or kV according to patient size, and/or use of iterative reconstruction technique. COMPARISON: CT abdomen and pelvis 02/19/2023 pelvic ultrasound 06/15/2025. FINDINGS: Lung bases: Unremarkable. No mass. No consolidation. ABDOMEN: Liver: Liver measures 21.1 cm. No visualized hepatic mass. Gallbladder and bile ducts: Cholecystectomy. No ductal dilation. Pancreas: Unremarkable. No ductal dilation. Spleen: Nonspecific splenomegaly, the spleen measures 16.3 cm. No visualized splenic mass. Adrenals: Unremarkable. No mass. Kidneys and ureters: Unremarkable. No obstructing stones. No hydronephrosis. Stomach and bowel: Unremarkable. No obstruction. No mucosal thickening. PELVIS: Appendix: No findings to suggest acute appendicitis. Bladder: Unremarkable. No stones. Reproductive: Redemonstrated bilobed 9.1 cm cystic lesion of the right adnexa. ABDOMEN and PELVIS: Intraperitoneal space: Unremarkable. No free air. No significant fluid collection. Bones/joints: There are degenerative changes of the spine. No acute fracture. No dislocation. Soft tissues: A small fat containing umbilical hernia is present. Vasculature: Unremarkable. No abdominal aortic aneurysm. Lymph nodes: Unremarkable. No enlarged lymph nodes. IMPRESSION: 1. Redemonstrated bilobed 9.1 cm cystic lesion of the right adnexa. If there is new suspicion of torsion since the prior ultrasound recommend repeat pelvic ultrasound. 2. Nonspecific hepatosplenomegaly.
== END 2025-06-21 03:45 | disposition home or self-care (01) ==
LOC: EC 23:45
DX: R10.13 Epigastric pain (principal); F17.200 Nicotine dependence, unspecified, uncomplicated; Z88.8 Allergy status to other drugs, medicaments and biological substances
CPT/HCPCS: 36415; 80053; 82150; 83605; 83690; 85025; 85610; 85730; 81001; 81025; 74176; 99284; 96374; 96375 ×2; 96361; J2765; J2405; J1171